=== PATIENT | female | born 1955 | race Caucasian/White ===

== ENCOUNTER 2016-04-04 20:22 | Inpatient (IN) ==
--- NOTE | 2016-04-04 20:57 | Emergency Department Note ---
Disposition Clinical Impression: Hyperbilirubinemia, Pancreatic mass, Pneumonia, Anemia Disposition: Admitted As Inpatient Chest Pain HPI - General Chief Complaint: ED Chest Pain Stated Complaint: chest pain, stefanie Time Seen by Provider: 04/04/16 20:40 Source: patient Limitations: no limitations Vital Signs Reviewed: Yes Nursing Notes Reviewed: Yes - History of Present Illness HPI Narrative: 60-year-old female presents to the emergency department with the chief complaint of chest pain. It started this morning while at rest. She reports a heart attack in the past. The pain is constant described as sharp. It does not radiate. She has a history of breast cancer where she underwent a mastectomy and radiation treatment. She has been in remission for 2 years. She reports weight loss and decreased appetite over the last several weeks. She is not having abdominal pain. Denies any diaphoresis. Severity scale (1-10): 10 - Related Data Home Medications Medication Instructions Recorded Confirmed Ibuprofen [Motrin] 600 mg PO TID 11/20/14 04/05/16 Metoprolol [Lopressor] 50 mg PO BID 11/20/14 04/05/16 Albuterol Sulfate [Ventolin Hfa] 2 puff IH Q4HR 04/05/16 04/05/16 Buprenorphine HCl/Naloxone HCl 1 each SL BID 04/05/16 04/05/16 [Suboxone 8 mg-2 mg Sl Film] Cyanocobalamin (Vitamin B-12) 100 mcg PO DAILY 04/05/16 04/05/16 [Vitamin B-12] Fluticasone/Vilanterol [Breo 1 inh IH DAILY 04/05/16 04/05/16 Ellipta 100-25 Mcg INH] Folic Acid 0.4 mg PO DAILY 04/05/16 04/05/16 Omeprazole Magnesium 20 mg PO QAM 04/05/16 04/05/16 Ropinirole HCl [Requip] 0.25 mg PO HS 04/05/16 04/05/16 Previous Rx's Medication Instructions Recorded Atorvastatin [Lipitor] 40 mg PO HS #30 tablet 11/24/14 Clopidogrel [Plavix] 75 mg PO DAILY #30 tablet 11/24/14 Allergies Allergy/AdvReac Type Severity Reaction Status Date / Time No Known Drug Allergies Allergy See Verified 02/04/16 10:52 Comments codeine AdvReac Severe shortness Verified 04/05/16 05:51 of breath All systems ED: reviewed and negative except as stated. Constitutional: Denies: fever Cardiovascular: Reports: chest pain. Denies: dyspnea on exertion Respiratory: Reports: cough. Denies: wheezes Gastrointestinal: Reports: abdominal pain, nausea. Denies: vomiting, hematochezia Genitourinary: Denies: urgency, dysuria Musculoskeletal: Denies: back pain Integumentary: Denies: rash Neurological: Denies: headache, weakness, numbness Endocrine: Reports: fatigue Chest Pain PMH - Past Medical History Medical history: Reports: cancer, CVA, hypertension, myocardial infarction, seizures Surgical history: Reports: appendectomy, breast surgery, cholecystectomy, colostomy, herniorrhaphy, orthopedic, other, other Psychiatric history: Reports: anxiety - Social History Smoking Status: Current some day smoker Alcohol use: Reports: none Drug use: Reports: none Physical Exam General: Thin appearing female, talkative and oriented 3 Cardiovascular: Regular rate and rhythm. S1, S2. No murmurs, rubs or gallops. Respiratory: Occasional expiratory wheeze bilaterally. Coarse cough on exam. No respiratory distress. Pulse ox 90% on room air. Abdomen: Soft, nontender. No guarding, rebound or rigidity. Normal bowel sounds throughout. Negative Lovelace's. No palpable organomegaly she has a bruise around her bellybutton and she has an old surgical scar from a colostomy. Eyes: Mild scleral icterus HENT: Normocephalic, no signs of head injury. No oral mucosal lesions. Moist mucous membranes Neuro: Cranial nerves intact. No motor or sensory deficit. Musculoskeletal: No joint tenderness or swelling Skin: No lesions. No diaphoresis. Normal turgor. Normal color Psych: Appropriate - General Limitations: no limitations General appearance: alert, in no apparent distress Course Course Narrative: 60-year-old female with a history of coronary artery disease and previous breast cancer presents to the emergency department with coughing and chest discomfort. Patient is Jaundice on initial examination but otherwise appeared comfortable and stable vital signs. Her EKG showed no acute ischemic changes and her troponin was not elevated. Patient states she has been coughing and having some chest discomfort and x-ray shows a lower lobe pneumonia. A CT scan was ordered of her abdomen because she has had decreased appetite and she appeared jaundiced. It appears that she has a new mass in her pancreas and she has some intrahepatic biliary dilation. Her AST, a LT and alkaline phosphatase are elevated. Her bilirubin is 6.7 which is new for her. Patient has painless jaundice and concern that this mass is a cancer/malignancy. Patient will be admitted for pancreatic mass, pneumonia, jaundice and anemia. Discussed with the on-call hospitalist who accepts for admission, no further orders at this time Vital Signs Temperature 97.7 F 04/04/16 20:24 Pulse Rate 86 04/04/16 20:24 Respiratory Rate 18 04/04/16 20:24 Blood Pressure 115/81 04/04/16 20:24 O2 Sat by Pulse Oximetry 95 04/04/16 20:24 Temperature 98.4 F 04/05/16 05:40 Pulse Rate 139 04/05/16 05:40 Respiratory Rate 18 04/05/16 05:40 Blood Pressure 99/64 04/05/16 05:40 O2 Sat by Pulse Oximetry 94 L 04/05/16 00:32 Oxygen Delivery Oxygen Delivery Nasal Cannula Chest Pain - Lab Data Result diagrams: 04/05/16 05:00 04/05/16 05:00 Lab Results 04/04/16 04/04/16 04/04/16 Range/Units 21:17 21:17 21:17 WBC 7.1 (4.3-11.1) K/mcL RBC 3.34 L (3.82-4.97) M/mcL Hgb 8.9 L (11.5-15.4) g/dL Hct 27.3 L (35.3-44.9) % MCV 81.7 L (83.0-100.0) fL MCH 26.6 L (28.0-33.3) pg MCHC 32.6 (31.6-35.5) g/dL RDW 15.9 H (11.5-14.5) % Plt Count 247 (140-400) K/mcL MPV 10.6 (9.4-12.4) fL Immature Gran % 0.6 (0-4) % Seg Neutrophils % 85.6 % Lymphocytes % 4.9 % Monocytes % 8.2 % Eosinophils % 0.4 % Basophils % 0.3 % Neutrophils # 6.1 (1.6-8.9) K/mcL Lymphocytes # 0.4 L (0.6-4.6) K/mcL Monocytes # 0.6 (0.0-1.3) K/mcL Eosinophils # 0.0 (0.0-0.6) K/mcL Basophils # 0.0 (0.0-0.2) K/mcL Platelet Estimate Normal (Normal) Hypochromasia Present A (Not Present) Target Cells 1+ A (Not Present) Sodium 136 (136-145) mEq/L Potassium 3.6 (3.5-4.5) mEq/L Chloride 101 (98-109) mEq/L Carbon Dioxide 27 (19-29) mEq/L BUN 24 H (7-20) mg/dL Creatinine 0.67 (0.57-1.11) mg/dL Est GFR ( Amer) > 60 (> 60) Est GFR (Non-Af Amer) > 60 (> 60) BUN/Creatinine Ratio 36 H (6-26) Glucose 115 H (70-99) mg/dL Calculated Osmolality 287 (280-300) Calcium 9.1 (8.6-10.8) mg/dL Total Bilirubin 6.7 H (0.2-1.2) mg/dL AST 118 H (5-34) Units/L ALT 99 H (0-55) Units/L Alkaline Phosphatase 1096 H (38-126) Units/L Troponin I 0.01 (0-0.03) ng/mL Serum Total Protein 6.4 (6.0-8.3) g/dL Albumin 1.9 L (3.5-5.0) g/dL Globulin 4.5 H (2.4-3.5) g/dL Albumin/Globulin Ratio 0.4 L (1.1-2.2) Lipase 7 L (8-78) Units/L TSH (0.350-4.840) mcIU/mL 04/04/16 Range/Units 21:17 WBC (4.3-11.1) K/mcL RBC (3.82-4.97) M/mcL Hgb (11.5-15.4) g/dL Hct (35.3-44.9) % MCV (83.0-100.0) fL MCH (28.0-33.3) pg MCHC (31.6-35.5) g/dL RDW (11.5-14.5) % Plt Count (140-400) K/mcL MPV (9.4-12.4) fL Immature Gran % (0-4) % Seg Neutrophils % % Lymphocytes % % Monocytes % % Eosinophils % % Basophils % % Neutrophils # (1.6-8.9) K/mcL Lymphocytes # (0.6-4.6) K/mcL Monocytes # (0.0-1.3) K/mcL Eosinophils # (0.0-0.6) K/mcL Basophils # (0.0-0.2) K/mcL Platelet Estimate (Normal) Hypochromasia (Not Present) Target Cells (Not Present) Sodium (136-145) mEq/L Potassium (3.5-4.5) mEq/L Chloride (98-109) mEq/L Carbon Dioxide (19-29) mEq/L BUN (7-20) mg/dL Creatinine (0.57-1.11) mg/dL Est GFR ( Amer) (> 60) Est GFR (Non-Af Amer) (> 60) BUN/Creatinine Ratio (6-26) Glucose (70-99) mg/dL Calculated Osmolality (280-300) Calcium (8.6-10.8) mg/dL Total Bilirubin (0.2-1.2) mg/dL AST (5-34) Units/L ALT (0-55) Units/L Alkaline Phosphatase (38-126) Units/L Troponin I (0-0.03) ng/mL Serum Total Protein (6.0-8.3) g/dL Albumin (3.5-5.0) g/dL Globulin (2.4-3.5) g/dL Albumin/Globulin Ratio (1.1-2.2) Lipase (8-78) Units/L TSH 1.061 (0.350-4.840) mcIU/mL Attestation Statement - Attestation Attestation: Dr rOozco note: Pt seen in conjunction w/ Resident Dr Yao Wayne; Please see his charting for complete documentation; I agree w/ pt's treatment and disposition and spent face to face time with the pt; CT scan results noted. This unfortunate patient has had a gradual decline over many months. She has unfortunately not sought medical care to a significant extent over the last few weeks. No vomiting. Diffuse jaundice noted. Showed poor prognosis. CT results are shared with the patient and family at bedside. Admitted to the hospital for further treatment and evaluation
[2016-04-04 21:26] LABS: Basophils % 0.3 %; Eosinophils % 0.4 %; Hematocrit 27.3 % (35.3-44.9); Hemoglobin 8.9 g/dL (11.5-15.4); Immature Granulocytes % 0.6 % (0-4); Lymphocytes # 0.4 K/mcL (0.6-4.6); Lymphocytes % 4.9 %; Mean Corpuscular HGB Conc 32.6 g/dL (31.6-35.5); Mean Corpuscular Hemoglobin 26.6 pg (28.0-33.3); Mean Corpuscular Volume 81.7 fL (83.0-100.0); Mean Platelet Volume 10.6 fL (9.4-12.4); Monocytes # 0.6 K/mcL (0.0-1.3); Monocytes % 8.2 %; Neutrophils # 6.1 K/mcL (1.6-8.9); Platelet Count 247 K/mcL (140-400); Red Blood Count 3.34 M/mcL (3.82-4.97); Red Cell Distribution Width 15.9 % (11.5-14.5); Segmented Neutrophils % 85.6 %
[2016-04-04 21:43] LABS: Alanine Aminotransferase 99 Units/L (0-55); Albumin/Globulin Ratio 0.4 (1.1-2.2); Alkaline Phosphatase 1096 Units/L (38-126); Aspartate Amino Transferase 118 Units/L (5-34); BUN/Creatinine Ratio 36 (6-26); Bilirubin,Total 6.7 mg/dL (0.2-1.2); Blood Urea Nitrogen 24 mg/dL (7-20); Calcium 9.1 mg/dL (8.6-10.8); Carbon Dioxide 27 mEq/L (19-29); Chloride 101 mEq/L (98-109); Globulin 4.5 g/dL (2.4-3.5); Glucose 115 mg/dL (70-99); Lipase 7 Units/L (8-78); Osmolality,Calculated 287 (280-300); Potassium 3.6 mEq/L (3.5-4.5); Sodium 136 mEq/L (136-145); Total Protein 6.4 g/dL (6.0-8.3); eGFR For African Americans > 60 (> 60); eGFR For Non-African Americans > 60 (> 60)
[2016-04-04 21:46] LABS: Albumin 1.9 g/dL (3.5-5.0)
[2016-04-04 21:55] LABS: Hypochromasia Present (Not Present)
[2016-04-04 21:56] LABS: Platelet Estimate Normal (Normal); Target Cells 1+ (Not Present)
[2016-04-04] MEDS ORDERED: Levofloxacin 750 MG/150 ML 750 MG/150 ML BAG IVPB ONE (22:24)
[2016-04-05] MEDS ORDERED: Naloxone 0.4 MG/ML INJ IVP PRN (01:03)
[2016-04-05] MEDS ORDERED: 0.9 % Sodium Chloride 1,000 ML IVC SCH (01:15)
--- NOTE | 2016-04-05 01:19 | Internal Med History&Physical ---
Date of Encounter: 04/05/16 Time of Encounter: 00:00 Assessment and Plan (1) Chest pain Current visit: Yes Status: Acute Patient initially presented to the ED with chest pain and has questionable history of stent placement in the past Does have Plavix listed on her home medications, however she says she has stopped taking this Possible ischemic in etiology as patient's hemoglobin was initially 8.9 upon admission, baseline around 12 Initial troponin has been negative, will repeat 2 Qualifiers: Qualified Code(s): R07.9 - Chest pain, unspecified (2) Pancreatic mass Current visit: Yes Status: Acute CT abdomen demonstrated a 1.3 cm cystic mass in the head and body of the pancreas, suspicious for malignancy Consult GI for possible ERCP; she did have this study performed 2 months ago where a sphincterotomy was performed as 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 Will obtain MRCP in the meantime Consult oncology given her history of breast cancer and possible new malignancy NPO for now, support with IVF (3) Community acquired pneumonia Current visit: Yes Status: Acute Chest x-ray and abdominal CT both demonstrate right lower lobe opacification Treat with IV Levaquin 750 mg daily Patient does not meet any SIRS criteria (4) Hyperbilirubinemia Current visit: Yes Status: Acute Likely secondary to pancreatic mass obstructing the biliary tract Patient had elevated bilirubin of 6.7, will confirm that it is a result of direct bilirubin MRCP and GI consult as above (5) HTN (hypertension) Current visit: No Status: Chronic Continue with Lopressor at lower dose given borderline blood pressures Monitor vitals closely while currently on fluid hydration Qualifiers: Qualified Code(s): I10 - Essential (primary) hypertension (6) DVT prophylaxis Current visit: No Status: Acute SCDs in setting of acute anemia Internal Medicine - H&P: HPI Chief complaint: chest pain Admitted From: Home Plans for Post Hospital Care: Home History of present illness: Ms. Lynn is a 60 year old female who presented to ER with chest pain started earlier this morning. She states that the pain was sharp and started while she was at rest. She does have a history of an [place] in the past and states this does not feel the same. Of note, patient has lost roughly 60-70 pounds in the past year due to poor appetite. He does have a history of breast cancer status post radiation and mastectomy and also previously had a colostomy due to a bowel obstruction. She states that shortly after she eats "2 or 3 bites" of food, she gets extremely bloated, and also complains of intermittent nausea, vomiting, diarrhea. She did mention about a month ago she had an ERCP done by Dr. 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 Patient also reports mild shortness of breath worse with exertion and a nonproductive cough. She denies any fevers, chills, bloody bowel movements or urinary complaints. Past Med Surg Social Fam HX - Past Medical History Medical history: cancer, CVA, hypertension, myocardial infarction, seizures Psychiatric history: anxiety, panic disorder - Past Surgical History Surgical History: appendectomy, breast surgery, cholecystectomy, colostomy, herniorrhaphy, orthopedic, other - Social History Smoking Status: Current some day smoker Smokeless Tobacco Status: No Alcohol use: none Drug use: none - Family History Mother Hx Family Cancer: Yes (Unspecified type) Father Living Status: Cause of : CVA Hx Family Cardiac Disorders: Yes Hx Family Respiratory Disorders: No Hx Family Cancer: Yes Hx Family GI Disorders: No Hx Family Genitourinary Disorders: No Hx Family Endocrine Disorder: No Hx Family Musculoskeletal Disorders: No Hx Family Neuromuscular Disorders: No Hx Family Neurologic Disorders: Yes Hx Family HEENT Disorders: No Hx Family Autoimmune Disorders: No Hx Family Reproductive Disorders: No Hx Family Medical Disorders: No Sister Hx Family Cardiac Disorders: Yes (Myocardial infarction) Internal Medicine - H&P: Meds Ibuprofen [Motrin] 600 mg PO TID 11/20/14 [History] Metoprolol [Lopressor] 50 mg PO BID 11/20/14 [History] Atorvastatin [Lipitor] 40 mg PO HS #30 tablet 11/24/14 [Rx] Clopidogrel [Plavix] 75 mg PO DAILY #30 tablet 11/24/14 [Rx] Albuterol Sulfate [Ventolin Hfa] 2 puff IH Q4HR 04/05/16 [History] Buprenorphine HCl/Naloxone HCl [Suboxone 8 mg-2 mg Sl Film] 1 each SL BID [History] Cyanocobalamin (Vitamin B-12) [Vitamin B-12] 100 mcg PO DAILY 04/05/16 [History] Fluticasone/Vilanterol [Breo Ellipta 100-25 Mcg INH] 1 inh IH DAILY 04/05/16 [ History] Folic Acid 0.4 mg PO DAILY 04/05/16 [History] Omeprazole Magnesium 20 mg PO QAM 04/05/16 [History] Ropinirole HCl [Requip] 0.25 mg PO HS 04/05/16 [History] Allergies No Known Drug Allergies Allergy (Verified 02/04/16 10:52) See Comments codeine Adverse Reaction (Severe, Verified 04/05/16 05:51) shortness of breath All Systems PM: A 10-system review of systems was performed and is negative for pertinent findings except as documented above in the HPI. - Constitutional Constitutional: anorexia, lethargy, weight loss (lost 60+ pounds in past 1-2 years), no chills, no fever(s), no night sweats - EENT Eyes: no change in vision, no discharge, no pain, no photophobia Ears: no ear discharge, no ear pain, no tinnitus Nose, mouth and throat: no dysphagia, no nasal discharge, no neck pain, no sore throat - Cardiovascular Cardiovascular ROS IM: chest pain, dyspnea on exertion, edema, no diaphoresis, no dyspnea, no lightheadedness, no palpitations, no syncope - Respiratory Respiratory: cough, no dyspnea, no wheezing, no excessive phlegm production - Gastrointestinal Gastrointestinal: abdominal pain, bloating, diarrhea, nausea, vomiting, no hematemesis, no hematochezia, no melena - Genitourinary Genitourinary: no change in urinary stream, no dysuria, no flank pain, no hematuria - Musculoskeletal Musculoskeletal ROS IM: no numbness, no tingling - Integumentary Integumentary IM: no rash, no unusual bruising - Neurological Neurological ROS: no confusion, no convulsions, no focal weakness, no numbness, no tingling, no tremor(s) - Hematologic/Lymphatic Hematologic/Lymphatic: easy bruising - Constitutional Vitals: Temp Pulse Resp BP Pulse Ox 97.7 F 83 15 109/70 94 L 04/05/16 00:32 04/05/16 00:32 04/05/16 00:32 04/05/16 00:32 04/05/16 00:32 General appearance: Present: cachectic, cooperative, pleasant, no acute distress , answers questions appropriately - Head Head exam: Present: atraumatic, normocephalic - Eye Eye exam: Present: PERRL, conjuntiva pink, sclera anicteric - Neck Neck exam general surgery: Present: supple, trachea midline. Absent: lymphadenopathy - Respiratory Respiratory exam: Present: CTAB. Absent: accessory muscle use, rales, rhonchi, wheezes - Cardiovascular Cardiovascular exam: Present: RRR, +S1, +S2. Absent: diastolic murmur, gallop, rubs, systolic murmur - GI/Abdominal GI/Abdominal exam: Present: normal bowel sounds, soft, no peritoneal signs. Absent: distended, tenderness - Extremities Exam Extremities exam: Present: pedal edema (trace pitting edema BL LE), warm, radial pulses palpable and symetrical. Absent: calf tenderness, cyanotic - Neurological Exam Neurological exam: Present: alert, CN II-XII intact, oriented X3, no focal deficits. Absent: pronater drift, facial droop, speech deficit - Skin Skin exam: Present: dry, intact Internal Med - H&P Results - Labs CBC & Chem 7: 04/05/16 05:00 04/04/16 21:17
[2016-04-05] MEDS ORDERED: *HR* Morphine 2 MG/ML SYRINGE IVP PRN (01:21)
[2016-04-05] MEDS ORDERED: *HR* Morphine 2 MG/ML SYRINGE IVP SCH (04:00)
--- NOTE | 2016-04-05 04:20 | Event Note ---
Date of Encounter: 04/05/16 Time of Encounter: 04:18 Patient seen and examined with medical sales representative. Patients presents mainly complaining of chest pain. She was found to have obstructive jaundice. There is cystic masses in the head and body of pancreas. 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 Patient appetite is poor she has lost a significant amount of weights. About 60 to 70 pounds in the past couple of years. Suspicion for malignancy. MRCP performed. Consult oncology. Consult gastroenterology unless she will likely need to be very spent. Patient is on Plavix for a prior cardiac stent. I will hold this Plavix for now. We will get records for the onset of the cardiac stent is not very clear. Patients also has an right lower lobe pneumonia she will be treated with levaqin.
[2016-04-05] MEDS ORDERED: *HR* Metoprolol 5 MG/5 ML VIAL IVP ONE (05:32)
[2016-04-05] MEDS ORDERED: 0.9 % Sodium Chloride 1,000 ML IV ONE (05:33)
[2016-04-05] MEDS ORDERED: *HR* Morphine 2 MG/ML SYRINGE IVP ONE (05:35)
[2016-04-05 05:37] LABS: Monocytes % 1.3 %
[2016-04-05 05:39] LABS: Eosinophils % 0.6 %; Hematocrit 31.8 % (35.3-44.9); Hemoglobin 10.2 g/dL (11.5-15.4); Immature Granulocytes % 21.9 % (0-4); Lymphocytes # 0.3 K/mcL (0.6-4.6); Lymphocytes % 17.4 %; Mean Corpuscular HGB Conc 32.1 g/dL (31.6-35.5); Mean Corpuscular Hemoglobin 26.3 pg (28.0-33.3); Mean Platelet Volume 10.6 fL (9.4-12.4); Neutrophils # 0.9 K/mcL (1.6-8.9); Platelet Count 232 K/mcL (140-400); Red Blood Count 3.88 M/mcL (3.82-4.97); Segmented Neutrophils % 58.8 %
[2016-04-05 05:41] LABS: INR 1.6; Prothrombin Time 17.2 Seconds (9.4-12.1)
[2016-04-05 05:43] LABS: Activated Partial Thrombo Time 29.3 Seconds (26.0-36.0)
[2016-04-05] MEDS: Ondansetron 4 MG/2 ML VIAL IVP PRN (05:58)
[2016-04-05 06:11] LABS: Alanine Aminotransferase 110 Units/L (0-55); Albumin/Globulin Ratio 0.4 (1.1-2.2); Alkaline Phosphatase 1167 Units/L (38-126); Aspartate Amino Transferase 138 Units/L (5-34); BUN/Creatinine Ratio 42 (6-26); Bilirubin,Direct 6.8 mg/dL (0.0-0.5); Bilirubin,Total 8.6 mg/dL (0.2-1.2); Blood Urea Nitrogen 27 mg/dL (7-20); Carbon Dioxide 22 mEq/L (19-29); Chloride 103 mEq/L (98-109); Glucose 66 mg/dL (70-99); Osmolality,Calculated 287 (280-300); Potassium 3.8 mEq/L (3.5-4.5); Sodium 137 mEq/L (136-145); eGFR For African Americans > 60 (> 60); eGFR For Non-African Americans > 60 (> 60)
[2016-04-05 06:24] LABS: Anisocytosis 1+ (Not Present); Poikilocytosis 1+ (Not Present); Polychromasia 1+ (Not Present)
[2016-04-05 06:25] LABS: Platelet Estimate Normal (Normal)
--- NOTE | 2016-04-05 06:26 | Event Note ---
Date of Encounter: 04/05/16 Time of Encounter: 05:40 Paged by nurse concerning patient's chest pain which was 10 out of 10 and she was tachycardic on telemetry and heart rates of 130s. She was given 1 dose of morphine 1 mg IV but she stated that it did not help her pain. EKG was performed at bedside which confirmed the sinus tachycardia and showed possible ST depression in inferior leads that was not evident on her EKG when she initially presented to the ER. Patient was given an additional milligram of morphine along with 2.5 mg of IV metoprolol help control her heart rate. She was bolused 1 L of normal saline and given a dose of Plavix. Troponin was also collected as part of her chest pain rule out. CT angiogram was also ordered to rule out pulmonary embolism.
[2016-04-05] MEDS ORDERED: Pantoprazole 40 MG VIAL IVP SCH ×3 (07:30→09:00)
--- NOTE | 2016-04-05 08:16 | Gastroenterology Consult Note ---
<Joanna Whyte - Last Filed: 04/05/16 11:27> Date of Encounter: 04/05/16 Time of Encounter: 10:35 - Assessment and plan (1) Obstructive jaundice Current Visit: Yes Status: Acute Assessment and plan: MRCP today (2) Anemia Current Visit: Yes Status: Acute Assessment and plan: Initially 8.9 on presentation, currently 10.2. Check Fe profile. Qualifiers: Anemia type: unspecified type Qualified Code(s): D64.9 - Anemia, unspecified (3) Pancreatic mass Current Visit: Yes Status: Acute Assessment and plan: CA markers ordered. MRCP pending. - Time Spent With Patient Total time spent is greater than 50% in coordination of care (as documented) at patient's floor/unit and/or counseling patient: less than 15 minutes GI History of Present Illness - Data of Consult Patient: known to practice within the last 3 years Consult date: 04/05/16 Requesting Physician: Ezio Kumar MD - Consult Narrative Reason for consult: Pancreatic mass, obstructive jaundice History of present illness: Ms. Lynn is a 60 year old female with a PMH of [place] (on Plavix), seizure, CVA , hx of breast ca s/p mastectomy and chemoradiation, hx of bowel obstruction, who presented to ER with chest pain started earlier this morning. She states that the pain was sharp and started while she was at rest. Of note, patient has lost roughly 60-70 pounds in the past year due to poor appetite. She states that shortly after she eats "2 or 3 bites" of food, she gets extremely bloated, and also complains of intermittent nausea, vomiting, diarrhea. Patient also reports mild shortness of breath worse with exertion and a nonproductive cough. She denies any fevers, chills, bloody bowel movements or urinary complaints. She is well-known to GI practice, recently seeing Dr. Streeter in office consultation 03/14/16 at which time a GES was ordered due to patient complaint of early satiety. She was diagnosed with unintentional weight loss, dilation of the biliary tract (which appears stable in current imaging), chronic gastritis, dilated PD, upper abdominal pain and abdominal fullness. She underwent EGD, ERCP and EUS in January, with Dr. Streeter. 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 On todays imaging, there is a 1.3 cm mass in the pancreatic head. Alk phos is grossly elevated at 1167, bilirubin is 8.6. Both AST and ALT are elevated. She has profound leukopenia on am labs, mild anemia. Patient denies any recent medication changes or additions. She came into the ED due to chest pain and dyspnea. She has chronic history of N/V/D - but no substantial changes in those GI symptoms during this event. Colonoscopy: 2012 - Sever - suboptimal exam due to poor prep EGD: 01/2016 - Gul - gastritis, peptic duodenitis Past Med Surg Social Fam HX - Past Medical History Medical history: cancer, CVA, hypertension, myocardial infarction, seizures Psychiatric history: anxiety, panic disorder - Past Surgical History Surgical History: appendectomy, breast surgery, cholecystectomy, colostomy, herniorrhaphy, orthopedic, other - Social History Smoking Status: Current some day smoker Smokeless Tobacco Status: No Alcohol use: none Drug use: none - Family History Mother Hx Family Cancer: Yes (Unspecified type) Father Living Status: Cause of : CVA Hx Family Cardiac Disorders: Yes Hx Family Respiratory Disorders: No Hx Family Cancer: Yes Hx Family GI Disorders: No Hx Family Genitourinary Disorders: No Hx Family Endocrine Disorder: No Hx Family Musculoskeletal Disorders: No Hx Family Neuromuscular Disorders: No Hx Family Neurologic Disorders: Yes Hx Family HEENT Disorders: No Hx Family Autoimmune Disorders: No Hx Family Reproductive Disorders: No Hx Family Medical Disorders: No Sister Hx Family Cardiac Disorders: Yes (Myocardial infarction) - Gastrointestinal NSAID use: None noted Anticoagulation Use: PLAVIX Number of BM Per Day: variable Gastrointestinal: Present: abdominal pain, bloating, diarrhea, nausea, vomiting - Constitutional Constitutional: anorexia, weight loss - EENT Eyes: as per HPI Ears: Present: as per HPI Nose, mouth and throat: Present: as per HPI - Cardiovascular Cardiovascular ROS: Present: chest pain - Respiratory Respiratory IM: Present: dyspnea - Neurological ROS Neurological GI: Present: as per HPI - Hematologic/Lymphatic Hematologic/Lymphatic pediatric: Present: as per HPI - Musculoskeletal Musculoskeletal ROS GI: Present: as per HPI - Integumentary Integumentary GI: Present: as per HPI - Psychiatric ROS Psychiatric GI: Present: as per HPI - Endocrine Endocrine IM: Present: as per HPI - Constitutional Vitals: Temp Pulse Resp BP Pulse Ox 98.7 F 107 16 120/77 96 04/05/16 07:52 04/05/16 07:52 04/05/16 07:52 04/05/16 07:52 04/05/16 07:52 General appearance: Present: cachectic, cooperative, A&O X 3, no acute distress , answers questions appropriately - Head Head exam: Present: atraumatic, normocephalic - Eye Eye exam: Present: scleral icterus - ENT ENT exam: Present: mucous membranes moist - Neck Neck exam general surgery: Present: normal inspection, trachea midline - Respiratory Respiratory exam: Present: CTAB - Cardiovascular Cardiovascular exam: Present: +S1, +S2, tachycardia - GI/Abdominal GI/Abdominal exam: Present: soft, tenderness, no peritoneal signs - Rectal Rectal exam: Present: deferred - Extremities Exam Extremities exam: Present: warm - Neurological Exam Neurological exam: Present: no focal deficits - Psychiatric Psychiatric exam: Present: normal affect, normal mood - Skin Additional comments: jaundice Results - Labs CBC & Chem 7: 04/05/16 09:45 04/05/16 05:00 Labs: Last Result Calcium 9.0 mg/dL (8.6-10.8) 04/05/16 05:00 Troponin I 0.00 ng/mL (0-0.03) 04/05/16 05:00 Entire Visit Hgb 10.2 g/dL (11.5-15.4) L 04/05/16 05:00 Hct 31.8 % (35.3-44.9) L 04/05/16 05:00 PT 17.2 Seconds (9.4-12.1) H 04/05/16 05:00 Total Bilirubin 8.6 mg/dL (0.2-1.2) H 04/05/16 05:00 AST 138 Units/L (5-34) H 04/05/16 05:00 ALT 110 Units/L (0-55) H 04/05/16 05:00 Lipase 7 Units/L (8-78) L 04/04/16 21:17 - ABG ABG results: PT/INR, D-dimer PT 17.2 Seconds (9.4-12.1) H 04/05/16 05:00 - Impressions Impressions Chest CTA 04/05/16 05:29 IMPRESSION: No definite pulmonary embolus Multifocal pneumonia, greatest in right lower lobe. Mild mediastinal adenopathy, unchanged from chest CT 10/15/2015 D/ / Rom Najera MD / Rom Najera MD Interpreting Provider: Rom Najera MD Consult Discharge Plan - Plan Referrals: Mona Mitchell MD [Primary Care Provider] - <[email or web address] - Last Filed: 04/05/16 18:19> Date of Encounter: 04/05/16 Time of Encounter: 17:00 - Time Spent With Patient Total time spent is greater than 50% in coordination of care (as documented) at patient's floor/unit and/or counseling patient: GI History of Present Illness - Data of Consult Requesting Physician: Topher Roque DO - Consult Narrative History of present illness: Ms. Lynn is a 60 year old female - Constitutional Vitals: Temp Pulse Resp BP Pulse Ox 97.9 F 94 20 110/75 99 04/05/16 11:04 04/05/16 11:04 04/05/16 11:04 04/05/16 11:04 04/05/16 11:04 Results - Labs CBC & Chem 7: 04/05/16 09:45 04/05/16 05:00 Labs: Last Result Calcium 9.0 mg/dL (8.6-10.8) 04/05/16 05:00 Iron 8 mcg/dL (50-170) L 04/05/16 12:42 % Saturation 5 % (15-50) L 04/05/16 12:42 Transferrin 110 mg/dL (180-382) L 04/05/16 12:42 Troponin I 0.01 ng/mL (0-0.03) 04/05/16 09:45 Entire Visit Hgb 8.6 g/dL (11.5-15.4) L D 04/05/16 09:45 Hct 26.6 % (35.3-44.9) L 04/05/16 09:45 PT 17.2 Seconds (9.4-12.1) H 04/05/16 05:00 Total Bilirubin 8.6 mg/dL (0.2-1.2) H 04/05/16 05:00 AST 138 Units/L (5-34) H 04/05/16 05:00 ALT 110 Units/L (0-55) H 04/05/16 05:00 Lipase 7 Units/L (8-78) L 04/04/16 21:17 - ABG ABG results: PT/INR, D-dimer PT 17.2 Seconds (9.4-12.1) H 04/05/16 05:00 - Impressions Impressions Chest CTA 04/05/16 05:29 IMPRESSION: No definite pulmonary embolus Multifocal pneumonia, greatest in right lower lobe. Mild mediastinal adenopathy, unchanged from chest CT 10/15/2015 D/ / Rom Najera MD / Rom Najera MD Interpreting Provider: Rom Najera MD - Attending Attestation I examined this patient and my medical decision-making was reviewed with the INSPECTOR [employer]OPE/PA/Advanced Practice Nurse/Resident Physician. I agree with the documented findings, disposition and treatment plan as described except to the extent set forth below. Patient with abdominal pain and jaundice and double duct sign. Weight loss and imaging concerning for possible mass in the neck region of the pancreas. Recommendation: EUS with ERCP tomorrow with biopsy of the mass
[2016-04-05] MEDS ORDERED: *HR* HYDROmorphone (PF) 1 MG/ML SYRINGE IVP PRN (09:27)
[2016-04-05] MEDS: D5% in 0.45% NACL 1,000 ML IVC SCH (09:48)
[2016-04-05] MEDS: *HR* Morphine 2 MG/ML SYRINGE IVP SCH ×3 (09:48→13:22)
[2016-04-05] MEDS: Cyanocobalamin (B-12) 1,000 MCG TABLET PO SCH (09:48)
[2016-04-05] MEDS: Folic Acid 1 MG TABLET PO SCH (09:48)
[2016-04-05 09:53] LABS: Basophils % 0.1 %; Hematocrit 26.6 % (35.3-44.9); Immature Granulocytes % 1.6 % (0-4); Lymphocytes # 0.3 K/mcL (0.6-4.6); Lymphocytes % 2.6 %; Mean Corpuscular HGB Conc 32.3 g/dL (31.6-35.5); Mean Corpuscular Hemoglobin 26.6 pg (28.0-33.3); Mean Corpuscular Volume 82.4 fL (83.0-100.0); Mean Platelet Volume 10.4 fL (9.4-12.4); Monocytes # 0.5 K/mcL (0.0-1.3); Monocytes % 4.7 %; Neutrophils # 8.7 K/mcL (1.6-8.9); Platelet Count 186 K/mcL (140-400); Red Blood Count 3.23 M/mcL (3.82-4.97)
[2016-04-05 09:54] LABS: Hemoglobin 8.6 g/dL (11.5-15.4)
[2016-04-05 10:16] LABS: Platelet Estimate Normal (Normal)
--- NOTE | 2016-04-05 12:57 | Electrocardiograph Report ---
[address] [address] Test Date: 2016-04-04 Pat Name: Brennan Lynn Department: 104 Room: 2NE26 Gender: F Pattern Checker: : 1955 Requested By: Yao Wayne Order Number: [id number] Reading MD: Jinny Frazier Measurements Intervals [place] Rate: 78 P: 84 [place]: 112 QRS: 88 QRSD: 88 T: 56 QT: 402 QTc: 435 Interpretive Statements SINUS RHYTHM WITH SHORT [place] INTERVAL POSSIBLE LEFT ATRIAL ENLARGEMENT NONSPECIFIC T-WAVE ABNORMALITY Electronically Signed On 04-05-2016 12:56:12 EST by Jinny Frazier
--- NOTE | 2016-04-05 13:02 | Electrocardiograph Report ---
[address] [address] Test Date: 2016-04-05 Pat Name: Brennan Lynn Department: 111 Room: E26 Gender: F Farm Crew Member: : 1955 Requested By: Yao Wayne Order Number: [id number] Reading MD: Jinny Frazier Measurements Intervals [place] Rate: 133 P: 84 RI: 99 QRS: 89 QRSD: 86 T: 29 QT: 284 QTc: 362 Interpretive Statements SINUS TACHYCARDIA WITH SHORT [place] INTERVAL NONSPECIFIC ST \T\ T-WAVE ABNORMALITY ABNORMAL RHYTHM ECG Electronically Signed On 04-05-2016 12:59:53 EST by Jinny Frazier
[2016-04-05 13:04] LABS: % Iron Saturation 5 % (15-50); Iron 8 mcg/dL (50-170); Transferrin 110 mg/dL (180-382)
[2016-04-05] MEDS ORDERED: Nicotine 14 MG PATCH.TD24 TD PRN (14:17)
--- NOTE | 2016-04-05 14:56 | Internal Med Progress Note ---
<Lobo Astudillo - Last Filed: 04/05/16 16:48> Date of Encounter: 04/05/16 Time of Encounter: 09:40 - Assessment and plan (1) Pancreatic mass Current Visit: Yes Status: Acute Assessment and plan: CT of abdomen/pelvis showed stable intrahepatic biliary ductal dilation and distal pancreatic ductal dilation, 1.3 cm cystic foci in head and body of the pancreas, dilated appearance of distal pancreatic duct. Patient takes suboxone for pain management-goes to clinic in [place]. SHe has lost 60-70 pounds int he last year due to poor appetite. She states she feels "bloated" whenever she eats. Will try a trial of Creon with meals. COnsult to palliative care for pain control. Patient recently had ERCP with sphincterotomy ofr papillary stenosis. MRCP pending. COnsult to GI for recommendations. CA 19-9 pending. Plan to get oncology on board tomorrow. Of note, patient has hx of breast cancer. (2) Hyperbilirubinemia Current Visit: Yes Status: Acute Assessment and plan: plan as above. (3) Obstructive jaundice Current Visit: Yes Status: Acute Assessment and plan: plan as #1 above. (4) Anemia Current Visit: Yes Status: Acute Assessment and plan: Patient's Hg measured at 8.6. Her baseline Hg is around 12-13. MCV was 82.4, with hypochromasia, TSH normal. Iron studies show low iron, %saturation, transferrin. Ferrous sulfate TID with meals. Qualifiers: Anemia type: unspecified type Qualified Code(s): D64.9 - Anemia, unspecified (5) Chest pain Current Visit: Yes Status: Acute Assessment and plan: Patient initially came in with CP. CTA negative for PE. possible ischemic etiology in setting of Anemia. Tropes x3 negative. Continue to monitor, continue with iron replacement. Qualifiers: Chest pain type: unspecified Qualified Code(s): R07.9 - Chest pain, unspecified (6) Community acquired pneumonia Current Visit: Yes Status: Acute Assessment and plan: CXR shows right lower lobe opacification. Levaquin 750 daily- Day 1. blood cultures x2 pending. Patient does not currently meet SIRS criteria. Continue to monitor. Will check lactate and trend. (7) HTN (hypertension) Current Visit: No Status: Chronic Assessment and plan: Continue Lopressor. Qualifiers: Hypertension type: essential hypertension Qualified Code(s): I10 - Essential (primary) hypertension (8) Goals of care, counseling/discussion Current Visit: Yes Status: Acute Assessment and plan: Patient is currently full code. Palliative care was consulted to discuss goals of care. For now, patient and family state that patient would like to stay full code. Will continue ongoing discussion based on MRCP results. Palliative care is managing the patient's pain control. (9) DVT prophylaxis Current Visit: No Status: Acute Assessment and plan: EPCDs - Time Spent With Patient less than 15 minutes - Subjective Interval history: 60 year old female evaluated at bedside. She was admitted last night with chest pain and intermittent nausea/vomiting/diarrhea. About 1 month ago ad an ERCP done by Dr. Streeter with sphincterotomy for papillary stenosis. Today, patient is alert and oriented x3, states she "feels better." She reports some chest pain , and pain in her shoulders and abdomen. Patient has noticeable jaundice with scleral icterus. She denies current nausea, vomiting, diarrhea or fever. She admits to having chills. Her pain is about 7/10. - Constitutional Vitals: Temp Pulse Resp BP Pulse Ox 97.9 F 94 20 110/75 99 04/05/16 11:04 04/05/16 11:04 04/05/16 11:04 04/05/16 11:04 04/05/16 11:04 General appearance: Present: cachectic, cooperative, A&O X 3, pleasant, no acute distress, answers questions appropriately - Head Head exam: Present: atraumatic, normocephalic - Eye Eye exam: Present: scleral icterus - Neck Neck exam general surgery: Present: supple, trachea midline - Respiratory Additional comments: right upper lobe wheezing. Decreased breath sounds in left lower lobe. - Cardiovascular Cardiovascular exam: Present: +S1, +S2, tachycardia Additional comments: chemo port present on left side of chest. - GI/Abdominal GI/Abdominal exam: Present: normal bowel sounds, soft, tenderness. Absent: distended Additional comments: sacr present down mid-abdomen. Mid abdominal bruising present from heating pad. Severe epigastric tenderness to palpation. - Extremities Exam Additional comments: clubbing present. Delayed capillary refill. Left ankle appears more swollen than right. Internal Medicine: Result - Labs CBC & Chem 7: 04/05/16 09:45 04/05/16 05:00 Labs: Short CBC 04/05/16 04/05/16 Range/Units 05:00 09:45 WBC 1.6 L D 9.5 D (4.3-11.1) K/mcL Hgb 10.2 L 8.6 L D (11.5-15.4) g/dL Hct 31.8 L 26.6 L (35.3-44.9) % Plt Count 232 186 (140-400) K/mcL Neutrophils # 0.9 L 8.7 (1.6-8.9) K/mcL BMP 04/05/16 05:00 Sodium 137 Potassium 3.8 Chloride 103 Carbon Dioxide 22 BUN 27 H Creatinine 0.65 Glucose 66 L Calcium 9.0 Cardiac Enzymes 04/05/16 04/05/16 Range/Units 05:00 09:45 Troponin I 0.00 0.01 (0-0.03) ng/mL Liver Function 04/05/16 Range/Units 05:00 Total Bilirubin 8.6 H (0.2-1.2) mg/dL Direct Bilirubin 6.8 H (0.0-0.5) mg/dL AST 138 H (5-34) Units/L ALT 110 H (0-55) Units/L Alkaline Phosphatase 1167 H (38-126) Units/L Albumin 2.0 L (3.5-5.0) g/dL - ABG Interpretation ABG results: PT/INR, D-dimer PT 17.2 Seconds (9.4-12.1) H 04/05/16 05:00 - Impressions Impressions Chest CTA 04/05/16 05:29 IMPRESSION: No definite pulmonary embolus Multifocal pneumonia, greatest in right lower lobe. Mild mediastinal adenopathy, unchanged from chest CT 10/15/2015 D/ / Rom Najera MD / Rom Najera MD Interpreting Provider: Rom Najera MD Consult Discharge Plan - Plan Referrals: Mona Mitchell MD [Primary Care Provider] - <Topher Roque - Last Filed: 04/05/16 18:30> Date of Encounter: 04/05/16 - Constitutional Vitals: Temp Pulse Resp BP Pulse Ox 97.9 F 94 20 110/75 99 04/05/16 11:04 04/05/16 11:04 04/05/16 11:04 04/05/16 11:04 04/05/16 11:04 Internal Medicine: Result - Labs CBC & Chem 7: 04/05/16 09:45 04/05/16 05:00 Labs: Short CBC 04/05/16 04/05/16 Range/Units 05:00 09:45 WBC 1.6 L D 9.5 D (4.3-11.1) K/mcL Hgb 10.2 L 8.6 L D (11.5-15.4) g/dL Hct 31.8 L 26.6 L (35.3-44.9) % Plt Count 232 186 (140-400) K/mcL Neutrophils # 0.9 L 8.7 (1.6-8.9) K/mcL BMP 04/05/16 05:00 Sodium 137 Potassium 3.8 Chloride 103 Carbon Dioxide 22 BUN 27 H Creatinine 0.65 Glucose 66 L Calcium 9.0 Cardiac Enzymes 04/05/16 04/05/16 Range/Units 05:00 09:45 Troponin I 0.00 0.01 (0-0.03) ng/mL Liver Function 04/05/16 Range/Units 05:00 Total Bilirubin 8.6 H (0.2-1.2) mg/dL Direct Bilirubin 6.8 H (0.0-0.5) mg/dL AST 138 H (5-34) Units/L ALT 110 H (0-55) Units/L Alkaline Phosphatase 1167 H (38-126) Units/L Albumin 2.0 L (3.5-5.0) g/dL - ABG Interpretation ABG results: PT/INR, D-dimer PT 17.2 Seconds (9.4-12.1) H 04/05/16 05:00 - Impressions Impressions Chest CTA 04/05/16 05:29 IMPRESSION: No definite pulmonary embolus Multifocal pneumonia, greatest in right lower lobe. Mild mediastinal adenopathy, unchanged from chest CT 10/15/2015 D/ / Rom Najera MD / Rom Najera MD Interpreting Provider: Rom Najera MD - Attending Attestation I examined this patient and my medical decision-making was reviewed with the Resident Physician on 04/05/16. I agree with the documented findings, disposition and treatment plan as described except to the extent set forth below. Ms. Lynn was admitted earlier today for abdominal pain and chest pain and found to have a pancreatic mass. She is high risk due to pancreatic mass and potential complications. Ms. Lynn is comfortable currently. Pain is controlled at this time. No other complaints. Exam Alert. Comfortable Heart reg No wheeze No edema I/P 1. Pancreatic mass 2. Severe protein karla malnutrition 3. Weight loss 4. Diarrhea Further diagnoses and plan as above.
--- NOTE | 2016-04-05 15:32 | Palliative - Consult Note ---
Date of Encounter: 04/05/16 Time of Encounter: 15:30 - Assessment and Plan (1) Chest pain Current Visit: Yes Status: Acute Assessment and plan: in all likelyhhod is due to abdonimal process mostl likely the pancreas. Plan to stop the Suboxone, use as needed morphine 4 mg every hour when necessary pain and on stopping the Dilaudid as he has not needed it. She says that the morphine has been helping. There is no need to taper the Suboxone, as the patient is continuing to get opioid. Qualifiers: Qualified Code(s): R07.9 - Chest pain, unspecified (2) Pancreatic mass Current Visit: Yes Status: Acute Assessment and plan: Or endoscopy this evening to investigate this further. Oncology is also been consulted. (3) Community acquired pneumonia Current Visit: Yes Status: Acute Assessment and plan: Under treatment per hospitalist team continue current medications. (4) Obstructive jaundice Current Visit: Yes Status: Acute Assessment and plan: Due to pancreatic mass, there is a endoscopy scheduled for this evening. Continue to follow gastrointestinal is following as well. Palliative-CN HPI - Data of Consult Patient: new to practice Requesting Physician: Topher Roque DO Primary Care Provider: Mona Mitchell - Consult Narrative Palliative Care/Comfort Measures: Palliative care Reason for consult: Pain control, goals of care, CODE STATUS History of present illness: Ms. Lynn is a 60 year old female The history of breast cancer which she was treated with chemotherapy and then when it recurred in 2009 also radiation. Patient still has support but reportedly has not used it for quite a while. Was seen approximately a month ago by Dr. 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 The patient presents with chest pain and high abdominal pain sharp in nature made better with rest and better with medication. It is associated with nausea and some vomiting. Worse with a deep breath and better with shallow breaths pain is gotten markedly worse over just the last few days but she has had it before. Some cough and she has also had some green sputum with it recently as well as shortness of breath. Once back the patient was having somewhat similar symptoms in the above noted bloating and problems with eating CT scan was done that did show ductal dilatation and an ERCP was done at that time there was no mass noted previously there is now a mass noted in the head of the pancreas. This is suspicious for either pancreatic cysts, or possible malignancy. Pain already noted runs across the the front of the chest and abdomen and at its worst is a 10 over 10 at its least its one or 2. She states this is clearly different than the pain she had with her answer for which she got switched over to Suboxone use her off her medications. Pain is an achy pain all over and is much improved now. CC: Topher Roque, DO Abdominal pain and chest pain Past Med Surg Social Fam HX - Past Medical History Medical history: cancer, CVA, hypertension, myocardial infarction, seizures Psychiatric history: anxiety, panic disorder - Past Surgical History Surgical History: appendectomy, breast surgery, cholecystectomy, colostomy, herniorrhaphy, orthopedic, other - Social History Smoking Status: Current some day smoker Smokeless Tobacco Status: No Alcohol use: none Drug use: none - Family History Mother Hx Family Cancer: Yes (Unspecified type) Father Living Status: Cause of : CVA Hx Family Cardiac Disorders: Yes Hx Family Respiratory Disorders: No Hx Family Cancer: Yes Hx Family GI Disorders: No Hx Family Genitourinary Disorders: No Hx Family Endocrine Disorder: No Hx Family Musculoskeletal Disorders: No Hx Family Neuromuscular Disorders: No Hx Family Neurologic Disorders: Yes Hx Family HEENT Disorders: No Hx Family Autoimmune Disorders: No Hx Family Reproductive Disorders: No Hx Family Medical Disorders: No Sister Hx Family Cardiac Disorders: Yes (Myocardial infarction) Medications and Allergies Ibuprofen [Motrin] 600 mg PO TID 11/20/14 [History] Metoprolol [Lopressor] 50 mg PO BID 11/20/14 [History] Clopidogrel [Plavix] 75 mg PO DAILY #30 tablet 11/24/14 [Rx] Albuterol Sulfate [Ventolin Hfa] 2 puff IH Q4HR 04/05/16 [History] Atorvastatin [Lipitor] 40 mg PO HS 04/05/16 [History] Buprenorphine HCl/Naloxone HCl [Suboxone 8 mg-2 mg Sl Film] 1 each SL BID [History] Clopidogrel [Plavix] 75 mg PO DAILY 04/05/16 [History] Cyanocobalamin (Vitamin B-12) [Vitamin B-12] 100 mcg PO DAILY 04/05/16 [History] Fluticasone/Vilanterol [Breo Ellipta 100-25 Mcg INH] 1 inh IH DAILY 04/05/16 [ History] Folic Acid 0.4 mg PO DAILY 04/05/16 [History] Ibuprofen [Motrin] 600 mg PO TID PRN 04/05/16 [History] Omeprazole [PriLOSEC] 20 mg PO DAILY 04/05/16 [History] Ropinirole HCl [Requip] 0.25 mg PO HS 04/05/16 [History] Allergies No Known Drug Allergies Allergy (Verified 02/04/16 10:52) See Comments codeine Adverse Reaction (Severe, Verified 04/05/16 05:51) shortness of breath - Constitutional Constitutional ROS PAL: decreased appetite, anorexia, fatigue, weight loss, no chills - EENT Eyes: no discharge, no pain Ears: no ear discharge, no ear pain Ears, nose, mouth, throat: dry mouth (Dysphagia primarily due to dry mouth according to the patient), dysphagia, no mouth pain - Cardiovascular Cardiovascular ROS: chest pain, chest pain with activity, dyspnea on exertion, no irregular heart rhythm - Respiratory Respiratory: cough, dyspnea, pain on inspiration, chest congestion, excessive phlegm production, change in phlegm color - Gastrointestinal Gastrointestinal: bloating, cramping, loose stools, nausea, vomiting, no constipation - Genitourinary Palliative ROS female: no urinary frequency, no urinary hesitancy, no urinary incontinence - Musculoskeletal Musculoskeletal ROS IM: arthralgias, neck pain, no muscle weakness, no myalgias - Integumentary ROS Integumentary: no rash, no skin pain, no skin ulcer - Neurological Neurological ROS: weakness, no behavioral changes, no disequilibrium, no dizziness - Psychiatric Psychiatric general PM: change in appetite, no homicidal ideation, no hopelessness, no suicidal ideation - Endocrine Endocrine IM: other (No thyroid or neck problems) Palliative Care-Exam - Constitutional Vitals: Temp Pulse Resp BP Pulse Ox 97.9 F 94 20 110/75 99 04/05/16 11:04 04/05/16 11:04 04/05/16 11:04 04/05/16 11:04 04/05/16 11:04 General appearance: Present: no acute distress, thin - Head Head Exam: Present: atraumatic, normal inspection - Eye Eye exam: Present: EOMI, normal appearance - ENT ENT exam: Present: mucous membranes dry, normal oropharynx (Dry) - Neck Neck exam: Present: normal inspection - Respiratory Respiratory exam: Present: decreased breath sounds (Port is noted on the left side of the chest) - Cardiovascular Cardiovascular exam: Present: RRR - GI/Abdominal Exam GI/Abdominal exam: Present: normal bowel sounds, soft. Absent: tenderness - Extremities Exam Extremities exam: Present: normal inspection. Absent: pedal edema, tenderness - Neurological Exam Neurological exam: Present: alert, oriented X3 - Psychiatric Psychiatric exam: Present: normal affect, normal mood. Absent: agitated, anxious, homicidal ideation, suicidal ideation - Skin Skin exam: Present: dry, warm Internal Medicine - CN: Reslt - Labs CBC & Chem 7: 04/05/16 09:45 04/05/16 05:00 Labs: Short CBC 04/05/16 04/05/16 Range/Units 05:00 09:45 WBC 1.6 L D 9.5 D (4.3-11.1) K/mcL Hgb 10.2 L 8.6 L D (11.5-15.4) g/dL Hct 31.8 L 26.6 L (35.3-44.9) % Plt Count 232 186 (140-400) K/mcL Neutrophils # 0.9 L 8.7 (1.6-8.9) K/mcL BMP 04/05/16 05:00 Sodium 137 Potassium 3.8 Chloride 103 Carbon Dioxide 22 BUN 27 H Creatinine 0.65 Glucose 66 L Calcium 9.0 Cardiac Enzymes 04/05/16 04/05/16 Range/Units 05:00 09:45 Troponin I 0.00 0.01 (0-0.03) ng/mL Liver Function 04/05/16 Range/Units 05:00 Total Bilirubin 8.6 H (0.2-1.2) mg/dL Direct Bilirubin 6.8 H (0.0-0.5) mg/dL AST 138 H (5-34) Units/L ALT 110 H (0-55) Units/L Alkaline Phosphatase 1167 H (38-126) Units/L Albumin 2.0 L (3.5-5.0) g/dL - ABG Interpretation ABG results: PT/INR, D-dimer PT 17.2 Seconds (9.4-12.1) H 04/05/16 05:00 - Impressions Impressions Chest CTA 04/05/16 05:29 IMPRESSION: No definite pulmonary embolus Multifocal pneumonia, greatest in right lower lobe. Mild mediastinal adenopathy, unchanged from chest CT 10/15/2015 D/ / Rom Najera MD / Rom Najera MD Interpreting Provider: Rom Najera MD Consult Discharge Plan - Plan Referrals: Mona Mitchell MD [Primary Care Provider] - Palliative Quality Palliative Quality: Screen for Code Status: Yes, Screen for Goals of Care: Yes, Screen for Pain: Yes, If Pain Regimen Started, Initiate Bowel Regimen: NA (She already has loose stools), Screen for Nausea/Vomitting: Yes
[2016-04-05] MEDS ORDERED: NON-FORMULARY MEDICATION 1 EACH EACH (Cyanocobalamin (Vitamin B-12) [Vitamin B-12] 100 MCG PO SCH (15:45)
[2016-04-05] MEDS ORDERED: NON-FORMULARY MEDICATION 1 EACH EACH (Folic Acid [Folic Acid] 0.4 MG) PO SCH (15:45)
[2016-04-05] MEDS ORDERED: Ibuprofen 600 MG TABLET PO PRN (15:45)
[2016-04-05] MEDS: *HR* Morphine 2 MG/ML SYRINGE IVP PRN ×3 (15:52→20:57)
--- NOTE | 2016-04-05 18:16 | Oncology Inp Consult Note ---
Date of Encounter: 04/05/16 Time of Encounter: 18:00 - Data of Consult Requesting Physician: Topher Roque DO Primary Care Provider: oMna Mitchell - Consult Narrative Reason for consult: pancreatic cystic lesion History of present illness: Ms. Lynn is a 60 year old female medical history significant for gastritis, duodenitis status post endoscopy in January 2016 history of breast cancer treated with surgery and 90s, subsequently with recurrence treated with radiation therapy and some form of chemotherapy patient had followed up at [facility] and at [facility] for radiation therapy. She has however not followed up with oncology since 2012. She also has history of CVA hypertension and myocardial infarction and seizures she has abdominal discomfort and weight loss for the last 2 years or so. Patient reported having lost up to 60 pounds in weight. She was seen by gastroenterology in January for dilation of biliary duct and abdominal pain and fullness. She had a Pap every sphincterotomy due to diagnosis of papillary stenosis. Patient returned back with CT abdomen showing a 1.3 cm cystic neoplasm in the pancreatic head. Her bilirubin was elevated to 8.6 she is generally feeling very weak with nausea and no appetite. She has undergone MRI of the abdomen/ MRCP is planned by gastroenterology. A/P Cystic pancreatic lesion suspicious for neoplasm with recurrent hyperbilirubinemia, she is status post EUS in January 2016 with sphincterotomy. Patient has had a MRI of the abdomen, possible intervention MRCP and sampling to obtain tissue diagnosis, relieve biliary obstruction. Dilation of the biliary duct in imaging studies. We will review cytology pathology once available. Abdominal pain currently needing narcotics for pain relief. Poor appetite nausea likely related to hyperbilirubinemia and weight loss possibly for malignancy. History of breast cancer status post mastectomy right breast, recurrence treated with radiation therapy chemotherapy. Chronic anemia noted leukopenia has improved and is currently normal. I discussed the plan of care briefly the patient and her daughter and family. Past Med Surg Social Fam HX - Past Medical History Medical history: cancer, CVA, hypertension, myocardial infarction, seizures Psychiatric history: anxiety, panic disorder - Past Surgical History Surgical History: appendectomy, breast surgery, cholecystectomy, colostomy, herniorrhaphy, orthopedic, other - Social History Smoking Status: Current some day smoker Smokeless Tobacco Status: No Alcohol use: none Drug use: none - Family History Mother Hx Family Cancer: Yes (Unspecified type) Father Living Status: Cause of : CVA Hx Family Cardiac Disorders: Yes Hx Family Respiratory Disorders: No Hx Family Cancer: Yes Hx Family GI Disorders: No Hx Family Genitourinary Disorders: No Hx Family Endocrine Disorder: No Hx Family Musculoskeletal Disorders: No Hx Family Neuromuscular Disorders: No Hx Family Neurologic Disorders: Yes Hx Family HEENT Disorders: No Hx Family Autoimmune Disorders: No Hx Family Reproductive Disorders: No Hx Family Medical Disorders: No Sister Hx Family Cardiac Disorders: Yes (Myocardial infarction) Medications and Allergies Ibuprofen [Motrin] 600 mg PO TID 11/20/14 [History] Metoprolol [Lopressor] 50 mg PO BID 11/20/14 [History] Clopidogrel [Plavix] 75 mg PO DAILY #30 tablet 11/24/14 [Rx] Albuterol Sulfate [Ventolin Hfa] 2 puff IH Q4HR 04/05/16 [History] Atorvastatin [Lipitor] 40 mg PO HS 04/05/16 [History] Buprenorphine HCl/Naloxone HCl [Suboxone 8 mg-2 mg Sl Film] 1 each SL BID [History] Clopidogrel [Plavix] 75 mg PO DAILY 04/05/16 [History] Cyanocobalamin (Vitamin B-12) [Vitamin B-12] 100 mcg PO DAILY 04/05/16 [History] Fluticasone/Vilanterol [Breo Ellipta 100-25 Mcg INH] 1 inh IH DAILY 04/05/16 [ History] Folic Acid 0.4 mg PO DAILY 04/05/16 [History] Ibuprofen [Motrin] 600 mg PO TID PRN 04/05/16 [History] Omeprazole [PriLOSEC] 20 mg PO DAILY 04/05/16 [History] Ropinirole HCl [Requip] 0.25 mg PO HS 04/05/16 [History] Allergies No Known Drug Allergies Allergy (Verified 02/04/16 10:52) See Comments codeine Adverse Reaction (Severe, Verified 04/05/16 05:51) shortness of breath Review of systems: wt loss, poor appetite, nausea, abd fullness pain Otherwise neg Oncology - Exam - Constitutional Vitals: Temp Pulse Resp BP Pulse Ox 97.9 F 94 20 110/75 99 04/05/16 11:04 04/05/16 11:04 04/05/16 11:04 04/05/16 11:04 04/05/16 11:04 Exam: Generally wk, emaciated Skin icterus/scleral icterus Chest Left side infusaport, s/p rt mastectomy Lymphatics-No palpable Sc, cervical or axillary adenopathy CVS S1S2 Abd Soft, Upper and lower quad diffuse tenderness Ext no edema Oncology - Results - Labs Labs: Short CBC 04/05/16 04/05/16 Range/Units 05:00 09:45 WBC 1.6 L D 9.5 D (4.3-11.1) K/mcL Hgb 10.2 L 8.6 L D (11.5-15.4) g/dL Hct 31.8 L 26.6 L (35.3-44.9) % Plt Count 232 186 (140-400) K/mcL Neutrophils # 0.9 L 8.7 (1.6-8.9) K/mcL BMP 04/05/16 05:00 Sodium 137 Potassium 3.8 Chloride 103 Carbon Dioxide 22 BUN 27 H Creatinine 0.65 Glucose 66 L Calcium 9.0 Cardiac Enzymes 04/05/16 04/05/16 Range/Units 05:00 09:45 Troponin I 0.00 0.01 (0-0.03) ng/mL Liver Function 04/05/16 Range/Units 05:00 Total Bilirubin 8.6 H (0.2-1.2) mg/dL Direct Bilirubin 6.8 H (0.0-0.5) mg/dL AST 138 H (5-34) Units/L ALT 110 H (0-55) Units/L Alkaline Phosphatase 1167 H (38-126) Units/L Albumin 2.0 L (3.5-5.0) g/dL Consult Discharge Plan - Plan Referrals: Mona Mitchell MD [Primary Care Provider] -
[2016-04-05] MEDS: Ipratropium/Albuterol Neb 3 ML IH PRN (19:59)
[2016-04-06] MEDS: *HR* Morphine 2 MG/ML SYRINGE IVP PRN (01:35)
[2016-04-06] MEDS: D5% in 0.45% NACL 1,000 ML IVC SCH ×3 (01:35→21:05)
[2016-04-06 05:18] LABS: Basophils % 0.1 %; Eosinophils % 0.2 %; Hematocrit 23.5 % (35.3-44.9); Hemoglobin 7.7 g/dL (11.5-15.4); Immature Granulocytes % 1.6 % (0-4); Lymphocytes # 0.4 K/mcL (0.6-4.6); Lymphocytes % 3.5 %; Mean Corpuscular HGB Conc 32.8 g/dL (31.6-35.5); Mean Corpuscular Hemoglobin 26.6 pg (28.0-33.3); Monocytes # 0.5 K/mcL (0.0-1.3); Monocytes % 4.5 %; Platelet Count 158 K/mcL (140-400); Segmented Neutrophils % 90.1 %
[2016-04-06 05:20] LABS: Neutrophils # 9.6 K/mcL (1.6-8.9)
[2016-04-06 05:23] LABS: Ionized Calcium 1.14 mmol/L (1.15-1.35)
[2016-04-06 05:38] LABS: Alanine Aminotransferase 86 Units/L (0-55); Albumin/Globulin Ratio 0.4 (1.1-2.2); Alkaline Phosphatase 824 Units/L (38-126); Aspartate Amino Transferase 125 Units/L (5-34); BUN/Creatinine Ratio 30 (6-26); Bilirubin,Total 6.9 mg/dL (0.2-1.2); Blood Urea Nitrogen 21 mg/dL (7-20); Calcium 7.7 mg/dL (8.6-10.8); Carbon Dioxide 20 mEq/L (19-29); Chloride 103 mEq/L (98-109); Globulin 3.6 g/dL (2.4-3.5); Glucose 129 mg/dL (70-99); Magnesium 1.2 mg/dL (1.6-2.6); Osmolality,Calculated 279 (280-300); Potassium 3.3 mEq/L (3.5-4.5); eGFR For African Americans > 60 (> 60); eGFR For Non-African Americans > 60 (> 60)
[2016-04-06 05:52] LABS: Albumin 1.4 g/dL (3.5-5.0); Sodium 132 mEq/L (136-145)
[2016-04-06 05:55] LABS: Hypochromasia Present (Not Present); Microcytosis Present (Not Present); Platelet Estimate Normal (Normal); Toxic Granulation Present (Not Present); Toxic Vacuolation Present (Not Present)
[2016-04-06] MEDS ORDERED: POTASSIUM CHLORIDE IVPB ONE (06:12)
[2016-04-06] MEDS ORDERED: D5 IVPB ONE (06:12)
[2016-04-06] MEDS ORDERED: WATER IVPB ONE (06:12)
[2016-04-06] MEDS ORDERED: LIDOCAINE 1% IVPB ONE (06:12)
[2016-04-06] MEDS ORDERED: *HR* OxyCODONE Immed Rel 5 MG TABLET PO PRN (09:06)
[2016-04-06] MEDS ORDERED: 0.9 % Sodium Chloride 1,000 ML ONE (11:40)
[2016-04-06] MEDS ORDERED: 0.9 % Sodium Chloride 1,000 ML IV ONE (11:42)
--- NOTE | 2016-04-06 11:43 | Anesthesia Evaluation PreOp ---
<ElieSofia Rm - Last Filed: 04/08/16 10:56> Date of Encounter: 04/08/16 Time of Encounter: 10:57 - Past History Planned Operation: ERCP w/EBUS Cardiac History: TN (maintained on ASA/Plavix), HTN (maintained on Metoprolol), Hyperlipidemia (maitnained on Lipitor) Pulmonary History: Smoker, COPD (maintained on Breo, Albuterol) TRANSITION RN History: Seizures, CVA (LUE weakness), Other (Anxiety/Panic disorder. Requip for RLS. Meclizine for Vertigo) Other Medical History: GERD (maintained on Prilosec), Other (Hx Breast Ca s/p chemo & rad'n. Malnutrion) Anesthesia History: No Prior Anesthetic Complications, Past Anesthesia (App[facility], Breast surgery, [facility], Colostomy, Hernia repair, Orthopedic surg, ERCP late 2015 [Dr. Streeter]) Alcohol Use: none Drug use: none Medications and Allergies Ibuprofen [Motrin] 600 mg PO TID 11/20/14 [History] Metoprolol [Lopressor] 50 mg PO BID 11/20/14 [History] Clopidogrel [Plavix] 75 mg PO DAILY #30 tablet 11/24/14 [Rx] Albuterol Sulfate [Ventolin Hfa] 2 puff IH Q4HR 04/05/16 [History] Atorvastatin [Lipitor] 40 mg PO HS 04/05/16 [History] Buprenorphine HCl/Naloxone HCl [Suboxone 8 mg-2 mg Sl Film] 1 each SL BID [History] Clopidogrel [Plavix] 75 mg PO DAILY 04/05/16 [History] Cyanocobalamin (Vitamin B-12) [Vitamin B-12] 100 mcg PO DAILY 04/05/16 [History] Fluticasone/Vilanterol [Breo Ellipta 100-25 Mcg INH] 1 inh IH DAILY 04/05/16 [ History] Folic Acid 0.4 mg PO DAILY 04/05/16 [History] Ibuprofen [Motrin] 600 mg PO TID PRN 04/05/16 [History] Omeprazole [PriLOSEC] 20 mg PO DAILY 04/05/16 [History] Ropinirole HCl [Requip] 0.25 mg PO HS 04/05/16 [History] Allergies codeine Adverse Reaction (Severe, Verified 04/05/16 05:51) shortness of breath - Meds/Allergy Pre-op Review Medications Reviewed: Yes Allergies Reviewed: Yes Beta Blockers on Current Med List: Yes Anesthesia Results - Labs 04/08/16 04:45 04/08/16 04:45 Laboratory Tests 04/05/16 04/05/16 04/05/16 05:00 12:42 23:51 PT 17.2 H INR 1.6 APTT 29.3 Sodium Potassium Chloride Carbon Dioxide BUN Creatinine Est GFR (Non-Af Amer) Glucose POC Glucose 110 H Magnesium Iron 8 L 04/06/16 04:50 PT INR APTT Sodium 132 L Potassium 3.3 L Chloride 103 Carbon Dioxide 20 BUN 21 H Creatinine 0.70 Est GFR (Non-Af Amer) > 60 Glucose 129 H POC Glucose Magnesium 1.2 L Iron Laboratory Results Impressions Chest X-Ray 04/04/16 20:52 IMPRESSION: 1. Patchy right lower lobe opacities are suspicious for mild pneumonia. D/ / 04/04/2016 21:28:53 Tam Bae MD / [facility] Interpreting Provider: Tam Bae MD Abdomen/Pelvis CT 04/04/16 21:00 IMPRESSION: 1. Right lower lobe opacities compatible with pneumonia. 2. Stable intrahepatic biliary ductal dilation and distal pancreatic ductal dilation. 3. New cystic foci of the pancreas likely reflective of either pseudocysts or cystic pancreatic neoplasm. Assessment is limited without IV contrast. D/ / Tam Bae MD / Tam Bae MD Interpreting Provider: Tam Bae MD Abdomen MRI 04/05/16 04:13 IMPRESSION: Hypoenhancing 3.1 x 3.0 cm lobulated pancreatic mass centered near the junction of the head and proximal pancreatic body. Extensive dilatation of the common bowel duct which measures up to 2.5 cm and contains layering debris. Prominent dilation of the main pancreatic duct which measures up to 1.1 cm as well as its side branches in the body and tail. Findings concerning for pancreatic carcinoma. No definite adenopathy. Severe intrahepatic biliary dilatation with multiple cystic lesions within the liver, some of which appear somewhat septated. Mild peripheral enhancement of these lesions. No definite enhancing nodular component centrally. Findings may represent primary hepatic cystic lesions or focally dilated bile ducts. Alternatively, findings could also represent small hepatic abscesses. Wedge-shaped region of no enhancement inferior spleen likely representing an infarct. Splenomegaly. Consolidation within the right lower lobe likely representing pneumonia. Ascites. D/ / Nola Bean MD / Nola Bean MD Interpreting Provider: Nola Bean MD Chest CTA 04/05/16 05:29 IMPRESSION: No definite pulmonary embolus Multifocal pneumonia, greatest in right lower lobe. Mild mediastinal adenopathy, unchanged from chest CT 10/15/2015 D/ / Rom Najera MD / Rom Najera MD Interpreting Provider: Rom Najera MD - Imaging EKG: image reviewed (133bpm STach w/ nonspecific ST-T abnormality) Anesthesia Exam Vital Signs Temp Pulse Resp BP Pulse Ox 04/06/16 11:00 16 85/60 96 04/06/16 08:54 93/69 96 04/06/16 07:00 97.6 F 84 87/64 96 04/06/16 04:00 98.1 F 91 16 85/66 95 04/06/16 00:00 99.4 F 107 16 107/68 99 04/05/16 20:10 95 04/05/16 20:02 98 F 78 17 93/36 95 04/05/16 19:59 16 95 Intake and Output 04/05/16 04/06/16 04/06/16 23:59 07:59 15:59 Intake Total 1000 / 1000 Output Total 100 / 100 Balance 1000 / 1000 -100 / -100 Intake: IV Fluids 1000 / 1000 D5% And 0.45% Nacl 1000 1000 / 1000 Ml Bag 1,000 ML @ 75 mls/ hr IVC .[id number] DAXA Rx#: [id number] Output: Urine 100 / 100 Other: Weight 34.9 kg Blood Glucose* 135 148 t Height: 5'6" Weight: 76# NPO (# of Hours): MNoc - HEENT Pupil (Motor): Pupils equal, EOMI Mallampati: II Teeth: Edentulous Oral Opening: Less than or equal to 3 - TRANSITION RN LOC: Oriented TRANSITION RN Motor: Normal RUE, Normal RLE, Normal LLE, Normal Face, Deficit LUE TRANSITION RN Sensory: Normal: RUE, RLE, LLE, Face, Deficit: LUE - Cardiac Rhythm: Regular Murmur: None - Pulmonary Breath Sounds: bilateral Clear Respiratory Effort: Symmetrical Anesthesia Assess/Plan ASA Score: 4 (Pancreatic Mass, COPD, Smoker, Acute pneumonia, Cachexia, CAD,) Modified Elisabet Scale for Level of Consciousness: Cooperative, oriented, and tranquil Anesthetic Plan: General Monitoring Plan: Standard Monitors Recovery Plan: PACU <David Rehman - Last Filed: 04/08/16 11:24> - Meds/Allergy Pre-op Review If Beta Blockers taken, Date/Time (Last Dose taken): 04/07/2016 at 2050 Anesthesia Results - Labs 04/08/16 04:45 04/08/16 04:45 - Imaging Additional studies: 11/21/2014 Echo LVEF 55-60% mild LV diastolic dysfunction mildly enlarged LA mildly thickened and calcified MV leaflets without stenosis mild MR no pulmonary HTN 05/29/2014 Echo Impressions: LVEF 65%. Normal left ventricular structure and function. Mild left ventricular diastolic dysfunction. Normal right ventricular structure and function. No evidence of pulmonary hypertension. RVSP not well obtained due to inadequate TR jet. No significant valvular dysfunction. Trace MR. Anesthesia Exam Pain Scale: 10 (abdomen) Pain Scale Used: Numeric (1 - 10)
--- NOTE | 2016-04-06 12:49 | Internal Med Progress Note ---
<oLbo Astudillo - Last Filed: 04/06/16 14:49> Date of Encounter: 04/06/16 Time of Encounter: 06:45 - Assessment and plan (1) Pancreatic mass Current Visit: Yes Status: Acute Assessment and plan: CT of abdomen/pelvis showed stable intrahepatic biliary ductal dilation and distal pancreatic ductal dilation, 1.3 cm cystic foci in head and body of the pancreas, dilated appearance of distal pancreatic duct. Patient takes suboxone for pain management-goes to clinic in [place]. SHe has lost 60-70 pounds int he last year due to poor appetite. She states she feels "bloated" whenever she eats. Will try a trial of Creon with meals. COnsult to palliative care for pain control. Patient recently had ERCP with sphincterotomy ofr papillary stenosis. MRCP pending. COnsult to GI for recommendations. CA 19-9 pending. Plan to get oncology on board tomorrow. Of note, patient has hx of breast cancer. 04/06/16: MRCP showed hypoenhancing 3.1x3cm lobulated pancreatic mass centered near junction of head and proximal pancreatic body, extensive dilation of the common bile duct, prominent dilation of the main pancreatic duct, severe intrahepatic biliary dilation with multiple cystic lesions within the liver, splenomegaly. Plan is to have EUS with ERCP with biopsy of mass. Added PO oxycodone for pain control, increased fluids to 100ml/hr to maintain blood pressure so tat she can keep getting her pain medications. (2) Hyperbilirubinemia Current Visit: Yes Status: Acute Assessment and plan: plan as above. (3) Obstructive jaundice Current Visit: Yes Status: Acute Assessment and plan: plan as #1 above. (4) Anemia Current Visit: Yes Status: Acute Assessment and plan: Patient's Hg measured at 7.7- drop from 8.6 yesterday. Her baseline Hg is around 12-13. MCV was 81, with hypochromasia, TSH normal. Iron studies show low iron, %saturation, transferrin. Ferrous sulfate TID with meals. Continue to monitor and transfuse as needed. Qualifiers: Anemia type: unspecified type Qualified Code(s): D64.9 - Anemia, unspecified (5) Chest pain Current Visit: Yes Status: Acute Assessment and plan: Patient initially came in with CP. CTA negative for PE. possible ischemic etiology in setting of Anemia. Tropes x3 negative. Continue to monitor, continue with iron replacement. Patient currently chest pain free. Qualifiers: Chest pain type: unspecified Qualified Code(s): R07.9 - Chest pain, unspecified (6) Community acquired pneumonia Current Visit: Yes Status: Acute Assessment and plan: CXR shows right lower lobe opacification. Levaquin 750 daily- Day 2. blood cultures x2 pending. Patient does not currently meet SIRS criteria. Continue to monitor. Lactate elevated today at 3. Will continue to trend. (7) Goals of care, counseling/discussion Current Visit: Yes Status: Acute Assessment and plan: Patient is currently full code. Palliative care was consulted to discuss goals of care. Patient made aware today that it is highly likely she has pancreatic cancer, and made aware that her prognosis is very poor. Pain control per palliative care team. She has also been evaluated by oncology. (8) DVT prophylaxis Current Visit: No Status: Acute Assessment and plan: EPCDs - Subjective Interval history: 60 year old female evaluated at bedside. Per nursing staff there were no acute events overnight. Patient continues to have pain in her RUQ and LUQ of her abdomen. SHe rates the pain as 9/10. SHe denies nausea, vomiting, diarrhea. SHe admits to having chills. Patient had systolic blood pressure in the 80s, and she could not get her pain medication because of this. - Constitutional Vitals: Temp Pulse Resp BP Pulse Ox 97.6 F 91 16 85/60 96 04/06/16 07:00 04/06/16 04:00 04/06/16 11:00 04/06/16 11:00 04/06/16 11:00 General appearance: Present: cachectic, cooperative, A&O X 3, pleasant, no acute distress, answers questions appropriately - Head Head exam: Present: atraumatic, normocephalic - Eye Eye exam: Present: scleral icterus - Neck Neck exam general surgery: Present: supple, trachea midline - Respiratory Additional comments: decreased breath sounds in lower lobes bilaterally. - Cardiovascular Cardiovascular exam: Present: RRR, +S1, +S2 - GI/Abdominal GI/Abdominal exam: Present: soft, tenderness Additional comments: severe left upper quadrant and left lower quadrant tenderness to palpation. - Extremities Exam Extremities exam: Absent: cyanotic, pedal edema - Neurological Exam Neurological exam: Present: alert, oriented X3. Absent: facial droop, speech deficit - Skin Skin exam: Absent: cyanosis Additional comments: diffuse jaundice Internal Medicine: Result - Labs CBC & Chem 7: 04/06/16 04:50 04/06/16 04:50 Labs: Short CBC 04/06/16 Range/Units 04:50 WBC 10.7 (4.3-11.1) K/mcL Hgb 7.7 L (11.5-15.4) g/dL Hct 23.5 L (35.3-44.9) % Plt Count 158 (140-400) K/mcL Neutrophils # 9.6 H (1.6-8.9) K/mcL BMP 04/06/16 04:50 Sodium 132 L Potassium 3.3 L Chloride 103 Carbon Dioxide 20 BUN 21 H Creatinine 0.70 Glucose 129 H Calcium 7.7 L Liver Function 04/06/16 Range/Units 04:50 Total Bilirubin 6.9 H (0.2-1.2) mg/dL AST 125 H (5-34) Units/L ALT 86 H (0-55) Units/L Alkaline Phosphatase 824 H (38-126) Units/L Albumin 1.4 L D (3.5-5.0) g/dL - ABG Interpretation ABG results: PT/INR, D-dimer PT 17.2 Seconds (9.4-12.1) H 04/05/16 05:00 Consult Discharge Plan - Plan Instructions: Chest Pain (DC), Anemia (GEN), Pneumonia (DC) Referrals: Mona Mitchell MD [Primary Care Provider] - <Topher Roque - Last Filed: 04/06/16 18:00> Date of Encounter: 04/06/16 - Assessment and plan (1) Obstructive jaundice Current Visit: Yes Status: Acute (2) Hyperbilirubinemia Current Visit: Yes Status: Acute (3) Pancreatic mass Current Visit: Yes Status: Acute (4) Anemia Current Visit: Yes Status: Acute Qualifiers: Anemia type: other cause Other causes of anemia: chronic disease, other Qualified Code(s): D63.8 - Anemia in other chronic diseases classified elsewhere (5) Pneumonia Current Visit: Yes Status: Acute Qualifiers: Pneumonia type: due to unspecified organism Laterality: right Lung location: lower lobe of lung Qualified Code(s): J18.1 - Lobar pneumonia, unspecified organism (6) Hypertension Current Visit: Yes Status: Acute Qualifiers: Hypertension type: essential hypertension Qualified Code(s): I10 - Essential (primary) hypertension (7) Diarrhea Current Visit: Yes Status: Acute Qualifiers: Diarrhea type: unspecified type Qualified Code(s): R19.7 - Diarrhea, unspecified - Constitutional Vitals: Temp Pulse Resp BP Pulse Ox 98.2 F 87 16 91/64 97 04/06/16 16:00 04/06/16 15:58 04/06/16 16:00 04/06/16 16:00 04/06/16 16:00 Internal Medicine: Result - Labs CBC & Chem 7: 04/06/16 04:50 04/06/16 04:50 Labs: Short CBC 04/06/16 Range/Units 04:50 WBC 10.7 (4.3-11.1) K/mcL Hgb 7.7 L (11.5-15.4) g/dL Hct 23.5 L (35.3-44.9) % Plt Count 158 (140-400) K/mcL Neutrophils # 9.6 H (1.6-8.9) K/mcL BMP 04/06/16 04:50 Sodium 132 L Potassium 3.3 L Chloride 103 Carbon Dioxide 20 BUN 21 H Creatinine 0.70 Glucose 129 H Calcium 7.7 L Liver Function 04/06/16 Range/Units 04:50 Total Bilirubin 6.9 H (0.2-1.2) mg/dL AST 125 H (5-34) Units/L ALT 86 H (0-55) Units/L Alkaline Phosphatase 824 H (38-126) Units/L Albumin 1.4 L D (3.5-5.0) g/dL - ABG Interpretation ABG results: PT/INR, D-dimer PT 17.2 Seconds (9.4-12.1) H 04/05/16 05:00 - Attending Attestation I examined this patient and my medical decision-making was reviewed with the Resident Physician on 04/06/16. I agree with the documented findings, disposition and treatment plan as described except to the extent set forth below. Ms. Lynn is currently admitted for abdominal pain related to pancreatic mass and obstructive jaundice. She is moderate to high risk due to potential of worsening hepatic disease and pain as well as profound malnutrition. Ms. Lynn is having more pain today. She is nauseated at times and cannot eat much. No fever. No dypsnea currently. Exam Alert. Mod distress due to pain Heart reg No wheeze Abd with epigastric discomfort I/P 1. Obstructive jaundice due to pancreatic mass - ERCP and biopsy held due to BP and H/H 2. Hypotension - fluid bolus 3. Anemia - most likely chronic disease. Transfusion today. Further diagnoses and plan as above.
[2016-04-06] MEDS ORDERED: *HR* FentaNYL (PF) 100 MCG/2 ML VIAL IVP ONE (13:29)
[2016-04-06] MEDS ORDERED: Magnesium Sulfate 2 GM in D5% in Water 100 ML IVPB ONE (13:31)
--- NOTE | 2016-04-06 13:44 | Palliative Progress Note ---
Date of Encounter: 04/06/16 Time of Encounter: 09:40 - Assessment and plan (1) Chest pain Current Visit: Yes Status: Acute Assessment and plan: I believe this to be secondary to pancreatic mass, MRCP looked poor patient will have endoscopy this afternoon. Patient's medications are working for her according to the patient, however her blood pressure has been too low for them at times. Patient's primary care team is trying to bring up her blood pressure with fluids to be able to take pain medications. She may require change in CODE STATUS. Qualifiers: Chest pain type: unspecified Qualified Code(s): R07.9 - Chest pain, unspecified (2) Pancreatic mass Current Visit: Yes Status: Acute Assessment and plan: Further workup will proceed today at 1300 hrs. with an ERCP. (3) Community acquired pneumonia Current Visit: Yes Status: Acute Assessment and plan: Continue antibiotics as per hospitalist team. (4) Obstructive jaundice Current Visit: Yes Status: Acute Assessment and plan: Other workup done today with GI. Resort even evaluated by oncology this is very suspicious for a pancreatic cancer. Further recommendations be made after tissue biopsies are obtained. - Time Spent With Patient Total time spent is greater than 50% in coordination of care (as documented) at patient's floor/unit and/or counseling patient: - Subjective Interval history: The patient states that she is due to have procedure today around 1300 hrs. States that her medications are working for her when she gets them, however her dictation was held on at least one occasion if not 2 due to low blood pressure. He should team is trying to give her extra fluid to try to increase her blood pressure so that she can have her pain medication. Discussed this at length please see the assessment and plan. Her hospitalist team MRCP did not look good, her ercP is being done today at 1300 hrs. - Constitutional Vitals: Abnormal lab results RBC 2.90 M/mcL (3.82-4.97) L 04/06/16 04:50 Hgb 7.7 g/dL (11.5-15.4) L 04/06/16 04:50 Hct 23.5 % (35.3-44.9) L 04/06/16 04:50 MCV 81.0 fL (83.0-100.0) L 04/06/16 04:50 MCH 26.6 pg (28.0-33.3) L 04/06/16 04:50 RDW 16.0 % (11.5-14.5) H 04/06/16 04:50 Neutrophils # 9.6 K/mcL (1.6-8.9) H 04/06/16 04:50 Lymphocytes # 0.4 K/mcL (0.6-4.6) L 04/06/16 04:50 Toxic Granulation Present (Not Present) A 04/06/16 04:50 Toxic Vacuolation Present (Not Present) A 04/06/16 04:50 Polychromasia 1+ (Not Present) A 04/05/16 05:00 Hypochromasia Present (Not Present) A 04/06/16 04:50 Poikilocytosis 1+ (Not Present) A 04/05/16 05:00 Anisocytosis 1+ (Not Present) A 04/05/16 05:00 Microcytosis Present (Not Present) A 04/06/16 04:50 Target Cells 1+ (Not Present) A 04/04/16 21:17 PT 17.2 Seconds (9.4-12.1) H 04/05/16 05:00 Sodium 132 mEq/L (136-145) L 04/06/16 04:50 Potassium 3.3 mEq/L (3.5-4.5) L 04/06/16 04:50 BUN 21 mg/dL (7-20) H 04/06/16 04:50 BUN/Creatinine Ratio 30 (6-26) H 04/06/16 04:50 Glucose 129 mg/dL (70-99) H 04/06/16 04:50 POC Glucose 110 (58-89) H 04/05/16 23:51 Calculated Osmolality 279 (280-300) L 04/06/16 04:50 Lactic Acid 3.0 mmol/L (0.5-2.2) H 04/06/16 04:50 Calcium 7.7 mg/dL (8.6-10.8) L 04/06/16 04:50 Ionized Calcium 1.14 mmol/L (1.15-1.35) L 04/06/16 04:50 Magnesium 1.2 mg/dL (1.6-2.6) L 04/06/16 04:50 Iron 8 mcg/dL (50-170) L 04/05/16 12:42 % Saturation 5 % (15-50) L 04/05/16 12:42 Transferrin 110 mg/dL (180-382) L 04/05/16 12:42 Total Bilirubin 6.9 mg/dL (0.2-1.2) H 04/06/16 04:50 Direct Bilirubin 6.8 mg/dL (0.0-0.5) H 04/05/16 05:00 AST 125 Units/L (5-34) H 04/06/16 04:50 ALT 86 Units/L (0-55) H 04/06/16 04:50 Alkaline Phosphatase 824 Units/L (38-126) H 04/06/16 04:50 Serum Total Protein 5.0 g/dL (6.0-8.3) L D 04/06/16 04:50 Albumin 1.4 g/dL (3.5-5.0) L D 04/06/16 04:50 Globulin 3.6 g/dL (2.4-3.5) H 04/06/16 04:50 Albumin/Globulin Ratio 0.4 (1.1-2.2) L 04/06/16 04:50 Lipase 7 Units/L (8-78) L 04/04/16 21:17 General appearance: Present: no acute distress, thin - Head Head exam: Present: atraumatic, normal inspection - Eye Eye exam: Present: normal appearance, scleral icterus - ENT ENT exam: Present: mucous membranes moist - Respiratory Respiratory exam: Present: decreased breath sounds - Cardiovascular Cardiovascular exam: Present: RRR - GI/Abdominal GI/Abdominal exam: Present: soft. Absent: tenderness - Extremities Exam Extremities exam: Present: normal inspection. Absent: pedal edema, tenderness - Neurological Exam Neurological exam: Present: alert, oriented X3 - Psychiatric Psychiatric exam: Present: normal affect, normal mood. Absent: agitated, anxious - Skin Skin exam: Present: dry, warm. Absent: normal color (Jaundice is noted) Palliative Quality Palliative Quality: Screen for Code Status: Yes, Screen for Goals of Care: Yes, Screen for Pain: Yes, If Pain Regimen Started, Initiate Bowel Regimen: NA (She already has loose stools), Screen for Nausea/Vomitting: Yes - Labs CBC & Chem 7: 04/06/16 04:50 04/06/16 04:50 Labs: Laboratory Results - last 24 hr 04/05/16 04/05/16 04/05/16 05:00 11:59 18:16 WBC RBC Hgb Hct MCV MCH MCHC RDW Plt Count MPV Immature Gran % Seg Neutrophils % Lymphocytes % Monocytes % Eosinophils % Basophils % Neutrophils # Lymphocytes # Monocytes # Eosinophils # Basophils # Toxic Granulation Toxic Vacuolation Platelet Estimate Hypochromasia Microcytosis Sodium Potassium Chloride Carbon Dioxide BUN Creatinine Est GFR ( Amer) Est GFR (Non-Af Amer) BUN/Creatinine Ratio Glucose POC Glucose 90 H Calculated Osmolality Lactic Acid 1.1 Calcium Ionized Calcium Phosphorus Magnesium Total Bilirubin AST ALT Alkaline Phosphatase Serum Total Protein Albumin Globulin Albumin/Globulin Ratio Blood Type A NEGATIVE Antibody Screen NEGATIVE Crossmatch See Detail 04/05/16 04/06/16 04/06/16 23:51 04:50 04:50 WBC RBC Hgb Hct MCV MCH MCHC RDW Plt Count MPV Immature Gran % Seg Neutrophils % Lymphocytes % Monocytes % Eosinophils % Basophils % Neutrophils # Lymphocytes # Monocytes # Eosinophils # Basophils # Toxic Granulation Toxic Vacuolation Platelet Estimate Hypochromasia Microcytosis Sodium 132 L Potassium 3.3 L Chloride 103 Carbon Dioxide 20 BUN 21 H Creatinine 0.70 Est GFR ( Amer) > 60 Est GFR (Non-Af Amer) > 60 BUN/Creatinine Ratio 30 H Glucose 129 H POC Glucose 110 H Calculated Osmolality 279 L Lactic Acid 3.0 H Calcium 7.7 L Ionized Calcium 1.14 L Phosphorus 3.0 Magnesium 1.2 L Total Bilirubin 6.9 H AST 125 H ALT 86 H Alkaline Phosphatase 824 H Serum Total Protein 5.0 L D Albumin 1.4 L D Globulin 3.6 H Albumin/Globulin Ratio 0.4 L Blood Type Antibody Screen Crossmatch 04/06/16 04:50 WBC 10.7 RBC 2.90 L Hgb 7.7 L Hct 23.5 L MCV 81.0 L MCH 26.6 L MCHC 32.8 RDW 16.0 H Plt Count 158 MPV 11.0 Immature Gran % 1.6 Seg Neutrophils % 90.1 Lymphocytes % 3.5 Monocytes % 4.5 Eosinophils % 0.2 Basophils % 0.1 Neutrophils # 9.6 H Lymphocytes # 0.4 L Monocytes # 0.5 Eosinophils # 0.0 Basophils # 0.0 Toxic Granulation Present A Toxic Vacuolation Present A Platelet Estimate Normal Hypochromasia Present A Microcytosis Present A Sodium Potassium Chloride Carbon Dioxide BUN Creatinine Est GFR ( Amer) Est GFR (Non-Af Amer) BUN/Creatinine Ratio Glucose POC Glucose Calculated Osmolality Lactic Acid Calcium Ionized Calcium Phosphorus Magnesium Total Bilirubin AST ALT Alkaline Phosphatase Serum Total Protein Albumin Globulin Albumin/Globulin Ratio Blood Type Antibody Screen Crossmatch - ABG Interpretation ABG results: PT/INR, D-dimer PT 17.2 Seconds (9.4-12.1) H 04/05/16 05:00 Consult Discharge Plan - Plan Instructions: Chest Pain (DC), Anemia (GEN), Pneumonia (DC) Referrals: Mona Mitchell MD [Primary Care Provider] -
[2016-04-06] MEDS ORDERED: 0.9 % Sodium Chloride 500 ML ONE (15:29)
[2016-04-06] MEDS ORDERED: *HR* FentaNYL (PF) 100 MCG/2 ML VIAL IV ONE (16:10)
[2016-04-06] MEDS: Folic Acid 1 MG TABLET PO SCH (17:10)
[2016-04-06] MEDS: Cyanocobalamin (B-12) 1,000 MCG TABLET PO SCH (17:10)
[2016-04-06 17:46] LABS: Bilirubin,Urine Large (Negative); Blood,Urine Negative (Negative); Clarity,Urine Cloudy (Clear); Color,Urine Orange (Yellow); Glucose,Urine (UA) Normal (Normal); Ketones,Urine Negative (Negative); Leukocyte Esterase,Urine Small (Negative); Nitrite,Urine Negative (Negative); PH,Urine 6.5 pH Units (5.0-8.0); Protein,Urine Trace mg/dL (Neg-Trace); Urobilinogen,Urine Normal (Normal)
[2016-04-06 17:53] LABS: Bacteria,Urine None Seen per hpf (None-Few); Hyaline Casts,Urine None Seen per lpf (None-Few); Squamous Epithelial Cell,Urine Many per lpf (None-Few)
[2016-04-06] MEDS ORDERED: *HR* Phytonadione 5 MG TABLET PO ONE (19:54)
[2016-04-06] MEDS: *HR* FentaNYL (PF) 100 MCG/2 ML VIAL IVP PRN ×2 (20:48→23:50)
[2016-04-06] MEDS: Levofloxacin 750 MG/150 ML 750 MG/150 ML BAG IVPB SCH (21:04)
--- NOTE | 2016-04-06 21:17 | Event Note ---
Date of Encounter: 04/06/16 Time of Encounter: 12:00 Pt ERCP/EUS postponded till tomorrow per anesthesia due to low BP and anemia. Will get PRBC and also will give one dose of oral K. Plan for procedures tomorrow. Pt very malnuorished and will benefit for TPN
[2016-04-06] MEDS ORDERED: 0.9 % Sodium Chloride 250 ML ONE (22:56)
[2016-04-07] MEDS: Ipratropium/Albuterol Neb 3 ML IH PRN ×3 (02:11→18:47)
[2016-04-07] MEDS: *HR* FentaNYL (PF) 100 MCG/2 ML VIAL IVP PRN ×7 (02:37→21:49)
[2016-04-07 05:19] LABS: Basophils % 0.1 %; Eosinophils % 0.4 %; Hematocrit 30.4 % (35.3-44.9); Immature Granulocytes % 3.9 % (0-4); Lymphocytes # 0.4 K/mcL (0.6-4.6); Lymphocytes % 4.3 %; Mean Corpuscular HGB Conc 33.6 g/dL (31.6-35.5); Mean Corpuscular Hemoglobin 27.3 pg (28.0-33.3); Mean Corpuscular Volume 81.5 fL (83.0-100.0); Mean Platelet Volume 11.1 fL (9.4-12.4); Monocytes # 0.6 K/mcL (0.0-1.3); Monocytes % 6.2 %; Neutrophils # 8.2 K/mcL (1.6-8.9); Platelet Count 129 K/mcL (140-400); Red Blood Count 3.73 M/mcL (3.82-4.97); Red Cell Distribution Width 15.7 % (11.5-14.5); Segmented Neutrophils % 85.1 %
[2016-04-07 05:21] LABS: Hemoglobin 10.2 g/dL (11.5-15.4)
[2016-04-07 05:46] LABS: Anisocytosis 1+ (Not Present); Microcytosis Present (Not Present); Platelet Estimate Slight Decrease (Normal)
[2016-04-07 05:53] LABS: Alanine Aminotransferase 68 Units/L (0-55); Albumin/Globulin Ratio 0.4 (1.1-2.2); Alkaline Phosphatase 810 Units/L (38-126); Aspartate Amino Transferase 86 Units/L (5-34); BUN/Creatinine Ratio 22 (6-26); Bilirubin,Direct 6.7 mg/dL (0.0-0.5); Bilirubin,Indirect 1.6 mg/dL (0.0-1.2); Blood Urea Nitrogen 13 mg/dL (7-20); Calcium 7.7 mg/dL (8.6-10.8); Carbon Dioxide 21 mEq/L (19-29); Chloride 105 mEq/L (98-109); Globulin 3.7 g/dL (2.4-3.5); Glucose 124 mg/dL (70-99); Osmolality,Calculated 274 (280-300); Potassium 3.1 mEq/L (3.5-4.5); Sodium 131 mEq/L (136-145); Total Protein 5.1 g/dL (6.0-8.3); eGFR For African Americans > 60 (> 60); eGFR For Non-African Americans > 60 (> 60)
[2016-04-07 06:04] LABS: Albumin 1.4 g/dL (3.5-5.0)
[2016-04-07 06:05] LABS: Bilirubin,Total 8.3 mg/dL (0.2-1.2)
[2016-04-07 06:54] LABS: Magnesium 1.6 mg/dL (1.6-2.6)
[2016-04-07] MEDS: D5% in 0.45% NACL 1,000 ML IVC SCH ×2 (08:17→12:09)
[2016-04-07] MEDS: Cyanocobalamin (B-12) 1,000 MCG TABLET PO SCH (08:18)
[2016-04-07] MEDS: Folic Acid 1 MG TABLET PO SCH (08:18)
[2016-04-07] MEDS ORDERED: *HR* FentaNYL (PF) 100 MCG/2 ML VIAL IVP PRN ×2 (11:16→14:13)
--- NOTE | 2016-04-07 11:19 | Palliative Progress Note ---
Date of Encounter: 04/07/16 Time of Encounter: : - Assessment and plan (1) Abdominal pain Current Visit: Yes Status: Acute Assessment and plan: Abdominal pain with primary location in the mid-epigastric area to the right upper quadrant. Described as a sharp shooting pain. Currently rated at 10/10. Fentanyl IVP reduces pain level to an 8/10, but the pain reduction only lasts about 2 hours. Will increase the dose of the medications and adjust accordingly. Qualifiers: Abdominal location: generalized Qualified Code(s): R10.84 - Generalized abdominal pain (2) Goals of care, counseling/discussion Current Visit: Yes Status: Acute (3) Constipation by delayed colonic transit Current Visit: Yes Status: Acute Assessment and plan: No BM in about 8 days according to the patient. Will give bisacodyl rectal suppository as the patient is NPO for a procedure. - Time Spent With Patient Total time spent is greater than 50% in coordination of care (as documented) at patient's floor/unit and/or counseling patient: - Subjective Interval history: Ms. Lynn is sitting up in the bed. She complains of abdominal pain that is worse in the right upper quadrant and mid-epigastric area. This pain is rated at a 10/10 and improves to an 8/10 with the IV Fentanyl, but the pain relief only lasts about 2 hours. She also states that her bowels have not moved in 8 days. She did get some relief when passing flatus. - Constitutional Vitals: Abnormal lab results RBC 3.73 M/mcL (3.82-4.97) L 04/07/16 05:00 Hgb 10.2 g/dL (11.5-15.4) L D 04/07/16 05:00 Hct 30.4 % (35.3-44.9) L 04/07/16 05:00 MCV 81.5 fL (83.0-100.0) L 04/07/16 05:00 MCH 27.3 pg (28.0-33.3) L 04/07/16 05:00 RDW 15.7 % (11.5-14.5) H 04/07/16 05:00 Plt Count 129 K/mcL (140-400) L 04/07/16 05:00 Lymphocytes # 0.4 K/mcL (0.6-4.6) L 04/07/16 05:00 Toxic Granulation Present (Not Present) A 04/06/16 04:50 Toxic Vacuolation Present (Not Present) A 04/06/16 04:50 Platelet Estimate Slight Decrease (Normal) L 04/07/16 05:00 Polychromasia 1+ (Not Present) A 04/05/16 05:00 Hypochromasia Present (Not Present) A 04/06/16 04:50 Poikilocytosis 1+ (Not Present) A 04/05/16 05:00 Anisocytosis 1+ (Not Present) A 04/07/16 05:00 Microcytosis Present (Not Present) A 04/07/16 05:00 Target Cells 1+ (Not Present) A 04/04/16 21:17 PT 17.2 Seconds (9.4-12.1) H 04/05/16 05:00 Sodium 131 mEq/L (136-145) L 04/07/16 05:00 Potassium 3.1 mEq/L (3.5-4.5) L 04/07/16 05:00 Glucose 124 mg/dL (70-99) H 04/07/16 05:00 POC Glucose 113 (58-89) H 04/07/16 03:24 Calculated Osmolality 274 (280-300) L 04/07/16 05:00 Lactic Acid 3.0 mmol/L (0.5-2.2) H 04/06/16 04:50 Calcium 7.7 mg/dL (8.6-10.8) L 04/07/16 05:00 Ionized Calcium 1.14 mmol/L (1.15-1.35) L 04/06/16 04:50 Iron 8 mcg/dL (50-170) L 04/05/16 12:42 % Saturation 5 % (15-50) L 04/05/16 12:42 Transferrin 110 mg/dL (180-382) L 04/05/16 12:42 Total Bilirubin 8.3 mg/dL (0.2-1.2) H 04/07/16 05:00 Direct Bilirubin 6.7 mg/dL (0.0-0.5) H 04/07/16 05:00 Indirect Bilirubin 1.6 mg/dL (0.0-1.2) H 04/07/16 05:00 AST 86 Units/L (5-34) H 04/07/16 05:00 ALT 68 Units/L (0-55) H 04/07/16 05:00 Alkaline Phosphatase 810 Units/L (38-126) H 04/07/16 05:00 Serum Total Protein 5.1 g/dL (6.0-8.3) L 04/07/16 05:00 Albumin 1.4 g/dL (3.5-5.0) L 04/07/16 05:00 Globulin 3.7 g/dL (2.4-3.5) H 04/07/16 05:00 Albumin/Globulin Ratio 0.4 (1.1-2.2) L 04/07/16 05:00 Lipase 7 Units/L (8-78) L 04/04/16 21:17 Urine Color [place] (Yellow) A 04/06/16 17:30 Urine Clarity Cloudy (Clear) A 04/06/16 17:30 Urine Bilirubin Large (Negative) H 04/06/16 17:30 Ur Leukocyte Esterase Small (Negative) H 04/06/16 17:30 Urine Microscopic RBC 3-5 per hpf (0-3) H 04/06/16 17:30 Urine Microscopic WBC 3-5 per hpf (0-3) H 04/06/16 17:30 Ur Squamous Epith Cells Many per lpf (None-Few) H 04/06/16 17:30 Palliative Quality Palliative Quality: Screen for Code Status: Yes, Screen for Goals of Care: Yes, Screen for Pain: Yes, If Pain Regimen Started, Initiate Bowel Regimen: NA (She already has loose stools), Screen for Nausea/Vomitting: Yes - Labs CBC & Chem 7: 04/08/16 04:45 04/08/16 04:45 Labs: Laboratory Results - last 24 hr 04/05/16 04/06/16 04/06/16 05:00 03:46 07:15 WBC RBC Hgb Hct MCV MCH MCHC RDW Plt Count MPV Immature Gran % Seg Neutrophils % Lymphocytes % Monocytes % Eosinophils % Basophils % Neutrophils # Lymphocytes # Monocytes # Eosinophils # Basophils # Platelet Estimate Anisocytosis Microcytosis Sodium Potassium Chloride Carbon Dioxide BUN Creatinine Est GFR ( Amer) Est GFR (Non-Af Amer) BUN/Creatinine Ratio Glucose POC Glucose 130 H 135 H Calculated Osmolality Calcium Magnesium Total Bilirubin Direct Bilirubin Indirect Bilirubin AST ALT Alkaline Phosphatase Serum Total Protein Albumin Globulin Albumin/Globulin Ratio Urine Color Urine Clarity Urine pH Ur Specific [place] Urine Protein Urine Glucose (UA) Urine Ketones Urine Blood Urine Nitrite Urine Bilirubin Urine Urobilinogen Ur Leukocyte Esterase Urine Microscopic RBC Urine Microscopic WBC Ur Squamous Epith Cells Urine Bacteria Hyaline Casts Blood Type A NEGATIVE Antibody Screen NEGATIVE Crossmatch See Detail 04/06/16 04/06/16 04/06/16 11:39 16:20 17:30 WBC RBC Hgb Hct MCV MCH MCHC RDW Plt Count MPV Immature Gran % Seg Neutrophils % Lymphocytes % Monocytes % Eosinophils % Basophils % Neutrophils # Lymphocytes # Monocytes # Eosinophils # Basophils # Platelet Estimate Anisocytosis Microcytosis Sodium Potassium Chloride Carbon Dioxide BUN Creatinine Est GFR ( Amer) Est GFR (Non-Af Amer) BUN/Creatinine Ratio Glucose POC Glucose 148 H 115 H Calculated Osmolality Calcium Magnesium Total Bilirubin Direct Bilirubin Indirect Bilirubin AST ALT Alkaline Phosphatase Serum Total Protein Albumin Globulin Albumin/Globulin Ratio Urine Color [place] A Urine Clarity Cloudy A Urine pH 6.5 Ur Specific [place] 1.020 Urine Protein Trace Urine Glucose (UA) Normal Urine Ketones Negative Urine Blood Negative Urine Nitrite Negative Urine Bilirubin Large H Urine Urobilinogen Normal Ur Leukocyte Esterase Small H Urine Microscopic RBC 3-5 H Urine Microscopic WBC 3-5 H Ur Squamous Epith Cells Many H Urine Bacteria None Seen Hyaline Casts None Seen Blood Type Antibody Screen Crossmatch 04/06/16 04/06/16 04/07/16 20:27 23:59 03:24 WBC RBC Hgb Hct MCV MCH MCHC RDW Plt Count MPV Immature Gran % Seg Neutrophils % Lymphocytes % Monocytes % Eosinophils % Basophils % Neutrophils # Lymphocytes # Monocytes # Eosinophils # Basophils # Platelet Estimate Anisocytosis Microcytosis Sodium Potassium Chloride Carbon Dioxide BUN Creatinine Est GFR ( Amer) Est GFR (Non-Af Amer) BUN/Creatinine Ratio Glucose POC Glucose 106 H 143 H 113 H Calculated Osmolality Calcium Magnesium Total Bilirubin Direct Bilirubin Indirect Bilirubin AST ALT Alkaline Phosphatase Serum Total Protein Albumin Globulin Albumin/Globulin Ratio Urine Color Urine Clarity Urine pH Ur Specific [place] Urine Protein Urine Glucose (UA) Urine Ketones Urine Blood Urine Nitrite Urine Bilirubin Urine Urobilinogen Ur Leukocyte Esterase Urine Microscopic RBC Urine Microscopic WBC Ur Squamous Epith Cells Urine Bacteria Hyaline Casts Blood Type Antibody Screen Crossmatch 04/07/16 04/07/16 05:00 05:00 WBC 9.6 RBC 3.73 L Hgb 10.2 L D Hct 30.4 L MCV 81.5 L MCH 27.3 L MCHC 33.6 RDW 15.7 H Plt Count 129 L MPV 11.1 Immature Gran % 3.9 Seg Neutrophils % 85.1 Lymphocytes % 4.3 Monocytes % 6.2 Eosinophils % 0.4 Basophils % 0.1 Neutrophils # 8.2 Lymphocytes # 0.4 L Monocytes # 0.6 Eosinophils # 0.0 Basophils # 0.0 Platelet Estimate Slight Decrease L Anisocytosis 1+ A Microcytosis Present A Sodium 131 L Potassium 3.1 L Chloride 105 Carbon Dioxide 21 BUN 13 Creatinine 0.60 Est GFR ( Amer) > 60 Est GFR (Non-Af Amer) > 60 BUN/Creatinine Ratio 22 Glucose 124 H POC Glucose Calculated Osmolality 274 L Calcium 7.7 L Magnesium 1.6 Total Bilirubin 8.3 H Direct Bilirubin 6.7 H Indirect Bilirubin 1.6 H AST 86 H ALT 68 H Alkaline Phosphatase 810 H Serum Total Protein 5.1 L Albumin 1.4 L Globulin 3.7 H Albumin/Globulin Ratio 0.4 L Urine Color Urine Clarity Urine pH Ur Specific [place] Urine Protein Urine Glucose (UA) Urine Ketones Urine Blood Urine Nitrite Urine Bilirubin Urine Urobilinogen Ur Leukocyte Esterase Urine Microscopic RBC Urine Microscopic WBC Ur Squamous Epith Cells Urine Bacteria Hyaline Casts Blood Type Antibody Screen Crossmatch - ABG Interpretation ABG results: PT/INR, D-dimer PT 17.2 Seconds (9.4-12.1) H 04/05/16 05:00 Consult Discharge Plan - Plan Instructions: Chest Pain (DC), Anemia (GEN), Pneumonia (DC) Referrals: Mona Mitchell MD [Primary Care Provider] -
[2016-04-07] MEDS ORDERED: D10% in Water 500 ML IV PRN (11:46)
[2016-04-07] MEDS ORDERED: Magnesium Sulfate 1 GM in D5% in Water 100 ML IVPB ONE (13:44)
[2016-04-07] MEDS ORDERED: Potassium Chloride 40 MEQ/200 ML BAG IVPB ONE (14:30)
--- NOTE | 2016-04-07 15:48 | Procedure Note ---
<Lobo Astudillo - Last Filed: 04/07/16 15:45> Date of procedure: 04/07/16 Pre-op diagnosis: pancreatic mass Post-op diagnosis: same Procedure: Procedure: Right IJ CVC Verbal and written consent for the procedure was obtained from the patient after explaining risks, benefits, and reason for the procedure. Dr. Robert Andrew (senior resident) assisted and was present during the entire procedure. The right internal jugular vein was surveyed using ultrasound and deemed to be a suitable target. The patient was cleaned and draped in the usual sterile fashion. Under ultrasound guidance introducer needle was passed into the right internal jugular vein. Dark red, nonpulsatile blood flow was returned. The guidewire was passed through the needle into the vein. The needle was removed, and a jorge in the skin was made. The dilator was passed over the guidewire and the soft tissues were dilated. A 16 cm triple-lumen catheter was then passed over the guidewire and advanced into the vein without difficulty. The guidewires were intact. All 3 ports were tested and kye blood and flushed easily. The catheter was sutured in place. Patient tolerated the procedure well, there are no immediate complications. Chest x- ray confirmed placement is pending. Anesthesia: local Surgeon: Lobo Astudillo Heel Lining Paster: Robert Andrew Estimated blood loss (cc): 5 Pathology: none sent Condition: stable Disposition: floor <Topher Roque - Last Filed: 04/07/16 19:05> - Attending Attestation I examined this patient and my medical decision-making was reviewed with the Resident Physician on 04/07/16. I agree with the documented findings, disposition and treatment plan as described except to the extent set forth below. I was present for procedure.
--- NOTE | 2016-04-07 15:56 | Internal Med Progress Note ---
<Lobo Astudillo - Last Filed: 04/07/16 15:52> Date of Encounter: 04/07/16 Time of Encounter: 14:00 - Assessment and plan (1) Pancreatic mass Current Visit: Yes Status: Acute Assessment and plan: CT of abdomen/pelvis showed stable intrahepatic biliary ductal dilation and distal pancreatic ductal dilation, 1.3 cm cystic foci in head and body of the pancreas, dilated appearance of distal pancreatic duct. Patient takes suboxone for pain management-goes to clinic in [place]. SHe has lost 60-70 pounds int he last year due to poor appetite. She states she feels "bloated" whenever she eats. Will try a trial of Creon with meals. COnsult to palliative care for pain control. Patient recently had ERCP with sphincterotomy ofr papillary stenosis. MRCP pending. COnsult to GI for recommendations. CA 19-9 pending. Plan to get oncology on board tomorrow. Of note, patient has hx of breast cancer. 04/06/16: MRCP showed hypoenhancing 3.1x3cm lobulated pancreatic mass centered near junction of head and proximal pancreatic body, extensive dilation of the common bile duct, prominent dilation of the main pancreatic duct, severe intrahepatic biliary dilation with multiple cystic lesions within the liver, splenomegaly. Plan is to have EUS with ERCP with biopsy of mass. Added PO oxycodone for pain control, increased fluids to 100ml/hr to maintain blood pressure so tat she can keep getting her pain medications. 04/07/16: Last night, ERCP was not done because patient was anemic. She received 2 units of blood and her Hg today was 10.2. Per GI, ERCP procedure delayed until tomorrow. Patient continues to have significant pain, fentanyl dose increased with recommendation from palliative care. Consulted nutrition- plan is to start TPN today at 5pm at 35/hr, goal is 60/hr. At that time, D5 will be switched to Normal saline at 100/hr. Right IJ CVC placed today (please see procedure note). (2) Hyperbilirubinemia Current Visit: Yes Status: Acute Assessment and plan: plan as above. (3) Obstructive jaundice Current Visit: Yes Status: Acute Assessment and plan: plan as #1 above. (4) Anemia Current Visit: Yes Status: Acute Assessment and plan: Patient's Hg measured at 7.7- drop from 8.6 yesterday. Her baseline Hg is around 12-13. MCV was 81, with hypochromasia, TSH normal. Iron studies show low iron, %saturation, transferrin. Ferrous sulfate TID with meals. Continue to monitor and transfuse as needed. 04/07/16: patient transfused two units of blood yesterday. Hg today was 10.2 and stable. Plan for ERCP tomorrow. Qualifiers: Anemia type: other cause Other causes of anemia: chronic disease, other Qualified Code(s): D63.8 - Anemia in other chronic diseases classified elsewhere (5) Chest pain Current Visit: Yes Status: Acute Assessment and plan: Patient initially came in with CP. CTA negative for PE. possible ischemic etiology in setting of Anemia. Tropes x3 negative. Continue to monitor, continue with iron replacement. Patient currently chest pain free. Qualifiers: Chest pain type: unspecified Qualified Code(s): R07.9 - Chest pain, unspecified (6) Community acquired pneumonia Current Visit: Yes Status: Acute Assessment and plan: CXR shows right lower lobe opacification. Levaquin 750 daily- Day 3. blood cultures x2 showed no growth. Continue to monitor. Lactate elevated yesterday at 3, 1.9 today. Continue to trend. (7) Goals of care, counseling/discussion Current Visit: Yes Status: Acute Assessment and plan: Patient is currently full code. Palliative care was consulted to discuss goals of care. Patient made aware today that it is highly likely she has pancreatic cancer, and made aware that her prognosis is very poor. Pain control per palliative care team. She has also been evaluated by oncology. (8) DVT prophylaxis Current Visit: No Status: Acute Assessment and plan: Heparin SQ Monitor H&H closely. - Subjective Interval history: 60 year old female evaluated at bedside. Today she states that she feels "terrible" and that her pain is worse today than yesterday. She is has 10/10 pain and complains of shortness of breath. She denies nausea, vomiting, diarrhea , fever chills. She is having some shortness of breath. - Constitutional Vitals: Temp Pulse Resp BP Pulse Ox 97.9 F 92 18 130/92 92 L 04/07/16 12:34 04/07/16 12:34 04/07/16 12:34 04/07/16 12:34 04/07/16 12:34 General appearance: Present: cachectic, cooperative, mild distress, A&O X 3, pleasant, answers questions appropriately Exam: patient is very cachectic. - Head Head exam: Present: atraumatic, normocephalic - Eye Eye exam: Present: scleral icterus - Neck Neck exam general surgery: Present: supple, trachea midline - Respiratory Respiratory exam: Present: CTAB - Cardiovascular Cardiovascular exam: Present: RRR - GI/Abdominal GI/Abdominal exam: Present: normal bowel sounds, soft, tenderness (right upper quadrant and left upper quadrant tenderness. ) Additional comments: significant bruising present. scar down her abdomen is present. - Extremities Exam Extremities exam: Present: radial pulses palpable and symetrical Additional comments: clubbing present. radial pulses palpable and symmetrical. Ankle edema present. - Neurological Exam Neurological exam: Present: alert, oriented X3, no focal deficits - Skin Additional comments: significant jaundice present. Internal Medicine: Result - Labs CBC & Chem 7: 04/07/16 05:00 04/07/16 05:00 Labs: Short CBC 04/07/16 Range/Units 05:00 WBC 9.6 (4.3-11.1) K/mcL Hgb 10.2 L D (11.5-15.4) g/dL Hct 30.4 L (35.3-44.9) % Plt Count 129 L (140-400) K/mcL Neutrophils # 8.2 (1.6-8.9) K/mcL BMP 04/07/16 05:00 Sodium 131 L Potassium 3.1 L Chloride 105 Carbon Dioxide 21 BUN 13 Creatinine 0.60 Glucose 124 H Calcium 7.7 L Liver Function 04/07/16 Range/Units 05:00 Total Bilirubin 8.3 H (0.2-1.2) mg/dL Direct Bilirubin 6.7 H (0.0-0.5) mg/dL AST 86 H (5-34) Units/L ALT 68 H (0-55) Units/L Alkaline Phosphatase 810 H (38-126) Units/L Albumin 1.4 L (3.5-5.0) g/dL Urine 04/06/16 Range/Units 17:30 Urine Color [place] A (Yellow) Urine Clarity Cloudy A (Clear) Urine pH 6.5 (5.0-8.0) pH Units Ur Specific [place] 1.020 (1.010-1.025) Urine Protein Trace (Neg-Trace) mg/dL Urine Glucose (UA) Normal (Normal) mg/dL - ABG Interpretation ABG results: PT/INR, D-dimer PT 17.2 Seconds (9.4-12.1) H 04/05/16 05:00 - Impressions Impressions Chest X-Ray 04/07/16 15:19 IMPRESSION: 1. The right internal jugular vein catheter tip is located in the region of the SVC/right atrial junction. No pneumothorax. 2. New right basilar lung infiltrate, concerning for pneumonia. 3. Emphysema. D/ / Zack Augustine MD / Zack Augustine MD Interpreting Provider: Zack Augustine MD Consult Discharge Plan - Plan Instructions: Chest Pain (DC), Anemia (GEN), Pneumonia (DC) Referrals: Mona Mitchell MD [Primary Care Provider] - <Topher Roque - Last Filed: 04/07/16 19:03> - Assessment and plan (1) Obstructive jaundice Current Visit: Yes Status: Acute (2) Hyperbilirubinemia Current Visit: Yes Status: Acute (3) Pancreatic mass Current Visit: Yes Status: Acute (4) Anemia Current Visit: Yes Status: Acute Qualifiers: Anemia type: other cause Other causes of anemia: chronic disease, other Qualified Code(s): D63.8 - Anemia in other chronic diseases classified elsewhere (5) Pneumonia Current Visit: Yes Status: Acute Qualifiers: Pneumonia type: due to unspecified organism Laterality: right Lung location: lower lobe of lung Qualified Code(s): J18.1 - Lobar pneumonia, unspecified organism (6) Hypertension Current Visit: Yes Status: Acute Qualifiers: Hypertension type: essential hypertension Qualified Code(s): I10 - Essential (primary) hypertension (7) Diarrhea Current Visit: Yes Status: Acute Qualifiers: Diarrhea type: unspecified type Qualified Code(s): R19.7 - Diarrhea, unspecified - Constitutional Vitals: Temp Pulse Resp BP Pulse Ox 98.3 F 83 16 141/89 98 04/07/16 17:01 04/07/16 17:01 04/07/16 18:47 04/07/16 17:01 04/07/16 18:47 Internal Medicine: Result - Labs CBC & Chem 7: 04/07/16 05:00 04/07/16 05:00 Labs: Short CBC 04/07/16 Range/Units 05:00 WBC 9.6 (4.3-11.1) K/mcL Hgb 10.2 L D (11.5-15.4) g/dL Hct 30.4 L (35.3-44.9) % Plt Count 129 L (140-400) K/mcL Neutrophils # 8.2 (1.6-8.9) K/mcL BMP 04/07/16 05:00 Sodium 131 L Potassium 3.1 L Chloride 105 Carbon Dioxide 21 BUN 13 Creatinine 0.60 Glucose 124 H Calcium 7.7 L Liver Function 04/07/16 Range/Units 05:00 Total Bilirubin 8.3 H (0.2-1.2) mg/dL Direct Bilirubin 6.7 H (0.0-0.5) mg/dL AST 86 H (5-34) Units/L ALT 68 H (0-55) Units/L Alkaline Phosphatase 810 H (38-126) Units/L Albumin 1.4 L (3.5-5.0) g/dL - ABG Interpretation ABG results: PT/INR, D-dimer PT 17.2 Seconds (9.4-12.1) H 04/05/16 05:00 - Impressions Impressions Chest X-Ray 04/07/16 15:19 IMPRESSION: 1. The right internal jugular vein catheter tip is located in the region of the SVC/right atrial junction. No pneumothorax. 2. New right basilar lung infiltrate, concerning for pneumonia. 3. Emphysema. D/ / 04/07/2016 15:49:28 Zack Augustine MD / [place] Interpreting Provider: Zack Augustine MD - Attending Attestation I examined this patient and my medical decision-making was reviewed with the Resident Physician on 04/07/16. I agree with the documented findings, disposition and treatment plan as described except to the extent set forth below. Ms. Lynn is currently admitted for abdominal pain associated with pancreatic mass and anemia. She is moderate to high risk due to potential for worsening liver and abdominal disease. Ms. Lynn is still having a lot of pain. She is not eating much. She is awaiting further procedures and is to be started on TPN. Exam Alert. Tearful Heart reg Lungs no wheeze I/P 1. Abd pain 2. Pancreatic mass 3. Weight loss Further diagnoses and plan as above.
[2016-04-07] MEDS ORDERED: Clinimix E 5%-15% SOLUTION 2,000 ML with MVI, adult with vitamin K 10 ML IV SCH (17:00)
[2016-04-07] MEDS: Bisacodyl 10 MG RECTAL SUPPOSITORY RC ONE ×2 (17:46→20:49)
[2016-04-07] MEDS: 0.9 % Sodium Chloride 1,000 ML IVC SCH (18:02)
[2016-04-07] MEDS ORDERED: *HR* Heparin 5,000 UNIT/ML VIAL SQ SCH (19:00)
[2016-04-07] MEDS ORDERED: Bisacodyl 10 MG RECTAL SUPPOSITORY RC ONE ×2 (20:30)
[2016-04-07] MEDS: *HR* Heparin 5,000 UNIT/ML VIAL SQ SCH (20:58)
[2016-04-08] MEDS: *HR* FentaNYL (PF) 100 MCG/2 ML VIAL IVP PRN ×10 (00:21→21:43)
[2016-04-08] MEDS: 0.9 % Sodium Chloride 1,000 ML IVC SCH ×2 (04:54→17:17)
[2016-04-08 05:14] LABS: Hematocrit 29.6 % (35.3-44.9); Hemoglobin 10.1 g/dL (11.5-15.4); Mean Corpuscular HGB Conc 34.1 g/dL (31.6-35.5); Mean Corpuscular Hemoglobin 27.2 pg (28.0-33.3); Mean Corpuscular Volume 79.6 fL (83.0-100.0); Platelet Count 111 K/mcL (140-400); Red Blood Count 3.72 M/mcL (3.82-4.97); Red Cell Distribution Width 15.6 % (11.5-14.5)
[2016-04-08 05:52] LABS: BUN/Creatinine Ratio 23 (6-26); Blood Urea Nitrogen 12 mg/dL (7-20); Calcium 7.7 mg/dL (8.6-10.8); Carbon Dioxide 21 mEq/L (19-29); Chloride 105 mEq/L (98-109); Glucose 119 mg/dL (70-99); Magnesium 1.5 mg/dL (1.6-2.6); Osmolality,Calculated 277 (280-300); Phosphorous 2.6 mg/dL (2.3-4.7); Sodium 133 mEq/L (136-145); Triglycerides 96 mg/dL (< 150); eGFR For African Americans > 60 (> 60); eGFR For Non-African Americans > 60 (> 60)
[2016-04-08] MEDS: *HR* Heparin 5,000 UNIT/ML VIAL SQ SCH ×2 (06:41→17:13)
[2016-04-08 06:51] LABS: Lymphocytes # 0.3 K/mcL (0.6-4.6); Monocytes # 0.4 K/mcL (0.0-1.3); Neutrophils # 6.6 K/mcL (1.6-8.9); Platelet Estimate Slight Decrease (Normal)
[2016-04-08 06:53] LABS: Microcytosis Present (Not Present); Toxic Granulation Present (Not Present)
[2016-04-08 06:54] LABS: Hypochromasia Present (Not Present)
[2016-04-08] MEDS ORDERED: *HR* Succinylcholine 200 MG/10 ML VIAL IVP ONE (09:07)
[2016-04-08] MEDS ORDERED: Ondansetron 4 MG/2 ML VIAL IVP ONE (09:07)
[2016-04-08] MEDS ORDERED: EPHEDrine 50 MG/ML VIAL IVP ONE (09:07)
[2016-04-08] MEDS ORDERED: Lidocaine -MPF 4% 5 ML AMPUL TP ONE (09:07)
[2016-04-08] MEDS ORDERED: *HR* Phenylephrine 10 MG/ML VIAL IVC ONE (09:07)
[2016-04-08] MEDS ORDERED: Lidocaine -MPF 2% 5 ML VIAL INFILT ONE (09:07)
[2016-04-08] MEDS ORDERED: *HR* Propofol 200 MG/20 ML VIAL IVP ONE (09:07)
[2016-04-08] MEDS ORDERED: Potassium Chloride 40 MEQ/200 ML BAG IVPB ONE (10:16)
[2016-04-08] MEDS ORDERED: Magnesium Sulfate 2 GM in D5% in Water 100 ML IVPB ONE (10:17)
[2016-04-08] MEDS: Ipratropium/Albuterol Neb 3 ML IH PRN (10:43)
[2016-04-08] MEDS ORDERED: *HR* FentaNYL (PF) 100 MCG/2 ML VIAL ONE (11:24)
[2016-04-08] MEDS ORDERED: *HR* Midazolam HCl 2 MG/2 ML VIAL ONE (11:24)
[2016-04-08] MEDS ORDERED: Bupivacaine-MPF 0.25% 10 ML VIAL INFILT ONE (11:30)
[2016-04-08] MEDS ORDERED: Indomethacin 50 MG SUPP.RECT RC ONE (13:26)
[2016-04-08] MEDS ORDERED: Ampicillin/Sulbactam 1,500 MG in 0.9 % Sodium Chloride Mini Bag 100 ML IVPB ONE (13:32)
[2016-04-08] MEDS ORDERED: Calcium Gluconate 1,000 MG in D5% in Water 100 ML IVPB ONE (14:00)
--- NOTE | 2016-04-08 14:20 | Anesthesia Evaluation Post Op ---
Date of Encounter: 04/08/16 Time of Encounter: 14:19 - Vital Signs Vital Signs: 3 Vital Signs Time 1414 BP 95/65 Pulse 89 Resp 61 O2 Sat 96 - Lungs Lungs: Clear Ascult./Percussion - Airway Airway: Non-obstructed - Cardiovascular Regular Rate - Mental Status Mental Status: Asleep with brisk response to light stimulation - Pain Pain Scale: 0 Pain Scale used: Numeric (1 - 10) - Nausea Vomiting Nausea Vomiting: Not Present - Hydration Hydration: NPO, Has not voided - Discharge PostOp Status: Transfer Patient to floor
[2016-04-08] MEDS: Ondansetron 4 MG/2 ML VIAL IVP PRN (15:07)
[2016-04-08] MEDS: Folic Acid 1 MG TABLET PO SCH (15:07)
[2016-04-08] MEDS: Cyanocobalamin (B-12) 1,000 MCG TABLET PO SCH (15:07)
--- NOTE | 2016-04-08 16:10 | Internal Med Progress Note ---
<Lobo Astudillo - Last Filed: 04/08/16 15:58> Date of Encounter: 04/08/16 Time of Encounter: 08:00 - Assessment and plan (1) Pancreatic mass Current Visit: Yes Status: Acute Assessment and plan: CT of abdomen/pelvis showed stable intrahepatic biliary ductal dilation and distal pancreatic ductal dilation, 1.3 cm cystic foci in head and body of the pancreas, dilated appearance of distal pancreatic duct. Patient takes suboxone for pain management-goes to clinic in [place]. SHe has lost 60-70 pounds int he last year due to poor appetite. She states she feels "bloated" whenever she eats. Will try a trial of Creon with meals. COnsult to palliative care for pain control. Patient recently had ERCP with sphincterotomy ofr papillary stenosis. MRCP pending. COnsult to GI for recommendations. CA 19-9 pending. Plan to get oncology on board tomorrow. Of note, patient has hx of breast cancer. 04/06/16: MRCP showed hypoenhancing 3.1x3cm lobulated pancreatic mass centered near junction of head and proximal pancreatic body, extensive dilation of the common bile duct, prominent dilation of the main pancreatic duct, severe intrahepatic biliary dilation with multiple cystic lesions within the liver, splenomegaly. Plan is to have EUS with ERCP with biopsy of mass. Added PO oxycodone for pain control, increased fluids to 100ml/hr to maintain blood pressure so tat she can keep getting her pain medications. 04/07/16: Last night, ERCP was not done because patient was anemic. She received 2 units of blood and her Hg today was 10.2. Per GI, ERCP procedure delayed until tomorrow. Patient continues to have significant pain, fentanyl dose increased with recommendation from palliative care. Consulted nutrition- plan is to start TPN today at 5pm at 35/hr, goal is 60/hr. At that time, D5 will be switched to Normal saline at 100/hr. Right IJ CVC placed today (please see procedure note). 03/29/16: s/p ERCP. Found severe dilation of the CBD with moderate dilation of the intrahepatic bile ducts. Distal common bile duct was narrowed. Patient had celiac block. Patient was found to have cholangitis, which is the likely cause of her obstructive jaundice. Continue with Levaquin, which should provide adequate coverage. Continue TPN for now. Plan for picc line placement before discharge to continue with TPN custodial. Patient's CA 19-9 level was 2654- highly suggestive of pancreatic cancer. (2) Cholangitis Current Visit: Yes Status: Acute Assessment and plan: plan as above. (3) Hyperbilirubinemia Current Visit: Yes Status: Acute Assessment and plan: plan as above. (4) Obstructive jaundice Current Visit: Yes Status: Acute Assessment and plan: plan as #1 above. (5) Anemia Current Visit: Yes Status: Acute Assessment and plan: Patient's Hg measured at 7.7- drop from 8.6 yesterday. Her baseline Hg is around 12-13. MCV was 81, with hypochromasia, TSH normal. Iron studies show low iron, %saturation, transferrin. Ferrous sulfate TID with meals. Continue to monitor and transfuse as needed. 04/07/16: patient transfused two units of blood yesterday. Hg today was 10.2 and stable. Plan for ERCP tomorrow. 04/08/16 Patient's Hg today was stable at 10.1. Continue to monitor closely. Qualifiers: Anemia type: other cause Other causes of anemia: chronic disease, other Qualified Code(s): D63.8 - Anemia in other chronic diseases classified elsewhere (6) Chest pain Current Visit: Yes Status: Resolved Assessment and plan: Patient initially came in with CP. CTA negative for PE. possible ischemic etiology in setting of Anemia. Tropes x3 negative. Continue to monitor, continue with iron replacement. Patient currently chest pain free. Qualifiers: Chest pain type: unspecified Qualified Code(s): R07.9 - Chest pain, unspecified (7) Community acquired pneumonia Current Visit: Yes Status: Acute Assessment and plan: CXR shows right lower lobe opacification. Levaquin 750 daily- Day 4. blood cultures x2 showed no growth. Continue to monitor. Lactate decreased back down to 1.3. (8) Goals of care, counseling/discussion Current Visit: Yes Status: Acute Assessment and plan: Patient is currently full code. Palliative care was consulted to discuss goals of care. Patient made aware that it is highly likely she has pancreatic cancer, and made aware that her prognosis is very poor. Pain control per palliative care team. She has also been evaluated by oncology. (9) DVT prophylaxis Current Visit: No Status: Acute Assessment and plan: Heparin SQ Monitor H&H closely. - Subjective Interval history: 60 year old female evaluated at bedside. Today her pain is still 10/10. She was started on TPN last night. She was able to eat a little bit last night during dinner. She denies nausea, vomiing, fever, chills. - Constitutional Vitals: Temp Pulse Resp BP Pulse Ox 99.0 F 82 16 136/87 95 04/08/16 14:34 04/08/16 15:03 04/08/16 15:03 04/08/16 15:03 04/08/16 15:03 General appearance: Present: cachectic, cooperative, mild distress, A&O X 3, pleasant, answers questions appropriately Exam: patient is very cachectic. - Head Head exam: Present: atraumatic, normocephalic - Eye Eye exam: Present: scleral icterus - Neck Neck exam general surgery: Present: supple, trachea midline - Respiratory Respiratory exam: Present: CTAB - Cardiovascular Cardiovascular exam: Present: RRR - GI/Abdominal Additional comments: scar and significant bruising present. Good bowel sounds. Very tender to palpation in LUQ and RUQ. - Extremities Exam Extremities exam: Absent: cyanotic, pedal edema - Psychiatric Psychiatric exam: Present: anxious, depressed - Skin Additional comments: significantlu jaundiced. Internal Medicine: Result - Labs CBC & Chem 7: 04/08/16 04:45 04/08/16 04:45 Labs: Short CBC 04/08/16 Range/Units 04:45 WBC 7.3 (4.3-11.1) K/mcL Hgb 10.1 L (11.5-15.4) g/dL Hct 29.6 L (35.3-44.9) % Plt Count 111 L (140-400) K/mcL Neutrophils # 6.6 (1.6-8.9) K/mcL BMP 04/08/16 04:45 Sodium 133 L Potassium 3.0 L Chloride 105 Carbon Dioxide 21 BUN 12 Creatinine 0.52 L Glucose 119 H Calcium 7.7 L - ABG Interpretation ABG results: PT/INR, D-dimer PT 17.2 Seconds (9.4-12.1) H 04/05/16 05:00 - Impressions Impressions Chest X-Ray 04/07/16 15:19 IMPRESSION: 1. The right internal jugular vein catheter tip is located in the region of the SVC/right atrial junction. No pneumothorax. 2. New right basilar lung infiltrate, concerning for pneumonia. 3. Emphysema. D/ / 04/07/2016 15:49:28 Zack Augustine MD / [place] Interpreting Provider: Zack Augustine MD Cath/Invasive Procedure 04/08/16 00:00 IMPRESSION: Intraprocedural fluoroscopic spot images as above. See separate procedure report for more information. D/ / Caio Bach MD / Caio Bach MD Interpreting Provider: Caio Bach MD Consult Discharge Plan - Plan Instructions: Chest Pain (DC), Anemia (GEN), Pneumonia (DC) Referrals: Mona Mitchell MD [Primary Care Provider] - <Topher Roque - Last Filed: 04/08/16 17:50> - Assessment and plan (1) Obstructive jaundice Current Visit: Yes Status: Acute (2) Cholangitis Current Visit: Yes Status: Acute (3) Hyperbilirubinemia Current Visit: Yes Status: Acute (4) Pancreatic mass Current Visit: Yes Status: Acute (5) Anemia Current Visit: Yes Status: Acute Qualifiers: Anemia type: other cause Other causes of anemia: chronic disease, other Qualified Code(s): D63.8 - Anemia in other chronic diseases classified elsewhere (6) Pneumonia Current Visit: Yes Status: Acute Qualifiers: Pneumonia type: due to unspecified organism Laterality: right Lung location: lower lobe of lung Qualified Code(s): J18.1 - Lobar pneumonia, unspecified organism (7) Hypertension Current Visit: Yes Status: Acute Qualifiers: Hypertension type: essential hypertension Qualified Code(s): I10 - Essential (primary) hypertension (8) Diarrhea Current Visit: Yes Status: Acute Qualifiers: Diarrhea type: unspecified type Qualified Code(s): R19.7 - Diarrhea, unspecified - Constitutional Vitals: Temp Pulse Resp BP Pulse Ox 99.0 F 82 16 136/87 95 04/08/16 14:34 04/08/16 15:03 04/08/16 15:03 04/08/16 15:03 04/08/16 15:03 Internal Medicine: Result - Labs CBC & Chem 7: 04/08/16 04:45 04/08/16 04:45 Labs: Short CBC 04/08/16 Range/Units 04:45 WBC 7.3 (4.3-11.1) K/mcL Hgb 10.1 L (11.5-15.4) g/dL Hct 29.6 L (35.3-44.9) % Plt Count 111 L (140-400) K/mcL Neutrophils # 6.6 (1.6-8.9) K/mcL BMP 04/08/16 04:45 Sodium 133 L Potassium 3.0 L Chloride 105 Carbon Dioxide 21 BUN 12 Creatinine 0.52 L Glucose 119 H Calcium 7.7 L - ABG Interpretation ABG results: PT/INR, D-dimer PT 17.2 Seconds (9.4-12.1) H 04/05/16 05:00 - Impressions Impressions Cath/Invasive Procedure 04/08/16 00:00 IMPRESSION: Intraprocedural fluoroscopic spot images as above. See separate procedure report for more information. D/ / Caio Bach MD / Caio Bach MD Interpreting Provider: Caio Bach MD - Attending Attestation I examined this patient and my medical decision-making was reviewed with the Resident Physician on 04/08/16. I agree with the documented findings, disposition and treatment plan as described except to the extent set forth below. Ms Lynn is currently admitted for intractable abdominal pain due to pancreatic mass. She remains moderate to high risk due to significant pain requiring IV pain meds, malnutrition and pancreatic mass. Ms. Lynn had ERCP today. Noted to have cholangitis. Stent placed. Biopsy taken. Continues on IV pain meds. Exam Alert. Heart reg Lungs no wheeze No edema I/P 1. Intractable abd pain 2. Cholangitis 3. Pancreatic mass Further diagnoses and plan as above.
[2016-04-08] MEDS ORDERED: Clinimix E 5%-15% SOLUTION 2,000 ML with MVI, adult with vitamin K 10 ML IV SCH (17:00)
[2016-04-08] MEDS: Levofloxacin 750 MG/150 ML 750 MG/150 ML BAG IVPB SCH (21:41)
--- NOTE | 2016-04-08 22:00 | Procedure Note ---
Date of procedure: 04/08/16 Pre-op diagnosis: Panc mass, obstructive jaundice Procedure: EUS: Pancreatic head mass s/p FNA, preliminary result positive. Celiack block done for pain control ERCP: stricture of mid CBD. Positive cholangitis with large amount of pus, s/p stenting Rec: F/U with oncology as out pt TPN to be cont as out pt
[2016-04-09] MEDS: *HR* FentaNYL (PF) 100 MCG/2 ML VIAL IVP PRN ×11 (00:04→23:15)
[2016-04-09] MEDS: 0.9 % Sodium Chloride 1,000 ML IVC SCH (04:12)
[2016-04-09 04:29] LABS: Basophils % 0.2 %; Eosinophils % 0.1 %; Hematocrit 28.4 % (35.3-44.9); Hemoglobin 9.7 g/dL (11.5-15.4); Immature Granulocytes % 2.8 % (0-4); Lymphocytes # 0.7 K/mcL (0.6-4.6); Lymphocytes % 5.6 %; Mean Corpuscular HGB Conc 34.2 g/dL (31.6-35.5); Mean Corpuscular Hemoglobin 27.4 pg (28.0-33.3); Mean Corpuscular Volume 80.2 fL (83.0-100.0); Mean Platelet Volume 10.9 fL (9.4-12.4); Monocytes # 0.6 K/mcL (0.0-1.3); Monocytes % 5.1 %; Neutrophils # 10.3 K/mcL (1.6-8.9); Platelet Count 122 K/mcL (140-400); Red Blood Count 3.54 M/mcL (3.82-4.97); Red Cell Distribution Width 15.8 % (11.5-14.5); Segmented Neutrophils % 86.2 %
[2016-04-09 04:50] LABS: BUN/Creatinine Ratio 25 (6-26); Blood Urea Nitrogen 14 mg/dL (7-20); Calcium 7.4 mg/dL (8.6-10.8); Carbon Dioxide 18 mEq/L (19-29); Chloride 106 mEq/L (98-109); Glucose 162 mg/dL (70-99); Magnesium 1.1 mg/dL (1.6-2.6); Osmolality,Calculated 278 (280-300); Phosphorous 2.7 mg/dL (2.3-4.7); Potassium 3.8 mEq/L (3.5-4.5); Sodium 132 mEq/L (136-145); eGFR For African Americans > 60 (> 60); eGFR For Non-African Americans > 60 (> 60)
[2016-04-09 05:26] LABS: Platelet Estimate Slight Decrease (Normal)
[2016-04-09 05:30] LABS: Tear Drop Cells 1+ (Not Present)
[2016-04-09 05:31] LABS: Reactive Lymphocytes Present (Not Present)
[2016-04-09] MEDS: *HR* Heparin 5,000 UNIT/ML VIAL SQ SCH ×2 (06:13→17:51)
[2016-04-09] MEDS: *HR* Morphine Sulfate SR (12 HR) 60 MG TABLET.ER PO SCH ×3 (09:00→23:14)
[2016-04-09] MEDS: Folic Acid 1 MG TABLET PO SCH (09:04)
[2016-04-09] MEDS: Cyanocobalamin (B-12) 1,000 MCG TABLET PO SCH (09:05)
[2016-04-09] MEDS: Sennosides/Docusate Sodium TABLET PO SCH ×2 (09:05→20:01)
--- NOTE | 2016-04-09 09:17 | Palliative Progress Note ---
Date of Encounter: 04/09/16 Time of Encounter: 07:50 - Assessment and plan (1) Chest pain Current Visit: Yes Status: Resolved Assessment and plan: The patient used 300 oral morphine equivalents yesterday by using 10 doses of 100 mcg fentanyl The patient is able to tolerate by mouth. And her blood pressure is doing much better therefore I will start her on long-lasting oral medications 60 mg oral morphine standard release every 8 hours. This will be 180 oral morphine equivalents. When necessary fentanyl will be continued. I will will be to switch over to oral medications as soon as possible. Speck to see a decrease in the amount of fentanyl used as the oral morphine takes effect. The patient probably has a great deal of tolerance built up due to the fact that she has been on long-term opioid therapy. Qualifiers: Chest pain type: unspecified Qualified Code(s): R07.9 - Chest pain, unspecified (2) Pancreatic mass Current Visit: Yes Status: Acute Assessment and plan: Awaiting pathology at this time. Very suspicious for pancreatic cancer. (3) Community acquired pneumonia Current Visit: Yes Status: Acute Assessment and plan: Continue antibiotics as per hospitalist team. (4) Constipation by delayed colonic transit Current Visit: Yes Status: Acute Assessment and plan: Patient is concerned that she probably needs to have more bowel movements at this time, will start a small dose of senna as the patient typically has some diarrhea. We will watch this closely. (5) Goals of care, counseling/discussion Current Visit: Yes Status: Acute Assessment and plan: The patient remains a full code. She is awaiting the results of her Potts find out what other problems she has not how they will be addressed. At this time she is not palliative only. She is still interested in aggressive care. (6) Obstructive jaundice Current Visit: Yes Status: Acute Assessment and plan: Acute cholangitis has been found. Stent is in place and actively draining. . treatment at this time includes pain medication stent drainage and awaiting decisions on what to do with regard to the pancreatic mass depending on the pathology. - Time Spent With Patient Total time spent is greater than 50% in coordination of care (as documented) at patient's floor/unit and/or counseling patient: - Subjective Interval history: The patient states that her pain is controlled for about an hour or so after she gets her fentanyl. Any kind of movement seems to make it worse and it does come back after about an hour. Patient is now tolerating stuff by mouth at least some degree. She would like to sit up to below do her up coloring, however the pain is limiting this. She states it does feel like she needs to have a bowel movement. She does not have any nausea or vomiting at this time. - Constitutional Vitals: Abnormal lab results WBC 11.9 K/mcL (4.3-11.1) H D 04/09/16 04:27 RBC 3.54 M/mcL (3.82-4.97) L 04/09/16 04:27 Hgb 9.7 g/dL (11.5-15.4) L 04/09/16 04:27 Hct 28.4 % (35.3-44.9) L 04/09/16 04:27 MCV 80.2 fL (83.0-100.0) L 04/09/16 04:27 MCH 27.4 pg (28.0-33.3) L 04/09/16 04:27 RDW 15.8 % (11.5-14.5) H 04/09/16 04:27 Plt Count 122 K/mcL (140-400) L 04/09/16 04:27 Neutrophils # 10.3 K/mcL (1.6-8.9) H 04/09/16 04:27 Reactive Lymphocytes Present (Not Present) A 04/09/16 04:27 Toxic Granulation Present (Not Present) A 04/08/16 04:45 Toxic Vacuolation Present (Not Present) A 04/06/16 04:50 Platelet Estimate Slight Decrease (Normal) L 04/09/16 04:27 Polychromasia 1+ (Not Present) A 04/05/16 05:00 Hypochromasia Present (Not Present) A 04/08/16 04:45 Poikilocytosis 1+ (Not Present) A 04/05/16 05:00 Anisocytosis 1+ (Not Present) A 04/07/16 05:00 Microcytosis Present (Not Present) A 04/08/16 04:45 Target Cells 1+ (Not Present) A 04/04/16 21:17 Tear Drop Cells 1+ (Not Present) A 04/09/16 04:27 PT 17.2 Seconds (9.4-12.1) H 04/05/16 05:00 Sodium 132 mEq/L (136-145) L 04/09/16 04:27 Carbon Dioxide 18 mEq/L (19-29) L 04/09/16 04:27 Glucose 162 mg/dL (70-99) H 04/09/16 04:27 POC Glucose 218 (58-89) H 04/09/16 00:45 Calculated Osmolality 278 (280-300) L 04/09/16 04:27 Calcium 7.4 mg/dL (8.6-10.8) L 04/09/16 04:27 Ionized Calcium 1.13 mmol/L (1.15-1.35) L 04/08/16 04:45 Magnesium 1.1 mg/dL (1.6-2.6) L 04/09/16 04:27 Iron 8 mcg/dL (50-170) L 04/05/16 12:42 % Saturation 5 % (15-50) L 04/05/16 12:42 Transferrin 110 mg/dL (180-382) L 04/05/16 12:42 Total Bilirubin 8.3 mg/dL (0.2-1.2) H 04/07/16 05:00 Direct Bilirubin 6.7 mg/dL (0.0-0.5) H 04/07/16 05:00 Indirect Bilirubin 1.6 mg/dL (0.0-1.2) H 04/07/16 05:00 AST 86 Units/L (5-34) H 04/07/16 05:00 ALT 68 Units/L (0-55) H 04/07/16 05:00 Alkaline Phosphatase 810 Units/L (38-126) H 04/07/16 05:00 Serum Total Protein 5.1 g/dL (6.0-8.3) L 04/07/16 05:00 Albumin 1.4 g/dL (3.5-5.0) L 04/07/16 05:00 Globulin 3.7 g/dL (2.4-3.5) H 04/07/16 05:00 Albumin/Globulin Ratio 0.4 (1.1-2.2) L 04/07/16 05:00 Prealbumin < 3.0 mg/dL (16.0-38.0) L 04/08/16 04:45 Lipase 7 Units/L (8-78) L 04/04/16 21:17 CA 19-9 Antigen 2654 U/mL (0-37) H 04/05/16 05:00 Urine Color [place] (Yellow) A 04/06/16 17:30 Urine Clarity Cloudy (Clear) A 04/06/16 17:30 Urine Bilirubin Large (Negative) H 04/06/16 17:30 Ur Leukocyte Esterase Small (Negative) H 04/06/16 17:30 Urine Microscopic RBC 3-5 per hpf (0-3) H 04/06/16 17:30 Urine Microscopic WBC 3-5 per hpf (0-3) H 04/06/16 17:30 Ur Squamous Epith Cells Many per lpf (None-Few) H 04/06/16 17:30 General appearance: Present: no acute distress - Head Head exam: Present: atraumatic, normal inspection - Eye Eye exam: Present: normal appearance - ENT ENT exam: Present: mucous membranes moist - Respiratory Respiratory exam: Present: CTAB - Cardiovascular Cardiovascular exam: Present: RRR - GI/Abdominal GI/Abdominal exam: Present: hypoactive bowel sounds, soft, tenderness - Extremities Exam Extremities exam: Present: normal inspection. Absent: pedal edema, tenderness - Neurological Exam Neurological exam: Present: alert, oriented X3 - Psychiatric Psychiatric exam: Present: normal affect, normal mood. Absent: agitated, anxious - Skin Skin exam: Present: dry, warm Palliative Quality Palliative Quality: Screen for Code Status: Yes, Screen for Goals of Care: Yes, Screen for Pain: Yes, If Pain Regimen Started, Initiate Bowel Regimen: Yes (She already has loose stools), Screen for Nausea/Vomitting: Yes - Labs CBC & Chem 7: 04/09/16 04:27 04/09/16 04:27 Labs: Laboratory Results - last 24 hr 04/08/16 04/08/16 04/08/16 07:07 17:29 19:44 WBC RBC Hgb Hct MCV MCH MCHC RDW Plt Count MPV Immature Gran % Seg Neutrophils % Lymphocytes % Monocytes % Eosinophils % Basophils % Neutrophils # Lymphocytes # Monocytes # Eosinophils # Basophils # Reactive Lymphocytes Platelet Estimate Tear Drop Cells Sodium Potassium Chloride Carbon Dioxide BUN Creatinine Est GFR ( Amer) Est GFR (Non-Af Amer) BUN/Creatinine Ratio Glucose POC Glucose 113 H 164 H 189 H Calculated Osmolality Calcium Phosphorus Magnesium 04/09/16 04/09/16 04/09/16 00:45 04:27 04:27 WBC 11.9 H D RBC 3.54 L Hgb 9.7 L Hct 28.4 L MCV 80.2 L MCH 27.4 L MCHC 34.2 RDW 15.8 H Plt Count 122 L MPV 10.9 Immature Gran % 2.8 Seg Neutrophils % 86.2 Lymphocytes % 5.6 Monocytes % 5.1 Eosinophils % 0.1 Basophils % 0.2 Neutrophils # 10.3 H Lymphocytes # 0.7 Monocytes # 0.6 Eosinophils # 0.0 Basophils # 0.0 Reactive Lymphocytes Present A Platelet Estimate Slight Decrease L Tear Drop Cells 1+ A Sodium 132 L Potassium 3.8 Chloride 106 Carbon Dioxide 18 L BUN 14 Creatinine 0.57 Est GFR ( Amer) > 60 Est GFR (Non-Af Amer) > 60 BUN/Creatinine Ratio 25 Glucose 162 H POC Glucose 218 H Calculated Osmolality 278 L Calcium 7.4 L Phosphorus 2.7 Magnesium 1.1 L - Impressions Impressions Cath/Invasive Procedure 04/08/16 00:00 IMPRESSION: Intraprocedural fluoroscopic spot images as above. See separate procedure report for more information. D/ / Caio Bach MD / Caio Bach MD Interpreting Provider: Caio Bach MD - ABG Interpretation ABG results: PT/INR, D-dimer PT 17.2 Seconds (9.4-12.1) H 04/05/16 05:00 Consult Discharge Plan - Plan Instructions: Chest Pain (DC), Anemia (GEN), Pneumonia (DC) Referrals: Mona Mitchell MD [Primary Care Provider] - Jason Garcia MD [Partnered Physician] - 04/22/16 1:40 pm
[2016-04-09] MEDS: Ipratropium/Albuterol Neb 3 ML IH PRN (09:38)
[2016-04-09] MEDS ORDERED: Magnesium Sulfate 2 GM in D5% in Water 100 ML IVPB ONE (12:06)
--- NOTE | 2016-04-09 17:19 | Internal Med Progress Note ---
<MaikolusEricjacki - Last Filed: 04/09/16 17:17> Date of Encounter: 04/09/16 Time of Encounter: 11:00 - Assessment and plan (1) Pancreatic mass Current Visit: Yes Status: Acute Assessment and plan: CT of abdomen/pelvis showed stable intrahepatic biliary ductal dilation and distal pancreatic ductal dilation, 1.3 cm cystic foci in head and body of the pancreas, dilated appearance of distal pancreatic duct. Patient takes suboxone for pain management-goes to clinic in [place]. SHe has lost 60-70 pounds int he last year due to poor appetite. She states she feels "bloated" whenever she eats. Will try a trial of Creon with meals. COnsult to palliative care for pain control. Patient recently had ERCP with sphincterotomy ofr papillary stenosis. MRCP pending. COnsult to GI for recommendations. CA 19-9 pending. Plan to get oncology on board tomorrow. Of note, patient has hx of breast cancer. 04/06/16: MRCP showed hypoenhancing 3.1x3cm lobulated pancreatic mass centered near junction of head and proximal pancreatic body, extensive dilation of the common bile duct, prominent dilation of the main pancreatic duct, severe intrahepatic biliary dilation with multiple cystic lesions within the liver, splenomegaly. Plan is to have EUS with ERCP with biopsy of mass. Added PO oxycodone for pain control, increased fluids to 100ml/hr to maintain blood pressure so tat she can keep getting her pain medications. 04/07/16: Last night, ERCP was not done because patient was anemic. She received 2 units of blood and her Hg today was 10.2. Per GI, ERCP procedure delayed until tomorrow. Patient continues to have significant pain, fentanyl dose increased with recommendation from palliative care. Consulted nutrition- plan is to start TPN today at 5pm at 35/hr, goal is 60/hr. At that time, D5 will be switched to Normal saline at 100/hr. Right IJ CVC placed today (please see procedure note). 04/08/16: s/p ERCP. Found severe dilation of the CBD with moderate dilation of the intrahepatic bile ducts. Distal common bile duct was narrowed. Patient had celiac block. Patient was found to have cholangitis, which is the likely cause of her obstructive jaundice. Continue with Levaquin, which should provide adequate coverage. Continue TPN for now. Plan for picc line placement before discharge to continue with TPN shelter. Patient's CA 19-9 level was 2654- highly suggestive of pancreatic cancer. 04/09/17 Patient is doing better today, and says that her pain is less after getting ERCP with celiac block procedure done yesterday. Will begin discharge planning. Family is thinking about palliative/hospice, but have stated they do not want the patient to go to penitentiary or ECF. IVF stopped due to lower extremity edema. will continue with oral intake and TPN with supplements. (2) Cholangitis Current Visit: Yes Status: Acute Assessment and plan: plan as above. (3) Hyperbilirubinemia Current Visit: Yes Status: Acute Assessment and plan: plan as above. (4) Obstructive jaundice Current Visit: Yes Status: Acute Assessment and plan: plan as #1 above. (5) Anemia Current Visit: Yes Status: Acute Assessment and plan: Patient's Hg measured at 7.7- drop from 8.6 yesterday. Her baseline Hg is around 12-13. MCV was 81, with hypochromasia, TSH normal. Iron studies show low iron, %saturation, transferrin. Ferrous sulfate TID with meals. Continue to monitor and transfuse as needed. 04/07/16: patient transfused two units of blood yesterday. Hg today was 10.2 and stable. Plan for ERCP tomorrow. 04/08/16 Patient's Hg today was stable at 10.1. Continue to monitor closely. 04/09 H&H stable. continue to monitor. no signs of bleeding present. Qualifiers: Anemia type: other cause Other causes of anemia: chronic disease, other Qualified Code(s): D63.8 - Anemia in other chronic diseases classified elsewhere (6) Chest pain Current Visit: Yes Status: Resolved Assessment and plan: Patient initially came in with CP. CTA negative for PE. possible ischemic etiology in setting of Anemia. Tropes x3 negative. Continue to monitor, continue with iron replacement. Patient currently chest pain free. Qualifiers: Chest pain type: unspecified Qualified Code(s): R07.9 - Chest pain, unspecified (7) Community acquired pneumonia Current Visit: Yes Status: Acute Assessment and plan: CXR shows right lower lobe opacification. Levaquin 750 daily- Day 5. blood cultures x2 showed no growth. Continue to monitor. (8) Goals of care, counseling/discussion Current Visit: Yes Status: Acute Assessment and plan: Patient is currently full code. Palliative care was consulted to discuss goals of care. Patient made aware that it is highly likely she has pancreatic cancer, and made aware that her prognosis is very poor. Pain control per palliative care team. She has also been evaluated by oncology. 04/09 after discussion with family today, it seems as though they are leaning more towards hospice/palliative care. will continue to have ongoing discussions with them regarding discharge planning. Pain medications being managed by palliative care team. (9) DVT prophylaxis Current Visit: No Status: Acute Assessment and plan: Heparin SQ Monitor H&H closely. - Subjective Interval history: 60 year old female evaluated at bedside. She is doing a lot better today, and is able to eat and has an appetite. - Constitutional Vitals: Temp Pulse Resp BP Pulse Ox 97.6 F 69 15 111/72 96 04/09/16 15:55 04/09/16 15:55 04/09/16 15:55 04/09/16 15:55 04/09/16 15:55 General appearance: Present: cachectic, cooperative, mild distress, A&O X 3, pleasant, answers questions appropriately Exam: patient is very frail, cachectic. - Head Head exam: Present: atraumatic, normocephalic - Eye Eye exam: Present: scleral icterus - Neck Neck exam general surgery: Present: supple, trachea midline - Respiratory Respiratory exam: Present: CTAB - Cardiovascular Cardiovascular exam: Present: RRR - GI/Abdominal GI/Abdominal exam: Present: soft Additional comments: scars present. tenderness less than previous days. positive bowel sounds. - Extremities Exam Extremities exam: Present: pedal edema, radial pulses palpable and symetrical - Neurological Exam Neurological exam: Present: alert, oriented X3, no focal deficits Additional comments: patient is very drowsy and was falling asleep during exam. - Skin Additional comments: skin is jaundiced. Internal Medicine: Result - Labs CBC & Chem 7: 04/09/16 04:27 04/09/16 04:27 Labs: Short CBC 04/09/16 Range/Units 04:27 WBC 11.9 H D (4.3-11.1) K/mcL Hgb 9.7 L (11.5-15.4) g/dL Hct 28.4 L (35.3-44.9) % Plt Count 122 L (140-400) K/mcL Neutrophils # 10.3 H (1.6-8.9) K/mcL BMP 04/09/16 04:27 Sodium 132 L Potassium 3.8 Chloride 106 Carbon Dioxide 18 L BUN 14 Creatinine 0.57 Glucose 162 H Calcium 7.4 L - ABG Interpretation ABG results: PT/INR, D-dimer PT 17.2 Seconds (9.4-12.1) H 04/05/16 05:00 Consult Discharge Plan - Plan Instructions: Chest Pain (DC), Anemia (GEN), Pneumonia (DC) Referrals: Mona Mitchell MD [Primary Care Provider] - Jason Garcia MD [Partnered Physician] - 04/22/16 1:40 pm <Topher Roque - Last Filed: 04/10/16 17:55> - Assessment and plan (1) Obstructive jaundice Current Visit: Yes Status: Acute (2) Cholangitis Current Visit: Yes Status: Acute (3) Hyperbilirubinemia Current Visit: Yes Status: Acute (4) Pancreatic mass Current Visit: Yes Status: Acute (5) Anemia Current Visit: Yes Status: Acute Qualifiers: Anemia type: other cause Other causes of anemia: chronic disease, other Qualified Code(s): D63.8 - Anemia in other chronic diseases classified elsewhere (6) Pneumonia Current Visit: Yes Status: Acute Qualifiers: Pneumonia type: due to unspecified organism Laterality: right Lung location: lower lobe of lung Qualified Code(s): J18.1 - Lobar pneumonia, unspecified organism (7) Hypertension Current Visit: Yes Status: Acute Qualifiers: Hypertension type: essential hypertension Qualified Code(s): I10 - Essential (primary) hypertension (8) Diarrhea Current Visit: Yes Status: Acute Qualifiers: Diarrhea type: unspecified type Qualified Code(s): R19.7 - Diarrhea, unspecified - Constitutional Vitals: Temp Pulse Resp BP Pulse Ox 98.0 F 70 15 108/69 96 04/10/16 16:10 04/10/16 16:10 04/10/16 16:10 04/10/16 16:10 04/10/16 16:10 Internal Medicine: Result - Labs CBC & Chem 7: 04/10/16 04:29 04/10/16 04:29 Labs: Short CBC 04/10/16 Range/Units 04:29 WBC 9.5 (4.3-11.1) K/mcL Hgb 9.3 L (11.5-15.4) g/dL Hct 28.5 L (35.3-44.9) % Plt Count 118 L (140-400) K/mcL Neutrophils # 7.1 (1.6-8.9) K/mcL BMP 04/10/16 04:29 Sodium 135 L Potassium 4.0 Chloride 108 Carbon Dioxide 21 BUN 16 Creatinine 0.55 L Glucose 127 H Calcium 7.6 L Liver Function 04/10/16 Range/Units 04:29 Total Bilirubin 2.3 H D (0.2-1.2) mg/dL AST 27 (5-34) Units/L ALT 43 (0-55) Units/L Alkaline Phosphatase 478 H (38-126) Units/L Albumin 1.4 L (3.5-5.0) g/dL - ABG Interpretation ABG results: PT/INR, D-dimer PT 17.2 Seconds (9.4-12.1) H 04/05/16 05:00 - Attending Attestation I examined this patient and my medical decision-making was reviewed with the Resident Physician on 04/09/16. I agree with the documented findings, disposition and treatment plan as described except to the extent set forth below. Ms. Lynn is currently admitted for intractable abd pain due to pancreatic mass and cholangitis. She is moderate to high risk due to potential for worsening sepsis and abdominal issues. Ms. Lynn is beginning to feel better since stent placement. She is beginning to eat and is on TPN as well. Pain is better controlled today and she has been started on long acting opioids. No nausea currently. Exam Alert. Comfortable Heart reg No wheeze No edema I/P 1. Intractable abd pain - on pain meds and seems to be doing better today 2. Cholangitis 3. Pancreatic mass - presumptive carcinoma Further diagnoses and plan as above.
[2016-04-09] MEDS: Clinimix E 5%-15% SOLUTION 2,000 ML with MVI, adult with vitamin K 10 ML, Magnesium S... IV SCH (17:47)
[2016-04-10] MEDS: *HR* FentaNYL (PF) 100 MCG/2 ML VIAL IVP PRN ×4 (04:23→13:47)
[2016-04-10 04:33] LABS: Basophils % 0.2 %; Eosinophils # 0.1 K/mcL (0.0-0.6); Eosinophils % 0.9 %; Hematocrit 28.5 % (35.3-44.9); Hemoglobin 9.3 g/dL (11.5-15.4); Immature Granulocytes % 4.9 % (0-4); Lymphocytes # 1.1 K/mcL (0.6-4.6); Lymphocytes % 11.1 %; Mean Corpuscular HGB Conc 32.6 g/dL (31.6-35.5); Mean Corpuscular Hemoglobin 27.4 pg (28.0-33.3); Mean Corpuscular Volume 83.8 fL (83.0-100.0); Mean Platelet Volume 11.4 fL (9.4-12.4); Monocytes # 0.8 K/mcL (0.0-1.3); Monocytes % 8.1 %; Neutrophils # 7.1 K/mcL (1.6-8.9); Platelet Count 118 K/mcL (140-400); Red Cell Distribution Width 16.4 % (11.5-14.5); Segmented Neutrophils % 74.8 %
[2016-04-10 04:52] LABS: Alanine Aminotransferase 43 Units/L (0-55); Albumin/Globulin Ratio 0.4 (1.1-2.2); Alkaline Phosphatase 478 Units/L (38-126); Aspartate Amino Transferase 27 Units/L (5-34); BUN/Creatinine Ratio 29 (6-26); Blood Urea Nitrogen 16 mg/dL (7-20); Calcium 7.6 mg/dL (8.6-10.8); Carbon Dioxide 21 mEq/L (19-29); Chloride 108 mEq/L (98-109); Globulin 3.7 g/dL (2.4-3.5); Glucose 127 mg/dL (70-99); Magnesium 1.7 mg/dL (1.6-2.6); Osmolality,Calculated 283 (280-300); Phosphorous 2.8 mg/dL (2.3-4.7); Sodium 135 mEq/L (136-145); Total Protein 5.1 g/dL (6.0-8.3); eGFR For African Americans > 60 (> 60); eGFR For Non-African Americans > 60 (> 60)
[2016-04-10 04:53] LABS: Albumin 1.4 g/dL (3.5-5.0); Bilirubin,Total 2.3 mg/dL (0.2-1.2)
[2016-04-10] MEDS: *HR* Heparin 5,000 UNIT/ML VIAL SQ SCH ×2 (05:23→18:10)
[2016-04-10] MEDS: Cyanocobalamin (B-12) 1,000 MCG TABLET PO SCH (08:10)
[2016-04-10] MEDS: Sennosides/Docusate Sodium TABLET PO SCH ×2 (08:11→20:40)
[2016-04-10] MEDS: *HR* Morphine Sulfate SR (12 HR) 60 MG TABLET.ER PO SCH ×3 (08:11→23:43)
[2016-04-10] MEDS: Folic Acid 1 MG TABLET PO SCH (08:11)
--- NOTE | 2016-04-10 12:10 | Internal Med Progress Note ---
<Lobo Astudillo - Last Filed: 04/10/16 12:05> Date of Encounter: 04/10/16 Time of Encounter: 10:00 - Assessment and plan (1) Pancreatic mass Current Visit: Yes Status: Acute Assessment and plan: CT of abdomen/pelvis showed stable intrahepatic biliary ductal dilation and distal pancreatic ductal dilation, 1.3 cm cystic foci in head and body of the pancreas, dilated appearance of distal pancreatic duct. Patient takes suboxone for pain management-goes to clinic in [place]. SHe has lost 60-70 pounds int he last year due to poor appetite. She states she feels "bloated" whenever she eats. Will try a trial of Creon with meals. COnsult to palliative care for pain control. Patient recently had ERCP with sphincterotomy ofr papillary stenosis. MRCP pending. COnsult to GI for recommendations. CA 19-9 pending. Plan to get oncology on board tomorrow. Of note, patient has hx of breast cancer. 04/06/16: MRCP showed hypoenhancing 3.1x3cm lobulated pancreatic mass centered near junction of head and proximal pancreatic body, extensive dilation of the common bile duct, prominent dilation of the main pancreatic duct, severe intrahepatic biliary dilation with multiple cystic lesions within the liver, splenomegaly. Plan is to have EUS with ERCP with biopsy of mass. Added PO oxycodone for pain control, increased fluids to 100ml/hr to maintain blood pressure so tat she can keep getting her pain medications. 04/07/16: Last night, ERCP was not done because patient was anemic. She received 2 units of blood and her Hg today was 10.2. Per GI, ERCP procedure delayed until tomorrow. Patient continues to have significant pain, fentanyl dose increased with recommendation from palliative care. Consulted nutrition- plan is to start TPN today at 5pm at 35/hr, goal is 60/hr. At that time, D5 will be switched to Normal saline at 100/hr. Right IJ CVC placed today (please see procedure note). 04/08/16: s/p ERCP. Found severe dilation of the CBD with moderate dilation of the intrahepatic bile ducts. Distal common bile duct was narrowed. Patient had celiac block. Patient was found to have cholangitis, which is the likely cause of her obstructive jaundice. Continue with Levaquin, which should provide adequate coverage. Continue TPN for now. Plan for picc line placement before discharge to continue with TPN nursing home. Patient's CA 19-9 level was 2654- highly suggestive of pancreatic cancer. 04/09/17 Patient is doing better today, and says that her pain is less after getting ERCP with celiac block procedure done yesterday. Will begin discharge planning. Family is thinking about palliative/hospice, but have stated they do not want the patient to go to care home or ECF. IVF stopped due to lower extremity edema. will continue with oral intake and TPN with supplements. 04/10/16 Patient informed that she will have her fentanyl will be stopped tomorrow. Consult to PICC team will be placed for patient to have picc line. Continue with Levaquin for cholangitis. (2) Cholangitis Current Visit: Yes Status: Acute Assessment and plan: plan as above. (3) Hyperbilirubinemia Current Visit: Yes Status: Acute Assessment and plan: plan as above. (4) Obstructive jaundice Current Visit: Yes Status: Acute Assessment and plan: plan as #1 above. (5) Anemia Current Visit: Yes Status: Acute Assessment and plan: Patient's Hg measured at 7.7- drop from 8.6 yesterday. Her baseline Hg is around 12-13. MCV was 81, with hypochromasia, TSH normal. Iron studies show low iron, %saturation, transferrin. Ferrous sulfate TID with meals. Continue to monitor and transfuse as needed. 04/07/16: patient transfused two units of blood yesterday. Hg today was 10.2 and stable. Plan for ERCP tomorrow. 04/08/16 Patient's Hg today was stable at 10.1. Continue to monitor closely. 04/09 H&H stable. continue to monitor. no signs of bleeding present. 04/10 H&H stable. Qualifiers: Anemia type: other cause Other causes of anemia: chronic disease, other Qualified Code(s): D63.8 - Anemia in other chronic diseases classified elsewhere (6) Chest pain Current Visit: Yes Status: Resolved Assessment and plan: Patient initially came in with CP. CTA negative for PE. possible ischemic etiology in setting of Anemia. Tropes x3 negative. Continue to monitor, continue with iron replacement. Patient currently chest pain free. Qualifiers: Chest pain type: unspecified Qualified Code(s): R07.9 - Chest pain, unspecified (7) Community acquired pneumonia Current Visit: Yes Status: Acute Assessment and plan: CXR shows right lower lobe opacification. Levaquin 750 daily- Day 6. blood cultures x2 showed no growth. Continue to monitor. (8) Goals of care, counseling/discussion Current Visit: Yes Status: Acute Assessment and plan: Patient is currently full code. Palliative care was consulted to discuss goals of care. Patient made aware that it is highly likely she has pancreatic cancer, and made aware that her prognosis is very poor. Pain control per palliative care team. She has also been evaluated by oncology. after discussion with family, it seems as though they are leaning more towards hospice/palliative care. will continue to have ongoing discussions with them regarding discharge planning. Pain medications being managed by palliative care team. (9) DVT prophylaxis Current Visit: No Status: Acute Assessment and plan: Heparin SQ Monitor H&H closely. - Subjective Interval history: 60 year old female evaluated at bedside. She was sitting up in bed and coloring. Her pain is better today, and she rates it 6/10. She was informed that our goal is to stop the fentanyl tomorrow. SHe denies nausea, vomiting, diarrhea. She reports some chills and denies chest pain. She is still continuing to eat. - Constitutional Vitals: Temp Pulse Resp BP Pulse Ox 98.1 F 69 16 98/64 97 04/10/16 07:21 04/10/16 11:04 04/10/16 11:04 04/10/16 11:04 04/10/16 07:21 General appearance: Present: cachectic, cooperative, mild distress, A&O X 3, pleasant, answers questions appropriately - Head Head exam: Present: atraumatic, normocephalic - Eye Eye exam: Present: scleral icterus - Neck Neck exam general surgery: Present: supple, trachea midline - Respiratory Respiratory exam: Present: CTAB - Cardiovascular Cardiovascular exam: Present: RRR - GI/Abdominal GI/Abdominal exam: Present: distended, normal bowel sounds, tenderness - Extremities Exam Extremities exam: Present: pedal edema (+1 lower extremity pitting edema. ), radial pulses palpable and symetrical. Absent: cyanotic - Neurological Exam Neurological exam: Present: alert, oriented X3 Additional comments: patient very drowsy and lethargic. - Psychiatric Psychiatric exam: Present: depressed - Skin Additional comments: jaundice and mild scleral icterus present. Internal Medicine: Result - Labs CBC & Chem 7: 04/10/16 04:29 04/10/16 04:29 Labs: Short CBC 04/10/16 Range/Units 04:29 WBC 9.5 (4.3-11.1) K/mcL Hgb 9.3 L (11.5-15.4) g/dL Hct 28.5 L (35.3-44.9) % Plt Count 118 L (140-400) K/mcL Neutrophils # 7.1 (1.6-8.9) K/mcL BMP 04/10/16 04:29 Sodium 135 L Potassium 4.0 Chloride 108 Carbon Dioxide 21 BUN 16 Creatinine 0.55 L Glucose 127 H Calcium 7.6 L Liver Function 04/10/16 Range/Units 04:29 Total Bilirubin 2.3 H D (0.2-1.2) mg/dL AST 27 (5-34) Units/L ALT 43 (0-55) Units/L Alkaline Phosphatase 478 H (38-126) Units/L Albumin 1.4 L (3.5-5.0) g/dL - ABG Interpretation ABG results: PT/INR, D-dimer PT 17.2 Seconds (9.4-12.1) H 04/05/16 05:00 Consult Discharge Plan - Plan Instructions: Chest Pain (DC), Anemia (GEN), Pneumonia (DC) Referrals: Mona Mitchell MD [Primary Care Provider] - Jason Garcia MD [Partnered Physician] - 04/22/16 1:40 pm <Topher Roque - Last Filed: 04/10/16 18:06> - Assessment and plan (1) Obstructive jaundice Current Visit: Yes Status: Acute (2) Cholangitis Current Visit: Yes Status: Acute (3) Hyperbilirubinemia Current Visit: Yes Status: Acute (4) Pancreatic mass Current Visit: Yes Status: Acute (5) Severe protein-calorie malnutrition Current Visit: Yes Status: Acute Assessment and plan: On TPN now. Will have PICC placed tomorrow. (6) Anemia Current Visit: Yes Status: Acute Qualifiers: Anemia type: other cause Other causes of anemia: chronic disease, other Qualified Code(s): D63.8 - Anemia in other chronic diseases classified elsewhere (7) Hypertension Current Visit: Yes Status: Acute Assessment and plan: Continue to monitor. Qualifiers: Hypertension type: essential hypertension Qualified Code(s): I10 - Essential (primary) hypertension - Constitutional Vitals: Temp Pulse Resp BP Pulse Ox 98.0 F 70 15 108/69 96 04/10/16 16:10 04/10/16 16:10 04/10/16 16:10 04/10/16 16:10 04/10/16 16:10 Internal Medicine: Result - Labs CBC & Chem 7: 04/10/16 04:29 04/10/16 04:29 Labs: Short CBC 04/10/16 Range/Units 04:29 WBC 9.5 (4.3-11.1) K/mcL Hgb 9.3 L (11.5-15.4) g/dL Hct 28.5 L (35.3-44.9) % Plt Count 118 L (140-400) K/mcL Neutrophils # 7.1 (1.6-8.9) K/mcL BMP 04/10/16 04:29 Sodium 135 L Potassium 4.0 Chloride 108 Carbon Dioxide 21 BUN 16 Creatinine 0.55 L Glucose 127 H Calcium 7.6 L Liver Function 04/10/16 Range/Units 04:29 Total Bilirubin 2.3 H D (0.2-1.2) mg/dL AST 27 (5-34) Units/L ALT 43 (0-55) Units/L Alkaline Phosphatase 478 H (38-126) Units/L Albumin 1.4 L (3.5-5.0) g/dL - ABG Interpretation ABG results: PT/INR, D-dimer PT 17.2 Seconds (9.4-12.1) H 04/05/16 05:00 - Attending Attestation I examined this patient and my medical decision-making was reviewed with the Resident Physician on 04/10/16. I agree with the documented findings, disposition and treatment plan as described except to the extent set forth below. Ms. Lynn is currently admitted for pancreatic mass with intractable pain and associated cholangitis. She is moderate to high risk due to potential for worsening liver function, infection and medication adjustments. Ms. Lynn is up eating breakfast at this time. No nausea. Gets full easily. Pain is better controlled today. No fever. Still on TPN and is tolerating well. Exam Alert. Comfortable 'Heart reg Lungs no wheeze Abd soft No edema I/P 1. Intractable abd pain - improving on current regimen per palliative care 2. Cholangitis - on IV abx 3. Pancreatic mass - presumptive pancreatic cancer 4. Malnutrition - on TPN. Further diagnoses and plan as above.
[2016-04-10] MEDS ORDERED: *HR* FentaNYL (PF) 100 MCG/2 ML VIAL IVP PRN (13:57)
--- NOTE | 2016-04-10 16:23 | Palliative Progress Note ---
Date of Encounter: 04/10/16 Time of Encounter: 07:30 - Assessment and plan (1) Chest pain Current Visit: Yes Status: Resolved Assessment and plan: The issue and has been getting her fentanyl roughly every 2 hours. After getting the long-lasting morphine this has slowed a little bit. I will increase her long-lasting morphine 15 mg dose to 75 mg 3 times a day. I am leaving the fentanyl in place for today plan on switching over to by mouth tomorrow. His blood pressure is tolerating medications well and she is eating.. Qualifiers: Chest pain type: unspecified Qualified Code(s): R07.9 - Chest pain, unspecified (2) Pancreatic mass Current Visit: Yes Status: Acute Assessment and plan: Awaiting pathology at this time. Very suspicious for pancreatic cancer. She understands this but is waiting to hear with the tissue diagnosis is she may opt for hospice care at that time, however at this time she remains a full code. (3) Community acquired pneumonia Current Visit: Yes Status: Acute Assessment and plan: Continue antibiotics as per hospitalist team. Blood cultures negative, white count normal today was slightly higher yesterday. no fever. (4) Constipation by delayed colonic transit Current Visit: Yes Status: Acute Assessment and plan: Patient is concerned that she probably needs to have more bowel movements at this time, will start a small dose of senna as the patient typically has some diarrhea. Patient request have increased the Sinemet twice a day. Continue to watch closely. (5) Goals of care, counseling/discussion Current Visit: Yes Status: Acute Assessment and plan: The patient remains a full code. She is awaiting the results of her Potts find out what other problems she has not how they will be addressed. At this time she is not palliative only. She is still interested in aggressive care. He may be rethinking aggressive care, however this time she is still awaiting the results of the biopsy be able to diet her decision making. Was asking more questions with regards to hospice today, however she does remain a full code the time of being seen this morning she was still opting for aggressive care, if possible depending on the diagnosis. (6) Obstructive jaundice Current Visit: Yes Status: Acute Assessment and plan: Acute cholangitis has been found. Stent is in place and actively draining. . He is feeling much better at this time. - Time Spent With Patient Total time spent is greater than 50% in coordination of care (as documented) at patient's floor/unit and/or counseling patient: - Subjective Interval history: The patient states that her pain is better with the new medications. He did ask if the L could remain on for 1 more day and then switched by mouth tomorrow. He is now able to sit up in bed in color and she is eating. She did request some more medication for bowel movement. - Constitutional Vitals: Abnormal lab results RBC 3.40 M/mcL (3.82-4.97) L 04/10/16 04:29 Hgb 9.3 g/dL (11.5-15.4) L 04/10/16 04:29 Hct 28.5 % (35.3-44.9) L 04/10/16 04:29 MCH 27.4 pg (28.0-33.3) L 04/10/16 04:29 RDW 16.4 % (11.5-14.5) H 04/10/16 04:29 Plt Count 118 K/mcL (140-400) L 04/10/16 04:29 Immature Gran % 4.9 % (0-4) H 04/10/16 04:29 Reactive Lymphocytes Present (Not Present) A 04/09/16 04:27 Toxic Granulation Present (Not Present) A 04/08/16 04:45 Toxic Vacuolation Present (Not Present) A 04/06/16 04:50 Platelet Estimate Slight Decrease (Normal) L 04/09/16 04:27 Polychromasia 1+ (Not Present) A 04/05/16 05:00 Hypochromasia Present (Not Present) A 04/08/16 04:45 Poikilocytosis 1+ (Not Present) A 04/05/16 05:00 Anisocytosis 1+ (Not Present) A 04/07/16 05:00 Microcytosis Present (Not Present) A 04/08/16 04:45 Target Cells 1+ (Not Present) A 04/04/16 21:17 Tear Drop Cells 1+ (Not Present) A 04/09/16 04:27 PT 17.2 Seconds (9.4-12.1) H 04/05/16 05:00 Sodium 135 mEq/L (136-145) L 04/10/16 04:29 Creatinine 0.55 mg/dL (0.57-1.11) L 04/10/16 04:29 BUN/Creatinine Ratio 29 (6-26) H 04/10/16 04:29 Glucose 127 mg/dL (70-99) H 04/10/16 04:29 POC Glucose 138 (58-89) H 04/09/16 19:49 Calcium 7.6 mg/dL (8.6-10.8) L 04/10/16 04:29 Ionized Calcium 1.13 mmol/L (1.15-1.35) L 04/08/16 04:45 Iron 8 mcg/dL (50-170) L 04/05/16 12:42 % Saturation 5 % (15-50) L 04/05/16 12:42 Transferrin 110 mg/dL (180-382) L 04/05/16 12:42 Total Bilirubin 2.3 mg/dL (0.2-1.2) H D 04/10/16 04:29 Direct Bilirubin 6.7 mg/dL (0.0-0.5) H 04/07/16 05:00 Indirect Bilirubin 1.6 mg/dL (0.0-1.2) H 04/07/16 05:00 Alkaline Phosphatase 478 Units/L (38-126) H 04/10/16 04:29 Serum Total Protein 5.1 g/dL (6.0-8.3) L 04/10/16 04:29 Albumin 1.4 g/dL (3.5-5.0) L 04/10/16 04:29 Globulin 3.7 g/dL (2.4-3.5) H 04/10/16 04:29 Albumin/Globulin Ratio 0.4 (1.1-2.2) L 04/10/16 04:29 Prealbumin < 3.0 mg/dL (16.0-38.0) L 04/08/16 04:45 Lipase 7 Units/L (8-78) L 04/04/16 21:17 CA 19-9 Antigen 2654 U/mL (0-37) H 04/05/16 05:00 Urine Color [place] (Yellow) A 04/06/16 17:30 Urine Clarity Cloudy (Clear) A 04/06/16 17:30 Urine Bilirubin Large (Negative) H 02/15/17 17:30 Ur Leukocyte Esterase Small (Negative) H 04/06/16 17:30 Urine Microscopic RBC 3-5 per hpf (0-3) H 04/06/16 17:30 Urine Microscopic WBC 3-5 per hpf (0-3) H 04/06/16 17:30 Ur Squamous Epith Cells Many per lpf (None-Few) H 04/06/16 17:30 General appearance: Present: no acute distress - Head Head exam: Present: atraumatic, normal inspection - Eye Eye exam: Present: normal appearance - ENT ENT exam: Present: mucous membranes moist - Respiratory Respiratory exam: Present: CTAB - Cardiovascular Cardiovascular exam: Present: RRR - Extremities Exam Extremities exam: Present: normal inspection. Absent: pedal edema, tenderness - Neurological Exam Neurological exam: Present: alert, oriented X3 - Psychiatric Psychiatric exam: Present: normal affect, normal mood. Absent: agitated, anxious - Skin Skin exam: Present: dry, warm Palliative Quality Palliative Quality: Screen for Code Status: Yes, Screen for Goals of Care: Yes, Screen for Pain: Yes, If Pain Regimen Started, Initiate Bowel Regimen: Yes (She already has loose stools), Screen for Nausea/Vomitting: Yes - Labs CBC & Chem 7: 04/10/16 04:29 04/10/16 04:29 Labs: Laboratory Results - last 24 hr 04/09/16 04/09/16 04/09/16 04:01 07:05 12:00 WBC RBC Hgb Hct MCV MCH MCHC RDW Plt Count MPV Immature Gran % Seg Neutrophils % Lymphocytes % Monocytes % Eosinophils % Basophils % Neutrophils # Lymphocytes # Monocytes # Eosinophils # Basophils # Sodium Potassium Chloride Carbon Dioxide BUN Creatinine Est GFR ( Amer) Est GFR (Non-Af Amer) BUN/Creatinine Ratio Glucose POC Glucose 171 H 120 H 146 H Calculated Osmolality Calcium Phosphorus Magnesium Total Bilirubin AST ALT Alkaline Phosphatase Serum Total Protein Albumin Globulin Albumin/Globulin Ratio 04/09/16 04/09/16 04/10/16 15:59 19:49 04:29 WBC 9.5 RBC 3.40 L Hgb 9.3 L Hct 28.5 L MCV 83.8 MCH 27.4 L MCHC 32.6 RDW 16.4 H Plt Count 118 L MPV 11.4 Immature Gran % 4.9 H Seg Neutrophils % 74.8 Lymphocytes % 11.1 Monocytes % 8.1 Eosinophils % 0.9 Basophils % 0.2 Neutrophils # 7.1 Lymphocytes # 1.1 Monocytes # 0.8 Eosinophils # 0.1 Basophils # 0.0 Sodium Potassium Chloride Carbon Dioxide BUN Creatinine Est GFR ( Amer) Est GFR (Non-Af Amer) BUN/Creatinine Ratio Glucose POC Glucose 149 H 138 H Calculated Osmolality Calcium Phosphorus Magnesium Total Bilirubin AST ALT Alkaline Phosphatase Serum Total Protein Albumin Globulin Albumin/Globulin Ratio 04/10/16 04:29 WBC RBC Hgb Hct MCV MCH MCHC RDW Plt Count MPV Immature Gran % Seg Neutrophils % Lymphocytes % Monocytes % Eosinophils % Basophils % Neutrophils # Lymphocytes # Monocytes # Eosinophils # Basophils # Sodium 135 L Potassium 4.0 Chloride 108 Carbon Dioxide 21 BUN 16 Creatinine 0.55 L Est GFR ( Amer) > 60 Est GFR (Non-Af Amer) > 60 BUN/Creatinine Ratio 29 H Glucose 127 H POC Glucose Calculated Osmolality 283 Calcium 7.6 L Phosphorus 2.8 Magnesium 1.7 Total Bilirubin 2.3 H D AST 27 ALT 43 Alkaline Phosphatase 478 H Serum Total Protein 5.1 L Albumin 1.4 L Globulin 3.7 H Albumin/Globulin Ratio 0.4 L - ABG Interpretation ABG results: PT/INR, D-dimer PT 17.2 Seconds (9.4-12.1) H 04/05/16 05:00 Consult Discharge Plan - Plan Instructions: Chest Pain (DC), Anemia (GEN), Pneumonia (DC) Referrals: Mona Mitchell MD [Primary Care Provider] - Jason Garcia MD [Partnered Physician] - 04/22/16 1:40 pm
[2016-04-10] MEDS: Clinimix E 5%-15% SOLUTION 2,000 ML with MVI, adult with vitamin K 10 ML, Magnesium S... IV SCH (18:03)
[2016-04-10] MEDS: *HR* Morphine Sulfate SR (12 HR) 15 MG TABLET.ER PO SCH ×2 (18:04→23:43)
[2016-04-10] MEDS: Albumin 25% 25gram/100mL 25 GM/100 ML IV.SOLN IVC SCH ×2 (18:51→22:14)
[2016-04-10] MEDS ORDERED: Levofloxacin 750 MG/150 ML 750 MG/150 ML BAG IVPB SCH (22:00)
[2016-04-11 03:54] LABS: Basophils % 0.3 %; Eosinophils # 0.1 K/mcL (0.0-0.6); Lymphocytes # 0.9 K/mcL (0.6-4.6); Lymphocytes % 11.9 %; Mean Corpuscular HGB Conc 31.7 g/dL (31.6-35.5); Mean Corpuscular Hemoglobin 27.4 pg (28.0-33.3); Mean Corpuscular Volume 86.6 fL (83.0-100.0); Mean Platelet Volume 11.3 fL (9.4-12.4); Monocytes # 0.7 K/mcL (0.0-1.3); Monocytes % 8.4 %; Neutrophils # 5.7 K/mcL (1.6-8.9); Platelet Count 115 K/mcL (140-400); Red Blood Count 2.77 M/mcL (3.82-4.97); Segmented Neutrophils % 73.4 %
[2016-04-11 03:56] LABS: Hemoglobin 7.6 g/dL (11.5-15.4)
[2016-04-11 03:58] LABS: Ionized Calcium 1.17 mmol/L (1.15-1.35)
[2016-04-11 04:08] LABS: BUN/Creatinine Ratio 29 (6-26); Blood Urea Nitrogen 17 mg/dL (7-20); Calcium 7.9 mg/dL (8.6-10.8); Carbon Dioxide 22 mEq/L (19-29); Chloride 105 mEq/L (98-109); Glucose 123 mg/dL (70-99); Magnesium 1.6 mg/dL (1.6-2.6); Osmolality,Calculated 281 (280-300); Phosphorous 3.6 mg/dL (2.3-4.7); Potassium 3.9 mEq/L (3.5-4.5); Sodium 134 mEq/L (136-145); eGFR For African Americans > 60 (> 60); eGFR For Non-African Americans > 60 (> 60)
[2016-04-11] MEDS: *HR* Heparin 5,000 UNIT/ML VIAL SQ SCH ×2 (05:55→18:07)
[2016-04-11] MEDS: Sennosides/Docusate Sodium TABLET PO SCH ×2 (08:18→21:05)
[2016-04-11] MEDS: Folic Acid 1 MG TABLET PO SCH (08:18)
[2016-04-11] MEDS: *HR* Morphine Sulfate SR (12 HR) 60 MG TABLET.ER PO SCH ×2 (08:18→16:00)
[2016-04-11] MEDS: *HR* Morphine Sulfate SR (12 HR) 15 MG TABLET.ER PO SCH ×3 (08:18→16:11)
[2016-04-11] MEDS: Cyanocobalamin (B-12) 1,000 MCG TABLET PO SCH (08:18)
[2016-04-11] MEDS ORDERED: Bisacodyl 10 MG RECTAL SUPPOSITORY RC ONE (09:57)
[2016-04-11] MEDS ORDERED: *HR* FentaNYL (PF) 100 MCG/2 ML VIAL IVP PRN (09:58)
--- NOTE | 2016-04-11 10:03 | Palliative Progress Note ---
Date of Encounter: 04/11/16 Time of Encounter: 09:59 - Assessment and plan (1) Abdominal pain Current Visit: Yes Status: Acute Assessment and plan: Abdominal pain with primary location in the mid-epigastric area to the right upper quadrant. Celiac block during stent placement for pain management. Continues to described as a sharp shooting pain. Currently rated at 8/10. Started on MS Contin 75mg Q8 hours for long acting opioid control. She reports a noticeable difference in her pain management. Ms. Lynn has not had to use breakthrough medications in the past 24 hours. Will add in oxycodone 15mg every 4 hours as needed for breakthrough pain and adjust accordingly. Discussed case with Dr. Roque. Follow up: Ms. Lynn complains of being tired throughout the day. Her daughter confirms the complaint. Will decrease the dose of MS Contin back to 60mg every 8 hours with the oxycodone as needed for breakthrough pain. Patient agreeable to medication change. Qualifiers: Abdominal location: generalized Qualified Code(s): R10.84 - Generalized abdominal pain (2) Goals of care, counseling/discussion Current Visit: Yes Status: Acute Assessment and plan: Goals of care discussion with the patient and her daughter/Koko. We reviewed code status options in detail. Patient continues to consider her options. Will follow up tomorrow. Further goals of care pending biopsy results. (3) Constipation by delayed colonic transit Current Visit: Yes Status: Acute Assessment and plan: Last BM 04/07/16. Ms. Lynn continues to report abdominal bloating and passing flatus. She feels as if the rectal vault is full and is having difficulty passing her stool. Will try a bisacodyl rectal suppository today as she declines an enema. Currently on Senna 2 tabs BID. Will also add Miralax daily. Discussed the need for aggressive management of opioid induced constipation with the patient. Update: Patient did not have a significant bowel movement following the rectal suppository. Will give fleets enema and follow result. Continue with Miralax and Senna 2 tabs BID. (4) Cholangitis Current Visit: Yes Status: Acute (5) Severe protein-calorie malnutrition Current Visit: Yes Status: Acute Assessment and plan: Currently on TPN. Dietitian following. Ms. Lynn is now able to tolerate some oral intake in small amounts. She is able to take in strawberry Ensure. (6) Obstructive jaundice Current Visit: Yes Status: Acute Assessment and plan: S/P biliary stent on 04/08/16 (7) Pancreatic mass Current Visit: Yes Status: Acute Assessment and plan: Biopsy results pending. - Time Spent With Patient Total time spent is greater than 50% in coordination of care (as documented) at patient's floor/unit and/or counseling patient: - Subjective Interval history: Ms. Lynn is sitting up in the bed. She complains of abdominal pain that is better than last week. The primary location is the right upper quadrant/ epigastric are. This pain is rated at a 8/10 and she is able to tolerate it. Ms. Lynn was started on MS CONTIN over the weekend. She has not used any fentanyl for BTP in the past 24 hours. Ms. Lynn also states that her bowels have not moved in 4 days. She did get some relief when passing flatus. - Constitutional Vitals: Abnormal lab results RBC 2.77 M/mcL (3.82-4.97) L 04/11/16 03:52 Hgb 7.6 g/dL (11.5-15.4) L D 04/11/16 03:52 Hct 24.0 % (35.3-44.9) L 04/11/16 03:52 MCH 27.4 pg (28.0-33.3) L 04/11/16 03:52 RDW 16.0 % (11.5-14.5) H 04/11/16 03:52 Plt Count 115 K/mcL (140-400) L 04/11/16 03:52 Immature Gran % 5.0 % (0-4) H 04/11/16 03:52 Reactive Lymphocytes Present (Not Present) A 04/09/16 04:27 Toxic Granulation Present (Not Present) A 04/08/16 04:45 Toxic Vacuolation Present (Not Present) A 04/06/16 04:50 Platelet Estimate Slight Decrease (Normal) L 04/09/16 04:27 Polychromasia 1+ (Not Present) A 04/05/16 05:00 Hypochromasia Present (Not Present) A 04/08/16 04:45 Poikilocytosis 1+ (Not Present) A 04/05/16 05:00 Anisocytosis 1+ (Not Present) A 04/07/16 05:00 Microcytosis Present (Not Present) A 04/08/16 04:45 Target Cells 1+ (Not Present) A 04/04/16 21:17 Tear Drop Cells 1+ (Not Present) A 04/09/16 04:27 PT 17.2 Seconds (9.4-12.1) H 04/05/16 05:00 Sodium 134 mEq/L (136-145) L 04/11/16 03:52 BUN/Creatinine Ratio 29 (6-26) H 04/11/16 03:52 Glucose 123 mg/dL (70-99) H 04/11/16 03:52 POC Glucose 137 (58-89) H 04/11/16 04:27 Calcium 7.9 mg/dL (8.6-10.8) L 04/11/16 03:52 Iron 8 mcg/dL (50-170) L 04/05/16 12:42 % Saturation 5 % (15-50) L 04/05/16 12:42 Transferrin 110 mg/dL (180-382) L 04/05/16 12:42 Total Bilirubin 2.3 mg/dL (0.2-1.2) H D 04/10/16 04:29 Direct Bilirubin 6.7 mg/dL (0.0-0.5) H 04/07/16 05:00 Indirect Bilirubin 1.6 mg/dL (0.0-1.2) H 04/07/16 05:00 Alkaline Phosphatase 478 Units/L (38-126) H 04/10/16 04:29 Serum Total Protein 5.1 g/dL (6.0-8.3) L 04/10/16 04:29 Albumin 1.4 g/dL (3.5-5.0) L 04/10/16 04:29 Globulin 3.7 g/dL (2.4-3.5) H 04/10/16 04:29 Albumin/Globulin Ratio 0.4 (1.1-2.2) L 04/10/16 04:29 Prealbumin < 3.0 mg/dL (16.0-38.0) L 04/08/16 04:45 Lipase 7 Units/L (8-78) L 04/04/16 21:17 CA 19-9 Antigen 2654 U/mL (0-37) H 04/05/16 05:00 Urine Color [place] (Yellow) A 04/06/16 17:30 Urine Clarity Cloudy (Clear) A 04/06/16 17:30 Urine Bilirubin Large (Negative) H 04/06/16 17:30 Ur Leukocyte Esterase Small (Negative) H 04/06/16 17:30 Urine Microscopic RBC 3-5 per hpf (0-3) H 04/06/16 17:30 Urine Microscopic WBC 3-5 per hpf (0-3) H 04/06/16 17:30 Ur Squamous Epith Cells Many per lpf (None-Few) H 04/06/16 17:30 General appearance: Present: cooperative, no acute distress Exam: 60 year old female, cachectic, jaundice, chronically deconditioned. - ENT ENT exam: Present: mucous membranes dry - Respiratory Respiratory exam: Present: decreased breath sounds. Absent: accessory muscle use, respiratory distress - Cardiovascular Cardiovascular exam: Present: RRR - GI/Abdominal GI/Abdominal exam: Present: firm, normal bowel sounds, tenderness - Extremities Exam Extremities exam: Present: pedal edema - Neurological Exam Neurological exam: Present: alert, oriented X3, no focal deficits - Psychiatric Psychiatric exam: Present: flat affect. Absent: agitated, anxious - Skin Skin exam: Present: dry, warm Palliative Quality Palliative Quality: Screen for Code Status: Yes, Screen for Goals of Care: Yes, Screen for Pain: Yes, If Pain Regimen Started, Initiate Bowel Regimen: Yes (She already has loose stools), Screen for Nausea/Vomitting: Yes - Labs CBC & Chem 7: 04/11/16 03:52 04/11/16 03:52 Labs: Laboratory Results - last 24 hr 04/10/16 04/10/16 04/10/16 00:15 04:25 07:25 WBC RBC Hgb Hct MCV MCH MCHC RDW Plt Count MPV Immature Gran % Seg Neutrophils % Lymphocytes % Monocytes % Eosinophils % Basophils % Neutrophils # Lymphocytes # Monocytes # Eosinophils # Basophils # Sodium Potassium Chloride Carbon Dioxide BUN Creatinine Est GFR ( Amer) Est GFR (Non-Af Amer) BUN/Creatinine Ratio Glucose POC Glucose 132 H 137 H 129 H Calculated Osmolality Calcium Ionized Calcium Phosphorus Magnesium 04/10/16 04/10/16 04/10/16 16:13 19:56 23:55 WBC RBC Hgb Hct MCV MCH MCHC RDW Plt Count MPV Immature Gran % Seg Neutrophils % Lymphocytes % Monocytes % Eosinophils % Basophils % Neutrophils # Lymphocytes # Monocytes # Eosinophils # Basophils # Sodium Potassium Chloride Carbon Dioxide BUN Creatinine Est GFR ( Amer) Est GFR (Non-Af Amer) BUN/Creatinine Ratio Glucose POC Glucose 114 H 127 H 140 H Calculated Osmolality Calcium Ionized Calcium Phosphorus Magnesium 04/11/16 04/11/16 04/11/16 03:52 03:52 04:27 WBC 7.8 RBC 2.77 L Hgb 7.6 L D Hct 24.0 L MCV 86.6 MCH 27.4 L MCHC 31.7 RDW 16.0 H Plt Count 115 L MPV 11.3 Immature Gran % 5.0 H Seg Neutrophils % 73.4 Lymphocytes % 11.9 Monocytes % 8.4 Eosinophils % 1.0 Basophils % 0.3 Neutrophils # 5.7 Lymphocytes # 0.9 Monocytes # 0.7 Eosinophils # 0.1 Basophils # 0.0 Sodium 134 L Potassium 3.9 Chloride 105 Carbon Dioxide 22 BUN 17 Creatinine 0.58 Est GFR ( Amer) > 60 Est GFR (Non-Af Amer) > 60 BUN/Creatinine Ratio 29 H Glucose 123 H POC Glucose 137 H Calculated Osmolality 281 Calcium 7.9 L Ionized Calcium 1.17 Phosphorus 3.6 Magnesium 1.6 - ABG Interpretation ABG results: PT/INR, D-dimer PT 17.2 Seconds (9.4-12.1) H 04/05/16 05:00 Consult Discharge Plan - Plan Instructions: Chest Pain (DC), Anemia (GEN), Pneumonia (DC) Referrals: Mona Mitchell MD [Primary Care Provider] - Jason Garcia MD [Partnered Physician] - 04/22/16 1:40 pm
--- NOTE | 2016-04-11 11:11 | Gastroenterology Progress Note ---
<Robert Gonzalez - Last Filed: 04/11/16 11:09> Date of Encounter: 04/11/16 Time of Encounter: 10:00 - Assessment and plan (1) Anemia Current Visit: Yes Status: Acute Assessment and plan: Iron low at 8, continue iron supplementation. Qualifiers: Anemia type: other cause Other causes of anemia: chronic disease, other Qualified Code(s): D63.8 - Anemia in other chronic diseases classified elsewhere (2) Obstructive jaundice Current Visit: Yes Status: Acute Assessment and plan: ERCP with biliary stent placed. (3) Pancreatic mass Current Visit: Yes Status: Acute Assessment and plan: CA 19-9 was 2654. EUS with biopsy pending. Follow up with oncology. (4) Severe protein-calorie malnutrition Current Visit: Yes Status: Acute Assessment and plan: Recommend TPN for the next 1-2 months. (5) Constipation by delayed colonic transit Current Visit: Yes Status: Acute Assessment and plan: Likely secondary to opioids. Recommend daily fiber supplement and Miralax up to BID. - Time Spent With Patient Total time spent is greater than 50% in coordination of care (as documented) at patient's floor/unit and/or counseling patient: - Subjective Interval history: The patient is sitting up in bed and continues to complain of abdominal pain. She reports no BM for the past 8 days. - Constitutional Vitals: Temp Pulse Resp BP Pulse Ox 97.7 F 80 14 110/66 95 04/11/16 07:19 04/11/16 07:19 04/11/16 07:19 04/11/16 07:19 04/11/16 07:19 General appearance: Present: cachectic, cooperative, A&O X 3, no acute distress , answers questions appropriately - Head Head exam: Present: atraumatic, normocephalic - Eye Eye exam: Present: normal appearance, sclera anicteric - ENT ENT exam: Present: mucous membranes moist - Neck Neck exam general surgery: Present: normal inspection, trachea midline - Respiratory Respiratory exam: Present: CTAB. Absent: rales, rhonchi - Cardiovascular Cardiovascular exam: Present: RRR, +S1, +S2 - GI/Abdominal GI/Abdominal exam: Present: distended, soft, tenderness, no peritoneal signs. Absent: firm, guarding - Rectal Rectal exam: Present: deferred - Extremities Exam Extremities exam: Present: warm - Neurological Exam Neurological exam: Present: no focal deficits - Psychiatric Psychiatric exam: Present: normal affect, normal mood - Skin Skin exam: Present: dry, intact, normal color, warm Results - Labs CBC & Chem 7: 04/11/16 03:52 04/11/16 03:52 Labs: Last Result Calcium 7.9 mg/dL (8.6-10.8) L 04/11/16 03:52 Iron 8 mcg/dL (50-170) L 04/05/16 12:42 % Saturation 5 % (15-50) L 04/05/16 12:42 Transferrin 110 mg/dL (180-382) L 04/05/16 12:42 Troponin I 0.01 ng/mL (0-0.03) 04/05/16 09:45 Triglycerides 96 mg/dL (< 150) 04/08/16 04:45 Entire Visit Hgb 7.6 g/dL (11.5-15.4) L D 04/11/16 03:52 Hct 24.0 % (35.3-44.9) L 04/11/16 03:52 PT 17.2 Seconds (9.4-12.1) H 04/05/16 05:00 Total Bilirubin 2.3 mg/dL (0.2-1.2) H D 04/10/16 04:29 AST 27 Units/L (5-34) 04/10/16 04:29 ALT 43 Units/L (0-55) 04/10/16 04:29 Lipase 7 Units/L (8-78) L 04/04/16 21:17 CA 19-9 Antigen 2654 U/mL (0-37) H 04/05/16 05:00 - ABG ABG results: PT/INR, D-dimer PT 17.2 Seconds (9.4-12.1) H 04/05/16 05:00 Consult Discharge Plan - Plan Instructions: Chest Pain (DC), Anemia (GEN), Pneumonia (DC) Referrals: Mona Mitchell MD [Primary Care Provider] - Jason Garcia MD [Partnered Physician] - 04/22/16 1:40 pm <Joshua Streeter - Last Filed: 04/11/16 14:57> Time of Encounter: 15:00 - Time Spent With Patient Total time spent is greater than 50% in coordination of care (as documented) at patient's floor/unit and/or counseling patient: - Constitutional Vitals: Temp Pulse Resp BP Pulse Ox 97.4 F L 74 13 93/58 93 L 04/11/16 11:15 04/11/16 11:15 04/11/16 11:15 04/11/16 11:15 04/11/16 11:15 Results - Labs CBC & Chem 7: 04/11/16 03:52 04/11/16 03:52 Labs: Last Result Calcium 7.9 mg/dL (8.6-10.8) L 04/11/16 03:52 Iron 8 mcg/dL (50-170) L 04/05/16 12:42 % Saturation 5 % (15-50) L 04/05/16 12:42 Transferrin 110 mg/dL (180-382) L 04/05/16 12:42 Troponin I 0.01 ng/mL (0-0.03) 04/05/16 09:45 Triglycerides 96 mg/dL (< 150) 04/08/16 04:45 Entire Visit Hgb 7.6 g/dL (11.5-15.4) L D 04/11/16 03:52 Hct 24.0 % (35.3-44.9) L 04/11/16 03:52 PT 17.2 Seconds (9.4-12.1) H 04/05/16 05:00 Total Bilirubin 2.3 mg/dL (0.2-1.2) H D 04/10/16 04:29 AST 27 Units/L (5-34) 04/10/16 04:29 ALT 43 Units/L (0-55) 04/10/16 04:29 Lipase 7 Units/L (8-78) L 04/04/16 21:17 CA 19-9 Antigen 2654 U/mL (0-37) H 04/05/16 05:00 - ABG ABG results: PT/INR, D-dimer PT 17.2 Seconds (9.4-12.1) H 04/05/16 05:00 - Attending Attestation I examined this patient and my medical decision-making was reviewed with the ASSIGNMENT EDITOR/PA/Advanced Practice Nurse/Resident Physician. I agree with the documented findings, disposition and treatment plan as described except to the extent set forth below.
--- NOTE | 2016-04-11 14:49 | Internal Med Progress Note ---
<Lobo Astudillo - Last Filed: 04/11/16 15:39> Date of Encounter: 04/11/16 Time of Encounter: 09:00 - Assessment and plan (1) Pancreatic mass Current Visit: Yes Status: Acute Assessment and plan: CT of abdomen/pelvis showed stable intrahepatic biliary ductal dilation and distal pancreatic ductal dilation, 1.3 cm cystic foci in head and body of the pancreas, dilated appearance of distal pancreatic duct. Patient takes suboxone for pain management-goes to clinic in [place]. SHe has lost 60-70 pounds int he last year due to poor appetite. She states she feels "bloated" whenever she eats. Will try a trial of Creon with meals. COnsult to palliative care for pain control. Patient recently had ERCP with sphincterotomy ofr papillary stenosis. MRCP pending. COnsult to GI for recommendations. CA 19-9 pending. Plan to get oncology on board tomorrow. Of note, patient has hx of breast cancer. 04/06/16: MRCP showed hypoenhancing 3.1x3cm lobulated pancreatic mass centered near junction of head and proximal pancreatic body, extensive dilation of the common bile duct, prominent dilation of the main pancreatic duct, severe intrahepatic biliary dilation with multiple cystic lesions within the liver, splenomegaly. Plan is to have EUS with ERCP with biopsy of mass. Added PO oxycodone for pain control, increased fluids to 100ml/hr to maintain blood pressure so tat she can keep getting her pain medications. 04/07/16: Last night, ERCP was not done because patient was anemic. She received 2 units of blood and her Hg today was 10.2. Per GI, ERCP procedure delayed until tomorrow. Patient continues to have significant pain, fentanyl dose increased with recommendation from palliative care. Consulted nutrition- plan is to start TPN today at 5pm at 35/hr, goal is 60/hr. At that time, D5 will be switched to Normal saline at 100/hr. Right IJ CVC placed today (please see procedure note). 04/08/16: s/p ERCP. Found severe dilation of the CBD with moderate dilation of the intrahepatic bile ducts. Distal common bile duct was narrowed. Patient had celiac block. Patient was found to have cholangitis, which is the likely cause of her obstructive jaundice. Continue with Levaquin, which should provide adequate coverage. Continue TPN for now. Plan for picc line placement before discharge to continue with TPN detention. Patient's CA 19-9 level was 2654- highly suggestive of pancreatic cancer. 04/09/17 Patient is doing better today, and says that her pain is less after getting ERCP with celiac block procedure done yesterday. Will begin discharge planning. Family is thinking about palliative/hospice, but have stated they do not want the patient to go to [facility] or ECF. IVF stopped due to lower extremity edema. will continue with oral intake and TPN with supplements. 04/10/16 Patient informed that she will have her fentanyl will be stopped tomorrow. Consult to PICC team will be placed for patient to have picc line. Continue with Levaquin for cholangitis. 04/11/16 Patient still has lower extremity edema but it is improved since yesterday. Will give another 25g albumin through central line. Patient's pain is significantly improved since admission. SHe has not required fentanyl yesterday or today. Per palliative, she was started on MS Contin 75mg Q8R for long acting opioid control, and oxycodone 15mg every 4 HRS for breatkthrough pain. For bowels, she has bisacodyl rectal suppository, Senna 2tabs BID, miralax daily. biospy results still pending. Continue with Levaquin for cholangitis. (2) Cholangitis Current Visit: Yes Status: Acute Assessment and plan: plan as above. (3) Hyperbilirubinemia Current Visit: Yes Status: Acute Assessment and plan: plan as above. (4) Obstructive jaundice Current Visit: Yes Status: Acute Assessment and plan: plan as #1 above. (5) Anemia Current Visit: Yes Status: Acute Assessment and plan: Patient's Hg measured at 7.7- drop from 8.6 yesterday. Her baseline Hg is around 12-13. MCV was 81, with hypochromasia, TSH normal. Iron studies show low iron, %saturation, transferrin. Ferrous sulfate TID with meals. Continue to monitor and transfuse as needed. 04/07/16: patient transfused two units of blood yesterday. Hg today was 10.2 and stable. Plan for ERCP tomorrow. 04/08/16 Patient's Hg today was stable at 10.1. Continue to monitor closely. 04/09 H&H stable. continue to monitor. no signs of bleeding present. 04/10 H&H stable. 04/11 Hg dropped to 7.6 today, which is about her baseline. Will hold off on transfusing for now. will transfuse if drops below 7 continue to monitor. continue with iron supplements. Qualifiers: Anemia type: other cause Other causes of anemia: chronic disease, other Qualified Code(s): D63.8 - Anemia in other chronic diseases classified elsewhere (6) Chest pain Current Visit: Yes Status: Resolved Assessment and plan: Patient initially came in with CP. CTA negative for PE. possible ischemic etiology in setting of Anemia. Tropes x3 negative. Continue to monitor, continue with iron replacement. Patient currently chest pain free. Qualifiers: Chest pain type: unspecified Qualified Code(s): R07.9 - Chest pain, unspecified (7) Community acquired pneumonia Current Visit: Yes Status: Acute Assessment and plan: CXR shows right lower lobe opacification. Levaquin 750 daily- Day 7. blood cultures x2 showed no growth. Continue to monitor. (8) Goals of care, counseling/discussion Current Visit: Yes Status: Acute Assessment and plan: Patient is currently full code. Palliative care was consulted to discuss goals of care. Patient made aware that it is highly likely she has pancreatic cancer, and made aware that her prognosis is very poor. Pain control per palliative care team. She has also been evaluated by oncology. after discussion with family, it seems as though they are leaning more towards hospice/palliative care. will continue to have ongoing discussions with them regarding discharge planning. Pain medications being managed by palliative care team. 04/11/16 patient states that she is interested in inpatient rehab, but her daughters would like to bring her home. will have discussion with familly present regarding this. (9) DVT prophylaxis Current Visit: No Status: Acute Assessment and plan: Heparin SQ Monitor H&H closely. - Subjective Interval history: 60 year old female evaluated at bedside. patient continues to improve, and continues to have a stable appetite. She says she is feeling "pretty good" today. She denies nausea, vomiting, fever chills. She states that her pain is improved today. - Constitutional Vitals: Temp Pulse Resp BP Pulse Ox 97.4 F L 74 13 93/58 93 L 04/11/16 11:15 04/11/16 11:15 04/11/16 11:15 04/11/16 11:15 04/11/16 11:15 General appearance: Present: cachectic, cooperative, mild distress, A&O X 3, pleasant, answers questions appropriately - Head Head exam: Present: atraumatic, normocephalic - Eye Eye exam: Present: scleral icterus (improved since admission. ) - Neck Neck exam general surgery: Present: supple, trachea midline - Respiratory Respiratory exam: Present: CTAB - Cardiovascular Cardiovascular exam: Present: RRR, +S1, +S2 - GI/Abdominal GI/Abdominal exam: Present: normal bowel sounds, tenderness. Absent: firm, guarding - Extremities Exam Additional comments: +2 edema on left lower extremity, +1 pitting edema on right lower extremity. - Neurological Exam Neurological exam: Present: alert, oriented X3, no focal deficits - Psychiatric Psychiatric exam: Present: normal affect, normal mood - Skin Additional comments: jaundice still present but significantly improved since admission. Internal Medicine: Result - Labs CBC & Chem 7: 04/11/16 03:52 04/11/16 03:52 Labs: Short CBC 04/11/16 Range/Units 03:52 WBC 7.8 (4.3-11.1) K/mcL Hgb 7.6 L D (11.5-15.4) g/dL Hct 24.0 L (35.3-44.9) % Plt Count 115 L (140-400) K/mcL Neutrophils # 5.7 (1.6-8.9) K/mcL BMP 04/11/16 03:52 Sodium 134 L Potassium 3.9 Chloride 105 Carbon Dioxide 22 BUN 17 Creatinine 0.58 Glucose 123 H Calcium 7.9 L - ABG Interpretation ABG results: PT/INR, D-dimer PT 17.2 Seconds (9.4-12.1) H 04/05/16 05:00 Consult Discharge Plan - Plan Instructions: Chest Pain (DC), Anemia (GEN), Pneumonia (DC) Referrals: Mona Mitchell MD [Primary Care Provider] - Jason Garcia MD [Partnered Physician] - 04/22/16 1:40 pm <Topher Roque - Last Filed: 04/11/16 18:27> - Assessment and plan (1) Cholangitis Current Visit: Yes Status: Acute (2) Obstructive jaundice Current Visit: Yes Status: Acute (3) Hyperbilirubinemia Current Visit: Yes Status: Acute (4) Pancreatic mass Current Visit: Yes Status: Acute (5) Severe protein-calorie malnutrition Current Visit: Yes Status: Acute (6) Anemia Current Visit: Yes Status: Acute Qualifiers: Anemia type: other cause Other causes of anemia: chronic disease, other Qualified Code(s): D63.8 - Anemia in other chronic diseases classified elsewhere (7) Hypertension Current Visit: Yes Status: Acute Qualifiers: Hypertension type: essential hypertension Qualified Code(s): I10 - Essential (primary) hypertension - Constitutional Vitals: Temp Pulse Resp BP Pulse Ox 97.4 F L 75 14 104/68 94 L 04/11/16 15:29 04/11/16 15:29 04/11/16 15:29 04/11/16 15:29 04/11/16 15:29 Internal Medicine: Result - Labs CBC & Chem 7: 04/11/16 03:52 04/11/16 03:52 Labs: Short CBC 04/11/16 Range/Units 03:52 WBC 7.8 (4.3-11.1) K/mcL Hgb 7.6 L D (11.5-15.4) g/dL Hct 24.0 L (35.3-44.9) % Plt Count 115 L (140-400) K/mcL Neutrophils # 5.7 (1.6-8.9) K/mcL BMP 04/11/16 03:52 Sodium 134 L Potassium 3.9 Chloride 105 Carbon Dioxide 22 BUN 17 Creatinine 0.58 Glucose 123 H Calcium 7.9 L - ABG Interpretation ABG results: PT/INR, D-dimer PT 17.2 Seconds (9.4-12.1) H 04/05/16 05:00 - Attending Attestation I examined this patient and my medical decision-making was reviewed with the Resident Physician on 04/11/16. I agree with the documented findings, disposition and treatment plan as described except to the extent set forth below. Ms. Lynn is currently admitted for intractable pain and pancreatic mass. She remains moderate to high risk due to potential for worsening infection and management of TPN. Ms. Lynn is able to eat some meals. Her pain feels better controlled. She is not taking Fentanyl much now. No nausea. Awaiting biopsy report. Exam Alert. Comfortable Heart reg No wheeze Edema lower extremities. I/P 1. Intractable pain 2. Cholangitis 3. Pancreatic mass - biopsy pending 4. Malnutrition on TPN Further diagnoses and plan as above.
[2016-04-11] MEDS ORDERED: Albumin 25% 25gram/100mL 25 GM/100 ML IV.SOLN IVPB ONE (15:05)
[2016-04-11] MEDS ORDERED: Clinimix E 5%-15% SOLUTION 2,000 ML with MVI, adult with vitamin K 10 ML, Magnesium S... IV SCH (17:00)
[2016-04-11] MEDS: levoFLOXacin 750 MG TABLET PO SCH (21:04)
[2016-04-12] MEDS: *HR* Morphine Sulfate SR (12 HR) 60 MG TABLET.ER PO SCH ×4 (02:30→21:12)
[2016-04-12] MEDS: *HR* Heparin 5,000 UNIT/ML VIAL SQ SCH ×2 (06:17→17:59)
[2016-04-12 06:49] LABS: BUN/Creatinine Ratio 32 (6-26); Blood Urea Nitrogen 17 mg/dL (7-20); Calcium 8.2 mg/dL (8.6-10.8); Carbon Dioxide 26 mEq/L (19-29); Chloride 102 mEq/L (98-109); Glucose 121 mg/dL (70-99); Magnesium 1.5 mg/dL (1.6-2.6); Osmolality,Calculated 279 (280-300); Phosphorous 3.4 mg/dL (2.3-4.7); Potassium 4.2 mEq/L (3.5-4.5); Sodium 133 mEq/L (136-145); eGFR For African Americans > 60 (> 60); eGFR For Non-African Americans > 60 (> 60)
[2016-04-12] MEDS: Sennosides/Docusate Sodium TABLET PO SCH ×2 (08:41→21:12)
[2016-04-12] MEDS: Folic Acid 1 MG TABLET PO SCH (08:42)
[2016-04-12] MEDS: Cyanocobalamin (B-12) 1,000 MCG TABLET PO SCH (08:42)
[2016-04-12] MEDS ORDERED: Magnesium Sulfate 1 GM in D5% in Water 100 ML IVPB ONE (08:47)
[2016-04-12] MEDS ORDERED: Milk and Molasses Enema 200 ML RC ONE (10:22)
--- NOTE | 2016-04-12 10:22 | Palliative Progress Note ---
Date of Encounter: 04/12/16 Time of Encounter: 09:00 - Assessment and plan (1) Abdominal pain Current Visit: Yes Status: Acute Assessment and plan: Abdominal pain with primary location in the mid-epigastric area to the right upper quadrant. Celiac block during stent placement for pain management. Continues to described as a sharp shooting pain. Currently rated at 10/10. Started on MS Contin 75mg Q8 hours for long acting opioid control, but it was decreased to 60mg every 8 hours due to drowsiness. Ms. Lynn has not had to use breakthrough medications in the past 24 hours. Will continue oxycodone 15mg every 4 hours as needed for breakthrough pain and adjust accordingly. Reviewed medication management with primary nurse. Discussed case with Dr. Roque. Qualifiers: Abdominal location: generalized Qualified Code(s): R10.84 - Generalized abdominal pain (2) Goals of care, counseling/discussion Current Visit: Yes Status: Acute Assessment and plan: Awaiting results of biopsy for further goals planning. (3) Constipation by delayed colonic transit Current Visit: Yes Status: Acute Assessment and plan: Ms. Lynn did have a hard BM this morning, but she reports still feeling "full". Fleets enema was not given yesterday. Will give enema today and continue with the Senna 2 tabs BID and Miralax daily. (4) Cholangitis Current Visit: Yes Status: Acute (5) Severe protein-calorie malnutrition Current Visit: Yes Status: Acute Assessment and plan: Currently on TPN. Dietitian following. Ms. Lynn is now able to tolerate some oral intake in small amounts. She is able to take in strawberry Ensure. (6) Obstructive jaundice Current Visit: Yes Status: Acute Assessment and plan: S/P biliary stent on 04/08/16 (7) Pancreatic mass Current Visit: Yes Status: Acute Assessment and plan: Biopsy results pending. - Time Spent With Patient Total time spent is greater than 50% in coordination of care (as documented) at patient's floor/unit and/or counseling patient: - Subjective Interval history: Ms. Lynn is sitting up on the edge of the bed. She complains of abdominal pain that is described as "excruciating". This pain is rated at a 10/10. Ms. Lynn was started on MS CONTIN over the weekend, and the dose was decreased to 60mg every 8 hours yesterday due to drowsiness. She has not used any oxyodone for BTP. Ms. Lynn also states that her bowels moved this morning, but the stool was hard to pass and she continues to feel constipated. - Constitutional Vitals: Abnormal lab results RBC 2.77 M/mcL (3.82-4.97) L 04/11/16 03:52 Hgb 7.6 g/dL (11.5-15.4) L D 04/11/16 03:52 Hct 24.0 % (35.3-44.9) L 04/11/16 03:52 MCH 27.4 pg (28.0-33.3) L 04/11/16 03:52 RDW 16.0 % (11.5-14.5) H 04/11/16 03:52 Plt Count 115 K/mcL (140-400) L 04/11/16 03:52 Immature Gran % 5.0 % (0-4) H 04/11/16 03:52 Reactive Lymphocytes Present (Not Present) A 04/09/16 04:27 Toxic Granulation Present (Not Present) A 04/08/16 04:45 Toxic Vacuolation Present (Not Present) A 04/06/16 04:50 Platelet Estimate Slight Decrease (Normal) L 04/09/16 04:27 Polychromasia 1+ (Not Present) A 04/05/16 05:00 Hypochromasia Present (Not Present) A 04/08/16 04:45 Poikilocytosis 1+ (Not Present) A 04/05/16 05:00 Anisocytosis 1+ (Not Present) A 04/07/16 05:00 Microcytosis Present (Not Present) A 04/08/16 04:45 Target Cells 1+ (Not Present) A 04/04/16 21:17 Tear Drop Cells 1+ (Not Present) A 04/09/16 04:27 PT 17.2 Seconds (9.4-12.1) H 04/05/16 05:00 Sodium 133 mEq/L (136-145) L 04/12/16 06:20 Creatinine 0.53 mg/dL (0.57-1.11) L 04/12/16 06:20 BUN/Creatinine Ratio 32 (6-26) H 04/12/16 06:20 Glucose 121 mg/dL (70-99) H 04/12/16 06:20 POC Glucose 122 (58-89) H 04/12/16 06:03 Calculated Osmolality 279 (280-300) L 04/12/16 06:20 Calcium 8.2 mg/dL (8.6-10.8) L 04/12/16 06:20 Magnesium 1.5 mg/dL (1.6-2.6) L 04/12/16 06:20 Iron 8 mcg/dL (50-170) L 04/05/16 12:42 % Saturation 5 % (15-50) L 04/05/16 12:42 Transferrin 110 mg/dL (180-382) L 04/05/16 12:42 Total Bilirubin 2.3 mg/dL (0.2-1.2) H D 04/10/16 04:29 Direct Bilirubin 6.7 mg/dL (0.0-0.5) H 04/07/16 05:00 Indirect Bilirubin 1.6 mg/dL (0.0-1.2) H 04/07/16 05:00 Alkaline Phosphatase 478 Units/L (38-126) H 04/10/16 04:29 Serum Total Protein 5.1 g/dL (6.0-8.3) L 04/10/16 04:29 Albumin 1.4 g/dL (3.5-5.0) L 04/10/16 04:29 Globulin 3.7 g/dL (2.4-3.5) H 04/10/16 04:29 Albumin/Globulin Ratio 0.4 (1.1-2.2) L 04/10/16 04:29 Prealbumin < 3.0 mg/dL (16.0-38.0) L 04/08/16 04:45 Lipase 7 Units/L (8-78) L 04/04/16 21:17 CA 19-9 Antigen 2654 U/mL (0-37) H 04/05/16 05:00 Urine Color Webb (Yellow) A 04/06/16 17:30 Urine Clarity Cloudy (Clear) A 04/06/16 17:30 Urine Bilirubin Large (Negative) H 04/06/16 17:30 Ur Leukocyte Esterase Small (Negative) H 04/06/16 17:30 Urine Microscopic RBC 3-5 per hpf (0-3) H 04/06/16 17:30 Urine Microscopic WBC 3-5 per hpf (0-3) H 04/06/16 17:30 Ur Squamous Epith Cells Many per lpf (None-Few) H 04/06/16 17:30 General appearance: Present: cooperative, mild distress (related to pain) Exam: 60 year old female patient appearing chronically ill and in acute pain related to constipation. - ENT ENT exam: Present: mucous membranes moist - Respiratory Respiratory exam: Present: CTAB. Absent: accessory muscle use, prolonged expiratory phase, respiratory distress, wheezes, tachypnea - Cardiovascular Cardiovascular exam: Present: RRR - GI/Abdominal GI/Abdominal exam: Present: distended, firm, normal bowel sounds, tenderness Additional comments: abdomen firm and tender to touch - Extremities Exam Extremities exam: Present: pedal edema - Neurological Exam Neurological exam: Present: alert, oriented X3, no focal deficits, strengths equal and symetr throughout - Skin Skin exam: Present: dry, warm Palliative Quality Palliative Quality: Screen for Code Status: Yes, Screen for Goals of Care: Yes, Screen for Pain: Yes, If Pain Regimen Started, Initiate Bowel Regimen: Yes, Screen for Nausea/Vomitting: Yes - Labs CBC & Chem 7: 04/11/16 03:52 04/12/16 06:20 Labs: Laboratory Results - last 24 hr 04/11/16 04/11/16 04/11/16 07:21 11:19 17:12 Sodium Potassium Chloride Carbon Dioxide BUN Creatinine Est GFR ( Amer) Est GFR (Non-Af Amer) BUN/Creatinine Ratio Glucose POC Glucose 130 H 154 H 144 H Calculated Osmolality Calcium Phosphorus Magnesium 04/11/16 04/12/16 04/12/16 20:14 00:15 06:03 Sodium Potassium Chloride Carbon Dioxide BUN Creatinine Est GFR ( Amer) Est GFR (Non-Af Amer) BUN/Creatinine Ratio Glucose POC Glucose 131 H 143 H 122 H Calculated Osmolality Calcium Phosphorus Magnesium 04/12/16 06:20 Sodium 133 L Potassium 4.2 Chloride 102 Carbon Dioxide 26 BUN 17 Creatinine 0.53 L Est GFR ( Amer) > 60 Est GFR (Non-Af Amer) > 60 BUN/Creatinine Ratio 32 H Glucose 121 H POC Glucose Calculated Osmolality 279 L Calcium 8.2 L Phosphorus 3.4 Magnesium 1.5 L - ABG Interpretation ABG results: PT/INR, D-dimer PT 17.2 Seconds (9.4-12.1) H 04/05/16 05:00 Consult Discharge Plan - Plan Instructions: Chest Pain (DC), Anemia (GEN), Pneumonia (DC) Referrals: Mona Mitchell MD [Primary Care Provider] - Jason Garcia MD [Partnered Physician] - 04/22/16 1:40 pm
[2016-04-12] MEDS: *HR* OxyCODONE Immed Rel 15 MG TABLET PO PRN (12:51)
[2016-04-12] MEDS ORDERED: Albumin 25% 25gram/100mL 25 GM/100 ML IV.SOLN IVPB ONE (13:50)
--- NOTE | 2016-04-12 13:54 | Internal Med Progress Note ---
<Lobo Astudillo - Last Filed: 04/12/16 16:46> Time of Encounter: 09:00 - Assessment and plan (1) Pancreatic mass Current Visit: Yes Status: Acute Assessment and plan: CT of abdomen/pelvis showed stable intrahepatic biliary ductal dilation and distal pancreatic ductal dilation, 1.3 cm cystic foci in head and body of the pancreas, dilated appearance of distal pancreatic duct. Patient takes suboxone for pain management-goes to clinic in [place]. SHe has lost 60-70 pounds int he last year due to poor appetite. She states she feels "bloated" whenever she eats. Will try a trial of Creon with meals. COnsult to palliative care for pain control. Patient recently had ERCP with sphincterotomy ofr papillary stenosis. MRCP pending. COnsult to GI for recommendations. CA 19-9 pending. Plan to get oncology on board tomorrow. Of note, patient has hx of breast cancer. 04/06/16: MRCP showed hypoenhancing 3.1x3cm lobulated pancreatic mass centered near junction of head and proximal pancreatic body, extensive dilation of the common bile duct, prominent dilation of the main pancreatic duct, severe intrahepatic biliary dilation with multiple cystic lesions within the liver, splenomegaly. Plan is to have EUS with ERCP with biopsy of mass. Added PO oxycodone for pain control, increased fluids to 100ml/hr to maintain blood pressure so tat she can keep getting her pain medications. 04/07/16: Last night, ERCP was not done because patient was anemic. She received 2 units of blood and her Hg today was 10.2. Per GI, ERCP procedure delayed until tomorrow. Patient continues to have significant pain, fentanyl dose increased with recommendation from palliative care. Consulted nutrition- plan is to start TPN today at 5pm at 35/hr, goal is 60/hr. At that time, D5 will be switched to Normal saline at 100/hr. Right IJ CVC placed today (please see procedure note). 04/08/16: s/p ERCP. Found severe dilation of the CBD with moderate dilation of the intrahepatic bile ducts. Distal common bile duct was narrowed. Patient had celiac block. Patient was found to have cholangitis, which is the likely cause of her obstructive jaundice. Continue with Levaquin, which should provide adequate coverage. Continue TPN for now. Plan for picc line placement before discharge to continue with TPN long term acute care registered nurse. Patient's CA 19-9 level was 2654- highly suggestive of pancreatic cancer. 04/09/17 Patient is doing better today, and says that her pain is less after getting ERCP with celiac block procedure done yesterday. Will begin discharge planning. Family is thinking about palliative/hospice, but have stated they do not want the patient to go to fdc or ECF. IVF stopped due to lower extremity edema. will continue with oral intake and TPN with supplements. 04/10/16 Patient informed that she will have her fentanyl will be stopped tomorrow. Consult to PICC team will be placed for patient to have picc line. Continue with Levaquin for cholangitis. 04/11/16 Patient still has lower extremity edema but it is improved since yesterday. Will give another 25g albumin through central line. Patient's pain is significantly improved since admission. SHe has not required fentanyl yesterday or today. Per palliative, she was started on MS Contin 75mg Q8R for long acting opioid control, and oxycodone 15mg every 4 HRS for breatkthrough pain. For bowels, she has bisacodyl rectal suppository, Senna 2tabs BID, miralax daily. biospy results still pending. Continue with Levaquin for cholangitis. 04/12/16 Pain rated at 8/10. MS Contin dose decreased to 60mg Q8HR due to drowsiness. Continue oxycodone 15mg every 4 hours as needed for breakthroug pain. still awaiting biopsy results. 25g albumin infused today. Nicola hose stockings ordered for lower extremity edema. Consult to picc team for picc line placement tomorrow for fdc TPN. Temporarily plan for discharge tomorrow with follow up with oncology and Dr. Streeter. Holding iron due to severe comstipation. Continuing Levaquin for cholangitis. (2) Cholangitis Current Visit: Yes Status: Acute Assessment and plan: plan as above. (3) Hyperbilirubinemia Current Visit: Yes Status: Acute Assessment and plan: plan as above. (4) Obstructive jaundice Current Visit: Yes Status: Acute Assessment and plan: plan as #1 above. (5) Anemia Current Visit: Yes Status: Acute Assessment and plan: Patient's Hg measured at 7.7- drop from 8.6 yesterday. Her baseline Hg is around 12-13. MCV was 81, with hypochromasia, TSH normal. Iron studies show low iron, %saturation, transferrin. Ferrous sulfate TID with meals. Continue to monitor and transfuse as needed. 04/07/16: patient transfused two units of blood yesterday. Hg today was 10.2 and stable. Plan for ERCP tomorrow. 04/08/16 Patient's Hg today was stable at 10.1. Continue to monitor closely. 04/09 H&H stable. continue to monitor. no signs of bleeding present. 04/10 H&H stable. 04/11 Hg dropped to 7.6 today, which is about her baseline. Will hold off on transfusing for now. will transfuse if drops below 7 continue to monitor. continue with iron supplements. 04/12 patient type and screned in case she needs transfusion. Hg remians stable at 7.6, which is about her baseline. Qualifiers: Anemia type: other cause Other causes of anemia: chronic disease, other Qualified Code(s): D63.8 - Anemia in other chronic diseases classified elsewhere (6) Chest pain Current Visit: Yes Status: Resolved Assessment and plan: Patient initially came in with CP. CTA negative for PE. possible ischemic etiology in setting of Anemia. Tropes x3 negative. Continue to monitor, continue with iron replacement. Patient currently chest pain free. Qualifiers: Chest pain type: unspecified Qualified Code(s): R07.9 - Chest pain, unspecified (7) Community acquired pneumonia Current Visit: Yes Status: Acute Assessment and plan: CXR shows right lower lobe opacification. Levaquin 750 daily- Day 8. blood cultures x2 showed no growth. Continue to monitor. (8) Goals of care, counseling/discussion Current Visit: Yes Status: Acute Assessment and plan: Patient is currently full code. Palliative care was consulted to discuss goals of care. Patient made aware that it is highly likely she has pancreatic cancer, and made aware that her prognosis is very poor. Pain control per palliative care team. She has also been evaluated by oncology. after discussion with family, it seems as though they are leaning more towards hospice/palliative care. will continue to have ongoing discussions with them regarding discharge planning. Pain medications being managed by palliative care team. 04/11/16 patient states that she is interested in inpatient rehab, but her daughters would like to bring her home. will have discussion with family present regarding this. 04/12/16 Still awaiting biopsy results for further discharge planning. (9) DVT prophylaxis Current Visit: No Status: Acute Assessment and plan: Heparin SQ Monitor H&H closely. - Subjective Interval history: 60 year old female evaluated at bedside. patient continues to be constipated, and is scheduled to get an enema later this morning. She denies nausea, vomiting , fever, hills. She was on the commode trying to have a bowel movement during examinatoin. She continues to have an appetite and is still able to tolerate foods. - Constitutional Vitals: Temp Pulse Resp BP Pulse Ox 98.1 F 78 13 97/61 93 L 04/12/16 11:37 04/12/16 11:37 04/12/16 11:37 04/12/16 11:37 04/12/16 06:56 General appearance: Present: cachectic, cooperative, mild distress, A&O X 3, pleasant, answers questions appropriately - Head Head exam: Present: atraumatic, normocephalic - Neck Neck exam general surgery: Present: supple, trachea midline - Respiratory Respiratory exam: Present: wheezes - Cardiovascular Cardiovascular exam: Present: RRR, +S1, +S2 - GI/Abdominal GI/Abdominal exam: Present: normal bowel sounds, soft, tenderness - Extremities Exam Extremities exam: Present: pedal edema. Absent: cyanotic - Neurological Exam Neurological exam: Present: alert, oriented X3, no focal deficits - Psychiatric Psychiatric exam: Present: normal affect, normal mood Internal Medicine: Result - Labs CBC & Chem 7: 04/12/16 14:35 04/12/16 06:20 Labs: BMP 04/12/16 06:20 Sodium 133 L Potassium 4.2 Chloride 102 Carbon Dioxide 26 BUN 17 Creatinine 0.53 L Glucose 121 H Calcium 8.2 L - ABG Interpretation ABG results: PT/INR, D-dimer PT 17.2 Seconds (9.4-12.1) H 04/05/16 05:00 Consult Discharge Plan - Plan Instructions: Chest Pain (DC), Anemia (GEN), Pneumonia (DC) Referrals: Mona Mitchell MD [Primary Care Provider] - Jason Garcia MD [Partnered Physician] - 04/22/16 1:40 pm <Topher Roque - Last Filed: 04/12/16 18:54> Date of Encounter: 04/12/16 - Assessment and plan (1) Cholangitis Current Visit: Yes Status: Acute (2) Obstructive jaundice Current Visit: Yes Status: Acute (3) Hyperbilirubinemia Current Visit: Yes Status: Acute (4) Pancreatic mass Current Visit: Yes Status: Acute (5) Severe protein-calorie malnutrition Current Visit: Yes Status: Acute (6) Anemia Current Visit: Yes Status: Acute Qualifiers: Anemia type: other cause Other causes of anemia: chronic disease, other Qualified Code(s): D63.8 - Anemia in other chronic diseases classified elsewhere (7) Hypertension Current Visit: Yes Status: Acute Qualifiers: Hypertension type: essential hypertension Qualified Code(s): I10 - Essential (primary) hypertension - Constitutional Vitals: Temp Pulse Resp BP Pulse Ox 98.1 F 86 15 110/73 98 04/12/16 11:37 04/12/16 15:12 04/12/16 15:12 04/12/16 15:12 04/12/16 15:12 Internal Medicine: Result - Labs CBC & Chem 7: 04/12/16 14:35 04/12/16 06:20 Labs: Short CBC 04/12/16 Range/Units 14:35 WBC 8.6 (4.3-11.1) K/mcL Hgb 7.6 L (11.5-15.4) g/dL Hct 24.2 L (35.3-44.9) % Plt Count 166 (140-400) K/mcL Neutrophils # 6.7 (1.6-8.9) K/mcL BMP 04/12/16 06:20 Sodium 133 L Potassium 4.2 Chloride 102 Carbon Dioxide 26 BUN 17 Creatinine 0.53 L Glucose 121 H Calcium 8.2 L - ABG Interpretation ABG results: PT/INR, D-dimer PT 17.2 Seconds (9.4-12.1) H 04/05/16 05:00 - Attending Attestation I examined this patient and my medical decision-making was reviewed with the Resident Physician on 04/12/16. I agree with the documented findings, disposition and treatment plan as described except to the extent set forth below. Ms. Lynn is currently admitted for intractable pain due to pancreatic mass and acute cholangitis. She is moderate to high risk due to potential for worsening infection and medication adjustment. Ms. Lynn is doing OK. Pain meds adjusted more today. She is still on IV abx. She is still on TPN. Awaiting biopsy results. Exam Alert. Comfortable at this time Heart reg Lungs no wheeze I/P 1. Intractable abd pain 2. Malnutrition Further diagnoses and plan as above.
[2016-04-12 15:01] LABS: Basophils % 0.1 %; Eosinophils % 0.5 %; Hematocrit 24.2 % (35.3-44.9); Hemoglobin 7.6 g/dL (11.5-15.4); Immature Granulocytes % 4.9 % (0-4); Lymphocytes # 0.7 K/mcL (0.6-4.6); Lymphocytes % 8.3 %; Mean Corpuscular HGB Conc 31.4 g/dL (31.6-35.5); Mean Corpuscular Hemoglobin 27.4 pg (28.0-33.3); Mean Corpuscular Volume 87.4 fL (83.0-100.0); Mean Platelet Volume 11.3 fL (9.4-12.4); Monocytes # 0.7 K/mcL (0.0-1.3); Monocytes % 8.2 %; Neutrophils # 6.7 K/mcL (1.6-8.9); Platelet Count 166 K/mcL (140-400); Red Blood Count 2.77 M/mcL (3.82-4.97); Red Cell Distribution Width 16.2 % (11.5-14.5)
[2016-04-12] MEDS ORDERED: Clinimix E 5%-15% SOLUTION 2,000 ML with MVI, adult with vitamin K 10 ML, Magnesium S... IV SCH ×2 (17:00)
[2016-04-12] MEDS: levoFLOXacin 750 MG TABLET PO SCH (21:13)
[2016-04-13] MEDS: *HR* OxyCODONE Immed Rel 15 MG TABLET PO PRN ×2 (01:53→08:40)
[2016-04-13] MEDS: *HR* Heparin 5,000 UNIT/ML VIAL SQ SCH ×2 (06:16→17:49)
[2016-04-13] MEDS: *HR* Morphine Sulfate SR (12 HR) 60 MG TABLET.ER PO SCH ×3 (06:16→21:30)
[2016-04-13 06:34] LABS: Eosinophils # 0.1 K/mcL (0.0-0.6); Eosinophils % 0.9 %; Hematocrit 24.6 % (35.3-44.9); Hemoglobin 7.5 g/dL (11.5-15.4); Immature Granulocytes % 3.8 % (0-4); Lymphocytes % 14.1 %; Mean Corpuscular HGB Conc 30.5 g/dL (31.6-35.5); Mean Corpuscular Hemoglobin 27.2 pg (28.0-33.3); Mean Corpuscular Volume 89.1 fL (83.0-100.0); Mean Platelet Volume 10.7 fL (9.4-12.4); Monocytes # 0.7 K/mcL (0.0-1.3); Monocytes % 9.4 %; Neutrophils # 4.9 K/mcL (1.6-8.9); Platelet Count 195 K/mcL (140-400); Red Blood Count 2.76 M/mcL (3.82-4.97); Red Cell Distribution Width 17.1 % (11.5-14.5); Segmented Neutrophils % 71.8 %
[2016-04-13 06:47] LABS: BUN/Creatinine Ratio 36 (6-26); Blood Urea Nitrogen 20 mg/dL (7-20); Calcium 8.4 mg/dL (8.6-10.8); Carbon Dioxide 29 mEq/L (19-29); Chloride 101 mEq/L (98-109); Glucose 101 mg/dL (70-99); Magnesium 1.7 mg/dL (1.6-2.6); Osmolality,Calculated 283 (280-300); Potassium 4.5 mEq/L (3.5-4.5); Sodium 135 mEq/L (136-145); eGFR For African Americans > 60 (> 60); eGFR For Non-African Americans > 60 (> 60)
[2016-04-13] MEDS: Sennosides/Docusate Sodium TABLET PO SCH ×2 (08:34→21:29)
[2016-04-13] MEDS: Folic Acid 1 MG TABLET PO SCH (08:34)
[2016-04-13] MEDS: Cyanocobalamin (B-12) 1,000 MCG TABLET PO SCH (08:35)
[2016-04-13] MEDS ORDERED: Albumin 25% 25gram/100mL 25 GM/100 ML IV.SOLN IVPB ONE (09:59)
--- NOTE | 2016-04-13 10:45 | Palliative Progress Note ---
Date of Encounter: 04/13/16 Time of Encounter: 09:00 - Assessment and plan (1) Abdominal pain Current Visit: Yes Status: Acute Assessment and plan: Abdominal pain with primary location in the mid-epigastric area to the right upper quadrant. Celiac block during stent placement for pain management. Continues to described as a sharp shooting pain. Currently rated at 7/10. MS CONTIN 60mg every 8 hours with oxycodone 15mg as needed for breakthrough pain. She has used 2 doses in the past 24 hours. Ms. Lynn reports her pain is on the "border of tolerable" when it is a 7/10. Will increase the oxycodone to 20 mg every 3 hours as needed for breakthrough pain and monitor. Qualifiers: Abdominal location: generalized Qualified Code(s): R10.84 - Generalized abdominal pain (2) Goals of care, counseling/discussion Current Visit: Yes Status: Acute Assessment and plan: Plan for family meeting today between 12-1:00 to discuss goals of care, biopsy results, and discharge planning. Contacted [id number] inform her of meeting time. Updates to follow. Family meeting with oncology and palliative care. Biopsy results reviewed. Nutrition supplementation is high priority before starting/discussing treatment options. Will plan for home TPN-dietitian notified. Reviewed hospice as an option in the future. (3) Constipation by delayed colonic transit Current Visit: Yes Status: Acute Assessment and plan: Ms. Lynn did have a BM following a milk of molasses enema yesterday. She reports improvement of abdominal bloating. Continue with aggressive bowel regimen. May need to consider Mov[place] on an outpatient basis if opioid induced constipation continues to be a problem. (4) Cholangitis Current Visit: Yes Status: Acute (5) Severe protein-calorie malnutrition Current Visit: Yes Status: Acute Assessment and plan: Currently on TPN. Dietitian following. Ms. Lynn is now able to tolerate some oral intake in small amounts. She is able to take in strawberry Ensure. (6) Obstructive jaundice Current Visit: Yes Status: Acute Assessment and plan: S/P biliary stent on 04/08/16 (7) Pancreatic mass Current Visit: Yes Status: Acute Assessment and plan: Plan for family meeting to discuss biopsy results today between 12-1:00. - Time Spent With Patient Total time spent is greater than 50% in coordination of care (as documented) at patient's floor/unit and/or counseling patient: - Subjective Interval history: Ms. Lynn is sitting up on the edge of the bed coloring a picture. She complains of abdominal pain that rated at a 7/10, and she recently took a dose of breakthrough medications. She did have a BM following a milk of molasses enema yesterday. - Constitutional Vitals: Abnormal lab results RBC 2.76 M/mcL (3.82-4.97) L 04/13/16 06:20 Hgb 7.5 g/dL (11.5-15.4) L 04/13/16 06:20 Hct 24.6 % (35.3-44.9) L 04/13/16 06:20 MCH 27.2 pg (28.0-33.3) L 04/13/16 06:20 MCHC 30.5 g/dL (31.6-35.5) L 04/13/16 06:20 RDW 17.1 % (11.5-14.5) H 04/13/16 06:20 Reactive Lymphocytes Present (Not Present) A 04/09/16 04:27 Toxic Granulation Present (Not Present) A 04/08/16 04:45 Toxic Vacuolation Present (Not Present) A 04/06/16 04:50 Platelet Estimate Slight Decrease (Normal) L 04/09/16 04:27 Polychromasia 1+ (Not Present) A 04/05/16 05:00 Hypochromasia Present (Not Present) A 04/08/16 04:45 Poikilocytosis 1+ (Not Present) A 04/05/16 05:00 Anisocytosis 1+ (Not Present) A 04/07/16 05:00 Microcytosis Present (Not Present) A 04/08/16 04:45 Target Cells 1+ (Not Present) A 04/04/16 21:17 Tear Drop Cells 1+ (Not Present) A 04/09/16 04:27 PT 17.2 Seconds (9.4-12.1) H 04/05/16 05:00 Sodium 135 mEq/L (136-145) L 04/13/16 06:20 Creatinine 0.55 mg/dL (0.57-1.11) L 04/13/16 06:20 BUN/Creatinine Ratio 36 (6-26) H 04/13/16 06:20 Glucose 101 mg/dL (70-99) H 04/13/16 06:20 POC Glucose 119 (58-89) H 04/13/16 07:29 Calcium 8.4 mg/dL (8.6-10.8) L 04/13/16 06:20 Iron 8 mcg/dL (50-170) L 04/05/16 12:42 % Saturation 5 % (15-50) L 04/05/16 12:42 Transferrin 110 mg/dL (180-382) L 04/05/16 12:42 Total Bilirubin 2.3 mg/dL (0.2-1.2) H D 04/10/16 04:29 Direct Bilirubin 6.7 mg/dL (0.0-0.5) H 04/07/16 05:00 Indirect Bilirubin 1.6 mg/dL (0.0-1.2) H 04/07/16 05:00 Alkaline Phosphatase 478 Units/L (38-126) H 04/10/16 04:29 Serum Total Protein 5.1 g/dL (6.0-8.3) L 04/10/16 04:29 Albumin 1.4 g/dL (3.5-5.0) L 04/10/16 04:29 Globulin 3.7 g/dL (2.4-3.5) H 04/10/16 04:29 Albumin/Globulin Ratio 0.4 (1.1-2.2) L 04/10/16 04:29 Prealbumin < 3.0 mg/dL (16.0-38.0) L 04/08/16 04:45 Lipase 7 Units/L (8-78) L 04/04/16 21:17 CA 19-9 Antigen 2654 U/mL (0-37) H 04/05/16 05:00 Urine Color [place] (Yellow) A 04/06/16 17:30 Urine Clarity Cloudy (Clear) A 04/06/16 17:30 Urine Bilirubin Large (Negative) H 04/06/16 17:30 Ur Leukocyte Esterase Small (Negative) H 04/06/16 17:30 Urine Microscopic RBC 3-5 per hpf (0-3) H 04/06/16 17:30 Urine Microscopic WBC 3-5 per hpf (0-3) H 04/06/16 17:30 Ur Squamous Epith Cells Many per lpf (None-Few) H 04/06/16 17:30 General appearance: Present: cooperative, no acute distress Exam: 60 year old female appearing older than stated age and chronically ill. She is sitting on the edge of the bed coloring a picture. - ENT ENT exam: Present: mucous membranes moist - Respiratory Respiratory exam: Present: CTAB. Absent: accessory muscle use, respiratory distress - Cardiovascular Cardiovascular exam: Present: RRR - GI/Abdominal GI/Abdominal exam: Present: firm, normal bowel sounds, tenderness. Absent: distended, guarding - Extremities Exam Extremities exam: Present: pedal edema - Neurological Exam Neurological exam: Present: alert, oriented X3, no focal deficits, strengths equal and symetr throughout - Psychiatric Psychiatric exam: Present: flat affect - Skin Skin exam: Present: warm. Absent: normal color Palliative Quality Palliative Quality: Screen for Code Status: Yes, Screen for Goals of Care: Yes, Screen for Pain: Yes, If Pain Regimen Started, Initiate Bowel Regimen: Yes, Screen for Nausea/Vomitting: Yes - Labs CBC & Chem 7: 04/13/16 06:20 04/13/16 06:20 Labs: Laboratory Results - last 24 hr 04/12/16 04/12/16 04/12/16 14:35 14:35 20:21 WBC 8.6 RBC 2.77 L Hgb 7.6 L Hct 24.2 L MCV 87.4 MCH 27.4 L MCHC 31.4 L RDW 16.2 H Plt Count 166 MPV 11.3 Immature Gran % 4.9 H Seg Neutrophils % 78.0 Lymphocytes % 8.3 Monocytes % 8.2 Eosinophils % 0.5 Basophils % 0.1 Neutrophils # 6.7 Lymphocytes # 0.7 Monocytes # 0.7 Eosinophils # 0.0 Basophils # 0.0 Sodium Potassium Chloride Carbon Dioxide BUN Creatinine Est GFR ( Amer) Est GFR (Non-Af Amer) BUN/Creatinine Ratio Glucose POC Glucose 154 H Calculated Osmolality Calcium Magnesium Blood Type A NEGATIVE Antibody Screen NEGATIVE 04/13/16 04/13/16 04/13/16 06:20 06:20 07:29 WBC 6.9 RBC 2.76 L Hgb 7.5 L Hct 24.6 L MCV 89.1 MCH 27.2 L MCHC 30.5 L RDW 17.1 H Plt Count 195 MPV 10.7 Immature Gran % 3.8 Seg Neutrophils % 71.8 Lymphocytes % 14.1 Monocytes % 9.4 Eosinophils % 0.9 Basophils % 0.0 Neutrophils # 4.9 Lymphocytes # 1.0 Monocytes # 0.7 Eosinophils # 0.1 Basophils # 0.0 Sodium 135 L Potassium 4.5 Chloride 101 Carbon Dioxide 29 BUN 20 Creatinine 0.55 L Est GFR ( Amer) > 60 Est GFR (Non-Af Amer) > 60 BUN/Creatinine Ratio 36 H Glucose 101 H POC Glucose 119 H Calculated Osmolality 283 Calcium 8.4 L Magnesium 1.7 Blood Type Antibody Screen - ABG Interpretation ABG results: PT/INR, D-dimer PT 17.2 Seconds (9.4-12.1) H 04/05/16 05:00 Consult Discharge Plan - Plan Instructions: Chest Pain (DC), Anemia (GEN), Pneumonia (DC) Referrals: Mona Mitchell MD [Primary Care Provider] - Jason Garcia MD [Partnered Physician] - 04/22/16 1:40 pm
--- NOTE | 2016-04-13 11:08 | Gastroenterology Progress Note ---
Date of Encounter: 04/13/16 Time of Encounter: 09:45 - Assessment and plan (1) Pancreatic mass Current Visit: Yes Status: Acute Assessment and plan: CA 19-9 was 2654. EUS with biopsy positive for adenocarcinoma. Primary team ask me not to inform patient of diagnosis, as she will be having a family meeting with Oncology and Palliative care this afternoon. (2) Obstructive jaundice Current Visit: Yes Status: Acute Assessment and plan: ERCP with biliary stent placed. (3) Anemia Current Visit: Yes Status: Acute Assessment and plan: Iron low at 8, continue iron supplementation. Qualifiers: Anemia type: other cause Other causes of anemia: chronic disease, other Qualified Code(s): D63.8 - Anemia in other chronic diseases classified elsewhere (4) Severe protein-calorie malnutrition Current Visit: Yes Status: Acute Assessment and plan: Recommend TPN for the next 1-2 months. (5) Constipation by delayed colonic transit Current Visit: Yes Status: Acute Assessment and plan: Likely secondary to opioids. Recommend daily fiber supplement and Miralax up to BID. - Time Spent With Patient Total time spent is greater than 50% in coordination of care (as documented) at patient's floor/unit and/or counseling patient: - Subjective Interval history: The patient reports feeling better this AM. She is sitting up and coloring a picture. She continues to report abdominal pain, but states the pain medicine is controlling her pain. - Constitutional Vitals: Temp Pulse Resp BP Pulse Ox 97.6 F 73 16 98/55 95 04/13/16 07:21 04/13/16 07:21 04/13/16 07:21 04/13/16 07:21 04/13/16 09:00 General appearance: Present: cachectic, cooperative, A&O X 3, no acute distress , answers questions appropriately - Head Head exam: Present: atraumatic, normocephalic - Eye Eye exam: Present: normal appearance, sclera anicteric - ENT ENT exam: Present: mucous membranes moist - Neck Neck exam general surgery: Present: normal inspection, trachea midline - Respiratory Respiratory exam: Present: CTAB. Absent: rales, rhonchi - Cardiovascular Cardiovascular exam: Present: RRR, +S1, +S2 - GI/Abdominal GI/Abdominal exam: Present: soft, tenderness (Generalized), no peritoneal signs. Absent: distended, firm, guarding - Rectal Rectal exam: Present: deferred - Extremities Exam Extremities exam: Present: warm - Neurological Exam Neurological exam: Present: no focal deficits - Psychiatric Psychiatric exam: Present: normal affect, normal mood - Skin Skin exam: Present: dry, intact, normal color, warm Results - Labs CBC & Chem 7: 04/13/16 06:20 04/13/16 06:20 Labs: Last Result Calcium 8.4 mg/dL (8.6-10.8) L 04/13/16 06:20 Iron 8 mcg/dL (50-170) L 04/05/16 12:42 % Saturation 5 % (15-50) L 04/05/16 12:42 Transferrin 110 mg/dL (180-382) L 04/05/16 12:42 Troponin I 0.01 ng/mL (0-0.03) 04/05/16 09:45 Triglycerides 96 mg/dL (< 150) 04/08/16 04:45 Entire Visit Hgb 7.5 g/dL (11.5-15.4) L 04/13/16 06:20 Hct 24.6 % (35.3-44.9) L 04/13/16 06:20 PT 17.2 Seconds (9.4-12.1) H 04/05/16 05:00 Total Bilirubin 2.3 mg/dL (0.2-1.2) H D 04/10/16 04:29 AST 27 Units/L (5-34) 04/10/16 04:29 ALT 43 Units/L (0-55) 04/10/16 04:29 Lipase 7 Units/L (8-78) L 04/04/16 21:17 CA 19-9 Antigen 2654 U/mL (0-37) H 04/05/16 05:00 - ABG ABG results: PT/INR, D-dimer PT 17.2 Seconds (9.4-12.1) H 04/05/16 05:00 Consult Discharge Plan - Plan Instructions: Chest Pain (DC), Anemia (GEN), Pneumonia (DC) Referrals: Mona Mitchell MD [Primary Care Provider] - Jason Garcia MD [Partnered Physician] - 04/22/16 1:40 pm
[2016-04-13] MEDS: *HR* OxyCODONE Immed Rel 5 MG TABLET PO PRN ×2 (13:24→18:29)
--- NOTE | 2016-04-13 13:37 | Oncology Inp Progress Note ---
Date of Encounter: 04/13/16 Time of Encounter: 12:50 (1) Pancreatic adenocarcinoma Current Visit: Yes Status: Acute Assessment and plan: Patient with pathology diagnosis of pancreatic adenocarcinoma on 04/11/16. We had a long discussion with patient today. In the room were nursing staff, palliative care team. We updated Dr Streeter after the visit. Patient was presented with options of treatment versus palliative care and hospice. Patient wants to discuss with family that is in the room with her now. She is leaning towards outpatient treatment with Dr Garcia at [facility]. Patient is severely malnourished. Currently on TPN. She will need PICC line for TPN before discharge. Dr Streeter advised his preference is discharge with TPN, do PET scan outpatient before J tube placement as an outpatient. We support that plan. I spoke to Teresa, our [employer] [facility] estate planning director about the case. She will contact her inpatient team members so we can monitor as outpatient. If patient medically stable, she can be discharged to home with follow up at [facility] [[email or web address]] with Dr Minoo Garcia. She assessed patient with me an agrees with above plan. (2) Severe protein-calorie malnutrition Current Visit: Yes Status: Acute Oncology: Subj Interval history: Patient resting comfortably in bed with daughter at bedside - Constitutional Vitals: Vital Signs Temp Pulse Resp BP Pulse Ox 04/13/16 11:00 78 16 113/77 04/13/16 09:00 95 04/13/16 07:21 97.6 F 73 16 98/55 95 04/13/16 05:40 98.5 F 78 15 105/77 04/13/16 01:45 84 16 117/78 95 04/13/16 00:00 86 14 108/69 04/12/16 20:45 95 04/12/16 20:39 98.2 F 94 16 135/76 04/12/16 15:12 86 15 110/73 98 Intake and Output 04/12/16 04/13/16 04/13/16 23:59 07:59 15:59 Intake Total 340 / 340 0 / 0 280 / 280 Output Total 900 / 900 Balance 340 / 340 -900 / -900 280 / 280 Intake: IV Fluids 100 / 100 Magnesium Sulfate 1 GM In 100 / 100 Dextrose 5% 100 ML @ 100 mls/hr IVPB ONCE ONE Rx# :[id number] Oral 240 / 240 0 / 0 280 / 280 Output: Urine 900 / 900 Other: Meal Dinner Breakfast Percent of Meal Consumed 5% 50% Stool Size Small Stool Consistency formed Stool Color Brown # Voids 1 1 Weight 42.2 kg Blood Glucose* 154 119 Patient Weight 04/13/16 23:59 Weight 42.2 kg General appearance: no acute distress, thin - Head Head exam: Present: atraumatic, normal inspection - Eye Eye exam: Present: PERRL, conjuntiva pink - ENT ENT exam: Present: mucous membranes moist - Neck Neck exam: Present: full ROM, normal inspection - Respiratory Respiratory exam: Present: CTAB - Cardiovascular Cardiovascular exam: Present: RRR - GI/Abdominal GI/Abdominal exam: Present: soft - Extremities Exam Extremities exam: Present: normal inspection - Neurological Exam Neurological exam: Present: alert, CN II-XII intact - Psychiatric Psychiatric exam: Present: normal mood - Skin Skin exam: Present: dry, intact, warm Oncology: Obj Data - Labs CBC & Chem 7: 04/13/16 06:20 04/13/16 06:20 Labs: Laboratory Results - last 24 hr 04/12/16 04/12/16 04/12/16 14:35 14:35 20:21 WBC 8.6 RBC 2.77 L Hgb 7.6 L Hct 24.2 L MCV 87.4 MCH 27.4 L MCHC 31.4 L RDW 16.2 H Plt Count 166 MPV 11.3 Immature Gran % 4.9 H Seg Neutrophils % 78.0 Lymphocytes % 8.3 Monocytes % 8.2 Eosinophils % 0.5 Basophils % 0.1 Neutrophils # 6.7 Lymphocytes # 0.7 Monocytes # 0.7 Eosinophils # 0.0 Basophils # 0.0 Sodium Potassium Chloride Carbon Dioxide BUN Creatinine Est GFR ( Amer) Est GFR (Non-Af Amer) BUN/Creatinine Ratio Glucose POC Glucose 154 H Calculated Osmolality Calcium Magnesium Blood Type A NEGATIVE Antibody Screen NEGATIVE 04/13/16 04/13/16 04/13/16 06:20 06:20 07:29 WBC 6.9 RBC 2.76 L Hgb 7.5 L Hct 24.6 L MCV 89.1 MCH 27.2 L MCHC 30.5 L RDW 17.1 H Plt Count 195 MPV 10.7 Immature Gran % 3.8 Seg Neutrophils % 71.8 Lymphocytes % 14.1 Monocytes % 9.4 Eosinophils % 0.9 Basophils % 0.0 Neutrophils # 4.9 Lymphocytes # 1.0 Monocytes # 0.7 Eosinophils # 0.1 Basophils # 0.0 Sodium 135 L Potassium 4.5 Chloride 101 Carbon Dioxide 29 BUN 20 Creatinine 0.55 L Est GFR ( Amer) > 60 Est GFR (Non-Af Amer) > 60 BUN/Creatinine Ratio 36 H Glucose 101 H POC Glucose 119 H Calculated Osmolality 283 Calcium 8.4 L Magnesium 1.7 Blood Type Antibody Screen - ABG Interpretation ABG results: PT/INR, D-dimer PT 17.2 Seconds (9.4-12.1) H 04/05/16 05:00 Consult Discharge Plan - Plan Instructions: Chest Pain (DC), Anemia (GEN), Pneumonia (DC) Referrals: Mona Mitchell MD [Primary Care Provider] - Jason Garcia MD [Partnered Physician] - 04/22/16 1:40 pm
[2016-04-13] MEDS ORDERED: Clinimix E 5%-15% SOLUTION 2,000 ML with MVI, adult with vitamin K 10 ML, Magnesium S... IV SCH (17:00)
--- NOTE | 2016-04-13 18:21 | Internal Med Progress Note ---
<Lobo Astudillo - Last Filed: 04/13/16 18:19> Date of Encounter: 04/13/16 Time of Encounter: 09:30 - Assessment and plan (1) Pancreatic mass Current Visit: Yes Status: Acute Assessment and plan: CT of abdomen/pelvis showed stable intrahepatic biliary ductal dilation and distal pancreatic ductal dilation, 1.3 cm cystic foci in head and body of the pancreas, dilated appearance of distal pancreatic duct. Patient takes suboxone for pain management-goes to clinic in [place]. SHe has lost 60-70 pounds int he last year due to poor appetite. She states she feels "bloated" whenever she eats. Will try a trial of Creon with meals. COnsult to palliative care for pain control. Patient recently had ERCP with sphincterotomy ofr papillary stenosis. MRCP pending. COnsult to GI for recommendations. CA 19-9 pending. Plan to get oncology on board tomorrow. Of note, patient has hx of breast cancer. 04/06/16: MRCP showed hypoenhancing 3.1x3cm lobulated pancreatic mass centered near junction of head and proximal pancreatic body, extensive dilation of the common bile duct, prominent dilation of the main pancreatic duct, severe intrahepatic biliary dilation with multiple cystic lesions within the liver, splenomegaly. Plan is to have EUS with ERCP with biopsy of mass. Added PO oxycodone for pain control, increased fluids to 100ml/hr to maintain blood pressure so tat she can keep getting her pain medications. 04/07/16: Last night, ERCP was not done because patient was anemic. She received 2 units of blood and her Hg today was 10.2. Per GI, ERCP procedure delayed until tomorrow. Patient continues to have significant pain, fentanyl dose increased with recommendation from palliative care. Consulted nutrition- plan is to start TPN today at 5pm at 35/hr, goal is 60/hr. At that time, D5 will be switched to Normal saline at 100/hr. Right IJ CVC placed today (please see procedure note). 04/08/16: s/p ERCP. Found severe dilation of the CBD with moderate dilation of the intrahepatic bile ducts. Distal common bile duct was narrowed. Patient had celiac block. Patient was found to have cholangitis, which is the likely cause of her obstructive jaundice. Continue with Levaquin, which should provide adequate coverage. Continue TPN for now. Plan for picc line placement before discharge to continue with TPN fdc. Patient's CA 19-9 level was 2654- highly suggestive of pancreatic cancer. 04/09/17 Patient is doing better today, and says that her pain is less after getting ERCP with celiac block procedure done yesterday. Will begin discharge planning. Family is thinking about palliative/hospice, but have stated they do not want the patient to go to custodial or ECF. IVF stopped due to lower extremity edema. will continue with oral intake and TPN with supplements. 04/10/16 Patient informed that she will have her fentanyl will be stopped tomorrow. Consult to PICC team will be placed for patient to have picc line. Continue with Levaquin for cholangitis. 04/11/16 Patient still has lower extremity edema but it is improved since yesterday. Will give another 25g albumin through central line. Patient's pain is significantly improved since admission. SHe has not required fentanyl yesterday or today. Per palliative, she was started on MS Contin 75mg Q8R for long acting opioid control, and oxycodone 15mg every 4 HRS for breatkthrough pain. For bowels, she has bisacodyl rectal suppository, Senna 2tabs BID, miralax daily. biospy results still pending. Continue with Levaquin for cholangitis. 04/12/16 Pain rated at 8/10. MS Contin dose decreased to 60mg Q8HR due to drowsiness. Continue oxycodone 15mg every 4 hours as needed for breakthroug pain. still awaiting biopsy results. 25g albumin infused today. Nicola hose stockings ordered for lower extremity edema. 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 Temporarily plan for discharge tomorrow with follow up with oncology and Dr. Streeter. Holding iron due to severe comstipation. Continuing Levaquin for cholangitis. 04/13/16 pancreatic mass positive for adenocarcinoma. family meeting held today with oncology and palliative. see goals of care section. tentative plan for discharge tomorrow. patient will follow up outpatient with Dr. Khoury. Her TPN will be managed by Dr Streeter. (2) Cholangitis Current Visit: Yes Status: Acute Assessment and plan: plan as above. (3) Hyperbilirubinemia Current Visit: Yes Status: Acute Assessment and plan: plan as above. (4) Obstructive jaundice Current Visit: Yes Status: Acute Assessment and plan: plan as #1 above. (5) Anemia Current Visit: Yes Status: Acute Assessment and plan: Patient's Hg measured at 7.7- drop from 8.6 yesterday. Her baseline Hg is around 12-13. MCV was 81, with hypochromasia, TSH normal. Iron studies show low iron, %saturation, transferrin. Ferrous sulfate TID with meals. Continue to monitor and transfuse as needed. 04/07/16: patient transfused two units of blood yesterday. Hg today was 10.2 and stable. Plan for ERCP tomorrow. 04/08/16 Patient's Hg today was stable at 10.1. Continue to monitor closely. 04/09 H&H stable. continue to monitor. no signs of bleeding present. 04/10 H&H stable. 04/11 Hg dropped to 7.6 today, which is about her baseline. Will hold off on transfusing for now. will transfuse if drops below 7 continue to monitor. continue with iron supplements. 04/12 patient type and screned in case she needs transfusion. Hg remians stable at 7.6, which is about her baseline. Qualifiers: Anemia type: other cause Other causes of anemia: chronic disease, other Qualified Code(s): D63.8 - Anemia in other chronic diseases classified elsewhere (6) Chest pain Current Visit: Yes Status: Resolved Assessment and plan: Patient initially came in with CP. CTA negative for PE. possible ischemic etiology in setting of Anemia. Tropes x3 negative. Continue to monitor, continue with iron replacement. Patient currently chest pain free. Qualifiers: Chest pain type: unspecified Qualified Code(s): R07.9 - Chest pain, unspecified (7) Community acquired pneumonia Current Visit: Yes Status: Acute Assessment and plan: CXR shows right lower lobe opacification. Levaquin 750 daily- Day 8. blood cultures x2 showed no growth. Continue to monitor. (8) Goals of care, counseling/discussion Current Visit: Yes Status: Acute Assessment and plan: Patient is currently full code. Palliative care was consulted to discuss goals of care. Patient made aware that it is highly likely she has pancreatic cancer, and made aware that her prognosis is very poor. Pain control per palliative care team. She has also been evaluated by oncology. after discussion with family, it seems as though they are leaning more towards hospice/palliative care. will continue to have ongoing discussions with them regarding discharge planning. Pain medications being managed by palliative care team. 04/11/16 patient states that she is interested in inpatient rehab, but her daughters would like to bring her home. will have discussion with family present regarding this. 04/12/16 Still awaiting biopsy results for further discharge planning. 04/13/16 management of pain per palliative care team: MS contin 60mg Q8H and oxycodone 20mg every 3HRs PRN for breakthrough pain. patient had family meeting today for goals of care, biopsy results, discharge planning. oncology was present at amily meeting. plan for home TPN. patient was told she is not a surgical candidate due to her nutritional status and general condition. will follow up in oncology clinic outpatient. patient is leaning towards outpatient treatment with Dr. Khoury (9) DVT prophylaxis Current Visit: No Status: Acute Assessment and plan: Heparin SQ Monitor H&H closely. - Subjective Interval history: 60 year old female evaluated at bedside. she is sitting on the commode again trying to have a bowel movement. - Constitutional Vitals: Temp Pulse Resp BP Pulse Ox 97.9 F 77 16 93/60 96 04/13/16 15:59 04/13/16 15:59 04/13/16 15:59 04/13/16 15:59 04/13/16 15:59 General appearance: Present: cachectic, cooperative, mild distress, A&O X 3, pleasant, answers questions appropriately - Head Head exam: Present: atraumatic, normocephalic - Eye Eye exam: Present: PERRL Pupils: Present: PERRL - Neck Neck exam general surgery: Present: supple, trachea midline - Respiratory Respiratory exam: Present: CTAB - Cardiovascular Cardiovascular exam: Present: RRR, +S1, +S2 - GI/Abdominal GI/Abdominal exam: Present: normal bowel sounds, soft, tenderness - Extremities Exam Extremities exam: Present: pedal edema. Absent: cyanotic - Neurological Exam Neurological exam: Present: alert, oriented X3, no focal deficits - Psychiatric Psychiatric exam: Present: normal affect, normal mood Internal Medicine: Result - Labs CBC & Chem 7: 04/13/16 06:20 04/13/16 06:20 Labs: Short CBC 02/22/17 Range/Units 06:20 WBC 6.9 (4.3-11.1) K/mcL Hgb 7.5 L (11.5-15.4) g/dL Hct 24.6 L (35.3-44.9) % Plt Count 195 (140-400) K/mcL Neutrophils # 4.9 (1.6-8.9) K/mcL BMP 04/13/16 06:20 Sodium 135 L Potassium 4.5 Chloride 101 Carbon Dioxide 29 BUN 20 Creatinine 0.55 L Glucose 101 H Calcium 8.4 L - ABG Interpretation ABG results: PT/INR, D-dimer PT 17.2 Seconds (9.4-12.1) H 04/05/16 05:00 - VTE Documentation of Mechanical Device: Graduated compression elastic hosiery Consult Discharge Plan - Plan Instructions: Chest Pain (DC), Anemia (GEN), Pneumonia (DC) Referrals: Mona Mitchell MD [Primary Care Provider] - Jason Garcia MD [Partnered Physician] - 04/22/16 1:40 pm <Topher Roque - Last Filed: 04/13/16 18:55> - Assessment and plan (1) Cholangitis Current Visit: Yes Status: Acute (2) Obstructive jaundice Current Visit: Yes Status: Acute (3) Hyperbilirubinemia Current Visit: Yes Status: Acute (4) Pancreatic mass Current Visit: Yes Status: Acute (5) Severe protein-calorie malnutrition Current Visit: Yes Status: Acute (6) Anemia Current Visit: Yes Status: Acute Qualifiers: Anemia type: other cause Other causes of anemia: chronic disease, other Qualified Code(s): D63.8 - Anemia in other chronic diseases classified elsewhere (7) Hypertension Current Visit: Yes Status: Acute Qualifiers: Hypertension type: essential hypertension Qualified Code(s): I10 - Essential (primary) hypertension (8) Adenocarcinoma of pancreas Current Visit: Yes Status: Acute - Constitutional Vitals: Temp Pulse Resp BP Pulse Ox 97.9 F 77 16 93/60 96 04/13/16 15:59 04/13/16 15:59 04/13/16 15:59 04/13/16 15:59 04/13/16 15:59 Internal Medicine: Result - Labs CBC & Chem 7: 04/13/16 06:20 04/13/16 06:20 Labs: Short CBC 04/13/16 Range/Units 06:20 WBC 6.9 (4.3-11.1) K/mcL Hgb 7.5 L (11.5-15.4) g/dL Hct 24.6 L (35.3-44.9) % Plt Count 195 (140-400) K/mcL Neutrophils # 4.9 (1.6-8.9) K/mcL BMP 04/13/16 06:20 Sodium 135 L Potassium 4.5 Chloride 101 Carbon Dioxide 29 BUN 20 Creatinine 0.55 L Glucose 101 H Calcium 8.4 L - ABG Interpretation ABG results: PT/INR, D-dimer PT 17.2 Seconds (9.4-12.1) H 04/05/16 05:00 - Attending Attestation I examined this patient and my medical decision-making was reviewed with the Resident Physician on 04/13/16. I agree with the documented findings, disposition and treatment plan as described except to the extent set forth below. Ms. Lynn is currently admitted for intractable pain due to new diagnosis of adenocarcinoma of her pancreas and associated cholangitis. She is moderate risk due to TPN and med changes. Ms. Lynn feels OK. Meeting today to discuss plans for any treatment. Tolerating TPN. Exam Alert. Comfortable at this time No wheeze Heart reg Nonpitting edema I/P 1. Intractable pain 2. Pancreatic cancer Further diagnoses and plan as above.
[2016-04-13] MEDS: levoFLOXacin 750 MG TABLET PO SCH (21:29)
[2016-04-14] MEDS: *HR* OxyCODONE Immed Rel 5 MG TABLET PO PRN ×3 (00:11→17:55)
[2016-04-14] MEDS: *HR* Morphine Sulfate SR (12 HR) 60 MG TABLET.ER PO SCH ×3 (05:14→22:08)
[2016-04-14] MEDS: *HR* Heparin 5,000 UNIT/ML VIAL SQ SCH ×2 (06:01→22:44)
[2016-04-14 06:19] LABS: Phosphorous 4.7 mg/dL (2.3-4.7)
[2016-04-14 06:26] LABS: Basophils % 0.2 %; Eosinophils # 0.1 K/mcL (0.0-0.6); Eosinophils % 0.8 %; Hematocrit 21.5 % (35.3-44.9); Hemoglobin 6.7 g/dL (11.5-15.4); Immature Granulocytes % 2.6 % (0-4); Immature Platelets 4.2 % (1.1-6.1); Lymphocytes # 0.9 K/mcL (0.6-4.6); Lymphocytes % 13.7 %; Mean Corpuscular HGB Conc 31.2 g/dL (31.6-35.5); Mean Corpuscular Hemoglobin 27.9 pg (28.0-33.3); Mean Corpuscular Volume 89.6 fL (83.0-100.0); Mean Platelet Volume 10.8 fL (9.4-12.4); Monocytes # 0.7 K/mcL (0.0-1.3); Monocytes % 11.1 %; Neutrophils # 4.7 K/mcL (1.6-8.9); Platelet Count 246 K/mcL (140-400); Red Cell Distribution Width 17.3 % (11.5-14.5); Segmented Neutrophils % 71.6 %
[2016-04-14 06:33] LABS: BUN/Creatinine Ratio 43 (6-26); Blood Urea Nitrogen 23 mg/dL (7-20); Calcium 8.5 mg/dL (8.6-10.8); Carbon Dioxide 28 mEq/L (19-29); Chloride 101 mEq/L (98-109); Glucose 105 mg/dL (70-99); Magnesium 1.7 mg/dL (1.6-2.6); Osmolality,Calculated 282 (280-300); Potassium 4.3 mEq/L (3.5-4.5); Sodium 134 mEq/L (136-145); eGFR For African Americans > 60 (> 60); eGFR For Non-African Americans > 60 (> 60)
[2016-04-14 07:27] LABS: Ionized Calcium 1.12 mmol/L (1.15-1.35)
[2016-04-14] MEDS: Sennosides/Docusate Sodium TABLET PO SCH ×2 (08:17→22:08)
[2016-04-14] MEDS: Cyanocobalamin (B-12) 1,000 MCG TABLET PO SCH (08:17)
[2016-04-14] MEDS: Folic Acid 1 MG TABLET PO SCH (08:18)
[2016-04-14] MEDS ORDERED: Calcium Gluconate 1,000 MG in D5% in Water 100 ML IVPB ONE (11:20)
[2016-04-14] MEDS ORDERED: Albumin 25% 25gram/100mL 25 GM/100 ML IV.SOLN IVPB ONE (11:37)
--- NOTE | 2016-04-14 11:51 | Palliative Progress Note ---
Date of Encounter: 04/14/16 Time of Encounter: 10:45 - Assessment and plan (1) Abdominal pain Current Visit: Yes Status: Acute Assessment and plan: Abdominal pain with primary location in the mid-epigastric area to the right upper quadrant. Celiac block during stent placement for pain management. Continues to described as a sharp shooting pain. Currently rated at 7/10. MS CONTIN 60mg every 8 hours with oxycodone 15mg as needed for breakthrough pain. She has used 5 doses in the past 24 hours. Increased the oxycodone to 20 mg every 3 hours as needed for breakthrough pain yesterday. Symptoms stable. Continue to monitor. Qualifiers: Abdominal location: generalized Qualified Code(s): R10.84 - Generalized abdominal pain (2) Goals of care, counseling/discussion Current Visit: Yes Status: Acute Assessment and plan: Plan for discharge home with TPN when set up. Follow[facility]up at [facility] as outpatient. (3) Constipation by delayed colonic transit Current Visit: Yes Status: Acute Assessment and plan: Ms. Lynn did have a BM this morning that she describes as "medium". She reports improvement of abdominal bloating. Continue with aggressive bowel regimen. May need to consider Movantic on an outpatient basis if opioid induced constipation continues to be a problem. (4) Cholangitis Current Visit: Yes Status: Acute (5) Severe protein-calorie malnutrition Current Visit: Yes Status: Acute Assessment and plan: Currently on TPN. Dietitian following. Ms. Lynn is now able to tolerate some oral intake in small amounts. She is able to take in strawberry Ensure. (6) Obstructive jaundice Current Visit: Yes Status: Acute Assessment and plan: S/P biliary stent on 04/08/16 (7) Pancreatic mass Current Visit: Yes Status: Acute Assessment and plan: Plan for family meeting to discuss biopsy results today between 12-1:00. - Time Spent With Patient Total time spent is greater than 50% in coordination of care (as documented) at patient's floor/unit and/or counseling patient: - Subjective Interval history: Ms. Lynn is sitting up on the edge of the bed coloring a picture. She complains of abdominal pain that rated at a 7/10, and she recently took a dose of breakthrough medications. She did have a BM following a milk of molasses enema yesterday. - Constitutional Vitals: Abnormal lab results RBC 2.40 M/mcL (3.82-4.97) L 04/14/16 05:20 Hgb 6.7 g/dL (11.5-15.4) L 04/14/16 05:20 Hct 21.5 % (35.3-44.9) L 04/14/16 05:20 MCH 27.9 pg (28.0-33.3) L 04/14/16 05:20 MCHC 31.2 g/dL (31.6-35.5) L 04/14/16 05:20 RDW 17.3 % (11.5-14.5) H 04/14/16 05:20 Reactive Lymphocytes Present (Not Present) A 04/09/16 04:27 Toxic Granulation Present (Not Present) A 04/08/16 04:45 Toxic Vacuolation Present (Not Present) A 04/06/16 04:50 Platelet Estimate Slight Decrease (Normal) L 04/09/16 04:27 Polychromasia 1+ (Not Present) A 04/05/16 05:00 Hypochromasia Present (Not Present) A 04/08/16 04:45 Poikilocytosis 1+ (Not Present) A 04/05/16 05:00 Anisocytosis 1+ (Not Present) A 04/07/16 05:00 Microcytosis Present (Not Present) A 04/08/16 04:45 Target Cells 1+ (Not Present) A 04/04/16 21:17 Tear Drop Cells 1+ (Not Present) A 04/09/16 04:27 PT 17.2 Seconds (9.4-12.1) H 04/05/16 05:00 Sodium 134 mEq/L (136-145) L 04/14/16 05:20 BUN 23 mg/dL (7-20) H 04/14/16 05:20 Creatinine 0.53 mg/dL (0.57-1.11) L 04/14/16 05:20 BUN/Creatinine Ratio 43 (6-26) H 04/14/16 05:20 Glucose 105 mg/dL (70-99) H 04/14/16 05:20 POC Glucose 119 (58-89) H 04/13/16 07:29 Calcium 8.5 mg/dL (8.6-10.8) L 04/14/16 05:20 Ionized Calcium 1.12 mmol/L (1.15-1.35) L 04/14/16 05:20 Iron 8 mcg/dL (50-170) L 04/05/16 12:42 % Saturation 5 % (15-50) L 04/05/16 12:42 Transferrin 110 mg/dL (180-382) L 04/05/16 12:42 Total Bilirubin 2.3 mg/dL (0.2-1.2) H D 04/10/16 04:29 Direct Bilirubin 6.7 mg/dL (0.0-0.5) H 04/07/16 05:00 Indirect Bilirubin 1.6 mg/dL (0.0-1.2) H 04/07/16 05:00 Alkaline Phosphatase 478 Units/L (38-126) H 04/10/16 04:29 Serum Total Protein 5.1 g/dL (6.0-8.3) L 04/10/16 04:29 Albumin 1.4 g/dL (3.5-5.0) L 04/10/16 04:29 Globulin 3.7 g/dL (2.4-3.5) H 04/10/16 04:29 Albumin/Globulin Ratio 0.4 (1.1-2.2) L 04/10/16 04:29 Prealbumin < 3.0 mg/dL (16.0-38.0) L 04/08/16 04:45 Lipase 7 Units/L (8-78) L 04/04/16 21:17 CA 19-9 Antigen 2654 U/mL (0-37) H 04/05/16 05:00 Urine Color Lititz (Yellow) A 04/06/16 17:30 Urine Clarity Cloudy (Clear) A 04/06/16 17:30 Urine Bilirubin Large (Negative) H 04/06/16 17:30 Ur Leukocyte Esterase Small (Negative) H 04/06/16 17:30 Urine Microscopic RBC 3-5 per hpf (0-3) H 04/06/16 17:30 Urine Microscopic WBC 3-5 per hpf (0-3) H 04/06/16 17:30 Ur Squamous Epith Cells Many per lpf (None-Few) H 04/06/16 17:30 General appearance: Present: cooperative, no acute distress - Respiratory Respiratory exam: Present: CTAB. Absent: accessory muscle use, respiratory distress - Cardiovascular Cardiovascular exam: Present: RRR - GI/Abdominal GI/Abdominal exam: Present: tenderness - Extremities Exam Extremities exam: Present: pedal edema - Neurological Exam Neurological exam: Present: alert, oriented X3 Palliative Quality Palliative Quality: Screen for Code Status: Yes, Screen for Goals of Care: Yes, Screen for Pain: Yes, If Pain Regimen Started, Initiate Bowel Regimen: Yes, Screen for Nausea/Vomitting: Yes - Labs CBC & Chem 7: 04/14/16 05:20 04/14/16 05:20 Labs: Laboratory Results - last 24 hr 04/12/16 04/14/16 04/14/16 14:35 05:20 05:20 WBC 6.6 RBC 2.40 L Hgb 6.7 L Hct 21.5 L MCV 89.6 MCH 27.9 L MCHC 31.2 L RDW 17.3 H Plt Count 246 MPV 10.8 Immature Gran % 2.6 Seg Neutrophils % 71.6 Lymphocytes % 13.7 Monocytes % 11.1 Eosinophils % 0.8 Basophils % 0.2 Neutrophils # 4.7 Lymphocytes # 0.9 Monocytes # 0.7 Eosinophils # 0.1 Basophils # 0.0 Immature Plt Fraction 4.2 Sodium 134 L Potassium 4.3 Chloride 101 Carbon Dioxide 28 BUN 23 H Creatinine 0.53 L Est GFR ( Amer) > 60 Est GFR (Non-Af Amer) > 60 BUN/Creatinine Ratio 43 H Glucose 105 H Calculated Osmolality 282 Calcium 8.5 L Ionized Calcium Phosphorus Magnesium 1.7 Blood Type A NEGATIVE Antibody Screen NEGATIVE Crossmatch See Detail 04/14/16 05:20 WBC RBC Hgb Hct MCV MCH MCHC RDW Plt Count MPV Immature Gran % Seg Neutrophils % Lymphocytes % Monocytes % Eosinophils % Basophils % Neutrophils # Lymphocytes # Monocytes # Eosinophils # Basophils # Immature Plt Fraction Sodium Potassium Chloride Carbon Dioxide BUN Creatinine Est GFR ( Amer) Est GFR (Non-Af Amer) BUN/Creatinine Ratio Glucose Calculated Osmolality Calcium Ionized Calcium 1.12 L Phosphorus 4.7 Magnesium Blood Type Antibody Screen Crossmatch - ABG Interpretation ABG results: PT/INR, D-dimer PT 17.2 Seconds (9.4-12.1) H 04/05/16 05:00 Consult Discharge Plan - Plan Instructions: Chest Pain (DC), Anemia (GEN), Pneumonia (DC) Referrals: Mona Mitchell MD [Primary Care Provider] - 04/21/16 3:00 pm Jason Garcia MD [Partnered Physician] - 04/22/16 1:40 pm
[2016-04-14] MEDS ORDERED: 0.9 % Sodium Chloride 250 ML ONE (12:36)
--- NOTE | 2016-04-14 16:05 | Internal Med Progress Note ---
<Lobo Astudillo - Last Filed: 04/14/16 16:03> Date of Encounter: 04/14/16 Time of Encounter: 08:30 - Assessment and plan (1) Pancreatic mass Current Visit: Yes Status: Acute Assessment and plan: CT of abdomen/pelvis showed stable intrahepatic biliary ductal dilation and distal pancreatic ductal dilation, 1.3 cm cystic foci in head and body of the pancreas, dilated appearance of distal pancreatic duct. Patient takes suboxone for pain management-goes to clinic in [place]. SHe has lost 60-70 pounds int he last year due to poor appetite. She states she feels "bloated" whenever she eats. Will try a trial of Creon with meals. COnsult to palliative care for pain control. Patient recently had ERCP with sphincterotomy ofr papillary stenosis. MRCP pending. COnsult to GI for recommendations. CA 19-9 pending. Plan to get oncology on board tomorrow. Of note, patient has hx of breast cancer. 04/06/16: MRCP showed hypoenhancing 3.1x3cm lobulated pancreatic mass centered near junction of head and proximal pancreatic body, extensive dilation of the common bile duct, prominent dilation of the main pancreatic duct, severe intrahepatic biliary dilation with multiple cystic lesions within the liver, splenomegaly. Plan is to have EUS with ERCP with biopsy of mass. Added PO oxycodone for pain control, increased fluids to 100ml/hr to maintain blood pressure so tat she can keep getting her pain medications. 04/07/16: Last night, ERCP was not done because patient was anemic. She received 2 units of blood and her Hg today was 10.2. Per GI, ERCP procedure delayed until tomorrow. Patient continues to have significant pain, fentanyl dose increased with recommendation from palliative care. Consulted nutrition- plan is to start TPN today at 5pm at 35/hr, goal is 60/hr. At that time, D5 will be switched to Normal saline at 100/hr. Right IJ CVC placed today (please see procedure note). 04/08/16: s/p ERCP. Found severe dilation of the CBD with moderate dilation of the intrahepatic bile ducts. Distal common bile duct was narrowed. Patient had celiac block. Patient was found to have cholangitis, which is the likely cause of her obstructive jaundice. Continue with Levaquin, which should provide adequate coverage. Continue TPN for now. Plan for picc line placement before discharge to continue with TPN senior care. Patient's CA 19-9 level was 2654- highly suggestive of pancreatic cancer. 04/09/17 Patient is doing better today, and says that her pain is less after getting ERCP with celiac block procedure done yesterday. Will begin discharge planning. Family is thinking about palliative/hospice, but have stated they do not want the patient to go to [facility] or ECF. IVF stopped due to lower extremity edema. will continue with oral intake and TPN with supplements. 04/10/16 Patient informed that she will have her fentanyl will be stopped tomorrow. Consult to PICC team will be placed for patient to have picc line. Continue with Levaquin for cholangitis. 04/11/16 Patient still has lower extremity edema but it is improved since yesterday. Will give another 25g albumin through central line. Patient's pain is significantly improved since admission. SHe has not required fentanyl yesterday or today. Per palliative, she was started on MS Contin 75mg Q8R for long acting opioid control, and oxycodone 15mg every 4 HRS for breatkthrough pain. For bowels, she has bisacodyl rectal suppository, Senna 2tabs BID, miralax daily. biospy results still pending. Continue with Levaquin for cholangitis. 04/12/16 Pain rated at 8/10. MS Contin dose decreased to 60mg Q8HR due to drowsiness. Continue oxycodone 15mg every 4 hours as needed for breakthroug pain. still awaiting biopsy results. 25g albumin infused today. Anupam hose stockings ordered for lower extremity edema. Consult to picc team for picc line placement tomorrow for lobsterman TPN. Temporarily plan for discharge tomorrow with follow up with oncology and Dr. Streeter. Holding iron due to severe comstipation. Continuing Levaquin for cholangitis. 04/13/16 pancreatic mass positive for adenocarcinoma. family meeting held today with oncology and palliative. see goals of care section. tentative plan for discharge tomorrow. patient will follow up outpatient with Dr. Khoury. Her TPN will be managed by Dr Streeter. 04/14/16 patient was supposed to be discharged today, but had to stay due to low Hg and need for blood transfusion. will transfuse one unit, give 25g albumin, and re check H&H. tentative plan for discharge tomorrow. patient had a bowel movement this morning, continue with bowel regimen. per palliative may consider Movantic on an outpatient basis if opioid induced constipation continues to be a problem. (2) Cholangitis Current Visit: Yes Status: Acute Assessment and plan: plan as above. (3) Hyperbilirubinemia Current Visit: Yes Status: Acute Assessment and plan: plan as above. (4) Obstructive jaundice Current Visit: Yes Status: Acute Assessment and plan: plan as #1 above. (5) Anemia Current Visit: Yes Status: Acute Assessment and plan: Patient's Hg measured at 7.7- drop from 8.6 yesterday. Her baseline Hg is around 12-13. MCV was 81, with hypochromasia, TSH normal. Iron studies show low iron, %saturation, transferrin. Ferrous sulfate TID with meals. Continue to monitor and transfuse as needed. 04/07/16: patient transfused two units of blood yesterday. Hg today was 10.2 and stable. Plan for ERCP tomorrow. 04/08/16 Patient's Hg today was stable at 10.1. Continue to monitor closely. 04/09 H&H stable. continue to monitor. no signs of bleeding present. 04/10 H&H stable. 04/11 Hg dropped to 7.6 today, which is about her baseline. Will hold off on transfusing for now. will transfuse if drops below 7 continue to monitor. continue with iron supplements. 04/12 patient type and screned in case she needs transfusion. Hg remians stable at 7.6, which is about her baseline. 04/12 patient had Hg of 6.7 today. transfusing one unit with albumin. Qualifiers: Anemia type: other cause Other causes of anemia: chronic disease, other Qualified Code(s): D63.8 - Anemia in other chronic diseases classified elsewhere (6) Chest pain Current Visit: Yes Status: Resolved Assessment and plan: Patient initially came in with CP. CTA negative for PE. possible ischemic etiology in setting of Anemia. Tropes x3 negative. Continue to monitor, continue with iron replacement. Patient currently chest pain free. Qualifiers: Chest pain type: unspecified Qualified Code(s): R07.9 - Chest pain, unspecified (7) Community acquired pneumonia Current Visit: Yes Status: Acute Assessment and plan: CXR shows right lower lobe opacification. Levaquin 750 daily- Day 9. blood cultures x2 showed no growth. Continue to monitor. (8) Goals of care, counseling/discussion Current Visit: Yes Status: Acute Assessment and plan: Patient is currently full code. Palliative care was consulted to discuss goals of care. Patient made aware that it is highly likely she has pancreatic cancer, and made aware that her prognosis is very poor. Pain control per palliative care team. She has also been evaluated by oncology. after discussion with family, it seems as though they are leaning more towards hospice/palliative care. will continue to have ongoing discussions with them regarding discharge planning. Pain medications being managed by palliative care team. 04/11/16 patient states that she is interested in inpatient rehab, but her daughters would like to bring her home. will have discussion with family present regarding this. 04/12/16 Still awaiting biopsy results for further discharge planning. 04/13/16 management of pain per palliative care team: MS contin 60mg Q8H and oxycodone 20mg every 3HRs PRN for breakthrough pain. patient had family meeting today for goals of care, biopsy results, discharge planning. oncology was present at amily meeting. plan for home TPN. patient was told she is not a surgical candidate due to her nutritional status and general condition. will follow up in oncology clinic outpatient. patient is leaning towards outpatient treatment with Dr. Khoury (9) DVT prophylaxis Current Visit: No Status: Acute Assessment and plan: Heparin SQ Monitor H&H closely. - Subjective Interval history: 60 year old female evaluated at bedside. she says her pain is tolerable today. she was sitting up in bed coloring. she also complains of some pressure in her right lower quadrant, likely from constipation. - Constitutional Vitals: Temp Pulse Resp BP Pulse Ox 97.8 F 82 16 135/76 95 04/14/16 15:08 04/14/16 15:08 04/14/16 15:08 04/14/16 15:08 04/14/16 15:08 General appearance: Present: cachectic, cooperative, mild distress, A&O X 3, pleasant, answers questions appropriately - Head Head exam: Present: atraumatic, normocephalic - Eye Eye exam: Present: sclera anicteric - Neck Neck exam general surgery: Present: supple, trachea midline - Respiratory Respiratory exam: Present: rhonchi, wheezes Additional comments: right upper lobe wheezing present. - Cardiovascular Cardiovascular exam: Present: RRR - GI/Abdominal GI/Abdominal exam: Present: normal bowel sounds, soft, tenderness Additional comments: right lower quadrant tightness. - Extremities Exam Additional comments: lower extremities have anupam hose on, +2 pitting edema. - Neurological Exam Neurological exam: Present: alert, oriented X3, no focal deficits - Psychiatric Psychiatric exam: Present: normal affect, normal mood Internal Medicine: Result - Labs CBC & Chem 7: 04/14/16 05:20 04/14/16 05:20 Labs: Short CBC 04/14/16 Range/Units 05:20 WBC 6.6 (4.3-11.1) K/mcL Hgb 6.7 L (11.5-15.4) g/dL Hct 21.5 L (35.3-44.9) % Plt Count 246 (140-400) K/mcL Neutrophils # 4.7 (1.6-8.9) K/mcL BMP 04/14/16 05:20 Sodium 134 L Potassium 4.3 Chloride 101 Carbon Dioxide 28 BUN 23 H Creatinine 0.53 L Glucose 105 H Calcium 8.5 L - ABG Interpretation ABG results: PT/INR, D-dimer PT 17.2 Seconds (9.4-12.1) H 04/05/16 05:00 - VTE Documentation of Mechanical Device: Graduated compression elastic hosiery Consult Discharge Plan - Plan Instructions: Chest Pain (DC), Anemia (GEN), Pneumonia (DC) Referrals: Mona Mitchell MD [Primary Care Provider] - 04/21/16 3:00 pm Jason Garcia MD [Partnered Physician] - 04/22/16 1:40 pm <Topher Roque - Last Filed: 04/14/16 18:13> - Assessment and plan (1) Cholangitis Current Visit: Yes Status: Acute (2) Obstructive jaundice Current Visit: Yes Status: Acute (3) Hyperbilirubinemia Current Visit: Yes Status: Acute (4) Pancreatic mass Current Visit: Yes Status: Acute (5) Severe protein-calorie malnutrition Current Visit: Yes Status: Acute (6) Anemia Current Visit: Yes Status: Acute Qualifiers: Anemia type: other cause Other causes of anemia: chronic disease, other Qualified Code(s): D63.8 - Anemia in other chronic diseases classified elsewhere (7) Hypertension Current Visit: Yes Status: Acute Qualifiers: Hypertension type: essential hypertension Qualified Code(s): I10 - Essential (primary) hypertension (8) Adenocarcinoma of pancreas Current Visit: Yes Status: Acute (9) Therapeutic opioid induced constipation Current Visit: Yes Status: Acute - Constitutional Vitals: Temp Pulse Resp BP Pulse Ox 97.6 F 75 14 138/74 97 04/14/16 16:15 04/14/16 16:15 04/14/16 16:15 04/14/16 16:15 04/14/16 16:15 Internal Medicine: Result - Labs CBC & Chem 7: 04/14/16 05:20 04/14/16 05:20 Labs: Short CBC 04/14/16 Range/Units 05:20 WBC 6.6 (4.3-11.1) K/mcL Hgb 6.7 L (11.5-15.4) g/dL Hct 21.5 L (35.3-44.9) % Plt Count 246 (140-400) K/mcL Neutrophils # 4.7 (1.6-8.9) K/mcL BMP 04/14/16 05:20 Sodium 134 L Potassium 4.3 Chloride 101 Carbon Dioxide 28 BUN 23 H Creatinine 0.53 L Glucose 105 H Calcium 8.5 L - ABG Interpretation ABG results: PT/INR, D-dimer PT 17.2 Seconds (9.4-12.1) H 04/05/16 05:00 - Attending Attestation I examined this patient and my medical decision-making was reviewed with the Resident Physician on 04/14/16. I agree with the documented findings, disposition and treatment plan as described except to the extent set forth below. Ms. Lnyn is currently admitted for abd pain and pacreatic adenocarcinoma. She remains moderate to high risk due to continued pain, malnutrition and anemia requiring blood transfusion today. Ms. yLnn wants to go home. She is working to deal with new diagnosis and plan. Pain is up and down. Blood counts down again today and transfusion ordered. Exam Alert. Comfortable Heart reg No wheeze Still with lower extremity edema I/P 1. Intractable pain due to pancreatic adenocarcinoma 2. Cholangitis 3. Anemia chronic disease Further diagnoses and plan as above.
[2016-04-14] MEDS ORDERED: Clinimix E 5%-15% SOLUTION 2,000 ML with MVI, adult with vitamin K 10 ML, Magnesium S... IV SCH (17:00)
[2016-04-14 19:43] LABS: Hematocrit 26.7 % (35.3-44.9); Hemoglobin 8.4 g/dL (11.5-15.4); Mean Corpuscular HGB Conc 31.5 g/dL (31.6-35.5); Mean Corpuscular Hemoglobin 27.9 pg (28.0-33.3); Mean Corpuscular Volume 88.7 fL (83.0-100.0); Mean Platelet Volume 10.8 fL (9.4-12.4); Platelet Count 246 K/mcL (140-400); Red Blood Count 3.01 M/mcL (3.82-4.97); Red Cell Distribution Width 16.9 % (11.5-14.5)
[2016-04-14] MEDS: levoFLOXacin 750 MG TABLET PO SCH (22:08)
[2016-04-15] MEDS: *HR* OxyCODONE Immed Rel 5 MG TABLET PO PRN ×4 (00:07→13:52)
[2016-04-15 05:07] LABS: Basophils % 0.3 %; Eosinophils # 0.1 K/mcL (0.0-0.6); Eosinophils % 1.5 %; Hemoglobin 8.4 g/dL (11.5-15.4); Immature Granulocytes % 1.4 % (0-4); Lymphocytes % 13.6 %; Mean Corpuscular HGB Conc 31.1 g/dL (31.6-35.5); Mean Corpuscular Hemoglobin 27.5 pg (28.0-33.3); Mean Corpuscular Volume 88.5 fL (83.0-100.0); Monocytes # 0.9 K/mcL (0.0-1.3); Monocytes % 12.2 %; Platelet Count 250 K/mcL (140-400); Red Blood Count 3.05 M/mcL (3.82-4.97); Red Cell Distribution Width 17.2 % (11.5-14.5)
[2016-04-15 05:13] LABS: Ionized Calcium 1.21 mmol/L (1.15-1.35)
[2016-04-15 05:20] LABS: BUN/Creatinine Ratio 44 (6-26); Blood Urea Nitrogen 23 mg/dL (7-20); Calcium 8.8 mg/dL (8.6-10.8); Carbon Dioxide 28 mEq/L (19-29); Chloride 100 mEq/L (98-109); Glucose 93 mg/dL (70-99); Magnesium 1.6 mg/dL (1.6-2.6); Osmolality,Calculated 283 (280-300); Phosphorous 4.6 mg/dL (2.3-4.7); Potassium 4.6 mEq/L (3.5-4.5); Sodium 135 mEq/L (136-145); eGFR For African Americans > 60 (> 60); eGFR For Non-African Americans > 60 (> 60)
[2016-04-15] MEDS: *HR* Morphine Sulfate SR (12 HR) 60 MG TABLET.ER PO SCH (05:37)
--- NOTE | 2016-04-15 07:15 | Discharge Summary ---
<Lobo Astudillo - Last Filed: 04/15/16 09:14> Date of Encounter: 04/15/16 Time of Encounter: 06:00 - Discharge Diagnosis (1) Pancreatic adenocarcinoma Priority: Primary Status: Acute (2) Pancreatic mass Priority: Primary Status: Acute (3) Cholangitis Priority: Secondary Status: Acute (4) Hyperbilirubinemia Priority: Secondary Status: Acute (5) Obstructive jaundice Priority: Secondary Status: Acute (6) Anemia Priority: Secondary Status: Acute Qualifiers: Anemia type: other cause Other causes of anemia: chronic disease, other Qualified Code(s): D63.8 - Anemia in other chronic diseases classified elsewhere (7) Chest pain Priority: Secondary Status: Resolved Qualifiers: Chest pain type: unspecified Qualified Code(s): R07.9 - Chest pain, unspecified (8) Community acquired pneumonia Priority: Secondary Status: Acute (9) Goals of care, counseling/discussion Priority: Secondary Status: Acute (10) DVT prophylaxis Priority: Secondary Status: Acute - Discharge Medications Prescriptions: OxyCODONE Immed Rel [Roxicodone 5 MG] 20 mg PO Q3HR PRN #240 tablet PRN Reason: Breakthrough Pain Folic Acid 1 mg PO DAILY #30 tablet Levofloxacin 750 mg PO Q24H #3 tablet Metoprolol [Lopressor] 12.5 mg PO BID #60 tablet Morphine Sulfate SR (12 HR) [MS Contin] 60 mg PO Q8H #90 tablet.er Naloxegol Oxalate [Movantik] 25 mg PO DAILY #30 tablet Polyethylene Glycol 3350 [MiraLAX] 17 gm PO DAILY #30 powd.pack Sennosides/Docusate Sodium [Senna Plus] 2 each PO BID #120 tablet Home Medications: Ibuprofen [Motrin] 600 mg PO TID 11/20/14 [History] Clopidogrel [Plavix] 75 mg PO DAILY #30 tablet 11/24/14 [Rx] Albuterol Sulfate [Ventolin Hfa] 2 puff IH Q4HR 04/05/16 [History] Atorvastatin [Lipitor] 40 mg PO HS 04/05/16 [History] Clopidogrel [Plavix] 75 mg PO DAILY 04/05/16 [History] Cyanocobalamin (Vitamin B-12) [Vitamin B-12] 100 mcg PO DAILY 04/05/16 [History] Fluticasone/Vilanterol [Breo Ellipta 100-25 Mcg INH] 1 inh IH DAILY 04/05/16 [ History] Ibuprofen [Motrin] 600 mg PO TID PRN 04/05/16 [History] Omeprazole [PriLOSEC] 20 mg PO DAILY 04/05/16 [History] Ropinirole HCl [Requip] 0.25 mg PO HS 04/05/16 [History] Folic Acid 1 mg PO DAILY #30 tablet 04/15/16 [Rx] Levofloxacin 750 mg PO Q24H #3 tablet 04/15/16 [Rx] Metoprolol [Lopressor] 12.5 mg PO BID #60 tablet 04/15/16 [Rx] Morphine Sulfate SR (12 HR) [MS Contin] 60 mg PO Q8H #90 tablet.er 04/15/16 [Rx] Naloxegol Oxalate [Movantik] 25 mg PO DAILY #30 tablet 04/15/16 [Rx] OxyCODONE Immed Rel [Roxicodone 5 MG] 20 mg PO Q3HR PRN #240 tablet 04/15/16 [Rx ] Polyethylene Glycol 3350 [MiraLAX] 17 gm PO DAILY #30 powd.pack 04/15/16 [Rx] Sennosides/Docusate Sodium [Senna Plus] 2 each PO BID #120 tablet 04/15/16 [Rx] Allergies/Adverse Reactions: Allergies codeine Adverse Reaction (Severe, Verified 04/05/16 05:51) shortness of breath Date of admission: 04/05/16 04:26 Primary care physician: Mona Mitchell Consults: 04/05/16 14:44 Consult to Palliative Care [CONS] Stat Comment: pain control. Consulting Provider: Palliative Care [place] 04/07/16 09:51 consult to furnace setter [Consult to Nutrition] [CONS] Stat Comment: Consulting Provider: NUTRITION Reason for Dietary Consult: TPN Start and Manage 04/13/16 09:00 Consult to PICC team [Consult to Invasive Line Access Team] [CONS] Routine Reason for Consult: insert picc line for detention TPN Line Type: PICC Call Completed: No - Patient Status Disposition: Home Health Service Condition: Fair Functional capacity at discharge: independent ambulation Overall status at discharge: patient is not back to baseline - Discharge Instructions Instructions: Metoprolol (By mouth), Folic Acid (By mouth), Oxycodone, Rapid Release (By mouth), Levofloxacin (By mouth), Polyethylene Glycol 3350 (By mouth) , Morphine, Slow Release (By mouth), Laxative, Stimulant Combination (By mouth) , Naloxegol (By mouth), Chest Pain (DC), Anemia (GEN), Pneumonia (DC) Follow Up With: Mona Mitchell MD [Primary Care Provider] - 04/21/16 3:00 pm Jason Garcia MD [Partnered Physician] - 04/22/16 1:40 pm Joshua Streeter MD [Partnered Physician] - 04/28/16 2:40 am Additional Instructions: Plan: follow up with PCP in one week Follow up with oncology outpatient. Follow up with gastroenterology. Finish antibiotic course. Take pain medications as below: MS Contin 60mg every eight hours, with oxycodone 20mg every 3 hours as needed for breakthrough pain. Take Movantin, miralax, and senna as prescribed for opioid induced constipation. Continue TPN as directed by gastroenterology. - Diet and Activity Activity: as per physical therapy Diet: other (gluten free diet) Hospital course: Ms. Lynn is a 60 year old female with PMHx of breast caner, CVA, HTN, GA, seizures. Patient initially came to the hospital with chief complaint of chest pain. Troponins were negative and EKG showed possible ST depression in inferior leads. Patient's chest pain eventually subsided. CTA was negative for PE. On chest xray, Patient did have right lower lobe opacification consistent with pneumonia, so she was placed on Levaquin. Her labs showed hyperbillirubinemia and CT of abdomen/pelvis showed stable intrahepatic biliary ductal dilation and distal pancreatic ductal dilation, 1.3 cm cystic foci in head and body of the pancreas. Patient's chest pain was likely secondary to pancreatic mass that caused obstruction and anemia. On further history, patient stated she lost about 60-70 pounds during the past year. Her CA 19-9 levels were elevated at 2654. Pancreatic cancer was highly suspected, and Gi was consulted. Patient was also found to be anemic, and was placed on iron supplementation. GI recommended ERCP with stent placement. This was initially delayed a few days due to patient' s low Hemoglobin and hypotension. Patient was placed on TPN for severe malnutrition. After transfusion of two units of blood, patient finally had ERCP with stent placement and celiac block for pain control. ERCP showed severe dialtion of the common bile duct with moderate dilation of the intrahepatic bile ducts and narrowing of the distal bile duct, and cholangitis. Biopsy of the pancreatic mass was taken, and results were positive for adenocarcinoma. Levaquin was continued for patient's cholangitis. After biopsy results came back , oncology came to talk to patient and family about treatment options. Family decided that after patient becomes physically stronger, she will undergo treatment and follow up outpatient with [place] [facility]. Discharge planning was delayed due to patient's low Hg, and she was transfused a third unit of blood the day before discharge. Patient had PICC line placed for buttermaker continuous churn TPN, which will be managed by Gastroenterology. During the course of her hospital stay, patient remained stable and had no acute events. She remained stable until her discharge. Plan: follow up with PCP in one week Follow up with oncology outpatient. Follow up with gastroenterology. Finish antibiotic course. Take pain medications as below: MS Contin 60mg every eight hours, with oxycodone 20mg every 3 hours as needed for breakthrough pain. Take Movantin, miralax, and senna as prescribed for opioid induced constipation. Continue TPN as directed by gastroenterology. - Time Spent with Patient Total time spent providing and/or coordinating discharge services: - Constitutional Vitals: Temp Pulse Resp BP Pulse Ox 97.9 F 80 16 110/64 95 04/15/16 04:00 04/15/16 04:00 04/15/16 04:00 04/15/16 04:00 04/15/16 04:00 General appearance: Present: cachectic, cooperative, mild distress, A&O X 3, pleasant, answers questions appropriately - Head Head exam: Present: atraumatic, normocephalic - Eye Eye exam: Present: conjuntiva pink - Neck Neck exam general surgery: Present: supple, trachea midline - Respiratory Additional comments: right upper lobe wheezing present. - Cardiovascular Cardiovascular exam: Present: RRR, +S1, +S2 - GI/Abdominal GI/Abdominal exam: Present: normal bowel sounds, soft Additional comments: right lower quadrant tenderness. - Extremities Exam Extremities exam: Present: radial pulses palpable and symetrical. Absent: cyanotic, pedal edema - Neurological Exam Neurological exam: Present: alert, oriented X3, no focal deficits - VTE Documentation of Mechanical Device: Graduated compression elastic hosiery <Topher Roque - Last Filed: 04/15/16 13:21> - Discharge Diagnosis (1) Cholangitis Status: Acute (2) Obstructive jaundice Status: Acute (3) Hyperbilirubinemia Status: Acute (4) Pancreatic mass Status: Acute (5) Severe protein-calorie malnutrition Priority: Secondary Status: Acute (6) Anemia Status: Acute Qualifiers: Anemia type: other cause Other causes of anemia: chronic disease, other Qualified Code(s): D63.8 - Anemia in other chronic diseases classified elsewhere (7) Hypertension Priority: Secondary Status: Acute Qualifiers: Hypertension type: essential hypertension Qualified Code(s): I10 - Essential (primary) hypertension (8) Adenocarcinoma of pancreas Priority: Primary Status: Acute (9) Therapeutic opioid induced constipation Priority: Secondary Status: Acute Date of admission: 04/05/16 04:26 Primary care physician: Mona Mitchell Consults: 04/05/16 14:44 Consult to Palliative Care [CONS] Stat Comment: pain control. Consulting Provider: Palliative Care [place] 04/07/16 09:51 consult to furnace setter [Consult to Nutrition] [CONS] Stat Comment: Consulting Provider: NUTRITION Reason for Dietary Consult: TPN Start and Manage 04/13/16 09:00 Consult to PICC team [Consult to Invasive Line Access Team] [CONS] Routine Reason for Consult: insert picc line for detention TPN Line Type: PICC Call Completed: No Hospital course: Ms. Lynn is a 60 year old female - Time Spent with Patient Total time spent providing and/or coordinating discharge services: 42min - Constitutional Vitals: Temp Pulse Resp BP Pulse Ox 97.7 F 70 14 115/68 95 04/15/16 11:15 04/15/16 11:15 04/15/16 11:15 04/15/16 11:15 04/15/16 11:15 - Attending Attestation I examined this patient and my medical decision-making was reviewed with the Resident Physician on 04/15/16. I agree with the documented findings, disposition and treatment plan as described except to the extent set forth below. Ms. Lynn is doing OK today. Hemoglobin improved with transfusion. She is afebrile and BP is good. Arrangements have been made for TPN and home care. Her pain is currently controlled with current narcotic regimen. Exam Alert. Comfortable Heart reg Lungs no wheeze Plan D/C home today HHC TPN per GI service Follow up with PCP, oncology and GI
[2016-04-15] MEDS: Sennosides/Docusate Sodium TABLET PO SCH (08:23)
[2016-04-15] MEDS: Folic Acid 1 MG TABLET PO SCH (08:24)
[2016-04-15] MEDS: Cyanocobalamin (B-12) 1,000 MCG TABLET PO SCH (08:25)
[2016-04-15] MEDS: *HR* Heparin 5,000 UNIT/ML VIAL SQ SCH (08:26)
--- NOTE | 2016-04-15 10:19 | Palliative Progress Note ---
Date of Encounter: 04/15/16 Time of Encounter: 10:16 - Assessment and plan (1) Abdominal pain Current Visit: Yes Status: Acute Assessment and plan: Abdominal pain with primary location in the mid-epigastric area to the right upper quadrant. Celiac block during stent placement for pain management. Described as stable/tolerable. CONTIN 60mg every 8 hours with oxycodone 20mg as needed for breakthrough pain. She has used 5 doses in the past 24 hours. Continue current medications upon discharge. Discussed with hospitalist. Qualifiers: Qualified Code(s): R10.84 - Generalized abdominal pain (2) Goals of care, counseling/discussion Current Visit: Yes Status: Acute Assessment and plan: Plan for discharge home with TPN when set up. Follow-up at [facility] as outpatient. (3) Constipation by delayed colonic transit Current Visit: Yes Status: Acute Assessment and plan: Ms. Lynn did have a BM yesterday that she describes as "medium". She reports improvement of abdominal bloating. Continue with aggressive bowel regimen. May need to consider Movantic on an outpatient basis if opioid induced constipation continues to be a problem, but it will likely need prior authorization from the pharmacy. (4) Cholangitis Current Visit: Yes Status: Acute (5) Severe protein-calorie malnutrition Current Visit: Yes Status: Acute Assessment and plan: Currently on TPN. Dietitian following. Ms. Lynn is now able to tolerate some oral intake in small amounts. She is able to take in strawberry Ensure. (6) Obstructive jaundice Current Visit: Yes Status: Acute Assessment and plan: S/P biliary stent on 04/08/16 (7) Pancreatic mass Current Visit: Yes Status: Acute Assessment and plan: Plan for family meeting to discuss biopsy results today between 12-1:00. - Time Spent With Patient Total time spent is greater than 50% in coordination of care (as documented) at patient's floor/unit and/or counseling patient: - Subjective Interval history: Ms. Lynn is sitting up on the edge of the bed coloring a picture. She reports stable/tolerable abdominal pain and is using breakthrough medications as needed (five in the last 24 hours). She was on a higher dose of MS Contin earlier in the admission, but became excessively drowsy. Ms. Lynn had a BM yesterday and continues to be compliant with bowel regimen. - Constitutional Vitals: Abnormal lab results RBC 3.05 M/mcL (3.82-4.97) L 04/15/16 05:04 Hgb 8.4 g/dL (11.5-15.4) L 04/15/16 05:04 Hct 27.0 % (35.3-44.9) L 04/15/16 05:04 MCH 27.5 pg (28.0-33.3) L 04/15/16 05:04 MCHC 31.1 g/dL (31.6-35.5) L 04/15/16 05:04 RDW 17.2 % (11.5-14.5) H 04/15/16 05:04 Reactive Lymphocytes Present (Not Present) A 04/09/16 04:27 Toxic Granulation Present (Not Present) A 04/08/16 04:45 Toxic Vacuolation Present (Not Present) A 04/06/16 04:50 Platelet Estimate Slight Decrease (Normal) L 04/09/16 04:27 Polychromasia 1+ (Not Present) A 04/05/16 05:00 Hypochromasia Present (Not Present) A 04/08/16 04:45 Poikilocytosis 1+ (Not Present) A 04/05/16 05:00 Anisocytosis 1+ (Not Present) A 04/07/16 05:00 Microcytosis Present (Not Present) A 04/08/16 04:45 Target Cells 1+ (Not Present) A 04/04/16 21:17 Tear Drop Cells 1+ (Not Present) A 04/09/16 04:27 PT 17.2 Seconds (9.4-12.1) H 04/05/16 05:00 Sodium 135 mEq/L (136-145) L 04/15/16 05:04 Potassium 4.6 mEq/L (3.5-4.5) H 04/15/16 05:04 BUN 23 mg/dL (7-20) H 04/15/16 05:04 Creatinine 0.52 mg/dL (0.57-1.11) L 04/15/16 05:04 BUN/Creatinine Ratio 44 (6-26) H 04/15/16 05:04 POC Glucose 156 (58-89) H 04/14/16 20:12 Iron 8 mcg/dL (50-170) L 04/05/16 12:42 % Saturation 5 % (15-50) L 04/05/16 12:42 Transferrin 110 mg/dL (180-382) L 04/05/16 12:42 Total Bilirubin 2.3 mg/dL (0.2-1.2) H D 04/10/16 04:29 Direct Bilirubin 6.7 mg/dL (0.0-0.5) H 04/07/16 05:00 Indirect Bilirubin 1.6 mg/dL (0.0-1.2) H 04/07/16 05:00 Alkaline Phosphatase 478 Units/L (38-126) H 04/10/16 04:29 Serum Total Protein 5.1 g/dL (6.0-8.3) L 04/10/16 04:29 Albumin 1.4 g/dL (3.5-5.0) L 04/10/16 04:29 Globulin 3.7 g/dL (2.4-3.5) H 04/10/16 04:29 Albumin/Globulin Ratio 0.4 (1.1-2.2) L 04/10/16 04:29 Prealbumin 7.0 mg/dL (16.0-38.0) L 04/14/16 05:20 Lipase 7 Units/L (8-78) L 04/04/16 21:17 CA 19-9 Antigen 2654 U/mL (0-37) H 04/05/16 05:00 Urine Color Overton (Yellow) A 04/06/16 17:30 Urine Clarity Cloudy (Clear) A 04/06/16 17:30 Urine Bilirubin Large (Negative) H 04/06/16 17:30 Ur Leukocyte Esterase Small (Negative) H 04/06/16 17:30 Urine Microscopic RBC 3-5 per hpf (0-3) H 04/06/16 17:30 Urine Microscopic WBC 3-5 per hpf (0-3) H 04/06/16 17:30 Ur Squamous Epith Cells Many per lpf (None-Few) H 04/06/16 17:30 General appearance: Present: cooperative, no acute distress - ENT ENT exam: Present: mucous membranes moist - Respiratory Respiratory exam: Absent: accessory muscle use, respiratory distress - Cardiovascular Cardiovascular exam: Absent: RRR - GI/Abdominal GI/Abdominal exam: Present: normal bowel sounds, tenderness. Absent: guarding - Extremities Exam Extremities exam: Present: pedal edema - Neurological Exam Neurological exam: Present: alert, oriented X3, no focal deficits - Psychiatric Psychiatric exam: Absent: agitated, anxious - Skin Skin exam: Present: dry, warm Palliative Quality Palliative Quality: Screen for Code Status: Yes, Screen for Goals of Care: Yes, Screen for Pain: Yes, If Pain Regimen Started, Initiate Bowel Regimen: Yes, Screen for Nausea/Vomitting: Yes - Labs CBC & Chem 7: 04/15/16 05:04 04/15/16 05:04 Labs: Laboratory Results - last 24 hr 04/12/16 04/13/16 04/13/16 14:35 16:01 20:48 WBC RBC Hgb Hct MCV MCH MCHC RDW Plt Count MPV Immature Gran % Seg Neutrophils % Lymphocytes % Monocytes % Eosinophils % Basophils % Neutrophils # Lymphocytes # Monocytes # Eosinophils # Basophils # Sodium Potassium Chloride Carbon Dioxide BUN Creatinine Est GFR ( Amer) Est GFR (Non-Af Amer) BUN/Creatinine Ratio Glucose POC Glucose 152 H 162 H Calculated Osmolality Calcium Ionized Calcium Phosphorus Magnesium Prealbumin Blood Type A NEGATIVE Antibody Screen NEGATIVE Crossmatch See Detail 04/14/16 04/14/16 04/14/16 05:20 08:21 11:40 WBC RBC Hgb Hct MCV MCH MCHC RDW Plt Count MPV Immature Gran % Seg Neutrophils % Lymphocytes % Monocytes % Eosinophils % Basophils % Neutrophils # Lymphocytes # Monocytes # Eosinophils # Basophils # Sodium Potassium Chloride Carbon Dioxide BUN Creatinine Est GFR ( Amer) Est GFR (Non-Af Amer) BUN/Creatinine Ratio Glucose POC Glucose 125 H 127 H Calculated Osmolality Calcium Ionized Calcium Phosphorus Magnesium Prealbumin 7.0 L Blood Type Antibody Screen Crossmatch 04/14/16 04/14/16 04/14/16 16:36 19:34 20:12 WBC 6.4 RBC 3.01 L Hgb 8.4 L D Hct 26.7 L MCV 88.7 MCH 27.9 L MCHC 31.5 L RDW 16.9 H Plt Count 246 MPV 10.8 Immature Gran % Seg Neutrophils % Lymphocytes % Monocytes % Eosinophils % Basophils % Neutrophils # Lymphocytes # Monocytes # Eosinophils # Basophils # Sodium Potassium Chloride Carbon Dioxide BUN Creatinine Est GFR ( Amer) Est GFR (Non-Af Amer) BUN/Creatinine Ratio Glucose POC Glucose 111 H 156 H Calculated Osmolality Calcium Ionized Calcium Phosphorus Magnesium Prealbumin Blood Type Antibody Screen Crossmatch 04/15/16 04/15/16 05:04 05:04 WBC 7.1 RBC 3.05 L Hgb 8.4 L Hct 27.0 L MCV 88.5 MCH 27.5 L MCHC 31.1 L RDW 17.2 H Plt Count 250 MPV 10.0 Immature Gran % 1.4 Seg Neutrophils % 71.0 Lymphocytes % 13.6 Monocytes % 12.2 Eosinophils % 1.5 Basophils % 0.3 Neutrophils # 5.0 Lymphocytes # 1.0 Monocytes # 0.9 Eosinophils # 0.1 Basophils # 0.0 Sodium 135 L Potassium 4.6 H Chloride 100 Carbon Dioxide 28 BUN 23 H Creatinine 0.52 L Est GFR ( Amer) > 60 Est GFR (Non-Af Amer) > 60 BUN/Creatinine Ratio 44 H Glucose 93 POC Glucose Calculated Osmolality 283 Calcium 8.8 Ionized Calcium 1.21 Phosphorus 4.6 Magnesium 1.6 Prealbumin Blood Type Antibody Screen Crossmatch - ABG Interpretation ABG results: PT/INR, D-dimer PT 17.2 Seconds (9.4-12.1) H 04/05/16 05:00 Consult Discharge Plan - Plan Instructions: Chest Pain (DC), Anemia (GEN), Pneumonia (DC) Additional Instructions: Plan: follow up with PCP in one week Follow up with oncology outpatient. Follow up with gastroenterology. Finish antibiotic course. Take pain medications as below: MS Contin 60mg every eight hours, with oxycodone 20mg every 3 hours as needed for breakthrough pain. Take Movantin, miralax, and senna as prescribed for opioid induced constipation. Continue TPN as directed by gastroenterology. Referrals: Mona Mitchell MD [Primary Care Provider] - 04/21/16 3:00 pm Jason Garcia MD [Partnered Physician] - 04/22/16 1:40 pm Joshua Streeter MD [Partnered Physician] - Prescriptions: OxyCODONE Immed Rel [Roxicodone 5 MG] 20 mg PO Q3HR PRN #240 tablet PRN Reason: Breakthrough Pain Folic Acid 1 mg PO DAILY #30 tablet Levofloxacin 750 mg PO Q24H #3 tablet Metoprolol [Lopressor] 12.5 mg PO BID #60 tablet Morphine Sulfate SR (12 HR) [MS Contin] 60 mg PO Q8H #90 tablet.er Naloxegol Oxalate [Movantik] 25 mg PO DAILY #30 tablet Polyethylene Glycol 3350 [MiraLAX] 17 gm PO DAILY #30 powd.pack Sennosides/Docusate Sodium [Senna Plus] 2 each PO BID #120 tablet
[2016-04-15 11:50] VITALS: BP 115/68
--- NOTE | 2016-04-15 13:23 | Physician Discharge Referral ---
Home Health/Hosp Referral Info Transfer to: Home Health Provider in Charge Post Discharge: PCP - Diagnosis (1) Cholangitis Priority: Primary Status: Acute (2) Obstructive jaundice Priority: Secondary Status: Acute (3) Hyperbilirubinemia Priority: Secondary Status: Acute (4) Pancreatic mass Priority: Secondary Status: Acute (5) Severe protein-calorie malnutrition Priority: Secondary Status: Acute (6) Anemia Priority: Secondary Status: Acute (7) Hypertension Priority: Secondary Status: Acute (8) Adenocarcinoma of pancreas Priority: Primary Status: Acute (9) Therapeutic opioid induced constipation Priority: Primary Status: Acute - Respiratory Orders None Smoking Cessation: Smoking cessation has been advised. For more information, call the [place] Tobacco Quit Line at 9-374-GNDP-NOW. - Diet/Nutrition Diet/Nutrition Orders: Regular - Activity Activity Orders: Up ad andrew - Services Needed Following services are medically necessary services: Nursing, Physical Therapy, Occupational Therapy, Home Infusion - Transfer Medications Prescriptions: OxyCODONE Immed Rel [Roxicodone 5 MG] 20 mg PO Q3HR PRN #240 tablet PRN Reason: Breakthrough Pain Folic Acid 1 mg PO DAILY #30 tablet Levofloxacin 750 mg PO Q24H #3 tablet Metoprolol [Lopressor] 12.5 mg PO BID #60 tablet Morphine Sulfate SR (12 HR) [MS Contin] 60 mg PO Q8H #90 tablet.er Naloxegol Oxalate [Movantik] 25 mg PO DAILY #30 tablet Polyethylene Glycol 3350 [MiraLAX] 17 gm PO DAILY #30 powd.pack Sennosides/Docusate Sodium [Senna Plus] 2 each PO BID #120 tablet Home Medications: Ibuprofen [Motrin] 600 mg PO TID 11/20/14 [History] Clopidogrel [Plavix] 75 mg PO DAILY #30 tablet 11/24/14 [Rx] Albuterol Sulfate [Ventolin Hfa] 2 puff IH Q4HR 04/05/16 [History] Atorvastatin [Lipitor] 40 mg PO HS 04/05/16 [History] Clopidogrel [Plavix] 75 mg PO DAILY 04/05/16 [History] Cyanocobalamin (Vitamin B-12) [Vitamin B-12] 100 mcg PO DAILY 04/05/16 [History] Fluticasone/Vilanterol [Breo Ellipta 100-25 Mcg INH] 1 inh IH DAILY 04/05/16 [ History] Ibuprofen [Motrin] 600 mg PO TID PRN 04/05/16 [History] Omeprazole [PriLOSEC] 20 mg PO DAILY 04/05/16 [History] Ropinirole HCl [Requip] 0.25 mg PO HS 04/05/16 [History] Folic Acid 1 mg PO DAILY #30 tablet 04/15/16 [Rx] Levofloxacin 750 mg PO Q24H #3 tablet 04/15/16 [Rx] Metoprolol [Lopressor] 12.5 mg PO BID #60 tablet 04/15/16 [Rx] Morphine Sulfate SR (12 HR) [MS Contin] 60 mg PO Q8H #90 tablet.er 04/15/16 [Rx] Naloxegol Oxalate [Movantik] 25 mg PO DAILY #30 tablet 04/15/16 [Rx] OxyCODONE Immed Rel [Roxicodone 5 MG] 20 mg PO Q3HR PRN #240 tablet 04/15/16 [Rx ] Polyethylene Glycol 3350 [MiraLAX] 17 gm PO DAILY #30 powd.pack 04/15/16 [Rx] Sennosides/Docusate Sodium [Senna Plus] 2 each PO BID #120 tablet 04/15/16 [Rx] Allergies/Adverse Reactions: Allergies codeine Adverse Reaction (Severe, Verified 04/05/16 05:51) shortness of breath Certification: Further, I certify that my clinical findings support that this patient is homebound (i.e. absences from home require considerable and taxing effort and are for medical reasons or buddhism services or infrequently or short duration when for other reasons) because: Homebound Reason: Patient requires assistance of a person or device to safely leave home, Leaving home requires considerable and taxing effort due to condition Attestation: My signature below is to certify that this patient is under my care and that I, or nurse practitioner, or a physician's press operator assistant working with me, has a face-to -face encounter with this patient.
== END 2016-04-15 15:30 | disposition home health service (06) | DRG 281 ==
LOC: 2NENU 20:22 → EMEROO 20:22 → 2NENU 23:42 → SUATTDRO 04-05 04:26
PROVIDERS: ADMIT Internal Medicine; ATTEND Internal Medicine
PROC: ENDOEUS (2016-04-08 10:55)

== ENCOUNTER 2016-05-05 11:12 | Inpatient (IN) ==
[2016-05-05] MEDS ORDERED: Ondansetron 4 MG/2 ML VIAL IVP ONE (11:24)
[2016-05-05] MEDS ORDERED: 0.9 % Sodium Chloride 1,000 ML IVC ONE (11:24)
[2016-05-05] MEDS ORDERED: *HR* HYDROmorphone (PF) 1 MG/ML SYRINGE IVP ONE (11:24)
--- NOTE | 2016-05-05 11:35 | Emergency Department Note ---
Disposition Clinical Impression: ST elevation myocardial infarction (STEMI) Qualifiers: Involved coronary artery: unspecified coronary artery Qualified Code(s): I21.3 - ST elevation (STEMI) myocardial infarction of unspecified site Disposition: Admitted As Inpatient Condition: Fair Time of Disposition: 11:54 Chest Pain HPI - General Chief Complaint: ED Chest Pain Stated Complaint: abd pain/chest pain Time Seen by Provider: 05/05/16 11:19 Source: patient, EMS Limitations: no limitations Vital Signs Reviewed: Yes Nursing Notes Reviewed: Yes - History of Present Illness HPI Narrative: Patient is a 60-year-old female who presents to [facility] ED with a chief complaint of chest pain and abdominal pain. Past medical history significant for pancreatic cancer. States she had an episode of chest pain several days ago but that resolved. It then returned again yesterday and has been constant ever since. He describes his pain as substernal, achy and sharp at times. Has had nausea and vomiting with this. Denies any fever or chills. No problems with urination or bowel movements. Pt complaint: chest pain Onset (ago): day(s) Duration: constant, gradually worsening Onset: during rest Pain Location: substernal Severity: severe Severity scale (1-10): 10 Quality: tightness, aching, sharp Pain Radiation: none Improves with: nothing Worsens with: nothing Associated symptoms: Reports: nausea Treatments prior to arrival chest pain: aspirin, nitroglycerin - Related Data Home Medications Medication Instructions Recorded Confirmed Albuterol Sulfate [Ventolin Hfa] 2 puff IH Q4HR 04/05/16 05/05/16 Atorvastatin [Lipitor] 40 mg PO HS 04/05/16 05/05/16 Clopidogrel [Plavix] 75 mg PO DAILY 04/05/16 05/05/16 Cyanocobalamin (Vitamin B-12) 100 mcg PO DAILY 04/05/16 04/05/16 [Vitamin B-12] Fluticasone/Vilanterol [Breo 1 inh IH DAILY 04/05/16 05/05/16 Ellipta 100-25 Mcg INH] Ibuprofen [Motrin] 600 mg PO TID PRN 04/05/16 05/05/16 Omeprazole [PriLOSEC] 20 mg PO DAILY 04/05/16 05/05/16 Ropinirole HCl [Requip] 0.25 mg PO HS 04/05/16 05/05/16 Pantoprazole Sodium [Protonix] 40 mg PO DAILY 05/05/16 05/05/16 Previous Rx's Medication Instructions Recorded Folic Acid 1 mg PO DAILY #30 tablet 04/15/16 Metoprolol [Lopressor] 12.5 mg PO BID #60 tablet 04/15/16 Morphine Sulfate SR (12 HR) [MS 60 mg PO Q8H #90 tablet.er 04/15/16 Contin] Naloxegol Oxalate [Movantik] 25 mg PO DAILY #30 tablet 04/15/16 OxyCODONE Immed Rel [Roxicodone 5 20 mg PO Q3HR PRN #240 tablet 04/15/16 MG] Polyethylene Glycol 3350 [MiraLAX] 17 gm PO DAILY #30 powd.pack 04/15/16 Sennosides/Docusate Sodium [Senna 2 each PO BID #120 tablet 04/15/16 Plus] 0.9 % Sodium Chloride [Normal 10 ml IVP DAILY #30 syringe 04/22/16 Saline Flush] HYDROmorphone [Dilaudid] 2 mg PO Q8HR #60 tablet 04/27/16 OxyCODONE Immed Rel [Roxicodone 5 10 mg PO Q4HR PRN #120 tablet 05/03/16 MG] Allergies Allergy/AdvReac Type Severity Reaction Status Date / Time codeine AdvReac Severe shortness Verified 04/05/16 05:51 of breath All systems ED: reviewed and negative except as stated. Chest Pain PMH - Past Medical History Medical history: Reports: cancer, CVA, hypertension, myocardial infarction, seizures Surgical history: Reports: appendectomy, breast surgery, cholecystectomy, colostomy, herniorrhaphy, orthopedic, other Psychiatric history: Reports: anxiety, panic disorder - Social History Smoking Status: Current some day smoker Alcohol use: Reports: none Drug use: Reports: none Physical Exam - General Limitations: no limitations General appearance: alert, in distress - Head Head exam: atraumatic, normocephalic, normal inspection - Eye Eye exam: Present: normal appearance, PERRL, EOMI - ENT ENT exam: normal exam, normal oropharynx, mucous membranes moist - Neck Neck exam: Present: normal inspection, full ROM, trachea midline - Chest Chest inspection: Present: normal inspection, symmetric chest wall rise - Respiratory Respiratory exam: Present: normal lung sounds bilaterally - Cardiovascular Cardiovascular exam: Present: normal rhythm, tachycardia - Abdominal Exam Abdominal exam: Present: soft, tenderness Abdominal tenderness: Present: epigastrium - Extremities Exam Extremities exam: Present: normal inspection, full ROM. Absent: tenderness, pedal edema - Back Exam Back exam: Present: normal inspection, full ROM. Absent: tenderness - Neurological Exam Neurological exam: Present: alert, oriented X3 - Psychiatric Psychiatric exam: Present: normal affect, normal mood - Skin Skin exam: Present: warm, dry, intact, normal color Course Course Narrative: Patient seen and examined. Chest and abdominal epigastric pain. EKG ordered which shows ST elevation in aVR. She also has widespread ST depression in the anterior, inferior, lateral leads. Concerning for acute STEMI. STEMI alert was called. The interventionalist Dr. Villagran was called and has accepted patient to the [facility]. Patient will go to ICU after catheter. Vital Signs Temperature 98.5 F 05/05/16 11:13 Pulse Rate 109 05/05/16 11:13 Respiratory Rate 16 05/05/16 11:13 Blood Pressure 113/87 05/05/16 11:13 O2 Sat by Pulse Oximetry 99 05/05/16 11:13 Temperature 98.5 F 05/05/16 11:13 Pulse Rate 109 05/05/16 11:13 Respiratory Rate 16 05/05/16 11:42 Blood Pressure 120/85 05/05/16 11:42 O2 Sat by Pulse Oximetry 99 05/05/16 11:13 Oxygen Delivery Oxygen Delivery Room Air Chest Pain - Medical Records Medical records reviewed: Yes I reviewed the patient's medical records. - Lab Data Result diagrams: 05/05/16 11:37 05/05/16 11:37 Heart Score - Score History: Highly Suspicious EKG: Significant ST-Depression Age: 45-65 Risk Factors: Equal/Greater than 3 risk factor or history of atherosclerotic disease Attestation Statement - Attestation Attestation: I examined this patient and my medical decision-making was reviewed with the Resident Physician. I agree with the documented findings, disposition and treatment plan as described except to the extent set forth below. Exertional CP, tachycardic. EKG shows 2-[address] elevation in aVR with diffuse ST depression, all changes new compared to 04/26/16. Sent to labeling machine operator for suspected left main occlusion.
[2016-05-05 11:43] LABS: Basophils # 0.1 K/mcL (0.0-0.2); Basophils % 0.5 %; Eosinophils # 0.1 K/mcL (0.0-0.6); Eosinophils % 0.8 %; Hematocrit 39.9 % (35.3-44.9); Immature Granulocytes % 0.2 % (0-4); Lymphocytes # 2.2 K/mcL (0.6-4.6); Lymphocytes % 20.1 %; Mean Corpuscular HGB Conc 32.3 g/dL (31.6-35.5); Mean Corpuscular Volume 83.6 fL (83.0-100.0); Mean Platelet Volume 10.8 fL (9.4-12.4); Monocytes # 1.2 K/mcL (0.0-1.3); Monocytes % 11.2 %; Neutrophils # 7.3 K/mcL (1.6-8.9); Platelet Count 276 K/mcL (140-400); Red Blood Count 4.77 M/mcL (3.82-4.97); Red Cell Distribution Width 16.6 % (11.5-14.5); Segmented Neutrophils % 67.2 %
[2016-05-05] MEDS ORDERED: Nitroglycerin 25 MG/250 ML INFUS..BTL IVC SCH (11:45)
--- NOTE | 2016-05-05 11:45 | Pre-Sedation Evaluation ---
Pre-sedation evaluation - Pre-sedation checklist Date of procedure: 05/05/16 Procedure: [facility] Recent Vitals: Last Vital Signs Temp 98.5 F 05/05/16 11:13 Pulse 109 05/05/16 11:13 Resp 16 05/05/16 11:42 BP 120/85 05/05/16 11:42 Pulse Ox 99 05/05/16 11:13 H&P (including ROS) documented in medical record: Yes Previous reaction to sedatives/anesthetics: No Dietary Status: NPO after Midnight Dentition: dentures removed ASA Classification *see protocol: CLASS II-Mild systemic disease, E-EMERGENCY- Add to any of the above to indicate emergent Plan of Care: Pt appropriate candidate for procedure/moderate/conscious sedation , Risks/benefits of procedure/sedation discussed w/ patient/family
[2016-05-05 11:48] LABS: Hemoglobin 12.9 g/dL (11.5-15.4)
[2016-05-05 11:59] LABS: Alanine Aminotransferase 16 Units/L (0-55); Albumin 3.2 g/dL (3.5-5.0); Albumin/Globulin Ratio 0.6 (1.1-2.2); Alkaline Phosphatase 124 Units/L (38-126); Aspartate Amino Transferase 30 Units/L (5-34); BUN/Creatinine Ratio 28 (6-26); Bilirubin,Direct 0.8 mg/dL (0.0-0.5); Bilirubin,Indirect 0.9 mg/dL (0.0-1.2); Blood Urea Nitrogen 21 mg/dL (7-20); Calcium 8.5 mg/dL (8.6-10.8); Carbon Dioxide 18 mEq/L (19-29); Chloride 98 mEq/L (98-109); Glucose 129 mg/dL (70-99); Lipase 13 Units/L (8-78); Magnesium 1.5 mg/dL (1.6-2.6); Osmolality,Calculated 269 (280-300); Potassium 4.1 mEq/L (3.5-4.5); Total Protein 8.2 g/dL (6.0-8.3); eGFR For African Americans > 60 (> 60); eGFR For Non-African Americans > 60 (> 60)
[2016-05-05 12:00] LABS: Bilirubin,Total 1.7 mg/dL (0.2-1.2); Sodium 127 mEq/L (136-145)
[2016-05-05] MEDS ORDERED: Ondansetron 4 MG/2 ML VIAL IVP PRN (12:10)
[2016-05-05] MEDS ORDERED: *HR* Morphine 2 MG/ML SYRINGE IVP PRN (12:15)
[2016-05-05 12:18] LABS: INR 1.4; Prothrombin Time 14.9 Seconds (9.4-12.1)
[2016-05-05 12:21] LABS: Activated Partial Thrombo Time 28.5 Seconds (26.0-36.0)
--- NOTE | 2016-05-05 12:24 | Cardiology History & Physical ---
Date of Encounter: 05/05/16 Time of Encounter: 12:30 Assessment and Plan (1) Chest pain Current Visit: Yes Status: Acute Discussed thoroughly with ED staff. Their clinical impression is critical left main disease with AVR elevation and diffuse depression elsewhere combined with anginal type symptoms. STEMI alert was activated. Given the emergent nature of the situation, will proceed with urgent LHC +- PCI. A/R/B discussed with patient and she wishes to proceed understanding risk of bleeding, , contrast allergy. The assessment and plan as outlined above was discussed with the patient and/or family members who expressed understanding and agreement. All questions were answered. Qualifiers: Chest pain type: other chest pain Qualified Code(s): R07.89 - Other chest pain; R07.8 - Other chest pain (2) Pancreatic mass Current Visit: No Status: Acute The assessment and plan as outlined above was discussed with the patient and/or family members who expressed understanding and agreement. All questions were answered. (3) Hypertension Current Visit: No Status: Acute The assessment and plan as outlined above was discussed with the patient and/or family members who expressed understanding and agreement. All questions were answered. Qualifiers: Hypertension type: essential hypertension Qualified Code(s): I10 - Essential (primary) hypertension History of Present Illness Chief complaint: Chest pain / dyspnea HPI: Ms. Lynn is a 60 year old female with history of nicotine dependence, RI, HTN and recently diagnosed pancreatic cancer presents with severe chest and upper abdominal discomfort described as a pressure associated with dyspnea. It was waxing and waning and worsened this morning. Upon presentation to the ED, patient reportedly had Henao's sign and ED physician sent STEMI alert because of concern for current of injury involving the left main. Past Med Surg Social Fam HX - Past Medical History Medical history: cancer, CVA, hypertension, myocardial infarction, seizures Psychiatric history: anxiety, panic disorder - Past Surgical History Surgical History: appendectomy, breast surgery, cholecystectomy, colostomy, herniorrhaphy, orthopedic, other - Social History Smoking Status: Current some day smoker Smokeless Tobacco Status: No Alcohol use: none Drug use: none - Family History Mother Hx Family Cancer: Yes (Unspecified type) Father Living Status: Hx Family Cardiac Disorders: Yes Hx Family Respiratory Disorders: No Hx Family Cancer: Yes Hx Family GI Disorders: No Hx Family Endocrine Disorder: No Hx Family Neuromuscular Disorders: No Hx Family Neurologic Disorders: Yes Hx Family HEENT Disorders: No Hx Family Autoimmune Disorders: No Sister Hx Family Cardiac Disorders: Yes (Myocardial infarction) Medications and Allergies Albuterol Sulfate [Ventolin Hfa] 2 puff IH Q4HR 04/05/16 [History] Atorvastatin [Lipitor] 40 mg PO HS 04/05/16 [History] Clopidogrel [Plavix] 75 mg PO DAILY 04/05/16 [History] Cyanocobalamin (Vitamin B-12) [Vitamin B-12] 100 mcg PO DAILY 04/05/16 [History] Fluticasone/Vilanterol [Breo Ellipta 100-25 Mcg INH] 1 inh IH DAILY 04/05/16 [ History] Ibuprofen [Motrin] 600 mg PO TID PRN 04/05/16 [History] Omeprazole [PriLOSEC] 20 mg PO DAILY 04/05/16 [History] Ropinirole HCl [Requip] 0.25 mg PO HS 04/05/16 [History] Folic Acid 1 mg PO DAILY #30 tablet 04/15/16 [Rx] Metoprolol [Lopressor] 12.5 mg PO BID #60 tablet 04/15/16 [Rx] Morphine Sulfate SR (12 HR) [MS Contin] 60 mg PO Q8H #90 tablet.er 04/15/16 [Rx] Naloxegol Oxalate [Movantik] 25 mg PO DAILY #30 tablet 04/15/16 [Rx] OxyCODONE Immed Rel [Roxicodone 5 MG] 20 mg PO Q3HR PRN #240 tablet 04/15/16 [Rx ] Polyethylene Glycol 3350 [MiraLAX] 17 gm PO DAILY #30 powd.pack 04/15/16 [Rx] Sennosides/Docusate Sodium [Senna Plus] 2 each PO BID #120 tablet 04/15/16 [Rx] 0.9 % Sodium Chloride [Normal Saline Flush] 10 ml IVP DAILY #30 syringe [Rx] HYDROmorphone [Dilaudid] 2 mg PO Q8HR #60 tablet 04/27/16 [Rx] OxyCODONE Immed Rel [Roxicodone 5 MG] 10 mg PO Q4HR PRN #120 tablet 05/03/16 [Rx ] Pantoprazole Sodium [Protonix] 40 mg PO DAILY 05/05/16 [History] Allergies codeine Adverse Reaction (Severe, Verified 04/05/16 05:51) shortness of breath All Systems Review: A 10-system review of systems was performed and is negative for pertinent findings except as documented above in the HPI. - Constitutional Constitutional: lethargy, weight loss, no chills, no fatigue - EENT Eyes: no blurred vision, no loss of vision Nose, mouth and throat: no bleeding gums, no epistaxis - Cardiovascular Cardiovascular: chest pain at rest, dyspnea at rest - Respiratory Respiratory: no hemoptysis, no wheezing - Gastrointestinal Gastrointestinal: no hematemesis, no hematochezia - Genitourinary Genitourinary: no hematuria, no nocturia - Musculoskeletal Musculoskeletal: no arthralgias, no myalgias - Integumentary Integumentary: no erythema, no rash - Neurological Neurological: no loss of vision, no memory loss - Psychiatric Psychiatric: no hallucinations, no panic attacks - Hematological/Lymphatic Hematologic/Lymphatic: no easy bleeding, no easy bruising Physical Examination Vital Signs, Last 4 Hours Resp BP 05/05/16 11:42 16 120/85 General: Conversant, Other (mild distress) HEENT: Atraumatic, Normocephaly Neck: No JVD Cardiac: Reg Rate and Rhythm, No Murmur Lungs: Normal Breath Sounds Neuro: Alert and responsive, No focal deficits noted Abdomen: Soft, Non-Tender Skin: No rashes noted on visualized skin Musculoskeletal: Other (chest wall tenderness) Extremities: No Clubbing, No Edema Results 05/05/16 11:37 05/05/16 11:37 Lab Results 05/05/16 05/05/16 05/05/16 11:37 11:37 11:37 WBC 10.8 D Hgb 12.9 D Hct 39.9 Plt Count 276 INR APTT Sodium 127 L D Potassium 4.1 Chloride 98 Carbon Dioxide 18 L BUN 21 H Creatinine 0.74 Glucose 129 H Calcium 8.5 L Magnesium 1.5 L Total Bilirubin 1.7 H D AST 30 ALT 16 Alkaline Phosphatase 124 Troponin I 0.15 H* Lipase 13 05/05/16 12:06 WBC Hgb Hct Plt Count INR 1.4 APTT 28.5 Sodium Potassium Chloride Carbon Dioxide BUN Creatinine Glucose Calcium Magnesium Total Bilirubin AST ALT Alkaline Phosphatase Troponin I Lipase - EKG Interpretation EKG results cardiology: personally reviewed
[2016-05-05] MEDS ORDERED: *HR* FentaNYL (PF) 100 MCG/2 ML VIAL ONE (12:39)
[2016-05-05] MEDS ORDERED: *HR* Midazolam HCl 2 MG/2 ML VIAL ONE (12:39)
[2016-05-05] MEDS ORDERED: *HR* Heparin 10,000 UNIT/10 ML VIAL ONE (12:41)
[2016-05-05] MEDS ORDERED: 0.9 % Sodium Chloride 1,000 ML ONE (12:41)
[2016-05-05] MEDS ORDERED: Heparin 1,000 UNITS/500 mL NS 500 ML ONE (12:41)
[2016-05-05] MEDS ORDERED: Nitroglycerin 1,000 MCG/10 ML VIAL IV ONE (12:41)
[2016-05-05] MEDS ORDERED: Verapamil 5 MG/2 ML VIAL ONE (12:42)
--- NOTE | 2016-05-05 12:50 | Invasive Diagnostic Lab Proc ---
Name: Brennan Lynn Date of Study: 05/05/2016 Date: 1955 Ht: 66.1in Medical Record#: [id number] Age: 60 Wt: 83.78lb Gender: Female BSA: 1.38 Order #: [id number] BMI: 13.46 Physicians Procedure Physician: Velasquez Villagran MD, [facility] Referring MD: Referring MD: Staff Name Position Time In Dipti Haney RT (R) Monitor 11:41 AM Drea Pena RN Tube Room Cashier 11:41 AM Abdi Montalvo RN Nurse 11:41 AM Cori Valencia RT Scrub 11:41 AM Indications Indication STEMI Procedures Performed Procedure L HRT ARTERY/VENTRICLE ANGIO Pre-Procedure Checklist Informed consent is complete signed and on chart. H\\T\\P is on chart. ID band is on and ID verified with patient. Patient NPO for procedure The procedure was described for the patient and questions were answered. ECG is on chart. Plan of Care Patient will tolerate the procedure without complications. Adequate level of comfort will be maintained. Hemodynamics will remain stable Patient will recover from procedure without complications. Respiratory function will be maintained. Cardiac rhythm will remain stable. Patient temperature will be maintained. Patient and/or family have verbalized understanding of the procedure. Patient Education Intravenous Access Time IV Size Location DC'd Fluid/Drip Rate Units RN 11:39 AM 18g 1 /" Patent On Arrival Lt Arm 0.9NaCl 25 ml/hr Drea Pena RN Allergies No Known Drug Allergies codeine NKDA NO KNOWN ALLERGIES *HR* CODEINE Vital Signs Time BP (mmHg) HR (bpm) O2 Sat. RR (bpm) LOC 11:42 AM / % 5 = Fully awake and oriented or at pre-proc level 11:42 AM / % 4 = Oriented but drowsy 11:45 AM 164 / 100 97 100 % 10 11:50 AM 154 / 106 98 100 % 8 11:55 AM 150 / 88 95 100 % 18 12:00 PM 153 / 86 90 100 % 25 12:05 PM 158 / 92 88 100 % 25 12:10 PM 170 / 95 85 100 % 13 12:11 PM 161 / 98 84 100 % 25 11:57 AM / % 5 = Fully awake and oriented or at pre-proc level 12:15 PM / % 5 = Fully awake and oriented or at pre-proc level Procedural Medications Time Medication Dose Units Method Given By 11:42 AM Oxygen 2 L/min nasal cannula Drea Pena RN 11:48 AM Versed 1 mg Intravenous Drea Pena RN 11:48 AM Fentanyl 12.5 mcg Intravenous Drea Pena RN 11:49 AM Lidocaine 2% 16 ml Subcutaneous Velasquez Villagran MD, [facility] 11:54 AM Lidocaine 2% 3 ml Subcutaneous Velasquez Villagran MD, [facility] ASA Classification: CLASS III- Severe systemic disease (i.e. prior AMI, diabetes with vascular complications, morbid obesity) Ni Score Preprocedure Postprocedure Activity 2- Moves 4 extremities sustained head lift Activity 2- Moves 4 extremities sustained head lift Circulation 2- SBP +/= 20 points of pre-anesthetic level Circulation 2- SBP +/= 20 points of pre-anesthetic level Consciousness 2- Awake and alert oriented x 3 Consciousness 2- Awake and alert oriented x 3 O2 Saturation 2- Able to maintain O2 satruation of 92% on room air O2 Saturation 2- Able to maintain O2 satruation of 92% on room air Respiratory 2- Able to deep breathe and cough well Respiratory 2- Able to deep breathe and cough well Total Score 10 Total Score 10 Contrast Agent: Isovue Diagnostic Contrast: 64 ml Total Contrast: 64 ml Fluoro Dose: 30 mGy Procedure Log Time Note Enter By 11:38 AM Pt arrived to at 11:38 [facility] 11:39 AM Pt arrived emergent, no labs available dspell 11:41 AM Dipti Haney RT (R) Position: Monitor Time in: : [facility] 11:41 AM Drea Pena RN Position: Tube Room Cashier Time in: :[facility] 11:41 AM Abdi Montalvo RN Position: Nurse Time in: : [facility] 11:41 AM Cori Valencia RT Position: Scrub Time in: :41 [facility] 11:41 AM Patient charges- Angio tray pack, Navilyst 3mm J, Pulse Oximetry and ACIST tubing and transducer [facility] 11:41 AM IV Supplies used: J loop Angio Cath. [facility] 11:42 AM Physician arrived 11:41 [facility] 11:42 AM Time: 11:42 Oxygen on at 2 L/min per nasal cannula by Drea Pena RN [facility] 11:42 AM Time: 11:42 Patient comfortable and pain free: Yes [facility]: AM Time: :LOC: 5 = Fully awake and oriented or at pre-proc level [facility] : AM Clinical Presentation: [facility] or [facility] 11:45 AM CathStat 11:45 AM Case Start :45 AM Vitals capture started with the following parameters, Patient=Adult, Interval=5 min, Initial Wunuffqt=395 mmHg, Deflation Rate=5 mmHg, Cuff placed on Left Arm 11:45 AM HR=97 bpm, CFFC=937/100 mmhg, SqQ2=972.0 %, Resp=10 B/min, Comment=nsr 11:46 AM Hair removed from procedure site in holding area using clippers. Bilateral groin prepped with Chloraprep by Aaron Nugent, safety strap applied then patient was draped. Skin intact. [facility] :47 AM ASA Class CLASS III- Severe systemic disease (i.e. prior AMI, diabetes with vascular complications, morbid obesity) [facility] 11:47 AM Kirit and greet completed [facility] :47 AM Procedure start : [facility] :47 AM Time out performed according to hospital policy ell 11:48 AM Time: 11:48 Versed 1 mg Intravenous Given by Drea Pena RN [facility] :49 AM Pressure channel 1 zeroed. 11:49 AM Time: 11:48 Fentanyl 12.5 mcg Intravenous Given by Drea Pena RN [facility] 11:50 AM Time: 11:49 7 ml Lidocaine 2% to right groin Subcutaneous Given by Velasquez Villagran MD, [facility] 11:50 AM Access obtained by percutaneous puncture. 6Fr 10cm Terumo [place] sheath placed in right Femoral artery. [id number] [facility] 11:50 AM 5Fr FL 4 catheter inserted over the wire [facility] 11:50 AM 0.035 145cm Navilyst 3mmJ wire [id number] dspellsheldon 11:50 AM HR=98 bpm, JGWS=165/106 mmhg, RoC4=223.0 %, Resp=8 B/min, Comment=nsr 11:50 AM Pressure channel 1 zero failed. 11:51 AM Pressure channel 1 zero failed. 11:51 AM Pressure channel 1 zeroed. 11:52 AM 0.035 145cm VSI Tai-Torque wire [id number] dspell 11:52 AM Wire removed dspell 11:53 AM Catheter removed dspell 11:53 AM total occlusion Right iliac ell 11:54 AM Time: 11:54 3 ml Lidocaine 2% to left groin Subcutaneous Given by Velasquez Villagran MD, [facility] dspell 11:55 AM Access obtained by percutaneous puncture. 5Fr 10cm Terumo [place] sheath placed in left Femoral artery. [id number] dspell 11:55 AM 5Fr FL 4 catheter inserted over the wire [facility] 11:55 AM HR=95 bpm, DGTF=825/88 mmhg, DtZ3=784.0 %, Resp=18 B/min, Comment=nsr 11:56 AM LCA angiography performed in multiple views. dspell 11:56 AM Recorded Pressure: LV, Ao, HR=88, Condition=Condition 1 (Left Ventricle) LV 147/-5/5, (Aorta) Ao 150/93/115 11:56 AM Recorded Pressure: Ao, HR=90, Condition=Condition 1 (Aorta) Ao 133/97/114 11:57 AM Time: 11:42LOC: 4 = Oriented but drowsy [facility] 11[facility]57 AM Time: 11:42 Patient comfortable and pain free: Yes ell 11:58 AM Catheter removed dspell 11:58 AM 5Fr FR 4 catheter inserted over the wire [facility] 11:58 AM RCA angiography performed in multiple views. ell 11:59 AM Lesion found in Mid LAD. Pre Stenosis: 60 Pre CHANELL Flow: dspell 11:59 AM Catheter removed dspell 12:00 PM Lesion found in Proximal RCA. Pre Stenosis: 50 Pre CHANELL Flow: dspell 12:00 PM 5Fr Pigtail catheter inserted over the wire [facility] 12:00 PM HR=90 bpm, JRFZ=439/86 mmhg, BgV9=350.0 %, Resp=25 B/min 12:01 PM Pressure channel 1 zero failed. 12:01 PM Pressure channel 1 zero failed. 12:01 PM Pressure channel 1 zeroed. 12:01 PM Recorded Pressure: LV, HR=90, Condition=Condition 1 (Left Ventricle) LV 121/-12/-2 12:01 PM Recorded Pressure: LV, Ao, HR=88, Condition=Condition 1 (Left Ventricle) LV 125/6/36, (Aorta) Ao 143/82/107 12:02 PM Catheter selectively placed in left ventricle dspellman 12:02 PM Bolus angiogram of left Ventricle complete: 10 ml/sec for a total of 33 mls dspellman 12:02 PM Bolus angiogram of left Femoral complete: 4 ml/sec for a total of 7 mls dspellman 12:03 PM Bolus angiogram of right Femoral complete: 4 ml/sec for a total of 7 mls dspellman 12:03 PM Catheter removed dspellman 12:04 PM Lesion found in Mid RCA. Pre Stenosis: 30 Pre CHANELL Flow: dspellman 12:04 PM Lesion found in Right PDA. Pre Stenosis: 50 Pre CHANELL Flow: dspellman 12:04 PM Proximal Left Anterior Descending Coronary Artery with 60% stenosis. If graft is supplying this territory, 0 % stenosis. dspellman 12:05 PM Right Coronary, Right Posterior Descending Arteries with Right Posterolateral and Acute Marginal branches with 50 % stenosis. If graft is supplying this area, 0 % stenosis dspellman 12:05 PM Right Coronary, Right Posterior Descending Arteries with Right Posterolateral and Acute Marginal branches with 50 % stenosis. If graft is supplying this area, 0 % stenosis dspellman 12:05 PM Right Coronary, Right Posterior Descending Arteries with Right Posterolateral and Acute Marginal branches with 50 % stenosis. If graft is supplying this area, 0 % stenosis dspellman 12:05 PM HR=88 bpm, QAZQ=264/92 mmhg, MdF0=551.0 %, Resp=25 B/min, Comment=nsr 12:06 PM Blood specimen collected dspell 12:07 PM Procedure completed at 12:07 dspellman 12:07 PM Sign out completed: Radiation Dose 30.15 mGy Fluoro Time: 2.1 Isovue 370 - 200ml contrast 63.5 ml given by Velasquez Villagran MD, [facility]. Complications: NoneCardiac Rehab Consult needed: NoConfirmed administered medications: Yes dspellman 12:07 PM Isovue 370 - 200ml,1 Bottle(s) used. dspell 12:07 PM Post ECG NSR dspell 12:07 PM Post Blood Pressure 158/92 dspellman 12:08 PM Information taught Cardiac Cath dspell 12:08 PM Education needs Procedure, Plan of Care, and Responsibilities of Patient in Care [facility] 12:08 PM Learning barriers :None [facility] 12:08 PM Education Methods Verbal dspellsheldon 12:08 PM Education evaluation Able to repeat information [facility] 12:08 PM Complications: None [facility] 12:09 PM Fluoro Time: 2.1 [facility] 12[facility]09 PM Isovue 370 - 200ml contrast 63.5 ml given by Velasquez Villagran MD, [facility]. [facility] 12:09 PM Radiation Dose 30.15 mGy [facility] 12:10 PM HR=85 bpm, CYJX=840/95 mmhg, ZkN6=536.0 %, Resp=13 B/min, Comment=nsr 12:11 PM NIBP STAT measurement started. 12:11 PM HR=84 bpm, BQVZ=712/98 mmhg, TlD0=287.0 %, Resp=25 B/min, Comment=nsr 12:13 PM Time: 11:57 Patient comfortable and pain free: Yes [facility] 12:15 PM Time: 11:57LOC: 5 = Fully awake and oriented or at pre-proc level dspellsheldon 12:24 PM Site status No bleeding/hematoma - Rt Groin as reported by Cori Valencia RT at 12:24 dspellsheldon 12:24 PM Opsite applied dspellsheldon 12:26 PM Report given to Galina CROOK Pt taken to E Room #25. 12:26 dspellsheldon 12:28 PM Time: 12:13 Patient comfortable and pain free: Yes [facility] 12:30 PM Time: 12:15LOC: 5 = Fully awake and oriented or at pre-proc level dspellman 12:36 PM Family placed in consult room. dspellsheldon 12:36 PM Complications: None [facility] Complications Complication None None None Hemodynamics Pressures Site Systolic/A Wave Diastolic/V Wave Mean LV 147 -5 5 AO 133 97 114 LV 121 -12 -2 LV 125 6 36 AO 143 82 107 AO 150 93 115 Post Procedure Information Blood Pressure: 158/92 mmHg Rhythm: NSR Post procedural instructions were given Closure Device Time Device Success/Fail 05/05/2016 12:27:00 PM Manual Compression Right Successful 05/05/2016 12:31:00 PM Manual Compression Successful Site Checks Time Location Status Staff Sheath In? Note 12:24 PM Rt Groin No bleeding/hematoma Cori Valencia RT 12:31 PM Lt Groin No bleeding/ No Hematoma Drea Pena RN Pulses Time Site Pre-Procedure Post-Procedure Note 05/05/2016 12:27:00 PM Rt DP Doppler 05/05/2016 12:28:00 PM Rt PT Doppler 05/05/2016 12:29:00 PM Left DP \\T\\ PT 2+ Updated by Dipti Haney, RT (R) on 05/05/2016 12:41:56 PM Dipti Haney RT electronically signed on 05/05/2016 12:44:09 PM with status of Final
[2016-05-05] MEDS ORDERED: *HR* Heparin 5,000 UNIT/ML VIAL IVP ONE (13:31)
[2016-05-05] MEDS ORDERED: *HR* Heparin 5,000 UNIT/ML VIAL IVP PRN (13:31)
[2016-05-05] MEDS ORDERED: Heparin 25,000 UNIT/500 ML D5W 25,000 UNIT/500 ML MLS IVC SCH (13:45)
[2016-05-05] MEDS ORDERED: amLODIPine 5 MG TABLET PO ONE (13:47)
--- NOTE | 2016-05-05 13:56 | Invasive Diagnostic Lab ---
Name: Brennna Lynn Date of Study: 05/05/2016 Date: 1955 Ht: 168.0 cm /66.1 in Medical Record#: [id number] Age: 60 Wt: 38. kg / 83.78 lb Account/Order#: [id number] Gender: Female BSA: 1.38 Order #: [id number] Fluoro Dose: 30 mGy BMI: 13.46 Procedure Physician: Velasquez Villagran MD, FACC Referring MD: Referring MD: Procedures Performed: LEFT HEART CATH Indications: Acute PR Impressions: Moderate atherosclerotic coronary artery disease. The left ventricle is normal and has normal contractility EF 55% Occluded right iliac Recommendations: Optimal medical therapy of patient's disease. Aggressive risk factor modification. If severe limiting claudication on outpatient cardiology followup, consider right iliac revascularization if clinically indicated History/Risk Factors: Seizures Colostomy reversal 2006 Mastectomy Hypertension Current/Recent Smoker Cerebrovascular disease Prior PR Procedure Access obtained in the left Femoral artery by percutaneous puncture Complications: None, None, None Contrast: Isovue 64ml Closure Device: Manual Compression Right, Manual Compression Hemodynamics: Pressures Site Systolic/ A Wave Diastolic/ V Wave End Diastolic/ Mean HR LV 147 -5 5 89 AO 133 97 114 90 LV 121 -12 -2 90 LV 125 6 36 88 AO 143 82 107 88 AO 150 93 115 85 LV Ventriculography Ejection Method: LV Gram Ejection Fraction: 55% Wall Motion: BRAN Anterobasal Normal Anterolateral Normal Apical: Normal Inferoapical Normal Inferobasal Normal Coronary Dominance: Lesion Findings/Interventions * Left Main Coronary Artery The LMCA is angiographically free of disease. * Left Anterior Descending There is a 50% stenosis in the Mid LAD. * Circumflex The Circumflex has mid 50% stenosis The 1st Marginal has a 80% stenosis in small subbranch * Right Coronary Artery There is a 50% stenosis in the Proximal RCA. There is a 30% stenosis in the Mid RCA. There is a 50% stenosis in the Right PDA. Additional Findings: Right Ilio-Femoral * Chronic 100% stenosis in the distal portion of the external iliac Updated by RT Howard (R) on 05/05/2016 12:36:56 PM Velasquez Villagran MD, FACC electronically signed on 05/05/2016 1:53:22 PM with status of Final
--- NOTE | 2016-05-05 14:23 | Electrocardiograph Report ---
[address] [address] Test Date: 2016-05-05 Pat Name: Brennan Lynn Department: 102 Room: 2NE25 Gender: F [employer]: : 1955 Requested By: Blanka Castellon Order Number: [id number] Reading MD: Velasquez Villagran MD Measurements Intervals [place] Rate: 120 P: 88 IN: 106 QRS: 89 QRSD: 81 T: 66 QT: 359 QTc: 430 Interpretive Statements SINUS TACHYCARDIA WITH SHORT IN INTERVAL LEFT VENTRICULAR HYPERTROPHY AND ST-T CHANGE RIGHT ATRIAL ABNORMALITY Electronically Signed On 05-05-2016 14:21:40 EDT by Velasquez Villagran MD
--- NOTE | 2016-05-05 14:41 | Internal Medicine Consult Note ---
Date of Encounter: 05/05/16 Time of Encounter: 14:40 - Assessment and Plan (1) Chest pain Current Visit: No Status: Resolved Assessment and plan: Patient admitted inpatient per cardiology. Patient underwent left heart catheterization. She did did not require PCI and stenting. She had moderate atherosclerotic coronary artery disease and was also occlusion of the right iliac artery. Her ejection fraction was 55%. Currently on IV heparin. Monitor vital signs closely. Medical management with Plavix and statin and beta noris. Qualifiers: Chest pain type: precordial pain Qualified Code(s): R07.2 - Precordial pain (2) Cancer related pain Current Visit: Yes Status: Acute Assessment and plan: Patient in severe abdominal pain due to her pancreatic cancer. Will treat with intravenous narcotic medications. We will also resume her pain medication regimen. (3) Hypertension Current Visit: No Status: Acute Assessment and plan: Uncontrolled. Likely related to pain. Will resume home medications. Will use intravenous medications to control blood pressure if needed. Monitor blood pressure closely. Qualifiers: Hypertension type: essential hypertension Qualified Code(s): I10 - Essential (primary) hypertension (4) Pancreatic adenocarcinoma Current Visit: No Status: Chronic Assessment and plan: She related follow-up with oncology after discharge for further management of this condition. For now symptomatic care. (5) Coronary artery disease Current Visit: Yes Status: Chronic Assessment and plan: Medical management as above Qualifiers: Coronary Disease-Associated Artery/Lesion type: [place] artery [place] vs. transplanted heart: [place] heart Associated angina: with other forms of angina Qualified Code(s): I25.118 - Atherosclerotic heart disease of [place] coronary artery with other forms of angina pectoris (6) Severe protein-calorie malnutrition Current Visit: Yes Status: Chronic Assessment and plan: Poor nutritional status due to pancreatic cancer and lack of appetite. Will consult nutrition/dietitian. Nutritional supplements. Internal Medicine - CN: HPI - Data of Consult Patient: known to practice within the last 3 years Requesting Physician: Aj Frazier, - Consult Narrative Reason for consult: Medical management History of present illness: Ms. Lynn is a 60 year old female with history of recently diagnosed pancreatic adenocarcinoma, hypertension, ME, CVA presented to the ER with complaints of chest pain. Located in her lower chest rated 10 out of 10 in severity and nonradiating that began yesterday and was progressively worsening. She has also been dealing with abdominal pain that is 10 out of 10 in severity related to her pancreatic cancer. She denies any shortness of breath, palpitations or hemoptysis, cough or fever. She is in the process of for pancreatic cancer and underwent PET CT scan yesterday. Past Med Surg Social Fam HX - Past Medical History Attestation: Yes The following information was validated with the patient. Medical history: cancer, CVA, hypertension, myocardial infarction, seizures Psychiatric history: anxiety, panic disorder - Past Surgical History Surgical History: appendectomy, breast surgery, cholecystectomy, colostomy, herniorrhaphy, orthopedic, other - Social History Smoking Status: Current some day smoker Smokeless Tobacco Status: No Alcohol use: none Drug use: none - Family History Mother Hx Family Cancer: Yes (Unspecified type) Father Living Status: Hx Family Cardiac Disorders: Yes Hx Family Respiratory Disorders: No Hx Family Cancer: Yes Hx Family GI Disorders: No Hx Family Endocrine Disorder: No Hx Family Neuromuscular Disorders: No Hx Family Neurologic Disorders: Yes Hx Family HEENT Disorders: No Hx Family Autoimmune Disorders: No Sister Hx Family Cardiac Disorders: Yes (Myocardial infarction) - Constitutional Constitutional: anorexia, no chills, no fatigue, no fever(s), no lethargy - EENT Ears: no ear discharge, no ear pain, no tinnitus Nose, mouth and throat: no bleeding gums, no change in voice, no mouth lesions, no sinus pain, no sinus pressure, no sore throat - Cardiovascular Cardiovascular ROS IM: chest pain, no dyspnea, no dyspnea on exertion, no edema , no lightheadedness, no orthopnea, no palpitations, no paroxysmal nocturnal dyspnea - Respiratory Respiratory: no cough, no dyspnea, no hemoptysis, no dyspnea on exertion, no wheezing, no chest congestion, no excessive phlegm production, no change in phlegm color - Gastrointestinal Gastrointestinal: abdominal pain, no loose stools, no melena, no nausea, no vomiting - Musculoskeletal Musculoskeletal ROS IM: no numbness, no stiffness, no tingling - Neurological Neurological ROS: no abnormal movements, no abnormal speech, no confusion, no focal weakness - Psychiatric Psychiatric: depression - Endocrine Endocrine IM: no heat intolerance, no polydipsia, no polyphagia, no polyuria Internal Medicine - CN: Meds Albuterol Sulfate [Ventolin Hfa] 2 puff IH Q4HR 04/05/16 [History] Atorvastatin [Lipitor] 40 mg PO HS 04/05/16 [History] Clopidogrel [Plavix] 75 mg PO DAILY 04/05/16 [History] Cyanocobalamin (Vitamin B-12) [Vitamin B-12] 100 mcg PO DAILY 04/05/16 [History] Fluticasone/Vilanterol [Breo Ellipta 100-25 Mcg INH] 1 inh IH DAILY 04/05/16 [ History] Ibuprofen [Motrin] 600 mg PO TID PRN 04/05/16 [History] Omeprazole [PriLOSEC] 20 mg PO DAILY 04/05/16 [History] Ropinirole HCl [Requip] 0.25 mg PO HS 04/05/16 [History] Folic Acid 1 mg PO DAILY #30 tablet 04/15/16 [Rx] Metoprolol [Lopressor] 12.5 mg PO BID #60 tablet 04/15/16 [Rx] Morphine Sulfate SR (12 HR) [MS Contin] 60 mg PO Q8H #90 tablet.er 04/15/16 [Rx] Naloxegol Oxalate [Movantik] 25 mg PO DAILY #30 tablet 04/15/16 [Rx] OxyCODONE Immed Rel [Roxicodone 5 MG] 20 mg PO Q3HR PRN #240 tablet 04/15/16 [Rx ] Polyethylene Glycol 3350 [MiraLAX] 17 gm PO DAILY #30 powd.pack 04/15/16 [Rx] Sennosides/Docusate Sodium [Senna Plus] 2 each PO BID #120 tablet 04/15/16 [Rx] 0.9 % Sodium Chloride [Normal Saline Flush] 10 ml IVP DAILY #30 syringe [Rx] HYDROmorphone [Dilaudid] 2 mg PO Q8HR #60 tablet 04/27/16 [Rx] OxyCODONE Immed Rel [Roxicodone 5 MG] 10 mg PO Q4HR PRN #120 tablet 05/03/16 [Rx ] Pantoprazole Sodium [Protonix] 40 mg PO DAILY 05/05/16 [History] Allergies codeine Adverse Reaction (Severe, Verified 04/05/16 05:51) shortness of breath Internal Medicine - CN: Exam - Constitutional Vitals: Temp Pulse Resp BP Pulse Ox 97.8 F 79 18 190/115 100 05/05/16 13:13 05/05/16 13:13 05/05/16 13:13 05/05/16 13:13 05/05/16 13:13 General appearance IM: Present: cooperative, A&O X 3, underweight, answers questions appropriately Exam: Severe distress - Eye Eye exam: Present: EOMI, PERRL - Neck Neck exam general surgery: Present: full ROM, normal inspection, trachea midline - Respiratory Respiratory exam: Present: CTAB, prolonged expiratory phase. Absent: chest wall tenderness, rhonchi, wheezes - Cardiovascular Cardiovascular exam IM: Present: RRR, +S1, +S3. Absent: systolic murmur - GI/Abdominal GI/Abdominal exam IM: Present: normal bowel sounds, soft, tenderness ( Epigastric and midabdominal), no peritoneal signs - Extremities Exam Extremities exam IM: Present: full ROM, normal capillary refill. Absent: pedal edema, tenderness - Neurological Exam Neurological exam: Present: alert, CN II-XII intact, oriented X3, strengths equal and symetr throughout. Absent: facial droop, speech deficit - Skin Skin exam IM: Present: dry, intact Internal Medicine - CN: Reslt - Labs CBC & Chem 7: 05/05/16 11:37 05/05/16 11:37 Labs: Short CBC 05/05/16 Range/Units 11:37 WBC 10.8 D (4.3-11.1) K/mcL Hgb 12.9 D (11.5-15.4) g/dL Hct 39.9 (35.3-44.9) % Plt Count 276 (140-400) K/mcL Neutrophils # 7.3 (1.6-8.9) K/mcL BMP 05/05/16 11:37 Sodium 127 L Potassium 4.1 Chloride 98 Carbon Dioxide 18 L BUN 21 H Creatinine 0.74 Glucose 129 H Calcium 8.5 L Cardiac Enzymes 05/05/16 Range/Units 11:37 Troponin I 0.15 H* (0-0.03) ng/mL Liver Function 05/05/16 Range/Units 11:37 Total Bilirubin 1.7 H D (0.2-1.2) mg/dL Direct Bilirubin 0.8 H (0.0-0.5) mg/dL AST 30 (5-34) Units/L ALT 16 (0-55) Units/L Alkaline Phosphatase 124 (38-126) Units/L Albumin 3.2 L (3.5-5.0) g/dL - ABG Interpretation ABG results: PT/INR, D-dimer PT 14.9 Seconds (9.4-12.1) H 05/05/16 12:06 - EKG Data -: EKG Interpreted by Myself EKG shows normal: sinus rhythm - EKG Data Interpretation IM: suggestive of ischemia EKG comments: 05/05/16 15:05 ST depression noted in the anterior , inferior and lateral leads Consult Discharge Plan - Plan Referrals: NO,PCP [Primary Care Provider] - - Attending Attestation This document has been at least partially created by ImageTag recognition technology by Dr. Canseco. Errors in grammar, wording or other phrases may exist. If errors are found after the documentation is signed, they will be addressed individually in the addendum section of this document when appropriate.
[2016-05-05] MEDS ORDERED: *HR* HYDROmorphone 2 MG/ML SYRINGE IVP PRN ×4 (15:04→21:51)
[2016-05-05] MEDS: *HR* OxyCODONE Immed Rel 5 MG TABLET PO PRN (19:56)
[2016-05-05] MEDS: *HR* Heparin 5,000 UNIT/ML VIAL IVP PRN (20:59)
[2016-05-05] MEDS ORDERED: rOPINIRole 0.25 MG TABLET PO SCH (21:00)
[2016-05-05] MEDS ORDERED: Magnesium Sulfate 1 GM in D5% in Water 100 ML IVPB ONE (21:53)
[2016-05-05] MEDS ORDERED: Melatonin 3 MG TABLET PO SCH (22:00)
[2016-05-05] MEDS ORDERED: Mirtazapine 15 MG TABLET PO SCH (22:00)
[2016-05-05] MEDS: *HR* Morphine Sulfate SR (12 HR) 60 MG TABLET.ER PO SCH (22:48)
[2016-05-05] MEDS: Pregabalin 25 MG CAPSULE PO SCH (23:17)
[2016-05-06] MEDS: *HR* OxyCODONE Immed Rel 5 MG TABLET PO PRN (03:36)
[2016-05-06 03:55] LABS: Basophils % 0.4 %; Eosinophils # 0.1 K/mcL (0.0-0.6); Eosinophils % 0.8 %; Hematocrit 37.4 % (35.3-44.9); Hemoglobin 12.2 g/dL (11.5-15.4); Immature Granulocytes % 0.3 % (0-4); Lymphocytes # 1.7 K/mcL (0.6-4.6); Lymphocytes % 20.9 %; Mean Corpuscular HGB Conc 32.6 g/dL (31.6-35.5); Mean Corpuscular Hemoglobin 27.2 pg (28.0-33.3); Mean Corpuscular Volume 83.5 fL (83.0-100.0); Mean Platelet Volume 11.1 fL (9.4-12.4); Monocytes # 0.9 K/mcL (0.0-1.3); Monocytes % 11.6 %; Neutrophils # 5.3 K/mcL (1.6-8.9); Platelet Count 218 K/mcL (140-400); Red Blood Count 4.48 M/mcL (3.82-4.97); Red Cell Distribution Width 16.7 % (11.5-14.5)
[2016-05-06 04:06] LABS: BUN/Creatinine Ratio 35 (6-26); Blood Urea Nitrogen 22 mg/dL (7-20); Calcium 8.3 mg/dL (8.6-10.8); Carbon Dioxide 23 mEq/L (19-29); Chloride 100 mEq/L (98-109); Glucose 105 mg/dL (70-99); Osmolality,Calculated 278 (280-300); Potassium 3.5 mEq/L (3.5-4.5); Sodium 132 mEq/L (136-145); eGFR For African Americans > 60 (> 60); eGFR For Non-African Americans > 60 (> 60)
[2016-05-06] MEDS: *HR* Heparin 5,000 UNIT/ML VIAL IVP PRN (05:02)
[2016-05-06] MEDS: *HR* Morphine Sulfate SR (12 HR) 60 MG TABLET.ER PO SCH (06:17)
[2016-05-06] MEDS ORDERED: (Fluticasone/Vilanterol [Breo Ellipta 100-25 Mcg Inh]) IH SCH (09:00)
[2016-05-06] MEDS ORDERED: Folic Acid 1 MG TABLET PO SCH (09:00)
[2016-05-06] MEDS ORDERED: Cyanocobalamin (B-12) 1,000 MCG TABLET PO SCH (09:00)
--- NOTE | 2016-05-06 09:01 | Cardiology Progress Note ---
Date of Encounter: 05/06/16 Time of Encounter: 08:45 Assessment and Plan (1) Acute [facility] Current Visit: Yes Status: Acute Ischemic ECG changes in ED: avR elevation and diffuse ST depression, concern for STEMI. LHC demonstrated moderate non-obstructive CAD with preserved LV function. Occluded right iliac. This does not represent a STEMI. No issues with bilateral groin cath site--dressings are clean, dry, and intact. +2 DP/PT pulses bilaterally. Will stop IV hepain gtt. Start daily asa. Continue home medications including plavix and statin. No betablocker due to hypotension. Recommend outpatient follow-up with Dr. Villagran regarding occluded right iliac. She is not a candidate for cardiac rehab due to severe malnourished and mets pancreatic cancer. No further inpatient recommendations from Cardiology standpoint, recommend further work-up for severe/worsening abdominal pain. Plan communicated with Dr. Jovi Grace. Discussed with Dr. Aj Frazier, Cardiology will sign-off, please call with questions. Qualifiers: Myocardial infarction ST status: non-ST elevation myocardial infarction Qualified Code(s): I21.4 - Non-ST elevation (NSTEMI) myocardial infarction (2) Severe protein-calorie malnutrition Current Visit: Yes Status: Chronic Nutrition consulted. (3) Abdominal pain Current Visit: Yes Status: Acute Defer further mgmt to primary service. Qualifiers: Abdominal location: generalized Qualified Code(s): R10.84 - Generalized abdominal pain (4) Adenocarcinoma of pancreas Current Visit: Yes Status: Acute Recent diagnosis. Has not started outpatient treatment. Palliative care consulted and following. Patient reports has outpatient follow-up with Dr. Streeter on Monday. Discussion w patient/family: The assessment and plan as outlined above was discussed with the patient and/or family members who expressed understanding and agreement. All questions were answered. Thank you for involving us in the care of your patient. Please call with any questions. The patient will be discussed and reviewed with Dr. Aj Frazier; Cardiology will sign-off, please call with questions. Subjective Principal diagnosis: AMI Interval history: Seen and examined, patient sitting up at bedside. Denies chest pain or discomfort overnight or this AM. Complains of severe abdominal pain that has progressively worsened over the past few days. No issues with bilateral groin cath access sites. Objective Vital Signs, Last 4 Hours Temp Pulse Resp BP Pulse Ox 05/06/16 08:15 98.3 F 101 16 106/77 99 05/06/16 05:45 98.2 F 85 12 91/60 100 General: Conversant, Other (cachectic) HEENT: Atraumatic, Normocephaly Cardiac: Reg Rate and Rhythm (tachycardiac), Normal S1 and S2 Lungs: Other (Diminished) Neuro: Alert and responsive Abdomen: Soft Extremities: No Edema, Normal Pulses Results 05/06/16 03:32 05/06/16 03:32 Lab Results 05/05/16 05/05/16 05/05/16 11:37 11:37 11:37 WBC 10.8 D Hgb 12.9 D Hct 39.9 Plt Count 276 INR APTT Sodium 127 L Potassium 4.1 Chloride 98 Carbon Dioxide 18 L BUN 21 H Creatinine 0.74 Glucose 129 H Calcium 8.5 L Magnesium 1.5 L Total Bilirubin 1.7 H D AST 30 ALT 16 Alkaline Phosphatase 124 Troponin I 0.15 H* Lipase 13 05/05/16 05/05/16 05/06/16 12:06 20:02 03:32 WBC 7.9 Hgb 12.2 Hct 37.4 Plt Count 218 INR 1.4 APTT 28.5 25.5 L Sodium Potassium Chloride Carbon Dioxide BUN Creatinine Glucose Calcium Magnesium Total Bilirubin AST ALT Alkaline Phosphatase Troponin I Lipase 05/06/16 05/06/16 03:32 03:32 WBC Hgb Hct Plt Count INR APTT 28.6 Sodium 132 L Potassium 3.5 Chloride 100 Carbon Dioxide 23 BUN 22 H Creatinine 0.62 Glucose 105 H Calcium 8.3 L Magnesium Total Bilirubin AST ALT Alkaline Phosphatase Troponin I Lipase Active Medications Atorvastatin Calcium (Lipitor) 40 mg PO HS DAXA Stop: 11/04/16 21:01 Last Admin: 05/05/16 19:56 Dose: 40 mg Clopidogrel Bisulfate (Plavix) 75 mg PO DAILY DAXA Stop: 11/05/16 09:01 Cyanocobalamin (Vitamin B12) 1,000 mcg PO DAILY DAXA Stop: 11/05/16 09:01 Dronabinol (Marinol) 2.5 mg PO BIDLS DAXA Stop: 11/05/16 12:01 Folic Acid (Folic Acid) 1 mg PO DAILY DAXA Stop: 11/05/16 09:01 Heparin Sodium (Porcine) (Heparin) 2,100 unit 60 unit/kg (2100 unit) IVP Q6HR PRN PRN Reason: SEE COMMENTS Stop: 11/04/16 13:32 Last Admin: 05/06/16 05:02 Dose: 2,100 unit Heparin Sodium (Porcine) (Heparin) 1,000 unit 30 unit/kg (1000 unit) IVP Q6H PRN PRN Reason: SEE COMMENTS Stop: 11/04/16 13:32 Hydralazine HCl (Hydralazine) 10 mg IVP Q6HR PRN PRN Reason: Hypertension Stop: 11/04/16 15:16 Hydromorphone HCl (Dilaudid) 2 mg IVP Q2H PRN PRN Reason: Pain 8-10 Stop: 11/04/16 17:47 Last Admin: 05/06/16 00:44 Dose: 2 mg Heparin Sodium/Dextrose (Heparin 25,000 Unit/500 Ml D5w) 25,000 unit in 500 mls @ 8.28 mls/hr IVC .Q24H DAXA; 12 UNIT/KG/HR PRN Reason: Protocol Stop: 11/04/16 13:46 Last Titration: 05/06/16 04:59 Dose: 20.28 unit/kg/hr, 14 mls/hr Melatonin (Melatonin) 3 mg PO HS DAXA Stop: 11/04/16 22:01 Last Admin: 05/05/16 22:48 Dose: 3 mg Metoprolol Tartrate (Lopressor) 12.5 mg PO BID DAXA Stop: 11/04/16 21:01 Last Admin: 05/05/16 22:48 Dose: Not Given Mirtazapine (Remeron) 7.5 mg PO HS DAXA Stop: 11/04/16 22:01 Last Admin: 05/05/16 22:47 Dose: 7.5 mg Morphine Sulfate (Ms Contin) 60 mg PO Q8H DAXA Stop: 11/04/16 21:50 Last Admin: 05/06/16 06:17 Dose: 60 mg (Fluticasone/Vilanterol [Breo Ellipta 100-25 Mcg Inh]) 1 inh IH DAILY DAXA Stop: 11/05/16 09:01 Omeprazole (Prilosec) 20 mg PO BID DAXA PRN Reason: Protocol Stop: 11/05/16 09:01 Ondansetron HCl (Zofran) 4 mg IVP Q6HR PRN; Protocol PRN Reason: Nausea And Vomiting Stop: 11/04/16 12:11 Last Admin: 05/05/16 22:53 Dose: 4 mg Oxycodone HCl (Roxicodone) 20 mg PO Q4HR PRN PRN Reason: Pain 4-7 Stop: 11/04/16 17:47 Last Admin: 05/06/16 03:36 Dose: 20 mg Pregabalin (Lyrica) 25 mg PO TID DAXA Stop: 11/04/16 22:01 Last Admin: 05/05/16 23:17 Dose: 25 mg Ropinirole HCl (Requip) 0.25 mg PO HS DAXA Stop: 11/04/16 21:01 Last Admin: 05/05/16 19:56 Dose: 0.25 mg - Imaging and Cardiology Echo: report reviewed Cardiac cath: report reviewed Other Results: 12 hour tele: avg HR=94 SR. - EKG Interpretation EKG results cardiology: personally reviewed Consult Discharge Plan - Plan Referrals: NO,PCP [Primary Care Provider] -
--- NOTE | 2016-05-06 09:02 | Event Note ---
Date of Encounter: 05/06/16 Time of Encounter: 09:00 - Cardiology Event Note Discussed patient with Dr. Jovi Grace who will accept patient to Hospitalist service. Order placed. Discussed with Dr. Aj Frazier who agrees with plan.
[2016-05-06] MEDS: Pregabalin 25 MG CAPSULE PO SCH ×2 (09:55→16:37)
[2016-05-06] MEDS ORDERED: Aspirin Enteric Coated 81 MG Tablet PO SCH (10:00)
[2016-05-06] MEDS ORDERED: Sennosides/Docusate Sodium TABLET PO SCH (10:45)
--- NOTE | 2016-05-06 10:59 | ECHO - Doppler Report ---
Echocardiogram Name: Brennan Lynn Date of Study: 05/05/2016 Date: 1955 Ht: 66.0 in Medical Record#: [id number] Age: 60 Wt: 76.0 lb Gender: Female BSA: 1.33 Order #: [id number] Location: [facility] Room #: [id number] Reading Physician: Andrzej Mckeon DO, [facility], OLIVIA MONAE Hospital Carrier: Karma Lobato RDCS Ordering Physician: Velasquez Villagran MD, [facility] Primary Physician: None Indications: ACS Impressions: LVEF 70%. Normal LV chamber size, wall thickness and function. Mild left ventricular diastolic dysfunction. Normal right ventricular structure and function. Mild mitral regurgitation. No evidence of pulmonary hypertension. RVSP not well obtained due to lack of adequate TR jet. Left Ventricular Wall Motion: Rest Echo Findings All wall segments showed normal motion. Findings: Study Quality * Technically adequate exam. ECG Findings * Sinus tachycardia. Left Ventricle * LVEF 70%. * Normal LV chamber size, wall thickness and function. * Mild left ventricular diastolic dysfunction. Right Ventricle * Normal right ventricular structure and function. Left Atrium * Normal left atrial size. Right Atrium * Normal right atrial size. Interatrial Septum * No evidence of PFO by color Doppler. Aortic Valve * Trileaflet aortic valve with normal function. * No aortic regurgitation. * No aortic stenosis. Mitral Valve * Mildly thickened mitral valve leaflets. Commisures are mildly calclified. * Mild mitral regurgitation. * No mitral stenosis. Tricuspid Valve * Normal tricuspid valve structure and function. * Trace tricuspid regurgitation. * No evidence of pulmonary hypertension. RVSP not well obtained due to lack of adequate TR jet. Pulmonic Valve * Normal pulmonic valve structure and function. * No pulmonic regurgitation. Aorta * Normally sized aortic root. Pericardium * The pericardium appears normal. IVC * Normal IVC dimensions and inspiratory collapse. Pulmonary Artery * Normal visualized portions of the main pulmonary artery. History Hypertension Family History of CAD History of CAD/PTCA Myocardial Infarction 11/21/2014 a Previous Echo was performed. Measurements: BP: 190/ 115 2D Normal Values RVIDd: 2.47 cm <2.7 cm IVSd: 1.02 cm 0.6 - 1.0 cm LVIDd: 3.56 cm 3.7 - 5.6 cm LVPWd: 1.19 cm 0.6 - 1.1 cm LVIDs: 2.04 cm 1.5 - 3.6 cm AO: 2.00 cm < 4.0 cm LA: 1.90 cm 2.0 - 4.0cm %FS: 42.70 cm >25 % LA volume: 26 Mitral Valve Peak E:.66 m/sec Peak A:.74 m/sec E/A Ratio:0.9 Peak E' Lat Maruo:7.29 cm/s Peak E' Med Mauro:5.98 cm/s E/E' Lat Ratio:9.1 E/E' Med Ratio:11 Tricuspid Valve TV Regurg Peak Grad: 5.00mmHg TV Regurg Peak Mauro: 1.11m/sec Updated by Andrzej Mckeon DO, YASMIN, OLIVIA MONAE on 05/06/2016 10:53:59 AM electronically signed on 05/06/2016 10:54:28 AM with status of Final Wall Motion [place]: 1=Normal, 2=Hypokinesis, 3=Akinesis, 4=Dyskinesis, 5=Aneurysmal, 6=Hyperkinetic, X=Not Visualized (Blank)=Missing
--- NOTE | 2016-05-06 11:17 | Internal Med Progress Note ---
Date of Encounter: 05/06/16 Time of Encounter: 11:15 - Assessment and plan (1) Pancreatic adenocarcinoma Current Visit: No Status: Chronic Assessment and plan: Metastatic pancreatic adenocarcinoma The patient desires to continue testing, was a scheduled to have a PET scan as an outpatient. Also she was supposed to see Dr. Streeter on Monday and is requesting to see him during her hospitalization. Would like to establish a plan with oncology. Positive care service following the case The patient is severely malnourished and weak, we will continue TPN during her hospitalization Continue MS Contin 75 mg every 8 hours Continue mirtazapine and Marinol (2) Abdominal pain Current Visit: Yes Status: Acute Qualifiers: Abdominal location: generalized Qualified Code(s): R10.84 - Generalized abdominal pain (3) Severe protein-calorie malnutrition Current Visit: Yes Status: Chronic Assessment and plan: Start TPN (4) ST elevation myocardial infarction (STEMI) Current Visit: Yes Status: Acute Assessment and plan: Initially admitted for possible STEMI, ruled out by cardiac catheterization, did not show any obstruction, no stents were placed Cardiology signed off and transfer care to our service Discontinued heparin drip, continue Plavix and statin Qualifiers: Involved coronary artery: unspecified coronary artery Qualified Code(s): I21.3 - ST elevation (STEMI) myocardial infarction of unspecified site (5) History of stroke Current Visit: No Status: Chronic Assessment and plan: Continue aspirin (6) Hypertension Current Visit: No Status: Acute Assessment and plan: Stable, continue metoprolol Qualifiers: Hypertension type: essential hypertension Qualified Code(s): I10 - Essential (primary) hypertension - Subjective Interval history: [place] severe abdominal pain mainly in the right upper quadrant, denies any chest pain or shortness of breath at the moment. No dysuria, no fevers - Constitutional Vitals: Temp Pulse Resp BP Pulse Ox 98 F 89 16 100/72 100 05/06/16 11:03 05/06/16 11:03 05/06/16 11:03 05/06/16 11:03 05/06/16 11:03 General appearance: Present: cachectic, cooperative, A&O X 3, underweight, answers questions appropriately - Head Head exam: Present: atraumatic, normocephalic - Eye Eye exam: Present: PERRL, conjuntiva pink, sclera anicteric Pupils: Present: PERRL - Neck Neck exam general surgery: Present: supple, trachea midline. Absent: lymphadenopathy - Respiratory Respiratory exam: Present: CTAB. Absent: accessory muscle use, rales, rhonchi, wheezes - Cardiovascular Cardiovascular exam: Present: RRR, +S1, +S2. Absent: diastolic murmur, gallop, rubs, systolic murmur - GI/Abdominal GI/Abdominal exam: Present: distended (Distended, tender to touch in the right upper quadrant, no rebound), normal bowel sounds, soft, no peritoneal signs. Absent: tenderness - Extremities Exam Extremities exam: Present: warm, radial pulses palpable and symetrical. Absent : calf tenderness, cyanotic, pedal edema - Neurological Exam Neurological exam: Present: CN II-XII intact, oriented X3, no focal deficits. Absent: pronater drift, facial droop, speech deficit - Skin Skin exam: Present: dry, intact Additional comments: Port-A-Cath in the left upper chest and PICC line in the left upper extremity Internal Medicine: Result - Labs CBC & Chem 7: 05/06/16 03:32 05/06/16 03:32 Labs: Short CBC 05/05/16 05/06/16 Range/Units 11:37 03:32 WBC 10.8 D 7.9 (4.3-11.1) K/mcL Hgb 12.9 D 12.2 (11.5-15.4) g/dL Hct 39.9 37.4 (35.3-44.9) % Plt Count 276 218 (140-400) K/mcL Neutrophils # 7.3 5.3 (1.6-8.9) K/mcL BMP 05/05/16 05/06/16 11:37 03:32 Sodium 127 L 132 L Potassium 4.1 3.5 Chloride 98 100 Carbon Dioxide 18 L 23 BUN 21 H 22 H Creatinine 0.74 0.62 Glucose 129 H 105 H Calcium 8.5 L 8.3 L Cardiac Enzymes 05/05/16 Range/Units 11:37 Troponin I 0.15 H* (0-0.03) ng/mL Liver Function 05/05/16 Range/Units 11:37 Total Bilirubin 1.7 H D (0.2-1.2) mg/dL Direct Bilirubin 0.8 H (0.0-0.5) mg/dL AST 30 (5-34) Units/L ALT 16 (0-55) Units/L Alkaline Phosphatase 124 (38-126) Units/L Albumin 3.2 L (3.5-5.0) g/dL - ABG Interpretation ABG results: PT/INR, D-dimer PT 14.9 Seconds (9.4-12.1) H 05/05/16 12:06 Consult Discharge Plan - Plan Referrals: NO,PCP [Primary Care Provider] -
[2016-05-06] MEDS ORDERED: D10% in Water 500 ML IV PRN (11:29)
[2016-05-06] MEDS ORDERED: *HR* HYDROmorphone (PF) 1 MG/ML SYRINGE IVP PRN (11:53)
--- NOTE | 2016-05-06 11:59 | Event Note ---
Date of Encounter: 05/06/16 Time of Encounter: 11:30 Patient's seen. PET scan reviewed. Discussed findings with Dr. Khoury. No acute issues from pancreatic mass point a few. Patient will be referred to Pancreato- biliary surgeon at [facility] by Dr. Khoury for possible [place] as an outpatient in the next week or so. follow-up with me on an as needed basis but no need to see me this coming Monday
--- NOTE | 2016-05-06 12:36 | Palliative Progress Note ---
Date of Encounter: 05/06/16 Time of Encounter: 11:00 - Time Spent With Patient Total time spent is greater than 50% in coordination of care (as documented) at patient's floor/unit and/or counseling patient: - Constitutional Vitals: Abnormal lab results MCH 27.2 pg (28.0-33.3) L 05/06/16 03:32 RDW 16.7 % (11.5-14.5) H 05/06/16 03:32 PT 14.9 Seconds (9.4-12.1) H 05/05/16 12:06 Sodium 132 mEq/L (136-145) L 05/06/16 03:32 BUN 22 mg/dL (7-20) H 05/06/16 03:32 BUN/Creatinine Ratio 35 (6-26) H 05/06/16 03:32 Glucose 105 mg/dL (70-99) H 05/06/16 03:32 Calculated Osmolality 278 (280-300) L 05/06/16 03:32 Calcium 8.3 mg/dL (8.6-10.8) L 05/06/16 03:32 Magnesium 1.5 mg/dL (1.6-2.6) L 05/05/16 11:37 Total Bilirubin 1.7 mg/dL (0.2-1.2) H D 05/05/16 11:37 Direct Bilirubin 0.8 mg/dL (0.0-0.5) H 05/05/16 11:37 Troponin I 0.15 ng/mL (0-0.03) H* 05/05/16 11:37 Albumin 3.2 g/dL (3.5-5.0) L 05/05/16 11:37 Globulin 5.0 g/dL (2.4-3.5) H 05/05/16 11:37 Albumin/Globulin Ratio 0.6 (1.1-2.2) L 05/05/16 11:37 Palliative Quality Code Status: 05/06/16 11:07 CODE [Resuscitation Status: Active] [RES] Routine Comment: Resuscitation Status: Full Code - Labs CBC & Chem 7: 05/06/16 03:32 05/06/16 03:32 Labs: Laboratory Results - last 24 hr 05/05/16 05/05/16 05/06/16 11:37 20:02 03:32 WBC 7.9 RBC 4.48 Hgb 12.2 Hct 37.4 MCV 83.5 MCH 27.2 L MCHC 32.6 RDW 16.7 H Plt Count 218 MPV 11.1 Immature Gran % 0.3 Seg Neutrophils % 66.0 Lymphocytes % 20.9 Monocytes % 11.6 Eosinophils % 0.8 Basophils % 0.4 Neutrophils # 5.3 Lymphocytes # 1.7 Monocytes # 0.9 Eosinophils # 0.1 Basophils # 0.0 APTT 25.5 L Sodium 127 L Potassium 4.1 Chloride 98 Carbon Dioxide 18 L BUN 21 H Creatinine 0.74 Est GFR ( Amer) > 60 Est GFR (Non-Af Amer) > 60 BUN/Creatinine Ratio 28 H Glucose 129 H Calculated Osmolality 269 L Calcium 8.5 L Magnesium 1.5 L Total Bilirubin 1.7 H D Direct Bilirubin 0.8 H Indirect Bilirubin 0.9 AST 30 ALT 16 Alkaline Phosphatase 124 Serum Total Protein 8.2 Albumin 3.2 L Globulin 5.0 H Albumin/Globulin Ratio 0.6 L Lipase 13 05/06/16 05/06/16 03:32 03:32 WBC RBC Hgb Hct MCV MCH MCHC RDW Plt Count MPV Immature Gran % Seg Neutrophils % Lymphocytes % Monocytes % Eosinophils % Basophils % Neutrophils # Lymphocytes # Monocytes # Eosinophils # Basophils # APTT 28.6 Sodium 132 L Potassium 3.5 Chloride 100 Carbon Dioxide 23 BUN 22 H Creatinine 0.62 Est GFR ( Amer) > 60 Est GFR (Non-Af Amer) > 60 BUN/Creatinine Ratio 35 H Glucose 105 H Calculated Osmolality 278 L Calcium 8.3 L Magnesium Total Bilirubin Direct Bilirubin Indirect Bilirubin AST ALT Alkaline Phosphatase Serum Total Protein Albumin Globulin Albumin/Globulin Ratio Lipase - ABG Interpretation ABG results: PT/INR, D-dimer PT 14.9 Seconds (9.4-12.1) H 05/05/16 12:06 Consult Discharge Plan - Plan Referrals: NO,PCP [Primary Care Provider] -
--- NOTE | 2016-05-06 12:42 | Palliative - Consult Note ---
Date of Encounter: 05/06/16 Time of Encounter: 11:00 - Assessment and Plan (1) Cancer related pain Current Visit: Yes Status: Acute Assessment and plan: Will increase MS Contin to 75mg every 8 hours. By office note - Oncologist had increased at last visit. Maintain po Oxycodone for breakthrough and IV Hydromorphone for pain unrelieved by the above. However, will decrease IV Dilaudid to 1mg IV as she only takes a 2mg tab at home. Lyrica has also recently been started. Continue to monitor. (2) Therapeutic opioid induced constipation Current Visit: No Status: Acute Assessment and plan: PET scan from last week with significant stool burden. I do not see where she has been on a bowel regimen and she doesn't verbalize being on something consistent. She prefers tablets to anything liquid and she struggles with the volume. Will give dose Dulcolax po and begin Senokot 2 tabs BID. OIC may be contributing to her abd discomfort. Monitor (3) Severe protein-calorie malnutrition Current Visit: Yes Status: Chronic Assessment and plan: TPN will be restarted - she also continues on Marinol and Remeron. Albumin 3.2 which has improved from 1.4 a month ago. (4) Nausea Current Visit: Yes Status: Acute Assessment and plan: Continue Zofran PRN (5) Goals of care, counseling/discussion Current Visit: No Status: Acute Assessment and plan: Patient has had multiple discussions - she still desires aggressive care and desires to be full code. Daughter Kim is medical power of staff attorney. Plans on resuming previous home care on discharge. Palliative-CN HPI - Data of Consult Consult date: 05/06/16 Requesting Physician: Aj Frazier, Primary Care Provider: PCP NO - Consult Narrative History of present illness: Ms. Lynn is a 60 year old female who was brought to ER with c/o chest pain. She has recent diagnosis of adenocarcinoma of pancreas and is known to palliative care team from previous visit. She had biopsy and bile duct stent placed during the last admission. [facility] with suspected MO. Dr. Villagran notes reviewed - no cardiac intervention done and since she has been taken off heparin drip and care transitioned to hospitalist. She had recent PET scan which did not demonstrate metastatic disease. [facility] has been following - pt has port placed but has not had any cancer treatment started as of yet. She was sent home with TPN after last admission and has been receiving home health/therapy since. Upon my visit, pt is awake, alert and conversing with visitors. She c/o abd pain 11/29. C/o constipation and last BM around 3 days ago. C/o generalized weakness. Appears quite cachexic and weak. CC: Aj Frazier, Past Med Surg Social Fam HX - Past Medical History Medical history: cancer, CVA, hypertension, myocardial infarction, seizures Psychiatric history: anxiety, panic disorder - Past Surgical History Surgical History: appendectomy, breast surgery, cholecystectomy, colostomy, herniorrhaphy, orthopedic, other - Social History Smoking Status: Current some day smoker Smokeless Tobacco Status: No Alcohol use: none Drug use: none - Family History Mother Hx Family Cancer: Yes (Unspecified type) Father Living Status: Hx Family Cardiac Disorders: Yes Hx Family Respiratory Disorders: No Hx Family Cancer: Yes Hx Family GI Disorders: No Hx Family Endocrine Disorder: No Hx Family Neuromuscular Disorders: No Hx Family Neurologic Disorders: Yes Hx Family HEENT Disorders: No Hx Family Autoimmune Disorders: No Sister Hx Family Cardiac Disorders: Yes (Myocardial infarction) Medications and Allergies Albuterol Sulfate [Ventolin Hfa] 2 puff IH Q4HR 04/05/16 [History] Atorvastatin [Lipitor] 40 mg PO HS 04/05/16 [History] Clopidogrel [Plavix] 75 mg PO DAILY 04/05/16 [History] Cyanocobalamin (Vitamin B-12) [Vitamin B-12] 100 mcg PO DAILY 04/05/16 [History] Fluticasone/Vilanterol [Breo Ellipta 100-25 Mcg INH] 1 inh IH DAILY 04/05/16 [ History] Ibuprofen [Motrin] 600 mg PO TID PRN 04/05/16 [History] Omeprazole [PriLOSEC] 20 mg PO DAILY 04/05/16 [History] Ropinirole HCl [Requip] 0.25 mg PO HS 04/05/16 [History] Folic Acid 1 mg PO DAILY #30 tablet 04/15/16 [Rx] Metoprolol [Lopressor] 12.5 mg PO BID #60 tablet 04/15/16 [Rx] Morphine Sulfate SR (12 HR) [MS Contin] 60 mg PO Q8H #90 tablet.er 04/15/16 [Rx] Naloxegol Oxalate [Movantik] 25 mg PO DAILY #30 tablet 04/15/16 [Rx] OxyCODONE Immed Rel [Roxicodone 5 MG] 20 mg PO Q3HR PRN #240 tablet 04/15/16 [Rx ] Polyethylene Glycol 3350 [MiraLAX] 17 gm PO DAILY #30 powd.pack 04/15/16 [Rx] Sennosides/Docusate Sodium [Senna Plus] 2 each PO BID #120 tablet 04/15/16 [Rx] 0.9 % Sodium Chloride [Normal Saline Flush] 10 ml IVP DAILY #30 syringe [Rx] HYDROmorphone [Dilaudid] 2 mg PO Q8HR #60 tablet 04/27/16 [Rx] OxyCODONE Immed Rel [Roxicodone 5 MG] 10 mg PO Q4HR PRN #120 tablet 05/03/16 [Rx ] Pantoprazole Sodium [Protonix] 40 mg PO DAILY 05/05/16 [History] Allergies codeine Adverse Reaction (Severe, Verified 04/05/16 05:51) shortness of breath All systems: reviewed and no additional remarkable complaints except as stated ( abd pain, occasional shortness of breath, decreased appetite, weight loss, constipation) Palliative Care-Exam - Constitutional Vitals: Temp Pulse Resp BP Pulse Ox 98 F 89 16 100/72 100 05/06/16 11:03 05/06/16 11:03 05/06/16 11:03 05/06/16 11:03 05/06/16 11:03 General appearance: Present: no acute distress, thin - Head Head Exam: Present: normal inspection, normocephalic - Eye Eye exam: Present: normal appearance, PERRL - ENT ENT exam: Present: mucous membranes moist - Respiratory Respiratory exam: Present: decreased breath sounds, CTAB - Cardiovascular Cardiovascular exam: Present: +S1, +S2 - GI/Abdominal Exam GI/Abdominal exam: Present: diminished bowel sounds, soft, tenderness - Extremities Exam Extremities exam: Present: normal capillary refill, normal inspection - Neurological Exam Neurological exam: Present: alert, oriented X3, strengths equal and symetr throughout Additional comments: generalized weakness - Psychiatric Psychiatric exam: Present: flat affect - Skin Skin exam: Present: dry, warm Internal Medicine - CN: Reslt - Labs CBC & Chem 7: 05/06/16 03:32 05/06/16 03:32 Labs: Short CBC 05/06/16 Range/Units 03:32 WBC 7.9 (4.3-11.1) K/mcL Hgb 12.2 (11.5-15.4) g/dL Hct 37.4 (35.3-44.9) % Plt Count 218 (140-400) K/mcL Neutrophils # 5.3 (1.6-8.9) K/mcL BMP 05/05/16 05/06/16 11:37 03:32 Sodium 127 L 132 L Potassium 4.1 3.5 Chloride 98 100 Carbon Dioxide 18 L 23 BUN 21 H 22 H Creatinine 0.74 0.62 Glucose 129 H 105 H Calcium 8.5 L 8.3 L Liver Function 05/05/16 Range/Units 11:37 Total Bilirubin 1.7 H D (0.2-1.2) mg/dL Direct Bilirubin 0.8 H (0.0-0.5) mg/dL AST 30 (5-34) Units/L ALT 16 (0-55) Units/L Alkaline Phosphatase 124 (38-126) Units/L Albumin 3.2 L (3.5-5.0) g/dL - ABG Interpretation ABG results: PT/INR, D-dimer PT 14.9 Seconds (9.4-12.1) H 05/05/16 12:06 Consult Discharge Plan - Plan Referrals: NO,PCP [Primary Care Provider] - Palliative Quality Palliative Quality: Screen for Code Status: Yes, Screen for Goals of Care: Yes, Screen for Pain: Yes, If Pain Regimen Started, Initiate Bowel Regimen: Yes, Screen for Nausea/Vomitting: Yes Code Status: 05/06/16 11:07 CODE [Resuscitation Status: Active] [RES] Routine Comment: Resuscitation Status: Full Code
--- NOTE | 2016-05-06 14:47 | Discharge Summary ---
Date of Encounter: 05/06/16 Time of Encounter: 14:46 - Discharge Diagnosis (1) Pancreatic adenocarcinoma Priority: Primary Status: Chronic Comments: pancreatic adenocarcinoma (2) Abdominal pain Priority: Secondary Status: Acute Qualifiers: Abdominal location: generalized Qualified Code(s): R10.84 - Generalized abdominal pain (3) Severe protein-calorie malnutrition Priority: Secondary Status: Chronic (4) ST elevation myocardial infarction (STEMI) Priority: Secondary Status: Acute Qualifiers: Involved coronary artery: unspecified coronary artery Qualified Code(s): I21.3 - ST elevation (STEMI) myocardial infarction of unspecified site (5) History of stroke Priority: Secondary Status: Chronic (6) Hypertension Priority: Secondary Status: Acute Qualifiers: Hypertension type: essential hypertension Qualified Code(s): I10 - Essential (primary) hypertension - Discharge Medications Home Medications: Albuterol Sulfate [Ventolin Hfa] 2 puff IH Q4HR 04/05/16 [History] Atorvastatin [Lipitor] 40 mg PO HS 04/05/16 [History] Clopidogrel [Plavix] 75 mg PO DAILY 04/05/16 [History] Cyanocobalamin (Vitamin B-12) [Vitamin B-12] 100 mcg PO DAILY 04/05/16 [History] Fluticasone/Vilanterol [Breo Ellipta 100-25 Mcg INH] 1 inh IH DAILY 04/05/16 [ History] Ibuprofen [Motrin] 600 mg PO TID PRN 04/05/16 [History] Omeprazole [PriLOSEC] 20 mg PO DAILY 04/05/16 [History] Ropinirole HCl [Requip] 0.25 mg PO HS 04/05/16 [History] Folic Acid 1 mg PO DAILY #30 tablet 04/15/16 [Rx] Metoprolol [Lopressor] 12.5 mg PO BID #60 tablet 04/15/16 [Rx] Morphine Sulfate SR (12 HR) [MS Contin] 60 mg PO Q8H #90 tablet.er 04/15/16 [Rx] Naloxegol Oxalate [Movantik] 25 mg PO DAILY #30 tablet 04/15/16 [Rx] OxyCODONE Immed Rel [Roxicodone 5 MG] 20 mg PO Q3HR PRN #240 tablet 04/15/16 [Rx ] Polyethylene Glycol 3350 [MiraLAX] 17 gm PO DAILY #30 powd.pack 04/15/16 [Rx] Sennosides/Docusate Sodium [Senna Plus] 2 each PO BID #120 tablet 04/15/16 [Rx] 0.9 % Sodium Chloride [Normal Saline Flush] 10 ml IVP DAILY #30 syringe [Rx] HYDROmorphone [Dilaudid] 2 mg PO Q8HR #60 tablet 04/27/16 [Rx] OxyCODONE Immed Rel [Roxicodone 5 MG] 10 mg PO Q4HR PRN #120 tablet 05/03/16 [Rx ] Pantoprazole Sodium [Protonix] 40 mg PO DAILY 05/05/16 [History] Allergies/Adverse Reactions: Allergies codeine Adverse Reaction (Severe, Verified 04/05/16 05:51) shortness of breath Procedures/tests Complete & Pending: Procedures Performed prior 72 hours Category Date Time Status ECG 12 lead ECG [ECG] Routine Y 05/05/16 12:15 Ordered EV echocardiogram Routine Y 05/05/16 12:15 Completed Date of admission: 05/05/16 11:33 Primary care physician: PCP NO Consults: 05/05/16 12:15 Consult to Cardiac Rehabilitation-Phase1 [CONS] Routine Comment: Reason for Consult: AMI Call Completed: Yes Consult to Hospitalist [CONS] Routine Consulting Provider: Hospitalist Clifford Reason for Consult: request transfer to hospitalist service Call Completed: Yes Consult to Nurse Navigator [CONS] Routine Comment: 05/05/16 13:11 Consult to Nutrition [CONS] Routine Comment: Consulting Provider: NUTRITION Reason for Dietary Consult: Diet Education 05/06/16 08:56 Consult to Palliative Care [CONS] Routine Comment: Consulting Provider: Palliative Care [place] 05/06/16 11:12 Consult to Gastroenterology [CONS] Routine Consulting Provider: [facility] [place] Reason for Consult: pancreatic mass Call Completed: Yes Consult to Nutrition [CONS] Routine Comment: Consulting Provider: NUTRITION Reason for Dietary Consult: TPN Start and Manage Consult to Oncology [CONS] Routine Consulting Provider: [facility] [place] Reason for Consult: pancreatic mass Call Completed: Yes - Patient Status Disposition: Transfer Critical Access Hosp Condition: Fair - Discharge Instructions Follow Up With: NO,PCP [Primary Care Provider] - Forms: ED Satisfaction Letter Additional Instructions: Transferred to [facility] for possible Whipple procedure - Diet and Activity Activity: increase activity as tolerated Diet: regular diet Hospital course: Ms. Lynn is a 60 year old female with history of recently diagnosed pancreatic adenocarcinoma, hypertension, CA, CVA, presented to the ER with complaints of chest pain. Located in her lower chest rated 10 out of 10 in severity and nonradiating that began the day prior to admission and was progressively worsening. She has also been dealing with abdominal pain that is 10 out of 10 in severity related to her pancreatic cancer. Was admitted by cardiology due to concerns of STEMI. Ischemic ECG changes in ED: avR elevation and diffuse ST depression, concern for STEMI. LHC demonstrated moderate non-obstructive CAD with preserved LV function. Occluded right iliac. This does not represent a STEMI. Was transferred to the hospitalist team. Heparin drip was stopped. PET scan did not show metastases. The patient is severely malnourished and weak, we will continue TPN during her hospitalization Continue MS Contin 75 mg every 8 hours Continue mirtazapine and Marinol The patient requested to be transferred to [facility] to continue her plan of care. Patient will be referred to Pancreato-biliary surgeon at [facility] for possible Whipple Recommend outpatient follow-up with Dr. Villagran regarding occluded right iliac. - Time Spent with Patient Total time spent providing and/or coordinating discharge services: Greater than 30 minutes (40 min) - Constitutional Vitals: Temp Pulse Resp BP Pulse Ox 98 F 89 16 100/72 100 05/06/16 11:03 05/06/16 11:03 05/06/16 11:03 05/06/16 11:03 05/06/16 11:03 General appearance: Present: cachectic, cooperative, A&O X 3, underweight, answers questions appropriately - Head Head exam: Present: atraumatic, normocephalic - Eye Eye exam: Present: PERRL, conjuntiva pink, sclera anicteric Pupils: Present: PERRL - Neck Neck exam general surgery: Present: supple, trachea midline. Absent: lymphadenopathy - Respiratory Respiratory exam: Present: decreased breath sounds, CTAB. Absent: accessory muscle use, rales, rhonchi, wheezes - Cardiovascular Cardiovascular exam: Present: RRR, +S1, +S2. Absent: diastolic murmur, gallop, rubs, systolic murmur - GI/Abdominal GI/Abdominal exam: Present: distended, normal bowel sounds, soft, tenderness ( Right upper quadrant tenderness, no rebound), no peritoneal signs - Extremities Exam Extremities exam: Present: warm, radial pulses palpable and symetrical. Absent : calf tenderness, cyanotic, pedal edema Additional comments: Port-A-Cath in the left upper chest and PICC line in the left upper extremity - Neurological Exam Neurological exam: Present: CN II-XII intact, oriented X3, no focal deficits. Absent: pronater drift, facial droop, speech deficit - Skin Skin exam: Present: dry, intact
[2016-05-06] MEDS ORDERED: *HR* Morphine Sulfate SR (12 HR) 15 MG TABLET.ER PO SCH (16:00)
[2016-05-06] MEDS ORDERED: *HR* Morphine Sulfate SR (12 HR) 60 MG TABLET.ER PO SCH ×2 (16:00→17:44)
[2016-05-06 16:47] VITALS: BP 92/71
[2016-05-06] MEDS ORDERED: Clinimix E 5%-15% SOLUTION 2,000 ML with MVI, adult with vitamin K 10 ML, Magnesium S... IV SCH (17:00)
== END 2016-05-06 19:10 | disposition critical access hospital (66) | DRG 191 ==
LOC: EMEROO 11:12 → ICNU 11:33 → 2NENU 12:13
PROVIDERS: ADMIT Internal Medicine; ATTEND Internal Medicine